=== PATIENT | female | born 1955 | race Caucasian/White ===

== ENCOUNTER 2016-08-22 15:07 | Outpatient (CLI) | payer MEDICARE ==
[2016-08-22 15:37] LABS: Hemoglobin A1c 7.4 % (4.0-6.0)
[2016-08-22 15:42] LABS: ALT (SGPT) 18 U/L (0-55); AST (SGOT) 20 U/L (5-34); Alkaline Phosphatase 70 U/L (40-150); Anion Gap 17 mmol/L (10-20); BUN (Urea Nitrogen) 37 mg/dL (9.8-20.1); Bilirubin, Total 0.4 mg/dL (0.2-1.2); Calc. Creatinine Clearance 0 mL/min (70-130); Calcium 9.4 mg/dL (7.8-10.44); Carbon Dioxide 28 mmol/L (23-31); Chloride 103 mmol/L (98-107); Estimated GFR-MDRD 41; LDL Cholesterol, Calculated 214 mg/dL; Protein, Total 6.9 g/dL (5.8-8.1)
== END 2016-08-22 15:08 | disposition home or self-care (01) ==
LOC: NAV SJFMSP 15:07
PROVIDERS: ATTEND Family Medicine
DX: E13.610 Other specified diabetes mellitus with diabetic neuropathic arthropathy (principal)
CPT/HCPCS: 80053; 80061; 83036; 84439; 84443

== ENCOUNTER 2016-12-10 11:51 | Outpatient (CLI) | payer MEDICARE ==
[2016-12-10 12:34] LABS: Hemoglobin A1c 8.6 % (4.0-6.0)
[2016-12-10 13:01] LABS: ALT (SGPT) 14 U/L (8-55); AST (SGOT) 16 U/L (5-34); Albumin 3.7 g/dL (3.4-4.8); Alkaline Phosphatase 90 U/L (40-150); Anion Gap 14 mmol/L (10-20); BUN (Urea Nitrogen) 26 mg/dL (9.8-20.1); Bilirubin, Total 0.5 mg/dL (0.2-1.2); Calc. Creatinine Clearance 0 mL/min (70-130); Calcium 9.2 mg/dL (7.8-10.44); Carbon Dioxide 31 mmol/L (23-31); Cardiac Risk 4.1 (Less than 4.5); Chloride 100 mmol/L (98-107); Cholesterol 234 mg/dl (< 200 Desired); Estimated GFR-MDRD 47; Globulin 3.1 g/dL (2.4-3.5); Glucose 187 mg/dL (80-115); HDL Cholesterol 57 mg/dL (>60 Neg Risk); LDL Cholesterol, Calculated 148 mg/dL; Potassium 4.8 mmol/L (3.5-5.1); Protein, Total 6.8 g/dL (6.0-8.3); Sodium 140 mmol/L (136-145); Triglycerides 147 mg/dL (Less than 150)
[2016-12-10 13:19] LABS: Free T4 (Free Thyroxine) 0.88 ng/dL (0.70-1.48); Thyroid Stimulating Hormone 1.4023 uIU/mL (0.35-4.94)
== END 2016-12-10 11:52 | disposition home or self-care (01) ==
LOC: NAVSJIPCSP 11:51
PROVIDERS: ATTEND Family Medicine
DX: E78.5 Hyperlipidemia, unspecified (principal); E03.9 Hypothyroidism, unspecified; E13.610 Other specified diabetes mellitus with diabetic neuropathic arthropathy
CPT/HCPCS: 36415; 80053; 80061; 83036; 84439; 84443

== ENCOUNTER 2017-01-16 13:47 | Inpatient (IN) | payer MEDICARE ==
[2017-01-16 14:05] VITALS: BMI 36.8
[2017-01-16] MEDS ORDERED: HumaLOG 300 UNITS/3 ML VIAL SC PRN (16:23)
[2017-01-16] MEDS ORDERED: Ondansetron HCl/PF 4 MG/2 ML Vial IVP PRN (16:23)
[2017-01-16] MEDS ORDERED: Furosemide 40 MG TAB PO SCH (17:00)
[2017-01-16] MEDS: Acetaminophen 500 MG TAB PO SCH (18:24)
[2017-01-16] MEDS: traMADol HCl 50 MG TAB PO PRN (18:25)
[2017-01-16] MEDS ORDERED: Simvastatin 20 MG TAB PO SCH (21:00)
[2017-01-16] MEDS: Levemir Flexpen 100 UNITS/ML PEN SC SCH (22:03)
[2017-01-16] MEDS: rOPINIRole HCl 0.5 MG TAB PO SCH (22:05)
[2017-01-16] MEDS: Atorvastatin Calcium 20 MG TAB PO SCH (22:06)
[2017-01-16] MEDS: Gabapentin 100 MG CAP PO SCH (22:06)
[2017-01-17] MEDS: Acetaminophen 500 MG TAB PO SCH ×5 (00:49→23:37)
[2017-01-17 05:15] LABS: #Basophils 0.1 thou/uL (0.0-0.2); #Eosinphils 0.7 thou/uL (0.0-0.7); #Lymphocytes 1.6 thou/uL (1.20-3.40); #Monocytes 0.7 thou/uL (0.11-0.59); #Neutrophils 5.1 thou/uL (1.40-6.50); %Basophils 1.1 % (0.0-1.0); %Eosinophils 8.9 % (0.0-10.0); %Lymphocytes 19.5 % (21.0-51.0); %Monocytes 8.7 % (0.0-10.0); %Neutrophils 61.7 % (42.0-75.0); Mean Corpuscular HGB CONC 32.5 g/dL (32.0-36.0); Mean Corpuscular Hemoglobin 28.9 pg (27.0-31.0); Mean Corpuscular Volume 89.2 fl (81.0-99.0); Mean Platelet Volume 6.4 fL (7.4-10.4); Platelet Count 252 thou/uL (130-400); RBC Distribution Width 13.2 % (11.5-14.5); Red Blood Cell (RBC) Count 3.11 mill/uL (4.20-5.40); White Blood Cell (WBC) Count 8.3 thou/uL (4.8-10.8)
[2017-01-17 05:31] LABS: Anion Gap 13 mmol/L (10-20); BUN (Urea Nitrogen) 26 mg/dL (9.8-20.1); Calc. Creatinine Clearance 99 mL/min (70-130); Calcium 9.2 mg/dL (7.8-10.44); Carbon Dioxide 32 mmol/L (23-31); Chloride 100 mmol/L (98-107); Estimated GFR-MDRD 57; Glucose 85 mg/dL (80-115); Potassium 4.3 mmol/L (3.5-5.1); Sodium 141 mmol/L (136-145)
[2017-01-17] MEDS: Levothyroxine Sodium 75 MCG TAB PO SCH (05:41)
[2017-01-17] MEDS: Aspirin 325 MG TAB PO SCH (08:36)
[2017-01-17] MEDS: Ascorbic Acid 500 mg Chewable Tablet PO SCH (08:36)
[2017-01-17] MEDS: Docusate 100 MG CAP PO SCH (08:36)
[2017-01-17] MEDS: Gabapentin 100 MG CAP PO SCH ×3 (08:37→21:29)
[2017-01-17] MEDS: Furosemide 20 MG TAB PO SCH (08:37)
[2017-01-17] MEDS: Ferrous Sulfate 325 MG TAB PO SCH (08:37)
[2017-01-17] MEDS: Levemir Flexpen 100 UNITS/ML PEN SC SCH ×2 (08:38→21:29)
[2017-01-17] MEDS: Meclizine HCl 25 MG TAB PO SCH (08:40)
[2017-01-17] MEDS: traMADol HCl 50 MG TAB PO PRN ×2 (08:41→21:33)
[2017-01-17] MEDS ORDERED: Dextrose 5% in Water 1,000 ML IV PRN (11:55)
[2017-01-17] MEDS ORDERED: Dextrose 50% Abboject 50 ML SYRINGE IVP PRN (11:55)
[2017-01-17] MEDS ORDERED: Furosemide 40 MG TAB PO SCH (21:00)
[2017-01-17] MEDS: Atorvastatin Calcium 20 MG TAB PO SCH (21:29)
[2017-01-17] MEDS: rOPINIRole HCl 0.5 MG TAB PO SCH (21:29)
[2017-01-18] MEDS: Levothyroxine Sodium 75 MCG TAB PO SCH (06:22)
[2017-01-18] MEDS: Acetaminophen 500 MG TAB PO SCH ×4 (06:22→23:38)
[2017-01-18] MEDS: Ascorbic Acid 500 mg Chewable Tablet PO SCH (08:29)
[2017-01-18] MEDS: Furosemide 20 MG TAB PO SCH (08:29)
[2017-01-18] MEDS: Docusate 100 MG CAP PO SCH (08:29)
[2017-01-18] MEDS: Ferrous Sulfate 325 MG TAB PO SCH (08:29)
[2017-01-18] MEDS: Aspirin 325 MG TAB PO SCH (08:29)
[2017-01-18] MEDS: Meclizine HCl 25 MG TAB PO SCH (08:30)
[2017-01-18] MEDS: traMADol HCl 50 MG TAB PO PRN ×2 (08:30→21:05)
[2017-01-18] MEDS: Levemir Flexpen 100 UNITS/ML PEN SC SCH ×2 (08:31→21:04)
[2017-01-18] MEDS: Gabapentin 100 MG CAP PO SCH ×3 (08:32→21:05)
[2017-01-18] MEDS: Furosemide 40 MG TAB PO SCH (17:23)
[2017-01-18] MEDS: Atorvastatin Calcium 20 MG TAB PO SCH (21:05)
[2017-01-18] MEDS: rOPINIRole HCl 0.5 MG TAB PO SCH (21:05)
[2017-01-19] MEDS: Acetaminophen 500 MG TAB PO SCH ×3 (06:19→17:45)
[2017-01-19] MEDS: Levothyroxine Sodium 75 MCG TAB PO SCH (06:19)
[2017-01-19] MEDS: Furosemide 20 MG TAB PO SCH (08:03)
[2017-01-19] MEDS: Docusate 100 MG CAP PO SCH (08:04)
[2017-01-19] MEDS: Ferrous Sulfate 325 MG TAB PO SCH (08:04)
[2017-01-19] MEDS: traMADol HCl 50 MG TAB PO PRN ×2 (08:05→17:50)
[2017-01-19] MEDS: Gabapentin 100 MG CAP PO SCH ×3 (08:05→21:00)
[2017-01-19] MEDS: Aspirin 325 MG TAB PO SCH (08:06)
[2017-01-19] MEDS: Meclizine HCl 25 MG TAB PO SCH (08:06)
[2017-01-19] MEDS: Ascorbic Acid 500 mg Chewable Tablet PO SCH (08:06)
[2017-01-19] MEDS: Levemir Flexpen 100 UNITS/ML PEN SC SCH ×2 (08:07→21:01)
[2017-01-19] MEDS: Furosemide 40 MG TAB PO SCH (17:45)
[2017-01-19] MEDS: HumaLOG 300 UNITS/3 ML VIAL SC PRN (18:40)
[2017-01-19] MEDS: Atorvastatin Calcium 20 MG TAB PO SCH (21:00)
[2017-01-19] MEDS: rOPINIRole HCl 0.5 MG TAB PO SCH (21:01)
[2017-01-20] MEDS: Acetaminophen 500 MG TAB PO SCH ×4 (00:22→17:31)
[2017-01-20] MEDS: Levothyroxine Sodium 75 MCG TAB PO SCH (06:01)
[2017-01-20] MEDS: Docusate 100 MG CAP PO SCH (08:41)
[2017-01-20] MEDS: Levemir Flexpen 100 UNITS/ML PEN SC SCH ×2 (08:41→21:07)
[2017-01-20] MEDS: Gabapentin 100 MG CAP PO SCH ×3 (08:42→21:09)
[2017-01-20] MEDS: Ascorbic Acid 500 mg Chewable Tablet PO SCH (08:42)
[2017-01-20] MEDS: Furosemide 20 MG TAB PO SCH (08:42)
[2017-01-20] MEDS: Meclizine HCl 25 MG TAB PO SCH (08:43)
[2017-01-20] MEDS: Ferrous Sulfate 325 MG TAB PO SCH (08:43)
[2017-01-20] MEDS: Aspirin 325 MG TAB PO SCH (08:43)
[2017-01-20] MEDS: traMADol HCl 50 MG TAB PO PRN ×2 (08:43→17:33)
[2017-01-20] MEDS: HumaLOG 300 UNITS/3 ML VIAL SC PRN (11:50)
[2017-01-20] MEDS: Furosemide 40 MG TAB PO SCH (17:31)
[2017-01-20] MEDS ORDERED: Lisinopril 10 MG TAB PO SCH (21:00)
[2017-01-20] MEDS: Atorvastatin Calcium 20 MG TAB PO SCH (21:08)
[2017-01-20] MEDS: rOPINIRole HCl 0.5 MG TAB PO SCH (21:09)
[2017-01-21] MEDS: Acetaminophen 500 MG TAB PO SCH (00:28)
[2017-01-21] MEDS: traMADol HCl 50 MG TAB PO PRN ×2 (02:22→21:00)
[2017-01-21] MEDS: Meclizine HCl 25 MG TAB PO SCH (09:15)
[2017-01-21] MEDS: Ferrous Sulfate 325 MG TAB PO SCH (09:15)
[2017-01-21] MEDS: Levemir Flexpen 100 UNITS/ML PEN SC SCH ×2 (09:15→20:55)
[2017-01-21] MEDS: Aspirin 325 MG TAB PO SCH (09:15)
[2017-01-21] MEDS: Ascorbic Acid 500 mg Chewable Tablet PO SCH (09:15)
[2017-01-21] MEDS: Gabapentin 100 MG CAP PO SCH ×3 (09:15→20:55)
[2017-01-21] MEDS: Docusate 100 MG CAP PO SCH (09:15)
[2017-01-21] MEDS: Furosemide 20 MG TAB PO SCH (09:15)
[2017-01-21] MEDS: Furosemide 40 MG TAB PO SCH (16:58)
[2017-01-21] MEDS: Levothyroxine Sodium 75 MCG TAB PO SCH (20:51)
[2017-01-21] MEDS: Atorvastatin Calcium 20 MG TAB PO SCH (20:55)
[2017-01-21] MEDS: Lisinopril 10 MG TAB PO SCH (20:56)
[2017-01-21] MEDS: rOPINIRole HCl 0.5 MG TAB PO SCH (21:00)
[2017-01-22] MEDS: Acetaminophen 500 MG TAB PO PRN ×2 (00:11→21:09)
[2017-01-22] MEDS: Levothyroxine Sodium 75 MCG TAB PO SCH (05:57)
[2017-01-22] MEDS: Ascorbic Acid 500 mg Chewable Tablet PO SCH (08:33)
[2017-01-22] MEDS: Docusate 100 MG CAP PO SCH (08:33)
[2017-01-22] MEDS: Aspirin 325 MG TAB PO SCH (08:33)
[2017-01-22] MEDS: Ferrous Sulfate 325 MG TAB PO SCH (08:33)
[2017-01-22] MEDS: Furosemide 20 MG TAB PO SCH (08:34)
[2017-01-22] MEDS: Gabapentin 100 MG CAP PO SCH ×3 (08:34→21:04)
[2017-01-22] MEDS: Levemir Flexpen 100 UNITS/ML PEN SC SCH ×2 (08:34→21:05)
[2017-01-22] MEDS: Lisinopril 10 MG TAB PO SCH ×2 (08:35→21:04)
[2017-01-22] MEDS: Meclizine HCl 25 MG TAB PO SCH (08:36)
[2017-01-22] MEDS: Ondansetron ODT 4 MG TAB PO PRN (11:20)
[2017-01-22] MEDS: HumaLOG 300 UNITS/3 ML VIAL SC PRN (16:50)
[2017-01-22] MEDS: Furosemide 40 MG TAB PO SCH (16:50)
[2017-01-22] MEDS: traMADol HCl 50 MG TAB PO PRN (18:11)
[2017-01-22] MEDS: Acetaminophen 500 MG TAB PO SCH ×2 (19:47→19:48)
[2017-01-22] MEDS: Atorvastatin Calcium 20 MG TAB PO SCH (21:04)
[2017-01-22] MEDS: rOPINIRole HCl 1 MG TAB PO SCH (21:04)
[2017-01-23] MEDS: traMADol HCl 50 MG TAB PO PRN ×4 (02:27→21:45)
[2017-01-23] MEDS: Levothyroxine Sodium 75 MCG TAB PO SCH (06:03)
[2017-01-23] MEDS: Aspirin 325 MG TAB PO SCH (09:38)
[2017-01-23] MEDS: Docusate 100 MG CAP PO SCH (09:40)
[2017-01-23] MEDS: Lisinopril 10 MG TAB PO SCH ×2 (09:40→21:47)
[2017-01-23] MEDS: Ferrous Sulfate 325 MG TAB PO SCH (09:40)
[2017-01-23] MEDS: Furosemide 20 MG TAB PO SCH (09:40)
[2017-01-23] MEDS: Gabapentin 100 MG CAP PO SCH ×3 (09:40→21:47)
[2017-01-23] MEDS: Levemir Flexpen 100 UNITS/ML PEN SC SCH ×2 (09:41→21:48)
[2017-01-23] MEDS: Meclizine HCl 25 MG TAB PO SCH (09:41)
[2017-01-23] MEDS: Ascorbic Acid 500 mg Chewable Tablet PO SCH (09:41)
[2017-01-23] MEDS: Ondansetron ODT 4 MG TAB PO PRN ×2 (09:49→21:47)
[2017-01-23] MEDS: HumaLOG 300 UNITS/3 ML VIAL SC PRN ×2 (11:56→16:55)
[2017-01-23] MEDS: Furosemide 40 MG TAB PO SCH (16:55)
[2017-01-23] MEDS: Acetaminophen 500 MG TAB PO PRN (21:45)
[2017-01-23] MEDS: Atorvastatin Calcium 20 MG TAB PO SCH (21:47)
[2017-01-23] MEDS: rOPINIRole HCl 1 MG TAB PO SCH (21:47)
[2017-01-24] MEDS: Levothyroxine Sodium 75 MCG TAB PO SCH (05:39)
[2017-01-24] MEDS: traMADol HCl 50 MG TAB PO PRN ×2 (09:06→20:33)
[2017-01-24] MEDS: Ascorbic Acid 500 mg Chewable Tablet PO SCH (09:07)
[2017-01-24] MEDS: Gabapentin 100 MG CAP PO SCH ×3 (09:07→20:31)
[2017-01-24] MEDS: Furosemide 20 MG TAB PO SCH (09:07)
[2017-01-24] MEDS: Docusate 100 MG CAP PO SCH (09:08)
[2017-01-24] MEDS: Lisinopril 10 MG TAB PO SCH ×2 (09:08→20:30)
[2017-01-24] MEDS: Meclizine HCl 25 MG TAB PO SCH (09:08)
[2017-01-24] MEDS: Ferrous Sulfate 325 MG TAB PO SCH (09:08)
[2017-01-24] MEDS: Levemir Flexpen 100 UNITS/ML PEN SC SCH ×2 (09:09→20:35)
[2017-01-24] MEDS: Aspirin 325 MG TAB PO SCH (09:09)
[2017-01-24] MEDS: HumaLOG 300 UNITS/3 ML VIAL SC PRN (16:32)
[2017-01-24] MEDS: Furosemide 40 MG TAB PO SCH (16:32)
[2017-01-24] MEDS: Atorvastatin Calcium 20 MG TAB PO SCH (20:30)
[2017-01-24] MEDS: rOPINIRole HCl 1 MG TAB PO SCH (20:31)
[2017-01-24] MEDS: Ondansetron ODT 4 MG TAB PO PRN (20:32)
[2017-01-24] MEDS: Acetaminophen 500 MG TAB PO PRN (20:35)
[2017-01-24 21:31] LABS: CKMB 4.1 ng/mL (0-6.6); Troponin I 0.012 ng/mL (< 0.028)
[2017-01-25] MEDS: Levothyroxine Sodium 75 MCG TAB PO SCH (06:03)
[2017-01-25] MEDS: Furosemide 20 MG TAB PO SCH (08:45)
[2017-01-25] MEDS: Meclizine HCl 25 MG TAB PO SCH (08:46)
[2017-01-25] MEDS: Ascorbic Acid 500 mg Chewable Tablet PO SCH (08:47)
[2017-01-25] MEDS: Lisinopril 10 MG TAB PO SCH ×2 (08:47→21:29)
[2017-01-25] MEDS: Ferrous Sulfate 325 MG TAB PO SCH (08:47)
[2017-01-25] MEDS: Docusate 100 MG CAP PO SCH (08:47)
[2017-01-25] MEDS: Levemir Flexpen 100 UNITS/ML PEN SC SCH ×2 (08:48→21:29)
[2017-01-25] MEDS: Aspirin 325 MG TAB PO SCH (08:48)
[2017-01-25] MEDS: Gabapentin 100 MG CAP PO SCH ×3 (08:50→21:29)
[2017-01-25] MEDS: traMADol HCl 50 MG TAB PO PRN ×3 (08:52→23:14)
[2017-01-25] MEDS: Furosemide 40 MG TAB PO SCH (15:50)
[2017-01-25] MEDS: rOPINIRole HCl 1 MG TAB PO SCH (21:29)
[2017-01-25] MEDS: Atorvastatin Calcium 20 MG TAB PO SCH (21:29)
[2017-01-25] MEDS: Acetaminophen 500 MG TAB PO PRN (23:14)
[2017-01-25] MEDS: Ondansetron ODT 4 MG TAB PO PRN (23:14)
[2017-01-26] MEDS: Levothyroxine Sodium 75 MCG TAB PO SCH (05:53)
[2017-01-26] MEDS: Docusate 100 MG CAP PO SCH (09:00)
[2017-01-26] MEDS: Furosemide 20 MG TAB PO SCH (09:00)
[2017-01-26] MEDS: Aspirin 325 MG TAB PO SCH (09:00)
[2017-01-26] MEDS: Ascorbic Acid 500 mg Chewable Tablet PO SCH (09:00)
[2017-01-26] MEDS: Ferrous Sulfate 325 MG TAB PO SCH (09:00)
[2017-01-26] MEDS: Levemir Flexpen 100 UNITS/ML PEN SC SCH ×2 (09:01→20:49)
[2017-01-26] MEDS: Gabapentin 100 MG CAP PO SCH ×3 (09:01→20:52)
[2017-01-26] MEDS: Lisinopril 10 MG TAB PO SCH ×2 (09:03→20:51)
[2017-01-26] MEDS: Meclizine HCl 25 MG TAB PO SCH (09:04)
[2017-01-26] MEDS: traMADol HCl 50 MG TAB PO PRN ×2 (09:13→20:50)
[2017-01-26] MEDS: Furosemide 40 MG TAB PO SCH (17:10)
[2017-01-26] MEDS: Ondansetron ODT 4 MG TAB PO PRN (20:50)
[2017-01-26] MEDS: Atorvastatin Calcium 20 MG TAB PO SCH (20:52)
[2017-01-26] MEDS: rOPINIRole HCl 1 MG TAB PO SCH (20:52)
[2017-01-27] MEDS: Levothyroxine Sodium 75 MCG TAB PO SCH (05:23)
[2017-01-27 07:08] LABS: #Basophils 0.2 thou/uL (0.0-0.2); #Eosinphils 0.8 thou/uL (0.0-0.7); #Lymphocytes 2.3 thou/uL (1.20-3.40); #Monocytes 0.8 thou/uL (0.11-0.59); #Neutrophils 4.9 thou/uL (1.40-6.50); %Basophils 1.8 % (0.0-1.0); %Eosinophils 8.6 % (0.0-10.0); %Neutrophils 54.6 % (42.0-75.0); Hemoglobin 8.8 g/dL (12.0-16.0); Mean Corpuscular HGB CONC 32.1 g/dL (32.0-36.0); Mean Corpuscular Hemoglobin 29.1 pg (27.0-31.0); Mean Corpuscular Volume 90.8 fl (81.0-99.0); Mean Platelet Volume 6.6 fL (7.4-10.4); Platelet Count 351 thou/uL (130-400); RBC Distribution Width 14.4 % (11.5-14.5); Red Blood Cell (RBC) Count 3.03 mill/uL (4.20-5.40); White Blood Cell (WBC) Count 8.9 thou/uL (4.8-10.8)
[2017-01-27 07:24] LABS: Anion Gap 17 mmol/L (10-20); BUN (Urea Nitrogen) 52 mg/dL (9.8-20.1); Calc. Creatinine Clearance 68 mL/min (70-130); Calcium 9.1 mg/dL (7.8-10.44); Carbon Dioxide 29 mmol/L (23-31); Chloride 102 mmol/L (98-107); Estimated GFR-MDRD 37; Glucose 79 mg/dL (80-115); Potassium 5.5 mmol/L (3.5-5.1); Sodium 142 mmol/L (136-145)
[2017-01-27] MEDS: Aspirin 325 MG TAB PO SCH (08:56)
[2017-01-27] MEDS: Docusate 100 MG CAP PO SCH (08:56)
[2017-01-27] MEDS: Ascorbic Acid 500 mg Chewable Tablet PO SCH (08:56)
[2017-01-27] MEDS: Ferrous Sulfate 325 MG TAB PO SCH (08:57)
[2017-01-27] MEDS: Levemir Flexpen 100 UNITS/ML PEN SC SCH ×2 (08:57→20:29)
[2017-01-27] MEDS: Gabapentin 100 MG CAP PO SCH ×3 (08:57→20:28)
[2017-01-27] MEDS: Furosemide 20 MG TAB PO SCH (08:57)
[2017-01-27] MEDS: Lisinopril 10 MG TAB PO SCH (08:58)
[2017-01-27] MEDS: Meclizine HCl 25 MG TAB PO SCH (08:59)
[2017-01-27] MEDS: traMADol HCl 50 MG TAB PO PRN ×2 (08:59→20:34)
[2017-01-27] MEDS: Multivitamin W/ Minerals 1 TAB PO SCH (08:59)
[2017-01-27] MEDS: Ondansetron ODT 4 MG TAB PO PRN ×2 (09:01→20:34)
[2017-01-27] MEDS: Acetaminophen 500 MG TAB PO PRN ×2 (09:01→14:31)
[2017-01-27] MEDS ORDERED: Furosemide 20 MG TAB PO SCH (13:15)
[2017-01-27] MEDS: Atorvastatin Calcium 20 MG TAB PO SCH (20:28)
[2017-01-27] MEDS: rOPINIRole HCl 1 MG TAB PO SCH (20:28)
[2017-01-28] MEDS: Levothyroxine Sodium 75 MCG TAB PO SCH (05:44)
[2017-01-28] MEDS: Furosemide 20 MG TAB PO SCH (08:41)
[2017-01-28] MEDS: Multivitamin W/ Minerals 1 TAB PO SCH (08:41)
[2017-01-28] MEDS: Meclizine HCl 25 MG TAB PO SCH (08:41)
[2017-01-28] MEDS: Docusate 100 MG CAP PO SCH (08:41)
[2017-01-28] MEDS: Aspirin 325 MG TAB PO SCH (08:41)
[2017-01-28] MEDS: Gabapentin 100 MG CAP PO SCH ×3 (08:42→20:38)
[2017-01-28] MEDS: Ferrous Sulfate 325 MG TAB PO SCH (08:42)
[2017-01-28] MEDS: Ascorbic Acid 500 mg Chewable Tablet PO SCH (08:42)
[2017-01-28] MEDS: Ondansetron ODT 4 MG TAB PO PRN ×2 (08:44→20:46)
[2017-01-28] MEDS: Levemir Flexpen 100 UNITS/ML PEN SC SCH (08:46)
[2017-01-28] MEDS: HumaLOG 300 UNITS/3 ML VIAL SC PRN ×3 (11:37→20:47)
[2017-01-28] MEDS: rOPINIRole HCl 1 MG TAB PO SCH (20:38)
[2017-01-28] MEDS: Atorvastatin Calcium 20 MG TAB PO SCH (20:38)
[2017-01-28] MEDS: traMADol HCl 50 MG TAB PO PRN (20:44)
[2017-01-29] MEDS: Levothyroxine Sodium 75 MCG TAB PO SCH (05:30)
[2017-01-29 05:32] LABS: Anion Gap 12 mmol/L (10-20); BUN (Urea Nitrogen) 47 mg/dL (9.8-20.1); Calc. Creatinine Clearance 76 mL/min (70-130); Calcium 9.4 mg/dL (7.8-10.44); Carbon Dioxide 30 mmol/L (23-31); Chloride 104 mmol/L (98-107); Estimated GFR-MDRD 42; Glucose 92 mg/dL (80-115); Potassium 5.1 mmol/L (3.5-5.1); Sodium 141 mmol/L (136-145)
[2017-01-29] MEDS: Ondansetron ODT 4 MG TAB PO PRN ×2 (09:14→20:16)
[2017-01-29] MEDS: traMADol HCl 50 MG TAB PO PRN ×2 (09:16→20:16)
[2017-01-29] MEDS: Acetaminophen 500 MG TAB PO PRN ×2 (09:17→20:10)
[2017-01-29] MEDS: Aspirin 325 MG TAB PO SCH (09:17)
[2017-01-29] MEDS: Ascorbic Acid 500 mg Chewable Tablet PO SCH (09:18)
[2017-01-29] MEDS: Furosemide 20 MG TAB PO SCH (09:18)
[2017-01-29] MEDS: Multivitamin W/ Minerals 1 TAB PO SCH (09:19)
[2017-01-29] MEDS: Meclizine HCl 25 MG TAB PO SCH (09:20)
[2017-01-29] MEDS: Ferrous Sulfate 325 MG TAB PO SCH (09:20)
[2017-01-29] MEDS: Polyethylene Glycol 3350 17 GM Packet PO SCH (09:20)
[2017-01-29] MEDS: Docusate 100 MG CAP PO SCH (09:20)
[2017-01-29] MEDS: Gabapentin 100 MG CAP PO SCH ×3 (09:20→20:09)
[2017-01-29] MEDS: Levemir Flexpen 100 UNITS/ML PEN SC SCH (09:24)
[2017-01-29] MEDS: HumaLOG 300 UNITS/3 ML VIAL SC PRN ×3 (11:20→20:11)
[2017-01-29] MEDS: Atorvastatin Calcium 20 MG TAB PO SCH (20:09)
[2017-01-29] MEDS: rOPINIRole HCl 1 MG TAB PO SCH (20:10)
[2017-01-30] MEDS: Levothyroxine Sodium 75 MCG TAB PO SCH (06:30)
[2017-01-30] MEDS: Ferrous Sulfate 325 MG TAB PO SCH (08:15)
[2017-01-30] MEDS: Aspirin 325 MG TAB PO SCH (08:15)
[2017-01-30] MEDS: Ascorbic Acid 500 mg Chewable Tablet PO SCH (08:15)
[2017-01-30] MEDS: Docusate 100 MG CAP PO SCH (08:15)
[2017-01-30] MEDS: Gabapentin 100 MG CAP PO SCH ×3 (08:16→20:33)
[2017-01-30] MEDS: Levemir Flexpen 100 UNITS/ML PEN SC SCH (08:16)
[2017-01-30] MEDS: Furosemide 20 MG TAB PO SCH (08:16)
[2017-01-30] MEDS: Meclizine HCl 25 MG TAB PO SCH (08:18)
[2017-01-30] MEDS: Multivitamin W/ Minerals 1 TAB PO SCH (08:19)
[2017-01-30] MEDS: Acetaminophen 500 MG TAB PO PRN ×2 (08:22→20:34)
[2017-01-30] MEDS: Ondansetron ODT 4 MG TAB PO PRN ×2 (08:22→20:34)
[2017-01-30] MEDS: Polyethylene Glycol 3350 17 GM Packet PO SCH (08:22)
[2017-01-30] MEDS: traMADol HCl 50 MG TAB PO PRN ×2 (08:23→20:34)
[2017-01-30] MEDS: rOPINIRole HCl 1 MG TAB PO SCH (20:33)
[2017-01-30] MEDS: Atorvastatin Calcium 20 MG TAB PO SCH (20:33)
[2017-01-30] MEDS: HumaLOG 300 UNITS/3 ML VIAL SC PRN (20:35)
[2017-01-31] MEDS: Levothyroxine Sodium 75 MCG TAB PO SCH (05:32)
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
[2017-01-31] MEDS: Polyethylene Glycol 3350 17 GM Packet PO SCH (08:41)
[2017-01-31] MEDS: Furosemide 20 MG TAB PO SCH (08:42)
[2017-01-31] MEDS: Aspirin 325 MG TAB PO SCH (08:42)
[2017-01-31] MEDS: Ferrous Sulfate 325 MG TAB PO SCH (08:43)
[2017-01-31] MEDS: Ascorbic Acid 500 mg Chewable Tablet PO SCH (08:43)
[2017-01-31] MEDS: Meclizine HCl 25 MG TAB PO SCH (08:44)
[2017-01-31] MEDS: Multivitamin W/ Minerals 1 TAB PO SCH (08:44)
[2017-01-31] MEDS: Gabapentin 100 MG CAP PO SCH ×3 (08:45→21:07)
[2017-01-31] MEDS: Docusate 100 MG CAP PO SCH (08:45)
[2017-01-31] MEDS: Levemir Flexpen 100 UNITS/ML PEN SC SCH (08:50)
[2017-01-31] MEDS: HumaLOG 300 UNITS/3 ML VIAL SC PRN (21:04)
[2017-01-31] MEDS: rOPINIRole HCl 1 MG TAB PO SCH (21:07)
[2017-01-31] MEDS: Atorvastatin Calcium 20 MG TAB PO SCH (21:07)
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
[2017-02-01] MEDS: Levothyroxine Sodium 75 MCG TAB PO SCH (06:16)
[2017-02-01] MEDS: Ferrous Sulfate 325 MG TAB PO SCH (08:37)
[2017-02-01] MEDS: Docusate 100 MG CAP PO SCH (08:37)
[2017-02-01] MEDS: Aspirin 325 MG TAB PO SCH (08:37)
[2017-02-01] MEDS: Ascorbic Acid 500 mg Chewable Tablet PO SCH (08:37)
[2017-02-01] MEDS: Furosemide 20 MG TAB PO SCH (08:37)
[2017-02-01] MEDS: Gabapentin 100 MG CAP PO SCH ×3 (08:38→21:47)
[2017-02-01] MEDS: Levemir Flexpen 100 UNITS/ML PEN SC SCH (08:39)
[2017-02-01] MEDS: Meclizine HCl 25 MG TAB PO SCH (08:40)
[2017-02-01] MEDS: Polyethylene Glycol 3350 17 GM Packet PO SCH (08:40)
[2017-02-01] MEDS: Multivitamin W/ Minerals 1 TAB PO SCH (08:40)
[2017-02-01] MEDS: HumaLOG 300 UNITS/3 ML VIAL SC PRN (11:44)
[2017-02-01] MEDS: Ondansetron ODT 4 MG TAB PO PRN (11:44)
[2017-02-01] MEDS: Atorvastatin Calcium 20 MG TAB PO SCH (21:46)
[2017-02-01] MEDS: rOPINIRole HCl 1 MG TAB PO SCH (21:46)
[2017-02-01] MEDS: Acetaminophen 500 MG TAB PO PRN (21:47)
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
[2017-02-02 05:18] LABS: #Basophils 0.1 thou/uL (0.0-0.2); #Eosinphils 0.6 thou/uL (0.0-0.7); #Lymphocytes 2.3 thou/uL (1.20-3.40); #Monocytes 0.7 thou/uL (0.11-0.59); #Neutrophils 3.4 thou/uL (1.40-6.50); %Basophils 1.5 % (0.0-1.0); %Eosinophils 8.3 % (0.0-10.0); %Lymphocytes 32.6 % (21.0-51.0); %Monocytes 9.8 % (0.0-10.0); %Neutrophils 47.8 % (42.0-75.0); Hemoglobin 8.6 g/dL (12.0-16.0); Mean Corpuscular HGB CONC 32.6 g/dL (32.0-36.0); Mean Corpuscular Hemoglobin 29.3 pg (27.0-31.0); Mean Corpuscular Volume 89.8 fl (81.0-99.0); Mean Platelet Volume 6.9 fL (7.4-10.4); Platelet Count 231 thou/uL (130-400); RBC Distribution Width 13.7 % (11.5-14.5); Red Blood Cell (RBC) Count 2.94 mill/uL (4.20-5.40); White Blood Cell (WBC) Count 7.1 thou/uL (4.8-10.8)
[2017-02-02 05:34] LABS: Anion Gap 12 mmol/L (10-20); BUN (Urea Nitrogen) 35 mg/dL (9.8-20.1); Calc. Creatinine Clearance 87 mL/min (70-130); Calcium 9.1 mg/dL (7.8-10.44); Carbon Dioxide 27 mmol/L (23-31); Chloride 105 mmol/L (98-107); Estimated GFR-MDRD 50; Glucose 148 mg/dL (80-115); Potassium 4.5 mmol/L (3.5-5.1); Sodium 139 mmol/L (136-145)
[2017-02-02] MEDS: Levothyroxine Sodium 75 MCG TAB PO SCH (06:03)
[2017-02-02] MEDS: Polyethylene Glycol 3350 17 GM Packet PO SCH (09:01)
[2017-02-02] MEDS: Aspirin 325 MG TAB PO SCH (09:02)
[2017-02-02] MEDS: Meclizine HCl 25 MG TAB PO SCH (09:02)
[2017-02-02] MEDS: Ascorbic Acid 500 mg Chewable Tablet PO SCH (09:03)
[2017-02-02] MEDS: Furosemide 20 MG TAB PO SCH (09:03)
[2017-02-02] MEDS: Docusate 100 MG CAP PO SCH (09:03)
[2017-02-02] MEDS: Multivitamin W/ Minerals 1 TAB PO SCH (09:03)
[2017-02-02] MEDS: Ferrous Sulfate 325 MG TAB PO SCH (09:03)
[2017-02-02] MEDS: Gabapentin 100 MG CAP PO SCH ×3 (09:03→21:30)
[2017-02-02] MEDS: Levemir Flexpen 100 UNITS/ML PEN SC SCH (09:05)
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
[2017-02-02] MEDS: HumaLOG 300 UNITS/3 ML VIAL SC PRN (16:36)
[2017-02-02] MEDS: traMADol HCl 50 MG TAB PO PRN (19:53)
[2017-02-02] MEDS: rOPINIRole HCl 1 MG TAB PO SCH (21:30)
[2017-02-02] MEDS: Atorvastatin Calcium 20 MG TAB PO SCH (21:30)
[2017-02-03] MEDS: Levothyroxine Sodium 75 MCG TAB PO SCH (06:11)
[2017-02-03] MEDS: Furosemide 20 MG TAB PO SCH (09:25)
[2017-02-03] MEDS: Meclizine HCl 25 MG TAB PO SCH (09:25)
[2017-02-03] MEDS: Polyethylene Glycol 3350 17 GM Packet PO SCH (09:25)
[2017-02-03] MEDS: Ferrous Sulfate 325 MG TAB PO SCH (09:25)
[2017-02-03] MEDS: Aspirin 325 MG TAB PO SCH (09:25)
[2017-02-03] MEDS: Docusate 100 MG CAP PO SCH (09:25)
[2017-02-03] MEDS: Multivitamin W/ Minerals 1 TAB PO SCH (09:25)
[2017-02-03] MEDS: Ascorbic Acid 500 mg Chewable Tablet PO SCH (09:25)
[2017-02-03] MEDS: Gabapentin 100 MG CAP PO SCH ×3 (09:25→20:24)
[2017-02-03] MEDS: Levemir Flexpen 100 UNITS/ML PEN SC SCH (09:26)
[2017-02-03] MEDS: HumaLOG 300 UNITS/3 ML VIAL SC PRN ×2 (11:52→16:07)
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
[2017-02-03] MEDS: Atorvastatin Calcium 20 MG TAB PO SCH (20:23)
[2017-02-03] MEDS: Ondansetron ODT 4 MG TAB PO PRN (20:24)
[2017-02-03] MEDS: Acetaminophen 500 MG TAB PO PRN (20:24)
[2017-02-03] MEDS: rOPINIRole HCl 1 MG TAB PO SCH (20:24)
[2017-02-03] MEDS: traMADol HCl 50 MG TAB PO PRN (20:25)
[2017-02-04] MEDS: Levothyroxine Sodium 75 MCG TAB PO SCH (06:01)
[2017-02-04] MEDS: Ascorbic Acid 500 mg Chewable Tablet PO SCH (08:20)
[2017-02-04] MEDS: Aspirin 325 MG TAB PO SCH (08:20)
[2017-02-04] MEDS: Docusate 100 MG CAP PO SCH (08:20)
[2017-02-04] MEDS: Ferrous Sulfate 325 MG TAB PO SCH (08:21)
[2017-02-04] MEDS: Furosemide 20 MG TAB PO SCH (08:21)
[2017-02-04] MEDS: Gabapentin 100 MG CAP PO SCH ×2 (08:21→14:03)
[2017-02-04] MEDS: Levemir Flexpen 100 UNITS/ML PEN SC SCH (08:22)
[2017-02-04] MEDS: Polyethylene Glycol 3350 17 GM Packet PO SCH (08:23)
[2017-02-04] MEDS: Multivitamin W/ Minerals 1 TAB PO SCH (08:23)
[2017-02-04] MEDS: Meclizine HCl 25 MG TAB PO SCH (08:24)
[2017-02-04 08:58] VITALS: BP 164/74; TEMP 97.4
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
== END 2017-02-04 14:39 | disposition home or self-care (01) | DRG 561 ==
LOC: NAV ACUTE 13:47
PROVIDERS: ADMIT Internal Medicine; ATTEND Internal Medicine
PROC: 2W3CX1Z Immobilization of Right Lower Arm using Splint (ICD-10-PCS; principal; 2017-01-19)
DX: S22.41XD Multiple fractures of ribs, right side, subsequent encounter for fracture with routine healing (principal); E11.42 Type 2 diabetes mellitus with diabetic polyneuropathy; S32.019D Unspecified fracture of first lumbar vertebra, subsequent encounter for fracture with routine healing; S36.039D Unspecified laceration of spleen, subsequent encounter; S32.029D Unspecified fracture of second lumbar vertebra, subsequent encounter for fracture with routine healing; S32.039D Unspecified fracture of third lumbar vertebra, subsequent encounter for fracture with routine healing; I25.10 Atherosclerotic heart disease of native coronary artery without angina pectoris; V49.9XXD Car occupant (driver) (passenger) injured in unspecified traffic accident, subsequent encounter; I10 Essential (primary) hypertension; E78.5 Hyperlipidemia, unspecified; M79.641 Pain in right hand; E87.5 Hyperkalemia; N28.9 Disorder of kidney and ureter, unspecified; T50.1X5A Adverse effect of loop [high-ceiling] diuretics, initial encounter; E66.9 Obesity, unspecified; Z68.36 Body mass index [BMI] 36.0-36.9, adult; Z48.812 Encounter for surgical aftercare following surgery on the circulatory system; Z66 Do not resuscitate; K21.9 Gastro-esophageal reflux disease without esophagitis; Z86.73 Personal history of transient ischemic attack (TIA), and cerebral infarction without residual deficits; F41.9 Anxiety disorder, unspecified; F32.9 Major depressive disorder, single episode, unspecified; E03.9 Hypothyroidism, unspecified; G25.81 Restless legs syndrome; Z98.84 Bariatric surgery status; S40.022D Contusion of left upper arm, subsequent encounter; S40.021D Contusion of right upper arm, subsequent encounter; S80.12XD Contusion of left lower leg, subsequent encounter; S80.11XD Contusion of right lower leg, subsequent encounter
CPT/HCPCS: 36415; 36416; 80048; 82553; 84484; 85025; A4216; J1815; J2405; Q0162

== ENCOUNTER 2017-03-23 13:23 | Outpatient (CLI) | payer MEDICARE ==
[2017-03-25 10:37] LABS: Ref Lab Test Ordered PAVAL
== END 2017-03-23 13:24 | disposition home or self-care (01) ==
LOC: NAVSJIPCSP 13:23
PROVIDERS: ATTEND Student in an Organized Health Care Education/Training Program
DX: H53.2 Diplopia (principal); M62.81 Muscle weakness (generalized); R42 Dizziness and giddiness; R29.818 Other symptoms and signs involving the nervous system
CPT/HCPCS: 36415

== ENCOUNTER 2017-05-11 18:47 | Inpatient (IN) | payer MEDICARE ==
[2017-05-11 19:58] VITALS: BMI 34.6
[2017-05-11] MEDS ORDERED: HumaLOG 300 UNITS/3 ML VIAL SC PRN (20:49)
[2017-05-11] MEDS ORDERED: Dextrose 5% in Water 1,000 ML IV PRN (20:49)
[2017-05-11] MEDS ORDERED: Dextrose 50% Abboject 50 ML SYRINGE IVP PRN (20:52)
[2017-05-11] MEDS ORDERED: Senokot S 8.6-50 MG TAB PO PRN (20:55)
[2017-05-11] MEDS ORDERED: Acetaminophen 325 MG TAB PO PRN (21:01)
[2017-05-11] MEDS ORDERED: Mag-Al Plus 1200 MG/1200 MG/120 MG/30 ML UDCUP PO PRN (21:02)
[2017-05-11] MEDS ORDERED: Bisacodyl 5 MG TAB PO PRN (21:04)
[2017-05-11] MEDS ORDERED: Calcium Carbonate 500 MG ChewTAB PO PRN (21:05)
[2017-05-11] MEDS ORDERED: Diazepam 5 MG TAB PO PRN (21:06)
[2017-05-11] MEDS ORDERED: hydrALAZINE 25 MG TAB PO SCH (21:15)
[2017-05-11] MEDS ORDERED: Atorvastatin Calcium 40 MG TAB PO SCH (21:15)
[2017-05-11] MEDS ORDERED: Levemir Flexpen 100 UNITS/ML PEN SC SCH (21:15)
[2017-05-11] MEDS ORDERED: Gabapentin 100 MG CAP PO SCH (21:15)
[2017-05-11] MEDS: prednisoLONE 1% Ophth Susp 5 ml Bottle EA EYE SCH (21:54)
[2017-05-11] MEDS: rOPINIRole HCl 1 MG TAB PO SCH (21:56)
[2017-05-11] MEDS: traMADol HCl 50 MG TAB PO SCH (21:57)
[2017-05-12 05:29] LABS: #Basophils 0.1 thou/uL (0.0-0.2); #Eosinphils 0.4 thou/uL (0.0-0.7); #Lymphocytes 2.8 thou/uL (1.20-3.40); #Monocytes 0.7 thou/uL (0.11-0.59); #Neutrophils 4.9 thou/uL (1.40-6.50); %Eosinophils 4.7 % (0.0-10.0); %Lymphocytes 31.4 % (21.0-51.0); %Monocytes 7.5 % (0.0-10.0); %Neutrophils 55.3 % (42.0-75.0); Hemoglobin 11.7 g/dL (12.0-16.0); Mean Corpuscular HGB CONC 32.5 g/dL (32.0-36.0); Mean Corpuscular Hemoglobin 30.4 pg (27.0-31.0); Mean Corpuscular Volume 93.5 fl (81.0-99.0); Mean Platelet Volume 7.8 fL (7.4-10.4); Platelet Count 169 thou/uL (130-400); RBC Distribution Width 12.6 % (11.5-14.5); Red Blood Cell (RBC) Count 3.85 mill/uL (4.20-5.40); White Blood Cell (WBC) Count 8.9 thou/uL (4.8-10.8)
[2017-05-12] MEDS: traMADol HCl 50 MG TAB PO SCH ×3 (05:41→21:19)
[2017-05-12] MEDS: Levothyroxine Sodium 75 MCG TAB PO SCH (05:41)
[2017-05-12 05:46] LABS: Anion Gap 12 mmol/L (10-20); BUN (Urea Nitrogen) 26 mg/dL (9.8-20.1); Calc. Creatinine Clearance 85 mL/min (70-130); Calcium 9.3 mg/dL (7.8-10.44); Carbon Dioxide 29 mmol/L (23-31); Chloride 101 mmol/L (98-107); Estimated GFR-MDRD 52; Glucose 134 mg/dL (80-115); Potassium 4.7 mmol/L (3.5-5.1); Sodium 137 mmol/L (136-145)
[2017-05-12] MEDS: prednisoLONE 1% Ophth Susp 5 ml Bottle EA EYE SCH ×4 (08:38→21:17)
[2017-05-12] MEDS: Aspirin 325 MG TAB PO SCH (08:39)
[2017-05-12] MEDS: Fish Oil 1,000 MG CAP PO SCH (08:39)
[2017-05-12] MEDS: Gabapentin 100 MG CAP PO SCH ×3 (08:39→21:19)
[2017-05-12] MEDS: hydrALAZINE 25 MG TAB PO SCH ×2 (08:39→21:19)
[2017-05-12] MEDS: Levemir Flexpen 100 UNITS/ML PEN SC SCH ×2 (08:40→21:18)
[2017-05-12] MEDS ORDERED: FLU VACC QS2017-18 36 mo. & older 0.5 ML SYRINGE IM ONE (09:00)
[2017-05-12] MEDS: HumaLOG 300 UNITS/3 ML VIAL SC PRN (17:09)
[2017-05-12] MEDS: Enoxaparin Sodium 40 MG/0.4 ML SYRINGE SC SCH (21:18)
[2017-05-12] MEDS: rOPINIRole HCl 1 MG TAB PO SCH (21:19)
[2017-05-12] MEDS: Atorvastatin Calcium 40 MG TAB PO SCH (21:19)
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
[2017-05-13] MEDS: traMADol HCl 50 MG TAB PO SCH ×3 (06:05→21:46)
[2017-05-13] MEDS: Levothyroxine Sodium 75 MCG TAB PO SCH (06:05)
[2017-05-13] MEDS: Fish Oil 1,000 MG CAP PO SCH (08:01)
[2017-05-13] MEDS: hydrALAZINE 25 MG TAB PO SCH ×2 (08:01→20:37)
[2017-05-13] MEDS: Gabapentin 100 MG CAP PO SCH ×3 (08:01→20:39)
[2017-05-13] MEDS: Aspirin 325 MG TAB PO SCH (08:01)
[2017-05-13] MEDS: prednisoLONE 1% Ophth Susp 5 ml Bottle EA EYE SCH ×4 (08:02→20:39)
[2017-05-13] MEDS: Levemir Flexpen 100 UNITS/ML PEN SC SCH ×2 (08:02→21:49)
--- NOTE | 2017-05-13 13:20 | PRG ---
DATE OF SERVICE: 05/13/2017 SUBJECTIVE: Ms. Kraus is doing well. Denies any complaints except for some persistent dizziness. OBJECTIVE: VITAL SIGNS: She is afebrile. Heart rate is 62, respirations 18, oxygen saturation is 96% and blood pressure is 134/58. CARDIOVASCULAR SYSTEM: S1, S2 plus. RESPIRATORY SYSTEM: Normal vesicular breath sounds. ABDOMEN: Soft and nontender. Bowel sounds heard in all quadrants. EXTREMITIES: Without cyanosis or clubbing. CENTRAL NERVOUS SYSTEM: Grossly nonfocal. LABORATORY VALUES: Blood sugars are 202, 157, 70 and 184. IMPRESSION: 1. Possible transient ischemic attack. 2. History of cerebrovascular accident in the past. 3. Coronary artery disease. 4. Diabetes mellitus type 2. 5. Hypertension. 6. Dyslipidemia. 7. Hypothyroidism. 8. Familial tremor. 9. Gastroesophageal reflux disease. 10. Anxiety and depression. PLAN: 1. Continue current medications. 2. Nutritional support. 3. 1800-calorie heart healthy ADA diet. 4. Accu-Cheks with sliding scale coverage. 5. Deep venous thrombosis and stress ulcer prophylaxis. 6. Decubitus precautions. 7. Physical therapy. 8. No family at the bedside.
[2017-05-13] MEDS: Atorvastatin Calcium 40 MG TAB PO SCH (20:37)
[2017-05-13] MEDS: Enoxaparin Sodium 40 MG/0.4 ML SYRINGE SC SCH (20:38)
[2017-05-13] MEDS: rOPINIRole HCl 1 MG TAB PO SCH (20:40)
[2017-05-14] MEDS: Levothyroxine Sodium 75 MCG TAB PO SCH (05:29)
[2017-05-14] MEDS: traMADol HCl 50 MG TAB PO SCH ×3 (05:29→22:07)
[2017-05-14] MEDS: Levemir Flexpen 100 UNITS/ML PEN SC SCH ×2 (09:12→22:09)
[2017-05-14] MEDS: Gabapentin 100 MG CAP PO SCH ×3 (09:14→22:08)
[2017-05-14] MEDS: Aspirin 325 MG TAB PO SCH (09:14)
[2017-05-14] MEDS: Fish Oil 1,000 MG CAP PO SCH (09:15)
[2017-05-14] MEDS: hydrALAZINE 25 MG TAB PO SCH ×2 (09:16→22:07)
[2017-05-14] MEDS: prednisoLONE 1% Ophth Susp 5 ml Bottle EA EYE SCH ×4 (09:18→22:10)
[2017-05-14] MEDS: HumaLOG 300 UNITS/3 ML VIAL SC PRN ×2 (11:48→17:26)
--- NOTE | 2017-05-14 13:05 | PRG ---
DATE OF SERVICE: 05/14/2017 SUBJECTIVE: Ms. Kraus is doing well, continues to have some dizziness, worse with activity during therapy. Apparently, her systolic blood pressure dropped 20 points. She is drinking fluids. She de nies any chest pain or shortness of breath. No diarrhea. OBJECTIVE: VITAL SIGNS: She is afebrile, heart rate is 58, respirations 18, oxygen saturation is 95%. The docu mentation I have here is blood pressures ranging from 154/65-131/63. CARDIOVASCULAR SYSTEM: S1, S2 plus. RESPIRATORY SYSTEM: Normal vesicular breath sounds. ABDOMEN: Soft, obese, nontender, bowel sounds heard in all quadrants. EXTREMITIES: Without cyanosis or clubbing. LABORATORY VALUES: Blood sugars are 184, 150, 150, 68 and 277. IMPRESSION: 1. Possible transient ischemic attack. 2. Possible orthostatic hypotension. 3. Coronary artery disease. 4. Diabetes mellitus type 2. 5. Hypertension. 6. Dyslipidemia. 7. Hypothyroidism. 8. Gastroesophageal reflux disease. PLAN: 1. Thigh high EUGENE hose. 2. Encourage p.o. fluid intake. 3. Monitor orthostatics. 4. Heart healthy diet. 5. Accu-Cheks with sliding scale coverage. 6. Deep venous thrombosis and stress ulcer prophylaxis. 7. Decubitus precautions. 8. Routine laboratory values. 9. I discussed with the patient in detail and all questions answered.
[2017-05-14] MEDS: Atorvastatin Calcium 40 MG TAB PO SCH (22:07)
[2017-05-14] MEDS: rOPINIRole HCl 1 MG TAB PO SCH (22:08)
[2017-05-14] MEDS: Enoxaparin Sodium 40 MG/0.4 ML SYRINGE SC SCH (22:09)
[2017-05-15] MEDS: traMADol HCl 50 MG TAB PO SCH ×3 (05:57→21:14)
[2017-05-15] MEDS: Levothyroxine Sodium 75 MCG TAB PO SCH (05:57)
--- NOTE | 2017-05-15 09:19 | PRG ---
DATE OF SERVICE: 05/15/2017 SUBJECTIVE: Ms. Kraus is doing well. Denies any complaints, tolerating her EUGENE hose. She did hav e her orthostatics checked yesterday evening and her sitting blood pressure was 191/74, standing was 139 and supine was 153/74. We will continue to monitor her orthostatics. She is drinking more fluid s and cutting down on her caffeine. OBJECTIVE: VITAL SIGNS: She is afebrile, heart rate is 61, respiration is 20, oxygen saturation is 98%. CARDIOVASCULAR SYSTEM: S1, S2 plus. RESPIRATORY SYSTEM: Normal vesicular breath sounds. ABDOMEN: Soft, nontender, bowel sounds heard in all quadrants. EXTREMITIES: Without cyanosis or clubbing. IMPRESSION: 1. Dizziness and weakness possibly related to TIA. 2. Possible orthostasis. 3. Coronary artery disease. 4. Diabetes mellitus type 2. 5. Hypertension. 6. Dyslipidemia. 7. Hypothyroidism. 8. Gastroesophageal reflux disease. PLAN: 1. Continue thigh high EUGENE hose. 2. Daily orthostatics. 3. Encourage p.o. fluid intake. 4. Accu-Cheks with sliding scale coverage. 5. Continue DVT and stress ulcer prophylaxis. 6. Physical therapy. 7. Routine laboratory values. Discussed with the patient in detail.
[2017-05-15] MEDS: Aspirin 325 MG TAB PO SCH (09:21)
[2017-05-15] MEDS: hydrALAZINE 25 MG TAB PO SCH ×2 (09:21→21:12)
[2017-05-15] MEDS: Fish Oil 1,000 MG CAP PO SCH (09:21)
[2017-05-15] MEDS: Gabapentin 100 MG CAP PO SCH ×3 (09:21→21:13)
[2017-05-15] MEDS: Levemir Flexpen 100 UNITS/ML PEN SC SCH ×2 (09:22→21:12)
[2017-05-15] MEDS: prednisoLONE 1% Ophth Susp 5 ml Bottle EA EYE SCH ×4 (09:22→21:12)
[2017-05-15] MEDS: Enoxaparin Sodium 40 MG/0.4 ML SYRINGE SC SCH (21:11)
[2017-05-15] MEDS: Atorvastatin Calcium 40 MG TAB PO SCH (21:13)
[2017-05-15] MEDS: rOPINIRole HCl 1 MG TAB PO SCH (21:13)
[2017-05-16] MEDS: traMADol HCl 50 MG TAB PO SCH ×3 (05:58→21:42)
[2017-05-16] MEDS: Levothyroxine Sodium 75 MCG TAB PO SCH (05:58)
[2017-05-16] MEDS: Aspirin 325 MG TAB PO SCH (08:28)
[2017-05-16] MEDS: Gabapentin 100 MG CAP PO SCH ×3 (08:28→21:42)
[2017-05-16] MEDS: hydrALAZINE 25 MG TAB PO SCH ×2 (08:28→21:42)
[2017-05-16] MEDS: prednisoLONE 1% Ophth Susp 5 ml Bottle EA EYE SCH ×4 (08:29→21:43)
[2017-05-16] MEDS: Fish Oil 1,000 MG CAP PO SCH (08:29)
[2017-05-16] MEDS: Levemir Flexpen 100 UNITS/ML PEN SC SCH ×2 (08:30→21:44)
[2017-05-16] MEDS: rOPINIRole HCl 1 MG TAB PO SCH (21:42)
[2017-05-16] MEDS: Atorvastatin Calcium 40 MG TAB PO SCH (21:42)
[2017-05-16] MEDS: Enoxaparin Sodium 40 MG/0.4 ML SYRINGE SC SCH (21:44)
--- NOTE | 2017-05-16 21:48 | PRG ---
DATE OF SERVICE: 05/16/2017 SUBJECTIVE: The patient is sitting in the chair, feeling well, no complaints of shortness of breath, tolerating her EUGENE hose, feeling better with improved orthostatic blood pressure. OBJECTIVE: Shows blood pressure is 181/79 decreased to 144/65, pulse is 54-60, afebrile. Accu-Cheks ranged from 67-139, hemoglobin 11.7. Lungs are clear. Cardiac examination shows regular rhythm. N o gallops or murmurs. Skin and extremities showed no edema. ASSESSMENT: 1. Uncontrolled diabetes, possible peripheral neuropathy, orthostatic hypotension. 2. Dizziness, weakness with significant microvascular disease, no new changes. 3. Coronary artery disease, asymptomatic. 4. Hypertension, persistent but labile. Continue thigh high EUGENE hose. Continue daily orthostatics. Continue Accu-Cheks and good control of diabetes. Continue stress ulcer prophylaxis. Continue PT.
[2017-05-17] MEDS: traMADol HCl 50 MG TAB PO SCH ×3 (06:08→21:45)
[2017-05-17] MEDS: Levothyroxine Sodium 75 MCG TAB PO SCH (06:08)
[2017-05-17] MEDS: Fish Oil 1,000 MG CAP PO SCH (08:43)
[2017-05-17] MEDS: hydrALAZINE 25 MG TAB PO SCH ×2 (08:43→21:44)
[2017-05-17] MEDS: Aspirin 325 MG TAB PO SCH (08:44)
[2017-05-17] MEDS: Levemir Flexpen 100 UNITS/ML PEN SC SCH ×2 (08:44→21:46)
[2017-05-17] MEDS: Gabapentin 100 MG CAP PO SCH ×3 (08:44→21:44)
[2017-05-17] MEDS: prednisoLONE 1% Ophth Susp 5 ml Bottle EA EYE SCH ×4 (08:45→21:46)
[2017-05-17] MEDS: HumaLOG 300 UNITS/3 ML VIAL SC PRN (16:56)
--- NOTE | 2017-05-17 21:07 | PRG ---
DATE OF SERVICE: 05/17/2017 SUBJECTIVE: The patient feels well, sitting up in a chair, doing crossword puzzles, had decreased di zziness today and has been working well with therapy. OBJECTIVE: VITAL SIGNS: Blood pressure 156/67, pulse 62, temperature 98, O2 sat is 95% on room air. Accu-Cheks are improved ranging from 90-211. LUNGS: Clear. CARDIAC EXAMINATION: Shows regular rhythm. SKIN AND EXTREMITIES: Showed no edema, clubbing or cyanosis. ASSESSMENT: 1. Uncontrolled diabetes, improving greatly in the hospital with no evidence of orthostatic hypotens ion now. 2. Peripheral neuropathy and weakness, possibly due to diabetic neuropathy. 3. Significant microvascular changes possibly contributing somewhat to the dizziness, stable. 4. Asymptomatic coronary artery disease. PLAN: Continue thigh high EUGENE hose. Continue daily orthostatics. Continue Accu-Cheks and good cont rol of diabetes. Continue physical therapy.
[2017-05-17] MEDS: rOPINIRole HCl 1 MG TAB PO SCH (21:44)
[2017-05-17] MEDS: Atorvastatin Calcium 40 MG TAB PO SCH (21:44)
[2017-05-17] MEDS: Enoxaparin Sodium 40 MG/0.4 ML SYRINGE SC SCH (21:46)
[2017-05-18] MEDS: traMADol HCl 50 MG TAB PO SCH ×3 (05:39→21:13)
[2017-05-18] MEDS: Levothyroxine Sodium 75 MCG TAB PO SCH (05:40)
[2017-05-18] MEDS: hydrALAZINE 25 MG TAB PO SCH ×2 (08:34→21:14)
[2017-05-18] MEDS: prednisoLONE 1% Ophth Susp 5 ml Bottle EA EYE SCH ×4 (08:35→21:16)
[2017-05-18] MEDS: Aspirin 325 MG TAB PO SCH (08:36)
[2017-05-18] MEDS: Gabapentin 100 MG CAP PO SCH ×3 (08:36→21:14)
[2017-05-18] MEDS: Fish Oil 1,000 MG CAP PO SCH (08:37)
[2017-05-18] MEDS: Levemir Flexpen 100 UNITS/ML PEN SC SCH ×2 (08:37→21:14)
--- NOTE | 2017-05-18 20:48 | PRG ---
DATE OF SERVICE: 05/18/2017 SUBJECTIVE: Ms. Kraus is doing well. Denies any complaints. Resting comfortably. Her dizziness has pretty much resolved. She apparently is improving with therapy, spoke with Lianet at therapy and she stated that the patient should be ready to go home on Thursday. She apparently does have a caregiver at home. OBJECTIVE: VITAL SIGNS: She is afebrile, heart rate is 60, respirations 18, oxygen saturation is 98%, blood pre ssure is 153/70. CARDIOVASCULAR SYSTEM: S1, S2 Plus. RESPIRATORY SYSTEM: Normal vesicular breath sounds. ABDOMEN: Soft, nontender, bowel sounds heard in all quadrants. EXTREMITIES: Without cyanosis or clubbing. Peripheral pulses are palpable. CENTRAL NERVOUS SYSTEM: Grossly nonfocal, except improving deconditioning. IMPRESSION: 1. Possible transient ischemic attack. 2. Orthostatic hypotension, much improved with EUGENE hose: 3. Diabetes mellitus, type 2. 4. Coronary artery disease without angina. 5. Hypertension. 6. Dyslipidemia. 7. Hypothyroidism. PLAN: 1. Continue current medications. 2. Physical therapy. 3. Nutritional support. 4. Routine laboratory values. 5. Accu-Cheks with sliding scale coverage. 6. Orthostatic precautions. 7. Discussed with the patient in detail and all questions answered.
[2017-05-18] MEDS: Enoxaparin Sodium 40 MG/0.4 ML SYRINGE SC SCH (21:14)
[2017-05-18] MEDS: Atorvastatin Calcium 40 MG TAB PO SCH (21:14)
[2017-05-18] MEDS: rOPINIRole HCl 1 MG TAB PO SCH (21:14)
[2017-05-19] MEDS: traMADol HCl 50 MG TAB PO SCH ×3 (05:47→21:54)
[2017-05-19] MEDS: Levothyroxine Sodium 75 MCG TAB PO SCH (05:47)
[2017-05-19] MEDS: Levemir Flexpen 100 UNITS/ML PEN SC SCH ×2 (08:31→21:57)
[2017-05-19] MEDS: Aspirin 325 MG TAB PO SCH (08:34)
[2017-05-19] MEDS: Gabapentin 100 MG CAP PO SCH ×3 (08:34→21:54)
[2017-05-19] MEDS: hydrALAZINE 25 MG TAB PO SCH ×2 (08:34→21:54)
[2017-05-19] MEDS: Fish Oil 1,000 MG CAP PO SCH (08:34)
[2017-05-19] MEDS: prednisoLONE 1% Ophth Susp 5 ml Bottle EA EYE SCH ×4 (08:35→21:54)
--- NOTE | 2017-05-19 13:54 | PRG ---
DATE OF SERVICE: 05/19/2017 SUBJECTIVE: Ms. Kraus is doing well. Denies any complaints, resting comfortably, tolerating her t herapy. She apparently does not have a caregiver as she told me yesterday and she will not have one until 05/29. We will check with therapy and see if she still safe to go home. She is agreeable to s clemencia here further if necessary. OBJECTIVE: VITAL SIGNS: She is afebrile, heart rate 59, respirations 18, oxygen saturation 97%, blood pressure 158/74. CARDIOVASCULAR SYSTEM: S1, S2 plus. RESPIRATORY SYSTEM: Normal vesicular breath sounds. ABDOMEN: Soft, nontender, bowel sounds heard in all quadrants. EXTREMITIES: Without cyanosis or clubbing. CENTRAL NERVOUS SYSTEM: Improving, deconditioning, resolved orthostasis. LABORATORY VALUES: Blood sugars are 110, 187, 106, and 125. IMPRESSION: 1. Possible transient ischemic attack. 2. Resolved orthostatic hypotension. 3. Diabetes mellitus, type 2. 4. Improving deconditioning. 5. Peripheral neuropathy. 6. Hypothyroidism. 7. Restless leg syndrome. PLAN: 1. Continue current medications. 2. Check with therapy as to when the patient will be stable for discharge. 3. An-1800 calorie heart healthy diet. 4. DVT and stress ulcer prophylaxis. 5. Decubitus precautions. 6. Recheck BMP and CBC in the morning. 7. I discussed with patient in detail, all questions answered.
[2017-05-19] MEDS: HumaLOG 300 UNITS/3 ML VIAL SC PRN (16:40)
[2017-05-19] MEDS: rOPINIRole HCl 1 MG TAB PO SCH (21:54)
[2017-05-19] MEDS: Atorvastatin Calcium 40 MG TAB PO SCH (21:54)
[2017-05-19] MEDS: Enoxaparin Sodium 40 MG/0.4 ML SYRINGE SC SCH (21:56)
[2017-05-20 05:22] LABS: #Basophils 0.1 thou/uL (0.0-0.2); #Eosinphils 0.3 thou/uL (0.0-0.7); #Lymphocytes 2.4 thou/uL (1.20-3.40); #Monocytes 0.6 thou/uL (0.11-0.59); #Neutrophils 3.6 thou/uL (1.40-6.50); %Basophils 1.1 % (0.0-1.0); %Eosinophils 4.2 % (0.0-10.0); %Monocytes 8.3 % (0.0-10.0); %Neutrophils 51.4 % (42.0-75.0); Hemoglobin 9.3 g/dL (12.0-16.0); Mean Corpuscular Hemoglobin 29.5 pg (27.0-31.0); Mean Corpuscular Volume 95.1 fl (81.0-99.0); Mean Platelet Volume 7.9 fL (7.4-10.4); Platelet Count 159 thou/uL (130-400); RBC Distribution Width 12.9 % (11.5-14.5); Red Blood Cell (RBC) Count 3.14 mill/uL (4.20-5.40); White Blood Cell (WBC) Count 6.9 thou/uL (4.8-10.8)
[2017-05-20 05:36] LABS: Anion Gap 11 mmol/L (10-20); BUN (Urea Nitrogen) 25 mg/dL (9.8-20.1); Calc. Creatinine Clearance 96 mL/min (70-130); Carbon Dioxide 28 mmol/L (23-31); Chloride 106 mmol/L (98-107); Estimated GFR-MDRD 60; Glucose 126 mg/dL (80-115); Potassium 4.7 mmol/L (3.5-5.1); Sodium 140 mmol/L (136-145)
[2017-05-20] MEDS: traMADol HCl 50 MG TAB PO SCH ×2 (05:48→13:42)
[2017-05-20] MEDS: Levothyroxine Sodium 75 MCG TAB PO SCH (05:48)
[2017-05-20] MEDS: Levemir Flexpen 100 UNITS/ML PEN SC SCH (08:25)
[2017-05-20] MEDS: Fish Oil 1,000 MG CAP PO SCH (08:26)
[2017-05-20] MEDS: hydrALAZINE 25 MG TAB PO SCH (08:26)
[2017-05-20] MEDS: Aspirin 325 MG TAB PO SCH (08:26)
[2017-05-20] MEDS: Gabapentin 100 MG CAP PO SCH (08:26)
[2017-05-20] MEDS: prednisoLONE 1% Ophth Susp 5 ml Bottle EA EYE SCH ×2 (08:27→13:42)
[2017-05-20 08:29] VITALS: TEMP 97.6
[2017-05-20 12:15] VITALS: BP 193/75
--- NOTE | 2017-05-20 14:33 | DIS ---
DATE OF ADMISISON: 05/11/2017 DATE OF DISCHARGE: 05/20/2017 PRINCIPAL DIAGNOSES: 1. Possible transient ischemic attack with improved deconditioning. 2. Coronary artery disease. 3. Resolved orthostatic hypotension. 4. Hypertension. 5. Diabetes mellitus type 2. 6. Dyslipidemia. 7. Hypothyroidism. 8. Familial tremor. 9. Gastroesophageal reflux disease. 10. Anxiety and depression. 11. Hypothyroidism. 12. Degenerative joint disease. COMPLICATIONS: None. ADVERSE REACTIONS: None. PROCEDURES: None. CONSULTATIONS: None. HOSPITAL COURSE: The patient was admitted. Here as a transfer from [facility] after be ing admitted there for frequent falls and left lower extremity weakness. She was diagnosed with a TI A. She was admitted here and was noticed to be orthostatic. EUGENE hose was used and that resolved the issue. She has been getting stronger and therapy deemed her stable for discharge to home. She does not have any caregivers at home until 05/29, but family is going to help her out and she states she will be careful. She will follow up with Dr. Brito as she needs outpatient physical therapy, oc cupational therapy, and speech therapy. PHYSICAL EXAMINAITON: GENERAL: On the day of discharge, she is afebrile, heart rate is 70, respirations 18, oxygen saturat ion 98% and blood pressure was 131/63 this morning. CARDIOVASCULAR: S1, S2 plus. RESPIRATORY: Normal vesicular breath sounds. ABDOMEN: Soft, obese, nontender, bowel sounds heard in all quadrants. EXTREMITIES: Without cyanosis or clubbing. Peripheral pulses are palpable. CENTRAL NERVOUS SYSTEM: Improving deconditioning. LABORATORY VALUES: White count of 6.9, H&H is 9.3 and 29.9. Sodium 140, potassium 4.7, BUN and crea tinine are 25 and 0.94. Blood sugars are 160, 207, 107 and 150. DISCHARGE MEDICATIONS: Same as admission, which are aspirin 325 mg daily, Lipitor 40 mg daily, Valiu m 2 mg b.i.d. p.r.n., gabapentin 100 mg t.i.d., hydralazine 25 mg b.i.d., Levemir 25 units subcu b.i. d., Levoxyl 75 mcg daily, metoprolol 25 mg b.i.d., Protonix 40 mg b.i.d., Prednisolone acetate 1 drop to each eye q.i.d., Ranexa 500 mg b.i.d., Requip 1 mg daily, sertraline 200 mg daily, Tramadol 50 mg q.8 hours p.r.n. DIET: She is to follow an 1800 calorie Heart healthy ADA diet, continue to monitor blood pressure an d follow with her primary care physician within a weeks' time. ACTIVITY: As tolerated. DISCHARGE INSTRUCTIONS: She is to call us with any questions or concerns. She states that she does not need any refills. No family at the bedside. All questions answered. Total time spent on this discharge 35 minutes.
== END 2017-05-20 16:10 | disposition home or self-care (01) | DRG 69 ==
LOC: NAV ACUTE 18:47
PROVIDERS: ADMIT Internal Medicine; ATTEND Internal Medicine
DX: G45.9 Transient cerebral ischemic attack, unspecified (principal); E11.42 Type 2 diabetes mellitus with diabetic polyneuropathy; R53.1 Weakness; I10 Essential (primary) hypertension; I25.10 Atherosclerotic heart disease of native coronary artery without angina pectoris; Z91.81 History of falling; E78.5 Hyperlipidemia, unspecified; E03.9 Hypothyroidism, unspecified; Z86.73 Personal history of transient ischemic attack (TIA), and cerebral infarction without residual deficits; G25.0 Essential tremor; K21.9 Gastro-esophageal reflux disease without esophagitis; G43.909 Migraine, unspecified, not intractable, without status migrainosus; F41.9 Anxiety disorder, unspecified; F32.9 Major depressive disorder, single episode, unspecified; M19.90 Unspecified osteoarthritis, unspecified site; Z95.5 Presence of coronary angioplasty implant and graft; Z88.8 Allergy status to other drugs, medicaments and biological substances; Z79.82 Long term (current) use of aspirin; Z79.4 Long term (current) use of insulin; I95.1 Orthostatic hypotension; G25.81 Restless legs syndrome
CPT/HCPCS: 36415; 36416; 80048; 85025; G8996-GN-CI; G8997-GN-CH; J1650; J1815

== ENCOUNTER 2017-07-03 12:35 | Inpatient (IN) | payer MEDICARE ==
[2017-07-03 14:14] VITALS: BMI 33.8
[2017-07-03] MEDS ORDERED: Promethazine 25 MG TAB PO PRN (14:43)
[2017-07-03] MEDS ORDERED: Benzonatate 100 MG CAP PO PRN (14:44)
[2017-07-03] MEDS ORDERED: Meclizine HCl 25 MG TAB PO PRN (14:44)
[2017-07-03] MEDS ORDERED: Calcium Carbonate 500 MG ChewTAB PO PRN (14:45)
[2017-07-03] MEDS ORDERED: Dextrose 50% Abboject 50 ML SYRINGE IVP PRN (14:45)
[2017-07-03] MEDS ORDERED: Dextrose 5% in Water 1,000 ML IV PRN (14:45)
[2017-07-03] MEDS ORDERED: Acetaminophen 325 MG TAB PO PRN (14:47)
[2017-07-03] MEDS ORDERED: DIAZEPAM 5 MG/5 ML PO PRN (14:48)
[2017-07-03] MEDS ORDERED: [UNRECOGNIZED DRUG - OTHER] PO PRN (14:48)
[2017-07-03] MEDS: hydrALAZINE 25 MG TAB PO SCH ×2 (15:25→21:42)
[2017-07-03] MEDS: Gabapentin 100 MG CAP PO SCH ×2 (15:25→21:42)
[2017-07-03] MEDS: HumaLOG 300 UNITS/3 ML VIAL SC PRN ×2 (17:39→21:44)
[2017-07-03] MEDS: Atorvastatin Calcium 40 MG TAB PO SCH (21:42)
[2017-07-03] MEDS: Levemir Flexpen 100 UNITS/ML PEN SC SCH (21:42)
[2017-07-03] MEDS: rOPINIRole HCl 1 MG TAB PO SCH (21:43)
[2017-07-04] MEDS: Levothyroxine Sodium 75 MCG TAB PO SCH (05:28)
[2017-07-04 05:46] LABS: #Basophils 0.1 thou/uL (0.0-0.2); #Eosinphils 0.4 thou/uL (0.0-0.7); #Lymphocytes 2.8 thou/uL (1.20-3.40); #Monocytes 0.7 thou/uL (0.11-0.59); #Neutrophils 3.9 thou/uL (1.40-6.50); %Basophils 1.7 % (0.0-1.0); %Eosinophils 4.5 % (0.0-10.0); %Lymphocytes 35.2 % (21.0-51.0); %Monocytes 8.7 % (0.0-10.0); %Neutrophils 49.9 % (42.0-75.0); Hemoglobin 11.3 g/dL (12.0-16.0); Mean Corpuscular Volume 90.8 fl (81.0-99.0); Mean Platelet Volume 9.7 fL (7.4-10.4); Platelet Count 184 thou/uL (130-400); RBC Distribution Width 12.6 % (11.5-14.5); White Blood Cell (WBC) Count 7.9 thou/uL (4.8-10.8)
[2017-07-04 05:58] LABS: Anion Gap 12 mmol/L (10-20); BUN (Urea Nitrogen) 16 mg/dL (9.8-20.1); Calc. Creatinine Clearance 85 mL/min (70-130); Calcium 9.2 mg/dL (7.8-10.44); Carbon Dioxide 28 mmol/L (23-31); Chloride 104 mmol/L (98-107); Estimated GFR-MDRD 54; Glucose 160 mg/dL (80-115); Potassium 4.8 mmol/L (3.5-5.1); Sodium 139 mmol/L (136-145)
[2017-07-04] MEDS: HumaLOG 300 UNITS/3 ML VIAL SC PRN ×3 (06:03→17:57)
[2017-07-04] MEDS: hydrALAZINE 25 MG TAB PO SCH ×3 (07:56→20:55)
[2017-07-04] MEDS: Furosemide 20 MG TAB PO SCH (08:54)
[2017-07-04] MEDS: Gabapentin 100 MG CAP PO SCH ×3 (08:55→20:55)
[2017-07-04] MEDS: Levemir Flexpen 100 UNITS/ML PEN SC SCH ×2 (08:55→20:58)
[2017-07-04] MEDS: Multivitamin W/ Minerals 1 TAB PO SCH (08:56)
[2017-07-04] MEDS: Ondansetron ODT 4 MG TAB PO PRN ×2 (08:58→20:57)
[2017-07-04] MEDS ORDERED: Levemir Flexpen 100 UNITS/ML PEN SC SCH (14:30)
[2017-07-04] MEDS: rOPINIRole HCl 1 MG TAB PO SCH (20:55)
[2017-07-04] MEDS: Atorvastatin Calcium 40 MG TAB PO SCH (20:55)
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
[2017-07-05] MEDS: Levothyroxine Sodium 75 MCG TAB PO SCH (05:25)
[2017-07-05] MEDS: HumaLOG 300 UNITS/3 ML VIAL SC PRN ×3 (05:25→18:15)
[2017-07-05] MEDS: Furosemide 20 MG TAB PO SCH (08:53)
[2017-07-05] MEDS: hydrALAZINE 25 MG TAB PO SCH ×3 (08:54→20:55)
[2017-07-05] MEDS: Gabapentin 100 MG CAP PO SCH ×3 (08:54→20:55)
[2017-07-05] MEDS: Levemir Flexpen 100 UNITS/ML PEN SC SCH ×2 (08:54→20:55)
[2017-07-05] MEDS: Lisinopril 10 MG TAB PO SCH (08:55)
[2017-07-05] MEDS: Multivitamin W/ Minerals 1 TAB PO SCH (08:56)
--- NOTE | 2017-07-05 11:50 | PRG ---
DATE OF SERVICE: 07/05/2017 SUBJECTIVE: Ms. Kraus states she is feeling much better. She had a good bowel movement. Her naus ea has pretty much resolved. No headaches, no chest pain, no shortness of breath. She was informed that I have sent a note to Physical Therapy that after evaluation if they deemed her safe to go out o n pass, then they will inform nursing and she will be allowed to go out on pass tomorrow. OBJECTIVE: VITAL SIGNS: She is afebrile, heart rate is 68, respirations 18, oxygen saturation 97%, blood pressu re was elevated this morning 185/85, but it was down to 143/68 yesterday. CARDIOVASCULAR SYSTEM: S1, S2 plus. RESPIRATORY SYSTEM: Normal vesicular breath sounds. ABDOMEN: Soft, nontender, bowel sounds heard in all quadrants. EXTREMITIES: Without cyanosis or clubbing. LABORATORY VALUES: Blood sugars much improved at 164, 202, 186 and 128. IMPRESSION: 1. Diabetes mellitus type 2, much better controlled. 2. Hypertension, improving control. She got her first dose of lisinopril this morning. We will con tinue to monitor and adjust medications as needed. 3. History of migraine-type headaches. 4. Anxiety and depression. 5. Coronary artery disease without angina. 6. Dyslipidemia. 7. Hypothyroidism. 8. Gastroesophageal reflux disease. PLAN: 1. Continue current medications. 2. 1800 calorie heart healthy ADA diet. 3. Accu-Cheks with sliding scale coverage. 4. DVT and stress ulcer prophylaxis. 5. Decubitus precautions. 6. Routine laboratory values. 7. I discussed with the patient in detail and all questions answered. Continue PT, OT. No family a t bedside.
[2017-07-05] MEDS: rOPINIRole HCl 1 MG TAB PO SCH (20:55)
[2017-07-05] MEDS: Atorvastatin Calcium 40 MG TAB PO SCH (20:55)
[2017-07-06] MEDS: Levothyroxine Sodium 75 MCG TAB PO SCH (05:14)
[2017-07-06] MEDS: hydrALAZINE 25 MG TAB PO SCH ×3 (09:12→20:59)
[2017-07-06] MEDS: Furosemide 20 MG TAB PO SCH (09:13)
[2017-07-06] MEDS: Multivitamin W/ Minerals 1 TAB PO SCH (09:13)
[2017-07-06] MEDS: Levemir Flexpen 100 UNITS/ML PEN SC SCH ×2 (09:13→21:00)
[2017-07-06] MEDS: Gabapentin 100 MG CAP PO SCH ×4 (09:13→21:40)
[2017-07-06] MEDS: Lisinopril 10 MG TAB PO SCH (09:13)
[2017-07-06] MEDS: HumaLOG 300 UNITS/3 ML VIAL SC PRN ×2 (17:08→21:01)
[2017-07-06] MEDS: Atorvastatin Calcium 40 MG TAB PO SCH (20:59)
[2017-07-06] MEDS: rOPINIRole HCl 1 MG TAB PO SCH (21:00)
[2017-07-07] MEDS: Levothyroxine Sodium 75 MCG TAB PO SCH (05:23)
[2017-07-07] MEDS: HumaLOG 300 UNITS/3 ML VIAL SC PRN ×4 (05:23→20:40)
[2017-07-07] MEDS: Furosemide 20 MG TAB PO SCH (08:01)
[2017-07-07] MEDS: Levemir Flexpen 100 UNITS/ML PEN SC SCH ×2 (08:01→20:39)
[2017-07-07] MEDS: Gabapentin 100 MG CAP PO SCH ×3 (08:02→20:39)
[2017-07-07] MEDS: hydrALAZINE 25 MG TAB PO SCH ×3 (08:03→20:39)
[2017-07-07] MEDS: Lisinopril 10 MG TAB PO SCH (08:03)
[2017-07-07] MEDS: Multivitamin W/ Minerals 1 TAB PO SCH (08:03)
--- NOTE | 2017-07-07 13:14 | PRG ---
DATE OF SERVICE: 07/07/2017 SUBJECTIVE: Ms. Kraus is doing well. Denies any complaints, resting comfortably. OBJECTIVE: VITAL SIGNS: She is afebrile, heart rate is 60, respirations 16, oxygen saturation 99%, blood pressu re 134/60. CARDIOVASCULAR SYSTEM: S1, S2 plus. RESPIRATORY SYSTEM: Normal vesicular breath sounds. ABDOMEN: Soft, nontender, bowel sounds heard in all quadrants. EXTREMITIES: Without cyanosis or clubbing. Trace edema. Peripheral pulses are palpable. LABORATORY DATA: Blood sugars are improved at 124, 247, 227, 152, and 178. IMPRESSION: 1. Diabetes mellitus type 2, improving control. 2. Hypertension, much improved. 3. Deconditioning. 4. Coronary artery disease. 5. Dyslipidemia. 6. Hypothyroidism. 7. Gastroesophageal reflux disease. PLAN: 1. Continue current medications, but adjust her long-acting insulin. 2. A 1800 calorie Heart healthy ADA diet. 3. DVT and stress ulcer prophylaxis. 4. Decubitus precautions. 5. Physical therapy. 6. Routine laboratory values. 7. I discussed with the patient in detail and all questions answered. No family at bedside.
[2017-07-07] MEDS: Atorvastatin Calcium 40 MG TAB PO SCH (20:39)
[2017-07-07] MEDS: rOPINIRole HCl 1 MG TAB PO SCH (20:40)
[2017-07-08] MEDS: Levothyroxine Sodium 75 MCG TAB PO SCH (05:21)
[2017-07-08 05:37] LABS: #Basophils 0.1 thou/uL (0.0-0.2); #Eosinphils 0.2 thou/uL (0.0-0.7); #Lymphocytes 2.5 thou/uL (1.20-3.40); #Monocytes 0.7 thou/uL (0.11-0.59); #Neutrophils 4.4 thou/uL (1.40-6.50); %Basophils 1.5 % (0.0-1.0); %Eosinophils 2.9 % (0.0-10.0); %Lymphocytes 31.6 % (21.0-51.0); %Monocytes 8.5 % (0.0-10.0); %Neutrophils 55.5 % (42.0-75.0); Hemoglobin 9.8 g/dL (12.0-16.0); Mean Corpuscular HGB CONC 32.2 g/dL (32.0-36.0); Mean Corpuscular Hemoglobin 29.2 pg (27.0-31.0); Mean Corpuscular Volume 90.4 fl (81.0-99.0); Mean Platelet Volume 10.2 fL (7.4-10.4); Platelet Count 176 thou/uL (130-400); RBC Distribution Width 12.4 % (11.5-14.5); Red Blood Cell (RBC) Count 3.36 mill/uL (4.20-5.40)
[2017-07-08 05:51] LABS: Anion Gap 11 mmol/L (10-20); BUN (Urea Nitrogen) 34 mg/dL (9.8-20.1); Calc. Creatinine Clearance 72 mL/min (70-130); Carbon Dioxide 31 mmol/L (23-31); Chloride 103 mmol/L (98-107); Estimated GFR-MDRD 44; Glucose 154 mg/dL (80-115); Potassium 4.6 mmol/L (3.5-5.1); Sodium 140 mmol/L (136-145)
[2017-07-08] MEDS: HumaLOG 300 UNITS/3 ML VIAL SC PRN ×2 (06:08→12:14)
[2017-07-08 08:32] VITALS: BP 152/68; TEMP 96.4
[2017-07-08] MEDS: Furosemide 20 MG TAB PO SCH (08:59)
[2017-07-08] MEDS: Levemir Flexpen 100 UNITS/ML PEN SC SCH (09:00)
[2017-07-08] MEDS: hydrALAZINE 25 MG TAB PO SCH ×2 (09:00→14:13)
[2017-07-08] MEDS: Gabapentin 100 MG CAP PO SCH ×2 (09:00→14:13)
[2017-07-08] MEDS: Lisinopril 10 MG TAB PO SCH (09:01)
[2017-07-08] MEDS: Multivitamin W/ Minerals 1 TAB PO SCH (09:02)
[2017-07-08 12:10] LABS: Hemoglobin A1c 9.9 % (4.0-6.0)
[2017-07-08] MEDS ORDERED: Levemir Flexpen 100 UNITS/ML PEN SC SCH (13:15)
--- NOTE | 2017-07-08 20:57 | DIS ---
DATE OF ADMISSION: 07/03/2017 DATE OF DISCHARGE: 07/08/2017 PRINCIPAL DIAGNOSES: Deconditioning status post episodes of diarrhea and vomiting, much improved. SECONDARY DIAGNOSES: 1. Diabetes mellitus type 2, much better controlled. 2. Hypertension, much better controlled. 3. Coronary artery disease without angina. 4. Dyslipidemia. 5. Hypothyroidism. 6. History of cerebrovascular accident. 7. Gastroesophageal reflux disease. 8. Anxiety and depression. 9. Degenerative joint disease. COMPLICATIONS: None. ADVERSE REACTIONS: None. PROCEDURES: None. CONSULTATIONS: None. HOSPITAL COURSE: The patient was admitted as a transfer from [facility] after be ing admitted there for diarrhea, nausea and vomiting. She apparently had no further diarrhea since a dmission and her vomiting resolved, but she had persistent nausea. She was noticed to be weak and fe lt to be a candidate for rehabilitation and so was transferred here to snf. When she cam e here, her blood pressure and her blood sugars were not under control. Her hydralazine was increase d to 50 t.i.d. and lisinopril was added. Levemir was increased to 35 and then to 40 units b.i.d. Cu rrently, her blood sugars are much improved. Blood pressure is back to normal. Her nausea has resol jimbo. She has been ambulating with therapy and was deemed stable for discharge to home. Her home [facility] regarding home health has been informed that patient is being discharged home. All furthe r orders need to go to Dr. Brito. I am going to send in prescription for her lisinopril and inc rease in the hydralazine. She will be given instructions on her current dosages and she is to contin ue the same. PHYSICAL EXAMINATION: VITAL SIGNS: On the day of discharge, she is afebrile, heart rate is 58, respirations 18, oxygen sat uration 97%, blood pressure 152/68. CARDIOVASCULAR: S1, S2 plus. RESPIRATORY: Normal vesicular breath sounds. ABDOMEN: Soft, obese, nontender, bowel sounds heard in all quadrants. EXTREMITIES: Without cyanosis or clubbing. Trace edema. Peripheral pulses are palpable. CENTRAL NERVOUS SYSTEM: Improved, deconditioning. LABORATORY VALUES: White count is 8, H&H 9.8 and 30.3. Sodium 140, potassium 4.6, BUN and creatinin e is 34 and 1.23. Blood sugars are 178, 219, 230, and 173. Her glycohemoglobin is 9.9. DISCHARGE MEDICATIONS: Tylenol 650 q.4 hours p.r.n., Lipitor 40 mg daily, Tessalon Perles 100 mg t.i .d. p.r.n., which will be discontinued, Valium 2 mg daily p.r.n., Lasix 60 mg daily, gabapentin 100 m g t.i.d., hydralazine 50 mg t.i.d., Levemir 40 units subcu b.i.d., Synthroid 75 mcg daily, Zestril 10 mg daily, metoprolol XL 25 mg b.i.d., Protonix 40 mg daily, Ranexa 500 mg b.i.d., Requip 1 mg at [facility], Zoloft 200 mg daily. DIET: A 1800-calorie, heart healthy, ADA diet. ACTIVITY: As tolerated. FOLLOWUP: She is to follow up with her PCP and specialist. She is to call us with any questions or concerns. No family at bedside. Total time spent on this discharge 35 minutes.
== END 2017-07-08 15:00 | disposition home health service (06) | DRG 948 ==
LOC: NAV ACUTE 12:35
PROVIDERS: ADMIT Internal Medicine; ATTEND Internal Medicine
DX: R53.1 Weakness (principal); E03.9 Hypothyroidism, unspecified; E11.9 Type 2 diabetes mellitus without complications; E78.5 Hyperlipidemia, unspecified; I10 Essential (primary) hypertension; Z86.73 Personal history of transient ischemic attack (TIA), and cerebral infarction without residual deficits; M19.90 Unspecified osteoarthritis, unspecified site; K21.9 Gastro-esophageal reflux disease without esophagitis; I25.10 Atherosclerotic heart disease of native coronary artery without angina pectoris; Z95.5 Presence of coronary angioplasty implant and graft; Z79.4 Long term (current) use of insulin; G43.909 Migraine, unspecified, not intractable, without status migrainosus; F41.8 Other specified anxiety disorders; E66.9 Obesity, unspecified; Z68.33 Body mass index [BMI] 33.0-33.9, adult
CPT/HCPCS: 36415; 36416; 80048; 83036; 85025; G8996-GN-CJ; G8997-GN-CI; J1815; Q0162

== ENCOUNTER 2017-11-25 19:54 | Emergency (ER) | payer MEDICARE ==
--- NOTE | 2017-11-25 21:18 | CT ---
CT OF THE BRAIN WITHOUT CONTRAST 11/25/17 COMPARISON: 05/07/17 HISTORY: Patient fell backwards on the concrete a restaurant. Head trauma and laceration in the back of the he ad. Headache. TECHNIQUE: Multiple contiguous axial images were obtained in a CT of the brain without contrast. FINDINGS: There is calcification in the basal ganglia. No large confluent infarction is seen. There is no evide nce of hydrocephalus, intracranial hemorrhage or extra-axial fluid collection. Soft tissue swelling is seen in the occipital scalp. The underlying calvarium is unremarkable. The v isualized paranasal sinuses and mastoid air cells are well aerated. IMPRESSION: No evidence of acute intracranial abnormality. POS: [facility]
[2017-11-25] MEDS ORDERED: Acetaminophen 500 MG TAB ONE (21:24)
--- NOTE | 2017-11-25 21:30 | CT ---
CT OF THE CERVICAL SPINE WITHOUT CONTRAST 11/25/17 COMPARISON: 01/08/17. HISTORY: Patient tripped and fell backwards on the concrete with laceration of the back of her head. Neck pain . TECHNIQUE: Multiple contiguous axial images were obtained in a CT of the cervical spine without contrast. Sagitt al and coronal reformats were performed. FINDINGS: The patient is status post fusion of C4-C6. No perihardware lucency is identified. The vertebral bodies demonstrate normal height without acute fracture or subluxation. No prevertebral soft tissue is seen. The posterior facets are well aligned. Normal alignment of the skull base with the cervical spine is seen. IMPRESSION: No evidence of acute osseous abnormality. POS: [facility]
== END 2017-11-25 21:51 | disposition home or self-care (01) ==
LOC: NAV ERS 19:54
DX: S06.0X0A Concussion without loss of consciousness, initial encounter (principal); M19.90 Unspecified osteoarthritis, unspecified site; E11.9 Type 2 diabetes mellitus without complications; K58.9 Irritable bowel syndrome, unspecified; I10 Essential (primary) hypertension; F41.9 Anxiety disorder, unspecified; F32.9 Major depressive disorder, single episode, unspecified; F43.10 Post-traumatic stress disorder, unspecified; Z79.4 Long term (current) use of insulin; Z79.899 Other long term (current) drug therapy; Z79.82 Long term (current) use of aspirin; W01.10XA Fall on same level from slipping, tripping and stumbling with subsequent striking against unspecified object, initial encounter
CPT/HCPCS: 70450; 72125

== ENCOUNTER 2018-03-07 17:08 | Emergency (ER) | payer MEDICARE ==
[2018-03-07] MEDS ORDERED: Sodium Chloride 0.9% 0 ML ONE (17:50)
[2018-03-07 18:17] LABS: #Basophils 0.1 thou/uL (0.0-0.2); #Eosinphils 0.1 thou/uL (0.0-0.7); #Lymphocytes 1.6 thou/uL (1.20-3.40); #Monocytes 0.5 thou/uL (0.11-0.59); #Neutrophils 4.3 thou/uL (1.40-6.50); %Basophils 1.4 % (0.0-1.0); %Eosinophils 1.4 % (0.0-10.0); %Lymphocytes 24.9 % (21.0-51.0); %Monocytes 7.4 % (0.0-10.0); %Neutrophils 64.9 % (42.0-75.0); Hemoglobin 10.8 g/dL (12.0-16.0); Mean Corpuscular HGB CONC 32.2 g/dL (32.0-36.0); Mean Corpuscular Hemoglobin 29.6 pg (27.0-31.0); Mean Platelet Volume 8.2 fL (7.4-10.4); Platelet Count 182 thou/uL (130-400); RBC Distribution Width 12.4 % (11.5-14.5); Red Blood Cell (RBC) Count 3.65 mill/uL (4.20-5.40); White Blood Cell (WBC) Count 6.6 thou/uL (4.8-10.8)
--- NOTE | 2018-03-07 18:25 | CT ---
CT BRAIN: Date: 03-07-18 Provided Clinical History: Dizziness, hypertension. FINDINGS: Comparison 11-25-17. The ventricular system appears normal in size and morphology. There is no evidence for intracranial h emorrhage or mass effect. The extracranial soft tissues and osseous structures demonstrate no acute a bnormality. IMPRESSION: No evidence for intracranial hemorrhage or mass effect. POS: [facility]
[2018-03-07 18:33] LABS: ALT (SGPT) 12 U/L (8-55); AST (SGOT) 15 U/L (5-34); Albumin 3.4 g/dL (3.4-4.8); Alkaline Phosphatase 81 U/L (40-150); Anion Gap 15 mmol/L (10-20); BUN (Urea Nitrogen) 12 mg/dL (9.8-20.1); Bilirubin, Total 0.4 mg/dL (0.2-1.2); Calc. Creatinine Clearance 0 mL/min (70-130); Calcium 9.5 mg/dL (7.8-10.44); Carbon Dioxide 25 mmol/L (23-31); Chloride 99 mmol/L (98-107); Estimated GFR-MDRD 32; Globulin 3.2 g/dL (2.4-3.5); Potassium 3.9 mmol/L (3.5-5.1); Protein, Total 6.6 g/dL (6.0-8.3); Sodium 135 mmol/L (136-145)
[2018-03-07 18:34] LABS: Troponin I 0.022 ng/mL (< 0.028)
[2018-03-07 18:47] LABS: Bilirubin Negative (Negative); Blood, Urine Trace (Negative); Clarity Clear (Clear); Glucose, Urine (Dipstick) >=1000 mg/dL (Negative); Leukocyte Negative (Negative); Nitrite Negative (Negative); Protein, Urine (Dipstick) > or equal to 300 mg/dL (Neg-Trace); Urobilinogen 0.2 mg/dL (0.2-1.0)
[2018-03-07] MEDS ORDERED: Sodium Chloride 0.9% 500 ML ONE ×3 (18:48→19:55)
[2018-03-07 18:54] LABS: Glucose 613 mg/dL (80-115)
[2018-03-07 18:56] LABS: Bacteria/HPF None Seen HPF (None Seen); RBC/HPF 0-3 HPF (0-3); Squamous Epithelial 0-3 HPF (0-3)
[2018-03-07] MEDS ORDERED: Potassium Chloride 10 MEQ/100 ML PREMIX BAG ONE (19:55)
[2018-03-07] MEDS ORDERED: Potassium Chloride 20 MEQ TAB ONE (19:55)
[2018-03-07] MEDS ORDERED: cloNIDine 0.1 MG TAB ONE (19:55)
[2018-03-07] MEDS ORDERED: Insulin Regular 300 UNITS/3 ML VIAL ONE (19:55)
[2018-03-07] MEDS ORDERED: Atropine Sulfate 1 mg/10 ml Syringe ONE (20:52)
[2018-03-07 22:00] LABS: Anion Gap 12 mmol/L (10-20); BUN (Urea Nitrogen) 10 mg/dL (9.8-20.1); Calc. Creatinine Clearance 0 mL/min (70-130); Calcium 9.2 mg/dL (7.8-10.44); Carbon Dioxide 26 mmol/L (23-31); Chloride 104 mmol/L (98-107); Estimated GFR-MDRD 42; Glucose 219 mg/dL (80-115); Potassium 3.4 mmol/L (3.5-5.1); Sodium 139 mmol/L (136-145)
== END 2018-03-07 23:40 | disposition home or self-care (01) ==
LOC: NAV ERS 17:08
DX: E11.10 Type 2 diabetes mellitus with ketoacidosis without coma (principal); E86.0 Dehydration; I16.0 Hypertensive urgency; E87.1 Hypo-osmolality and hyponatremia; D64.9 Anemia, unspecified; Z86.73 Personal history of transient ischemic attack (TIA), and cerebral infarction without residual deficits; G43.909 Migraine, unspecified, not intractable, without status migrainosus; I10 Essential (primary) hypertension; E03.9 Hypothyroidism, unspecified; K21.9 Gastro-esophageal reflux disease without esophagitis; E66.9 Obesity, unspecified; F41.9 Anxiety disorder, unspecified; F32.9 Major depressive disorder, single episode, unspecified; F43.10 Post-traumatic stress disorder, unspecified; Z79.899 Other long term (current) drug therapy; Z79.82 Long term (current) use of aspirin; E78.5 Hyperlipidemia, unspecified
CPT/HCPCS: 36416; 70450; 80053; 81003; 81015; 84484; 85025; 93005; 96361; 96374; 96375; J0461; J1815; J3480; J7050

== ENCOUNTER 2018-03-10 14:58 | Inpatient (IN) | payer MEDICARE ==
[2018-03-10 15:23] VITALS: BMI 32.8
[2018-03-10] MEDS ORDERED: DIAZEPAM 5 MG/5 ML PO PRN (16:46)
[2018-03-10] MEDS ORDERED: [UNRECOGNIZED DRUG - OTHER] PO PRN (16:46)
[2018-03-10] MEDS ORDERED: Nitroglycerin 0.4 MG TAB (25 Tab Bottle) SL PRN (16:47)
[2018-03-10] MEDS ORDERED: Benzonatate 100 MG CAP PO PRN (16:47)
[2018-03-10] MEDS ORDERED: Dextrose 5% in Water 1,000 ML IV PRN (16:48)
[2018-03-10] MEDS ORDERED: Dextrose 50% Abboject 50 ML SYRINGE IVP PRN (16:49)
[2018-03-10] MEDS ORDERED: Furosemide 40 MG TAB PO SCH (17:00)
[2018-03-10] MEDS: HumaLOG 300 UNITS/3 ML VIAL SC PRN ×2 (17:48→20:52)
[2018-03-10] MEDS: Atorvastatin Calcium 40 MG TAB PO SCH (20:48)
[2018-03-10] MEDS: hydrALAZINE 25 MG TAB PO SCH (20:48)
[2018-03-10] MEDS: Insulin Glargine 100 UNIT/ML 3 ML PEN SQ SCH (20:48)
[2018-03-10] MEDS: Gabapentin 100 MG CAP PO SCH (20:48)
[2018-03-10] MEDS: rOPINIRole HCl 1 MG TAB PO SCH (20:49)
[2018-03-10] MEDS ORDERED: Levemir Flexpen 100 UNITS/ML PEN SC SCH (21:00)
[2018-03-11] MEDS: Levothyroxine Sodium 75 MCG TAB PO SCH (05:23)
[2018-03-11] MEDS: HumaLOG 300 UNITS/3 ML VIAL SC PRN ×4 (05:23→20:10)
[2018-03-11 06:01] LABS: #Basophils 0.1 thou/uL (0.0-0.2); #Eosinphils 0.3 thou/uL (0.0-0.7); #Monocytes 0.4 thou/uL (0.11-0.59); #Neutrophils 3.4 thou/uL (1.40-6.50); %Basophils 0.8 % (0.0-1.0); %Eosinophils 5.4 % (0.0-10.0); %Lymphocytes 32.4 % (21.0-51.0); %Monocytes 6.3 % (0.0-10.0); %Neutrophils 55.1 % (42.0-75.0); Hemoglobin 9.8 g/dL (12.0-16.0); Mean Corpuscular HGB CONC 31.5 g/dL (32.0-36.0); Mean Corpuscular Hemoglobin 29.7 pg (27.0-31.0); Mean Platelet Volume 9.6 fL (7.4-10.4); Platelet Count 158 thou/uL (130-400); RBC Distribution Width 12.9 % (11.5-14.5); White Blood Cell (WBC) Count 6.2 thou/uL (4.8-10.8)
[2018-03-11 06:09] LABS: Anion Gap 9 mmol/L (10-20); BUN (Urea Nitrogen) 17 mg/dL (9.8-20.1); Calc. Creatinine Clearance 73 mL/min (70-130); Calcium 8.8 mg/dL (7.8-10.44); Carbon Dioxide 29 mmol/L (23-31); Chloride 106 mmol/L (98-107); Estimated GFR-MDRD 48; Glucose 358 mg/dL (80-115); Potassium 4.1 mmol/L (3.5-5.1); Sodium 140 mmol/L (136-145)
[2018-03-11] MEDS: Furosemide 40 MG TAB PO SCH ×2 (08:04→14:21)
[2018-03-11] MEDS: Aspirin 325 MG TAB PO SCH (08:05)
[2018-03-11] MEDS: Multivitamin W/ Minerals 1 TAB PO SCH (08:06)
[2018-03-11] MEDS: Gabapentin 100 MG CAP PO SCH ×3 (08:06→20:09)
[2018-03-11] MEDS: hydrALAZINE 25 MG TAB PO SCH ×3 (08:13→20:09)
[2018-03-11] MEDS: Insulin Glargine 100 UNIT/ML 3 ML PEN SQ SCH ×2 (08:22→20:09)
[2018-03-11] MEDS ORDERED: MACROBID 100 MG PO SCH (09:00)
[2018-03-11] MEDS ORDERED: Mag-Al Plus 1200 MG/1200 MG/120 MG/30 ML UDCUP PO PRN (11:00)
[2018-03-11] MEDS: Ondansetron ODT 4 MG TAB PO PRN (11:21)
[2018-03-11] MEDS ORDERED: Dextrose 50% Abboject 50 ML SYRINGE SLOW IVP PRN (13:09)
[2018-03-11] MEDS ORDERED: Dextrose 5% in Water 1,000 ML IV PRN (13:09)
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
[2018-03-11] MEDS: Atorvastatin Calcium 40 MG TAB PO SCH (20:08)
[2018-03-11] MEDS: rOPINIRole HCl 1 MG TAB PO SCH (20:10)
[2018-03-12] MEDS: HumaLOG 300 UNITS/3 ML VIAL SC PRN ×4 (06:03→20:46)
[2018-03-12] MEDS: Levothyroxine Sodium 75 MCG TAB PO SCH (06:03)
--- NOTE | 2018-03-12 08:44 | PRG ---
DATE OF SERVICE: 03/12/2018 SUBJECTIVE: Ms. Kraus is feeling much better this morning. She denies any concerns or questions. No further nausea or vomiting. OBJECTIVE: VITAL SIGNS: She is afebrile, heart rate 63, respirations 18, oxygen saturation 95% on room air, blo od pressure 163/72. CARDIOVASCULAR: S1, S2 plus. RESPIRATORY SYSTEM: Normal vesicular breath sounds. ABDOMEN: Soft, obese, nontender. Bowel sounds heard in all quadrants. EXTREMITIES: Without cyanosis or clubbing. LABORATORY VALUES: Blood sugars are 452, 335, 320 and 254. IMPRESSION: 1. Diabetes mellitus type 2, not well controlled, but improving. 2. Hypertension, not well controlled, but improving. 3. Possible orthostasis. I discussed with patient in detail and last time when she was here, we did place her on thigh high EUGENE hose and it really helped her with therapy and her lightheadedness, so w ill reorder the EUGENE hose. 4. Coronary artery disease without angina. 5. Dyslipidemia. 6. Hypothyroidism. 7. Gastroesophageal reflux disease. 8. History of cerebrovascular accident. 9. Deconditioning. PLAN: 1. Continue to adjust her insulin and her blood pressure medications. 2. 1800 calorie heart healthy ADA diet. 3. Deep venous thrombosis prophylaxis with PlexiPulses. 4. Thigh high EUGENE hose. 5. Continue current medications. 6. Continue physical therapy. 7. Monitor blood pressure and blood sugar. 8. Discussed with patient in detail and all questions answered.
[2018-03-12] MEDS: Furosemide 40 MG TAB PO SCH ×2 (08:48→13:12)
[2018-03-12] MEDS: hydrALAZINE 25 MG TAB PO SCH ×3 (08:48→20:45)
[2018-03-12] MEDS: Gabapentin 100 MG CAP PO SCH ×3 (08:48→20:45)
[2018-03-12] MEDS: Aspirin 325 MG TAB PO SCH (08:49)
[2018-03-12] MEDS: Nitrofurantoin Macrocrystal 50 MG CAP PO SCH (08:49)
[2018-03-12] MEDS: Insulin Glargine 100 UNIT/ML 3 ML PEN SQ SCH ×2 (08:49→20:46)
[2018-03-12] MEDS: Multivitamin W/ Minerals 1 TAB PO SCH (08:49)
[2018-03-12] MEDS: Atorvastatin Calcium 40 MG TAB PO SCH (20:45)
[2018-03-12] MEDS: rOPINIRole HCl 1 MG TAB PO SCH (20:46)
[2018-03-13] MEDS: HumaLOG 300 UNITS/3 ML VIAL SC PRN ×4 (05:09→21:36)
[2018-03-13] MEDS: Levothyroxine Sodium 75 MCG TAB PO SCH (05:09)
--- NOTE | 2018-03-13 08:07 | PRG ---
DATE OF SERVICE: 03/13/2018 SUBJECTIVE: This is a well-developed, well-nourished 63-year-old female that complains of generalize d weakness. She was standing in her kitchen when she slid down the wall. She just became very weak. MRI was unremarkable. Cardiology workup and Neurology workup were unremarkable, thought to have or thostasis. She was transferred here and we have been adjusting her medications, which has done actua lly a very good job. Her sugars are improved and they were increased yesterday by Dr. Ulrich. We angela l watch them another day and increased some if needed. Patient has been requesting DNR, which were put on the chart and she also requests speech therapy bec ause she is having difficulty finding in speaking some words and she is noted to have slightly slurre d speech, which may or may not be her baseline. Otherwise, she has no complaints today. Vital signs today reveal blood pressure 148/90, pulse 60 to 65, respirations 18, O2 sat 99% on room a ir, T-max 97.8. LABORATORY: Reveals sugars yesterday 254, 328, 351, 286. Sugar this morning is 214. Patient did ríos ve her insulin increased yesterday by Dr. Ulrich and is presently on 35 units subcutaneously b.i.d. fr om 25 units subcutaneously b.i.d. OBJECTIVE: GENERAL: This is a well-developed, well-nourished, slightly obese white female in no apparent distre ss at this time. HEENT: Reveals normocephalic, nontraumatic cranium. Pupils are equally round and reactive. Extraoc ular movements intact. Nose and throat are slightly dry. NECK: Supple without mass, nodes, bruits. LUNGS: Chest is clear to auscultation. No rales, rhonchi, wheezes, or cough is heard. CARDIOVASCULAR: Reveals a regular rate and rhythm without murmurs, gallops, or rubs. ABDOMEN: Soft, nontender without organomegaly. Normal bowel sounds are noted. No rebound or guardi ng is noted. GENITOURINARY: Deferred. EXTREMITIES: Reveal no clubbing, cyanosis, trace edema. IMPRESSION: 1. Diabetes type 2, much improved. 2. Hypertension, much improved. 3. Orthostasis. 4. Coronary artery disease without angina. 5. Hyperlipidemia. 6. Hypothyroidism. 7. Gastroesophageal reflux disease. 8. History of cerebrovascular accident in the distant past. 9. Deconditioning. PLAN: 1. We will watch her insulin response today and most likely increased her insulin a little bit more tomorrow. 2. Continue to monitor blood pressure closely. 3. Deep venous thrombosis prophylaxis with PlexiPulses. 4. Thigh high EUGENE hose. 5. Continue present meds otherwise. 6. Continue PT and OT. 7. Answer all the patient's questions.
[2018-03-13] MEDS: Multivitamin W/ Minerals 1 TAB PO SCH (09:12)
[2018-03-13] MEDS: Aspirin 325 MG TAB PO SCH (09:12)
[2018-03-13] MEDS: Gabapentin 100 MG CAP PO SCH ×3 (09:12→21:39)
[2018-03-13] MEDS: Nitrofurantoin Macrocrystal 50 MG CAP PO SCH (09:12)
[2018-03-13] MEDS: hydrALAZINE 25 MG TAB PO SCH ×3 (09:12→21:40)
[2018-03-13] MEDS: Furosemide 40 MG TAB PO SCH ×2 (09:13→14:14)
[2018-03-13] MEDS: Insulin Glargine 100 UNIT/ML 3 ML PEN SQ SCH ×2 (09:15→21:36)
[2018-03-13] MEDS: traMADol HCl 50 MG TAB PO PRN ×2 (09:16→18:32)
[2018-03-13] MEDS: rOPINIRole HCl 1 MG TAB PO SCH (21:39)
[2018-03-13] MEDS: Atorvastatin Calcium 40 MG TAB PO SCH (21:40)
[2018-03-14] MEDS: Levothyroxine Sodium 75 MCG TAB PO SCH (06:25)
[2018-03-14] MEDS: HumaLOG 300 UNITS/3 ML VIAL SC PRN ×3 (06:26→21:29)
--- NOTE | 2018-03-14 09:11 | PRG ---
DATE OF SERVICE: 03/14/2018 DATE OF ADMISSION: 03/10/2018 HISTORY OF PRESENT ILLNESS: Ms. Kraus is a very pleasant 63-year-old white female with significant generalized weakness. Unfortunately, she was in the kitchen when she slid down the wall and became very weak. She was evaluated with Cardiology and Neurology, which was unremarkable. Transferred her e to adjust her medicines and to increase her stamina and strength with physical therapy and occupati onal therapy. The patient requests DNR, which we have done. She also requested some speech therapy because she is having difficulty with her words. PHYSICAL EXAMINATION: VITAL SIGNS: Today reveal blood pressure 131/71, pulse 58-62, respirations 16, O2 sat 96% to 100% on room air, T-max 97.8. Patient's sugars yesterday were fasting 214, before lunch 215, before supper 298, before bedtime 250, fasting this morning 209. Her insulins have been increased. GENERAL: This is a well-developed, well-nourished, very pleasant, somewhat obese white female in no apparent distress at this time. HEENT: Reveals normocephalic, nontraumatic cranium. Pupils are equal, round, and reactive. Extraoc ular movements intact. Nose and throat are slightly dry. NECK: Supple, without mass, nodes or bruits. CHEST: Clear to auscultation. No rales, rhonchi or wheezes are heard. HEART: Reveals a regular rate and rhythm without murmurs, gallops or rubs. ABDOMEN: Soft and nontender without organomegaly, normal bowel sounds are noted. No rebound or guar ding is noted. : Deferred. EXTREMITIES: Reveal no clubbing, cyanosis with trace edema. ASSESSMENT: 1. Diabetes type 2, slowly improving. 2. Hypertension, much improved. 3. Orthostasis. 4. Coronary artery disease without angina. 5. Hyperlipidemia. 6. Hypothyroidism. 7. Gastroesophageal reflux. 8. History of cerebrovascular accident in the distant past. 9. Deconditioning. PLAN: 1. Continue to monitor her sugar response to her insulin increase. 2. Continue to monitor blood pressure closely. 3. Continue deep venous thrombosis prophylaxis with PlexiPulses. 4. Thigh high EUGENE hose. 5. Continue present meds. 6. Continue PT and OT. All the patient's questions have been answered.
[2018-03-14] MEDS: Multivitamin W/ Minerals 1 TAB PO SCH (09:24)
[2018-03-14] MEDS: Nitrofurantoin Macrocrystal 50 MG CAP PO SCH (09:24)
[2018-03-14] MEDS: Gabapentin 100 MG CAP PO SCH ×3 (09:24→21:26)
[2018-03-14] MEDS: hydrALAZINE 25 MG TAB PO SCH ×3 (09:24→21:26)
[2018-03-14] MEDS: Aspirin 325 MG TAB PO SCH (09:25)
[2018-03-14] MEDS: Furosemide 40 MG TAB PO SCH ×2 (09:25→14:03)
[2018-03-14] MEDS: Insulin Glargine 100 UNIT/ML 3 ML PEN SQ SCH ×2 (09:26→21:27)
[2018-03-14] MEDS: rOPINIRole HCl 1 MG TAB PO SCH (21:26)
[2018-03-14] MEDS: Atorvastatin Calcium 40 MG TAB PO SCH (21:26)
[2018-03-15] MEDS: Levothyroxine Sodium 75 MCG TAB PO SCH (06:24)
[2018-03-15] MEDS: Insulin Glargine 100 UNIT/ML 3 ML PEN SQ SCH ×2 (08:27→20:58)
[2018-03-15] MEDS: Furosemide 40 MG TAB PO SCH ×2 (08:28→14:45)
[2018-03-15] MEDS: hydrALAZINE 25 MG TAB PO SCH ×3 (08:29→21:02)
[2018-03-15] MEDS: Multivitamin W/ Minerals 1 TAB PO SCH (08:30)
[2018-03-15] MEDS: Gabapentin 100 MG CAP PO SCH ×3 (08:30→21:02)
[2018-03-15] MEDS: Aspirin 325 MG TAB PO SCH (08:30)
[2018-03-15] MEDS: Nitrofurantoin Macrocrystal 50 MG CAP PO SCH (08:31)
[2018-03-15] MEDS: HumaLOG 300 UNITS/3 ML VIAL SC PRN ×3 (12:09→20:58)
[2018-03-15] MEDS: rOPINIRole HCl 1 MG TAB PO SCH (21:02)
[2018-03-15] MEDS: Atorvastatin Calcium 40 MG TAB PO SCH (21:02)
[2018-03-15] MEDS: traMADol HCl 50 MG TAB PO PRN (21:02)
[2018-03-16] MEDS: Levothyroxine Sodium 75 MCG TAB PO SCH (05:51)
[2018-03-16] MEDS: Aspirin 325 MG TAB PO SCH (08:25)
[2018-03-16] MEDS: Nitrofurantoin Macrocrystal 50 MG CAP PO SCH (08:25)
[2018-03-16] MEDS: hydrALAZINE 25 MG TAB PO SCH ×3 (08:26→20:37)
[2018-03-16] MEDS: Multivitamin W/ Minerals 1 TAB PO SCH (08:26)
[2018-03-16] MEDS: Furosemide 40 MG TAB PO SCH ×2 (08:26→14:54)
[2018-03-16] MEDS: Gabapentin 100 MG CAP PO SCH ×3 (08:26→20:37)
[2018-03-16] MEDS: Insulin Glargine 100 UNIT/ML 3 ML PEN SQ SCH ×2 (08:27→20:36)
--- NOTE | 2018-03-16 13:36 | PRG ---
DATE OF SERVICE: 03/15/2018 SUBJECTIVE: Ms. Kraus is doing better. She denies any complaints. She is happy with her sugars a nd her blood pressure. She seems to be doing better with therapy. No family at bedside, discussed w [facility] nursing. OBJECTIVE: VITAL SIGNS: She is afebrile, heart rate is 60, respirations 20, oxygen saturation 98% on room air, blood pressure 137/61. CARDIOVASCULAR: S1, S2 plus. RESPIRATORY SYSTEM: Normal vesicular breath sounds. ABDOMEN: Soft, nontender, bowel sounds heard in all quadrants. EXTREMITIES: Without cyanosis or clubbing. Peripheral pulses are palpable. CENTRAL NERVOUS SYSTEM: Improving deconditioning. LABORATORY VALUES: Blood sugars are 209, 220, 70 and 177. IMPRESSION: 1. Diabetes mellitus type 2, much improved. 2. Hypertension, well controlled. 3. Coronary artery disease without angina. 4. Dyslipidemia. 5. Hypothyroidism. 6. History of cerebrovascular accident. 7. Gastroesophageal reflux disease. 8. Degenerative joint disease. PLAN: 1. Continue current medications. 2. Nutritional support. 3. Physical therapy. 4. Deep venous thrombosis and stress ulcer prophylaxis. 5. Decubitus precautions. 6. Accu-Cheks with sliding scale coverage. 7. Heart healthy diet. 8. Routine laboratory values. 9. No family at bedside. 10. Discussed with patient in detail and all questions answered.
--- NOTE | 2018-03-16 13:44 | PRG ---
DATE OF SERVICE: 03/16/2018 SUBJECTIVE: Ms. Kraus is doing well. Denies any complaints, resting comfortably. Her family is i n the room. She states that she walked around the nursing station 3 times, she is still having some issues with balance, but is doing much better, tolerating her diet. OBJECTIVE: VITAL SIGNS: She is afebrile, heart rate 62, respirations 16, oxygen saturation 97% on room air, blo od pressure this morning before her medications was 163/75 after her medications at 8:45 was 132/62. CARDIOVASCULAR: S1, S2 plus. RESPIRATORY SYSTEM: Normal vesicular breath sounds. ABDOMEN: Soft, nontender, bowel sounds heard in all quadrants. EXTREMITIES: Without cyanosis or clubbing. CENTRAL NERVOUS SYSTEM: Improving deconditioning. LABORATORY VALUES: Blood sugars are 177, 171, 204, 88 and 155. IMPRESSION: 1. Diabetes mellitus type 2, excellent control. 2. Hypertension, well controlled. 3. Coronary artery disease without angina. 4. Dyslipidemia. 5. Hypothyroidism. 6. Improving deconditioning. PLAN: 1. Continue current medications. 2. 1800 calorie heart healthy ADA diet. 3. Accu-Cheks with sliding scale coverage. 4. Deep venous thrombosis prophylaxis. 5. Decubitus precautions. 6. Routine laboratory values. 7. Physical therapy. 8. Discussed with patient and family in detail and all questions answered.
[2018-03-16] MEDS: rOPINIRole HCl 1 MG TAB PO SCH (20:36)
[2018-03-16] MEDS: HumaLOG 300 UNITS/3 ML VIAL SC PRN (20:36)
[2018-03-16] MEDS: Atorvastatin Calcium 40 MG TAB PO SCH (20:37)
[2018-03-17] MEDS: Levothyroxine Sodium 75 MCG TAB PO SCH (05:00)
[2018-03-17 05:31] LABS: #Basophils 0.1 thou/uL (0.0-0.2); #Eosinphils 0.4 thou/uL (0.0-0.7); #Lymphocytes 2.7 thou/uL (1.20-3.40); #Monocytes 0.5 thou/uL (0.11-0.59); #Neutrophils 3.4 thou/uL (1.40-6.50); %Basophils 1.1 % (0.0-1.0); %Eosinophils 5.5 % (0.0-10.0); %Lymphocytes 38.2 % (21.0-51.0); %Monocytes 7.5 % (0.0-10.0); %Neutrophils 47.8 % (42.0-75.0); Mean Corpuscular HGB CONC 31.1 g/dL (32.0-36.0); Mean Corpuscular Hemoglobin 29.3 pg (27.0-31.0); Mean Corpuscular Volume 94.2 fL (78.0-98.0); Mean Platelet Volume 8.7 fL (7.4-10.4); Platelet Count 192 thou/uL (130-400); RBC Distribution Width 12.6 % (11.5-14.5); Red Blood Cell (RBC) Count 3.42 mill/uL (4.20-5.40); White Blood Cell (WBC) Count 7.1 thou/uL (4.8-10.8)
[2018-03-17 05:46] LABS: Anion Gap 12 mmol/L (10-20); BUN (Urea Nitrogen) 51 mg/dL (9.8-20.1); Calc. Creatinine Clearance 50 mL/min (70-130); Calcium 9.4 mg/dL (7.8-10.44); Carbon Dioxide 31 mmol/L (23-31); Chloride 102 mmol/L (98-107); Estimated GFR-MDRD 31; Glucose 61 mg/dL (80-115); Potassium 4.2 mmol/L (3.5-5.1); Sodium 141 mmol/L (136-145)
[2018-03-17] MEDS: Aspirin 325 MG TAB PO SCH (09:18)
[2018-03-17] MEDS: Gabapentin 100 MG CAP PO SCH ×3 (09:19→21:44)
[2018-03-17] MEDS: Multivitamin W/ Minerals 1 TAB PO SCH (09:20)
[2018-03-17] MEDS: hydrALAZINE 25 MG TAB PO SCH ×3 (09:20→21:44)
[2018-03-17] MEDS: Furosemide 40 MG TAB PO SCH ×2 (09:21→13:58)
[2018-03-17] MEDS: Nitrofurantoin Macrocrystal 50 MG CAP PO SCH (09:23)
[2018-03-17] MEDS: Insulin Glargine 100 UNIT/ML 3 ML PEN SQ SCH ×2 (09:29→21:43)
[2018-03-17] MEDS: HumaLOG 300 UNITS/3 ML VIAL SC PRN ×4 (12:33→21:50)
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
[2018-03-17] MEDS: rOPINIRole HCl 1 MG TAB PO SCH (21:44)
[2018-03-17] MEDS: Atorvastatin Calcium 40 MG TAB PO SCH (21:44)
[2018-03-18] MEDS: Levothyroxine Sodium 75 MCG TAB PO SCH (05:18)
[2018-03-18] MEDS: Furosemide 40 MG TAB PO SCH ×2 (09:10→14:38)
[2018-03-18] MEDS: Aspirin 325 MG TAB PO SCH (09:10)
[2018-03-18] MEDS: Insulin Glargine 100 UNIT/ML 3 ML PEN SQ SCH ×2 (09:13→21:03)
[2018-03-18] MEDS: hydrALAZINE 25 MG TAB PO SCH ×3 (09:13→21:02)
[2018-03-18] MEDS: Gabapentin 100 MG CAP PO SCH ×3 (09:13→21:01)
[2018-03-18] MEDS: Multivitamin W/ Minerals 1 TAB PO SCH (09:15)
[2018-03-18] MEDS: Nitrofurantoin Macrocrystal 50 MG CAP PO SCH (09:15)
[2018-03-18] MEDS: HumaLOG 300 UNITS/3 ML VIAL SC PRN ×2 (12:33→17:10)
[2018-03-18] MEDS: Ondansetron ODT 4 MG TAB PO PRN (17:09)
[2018-03-18] MEDS: Atorvastatin Calcium 40 MG TAB PO SCH (21:01)
[2018-03-18] MEDS: rOPINIRole HCl 1 MG TAB PO SCH (21:03)
[2018-03-19] MEDS: Levothyroxine Sodium 75 MCG TAB PO SCH (05:06)
[2018-03-19 07:32] VITALS: BP 162/73; TEMP 97.7
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
[2018-03-19] MEDS: Furosemide 40 MG TAB PO SCH ×2 (09:22→15:55)
[2018-03-19] MEDS: Nitrofurantoin Macrocrystal 50 MG CAP PO SCH (09:23)
[2018-03-19] MEDS: hydrALAZINE 25 MG TAB PO SCH ×2 (09:23→15:56)
[2018-03-19] MEDS: Gabapentin 100 MG CAP PO SCH ×2 (09:24→15:56)
[2018-03-19] MEDS: Aspirin 325 MG TAB PO SCH (09:24)
[2018-03-19] MEDS: Multivitamin W/ Minerals 1 TAB PO SCH (09:24)
[2018-03-19] MEDS: Insulin Glargine 100 UNIT/ML 3 ML PEN SQ SCH (09:29)
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
== END 2018-03-19 17:00 | disposition home or self-care (01) | DRG 948 ==
LOC: NAV ACUTE 14:58
PROVIDERS: ADMIT Internal Medicine; ATTEND Internal Medicine
DX: R53.1 Weakness (principal); R19.7 Diarrhea, unspecified; I25.10 Atherosclerotic heart disease of native coronary artery without angina pectoris; E11.9 Type 2 diabetes mellitus without complications; I10 Essential (primary) hypertension; E78.5 Hyperlipidemia, unspecified; E03.9 Hypothyroidism, unspecified; Z86.73 Personal history of transient ischemic attack (TIA), and cerebral infarction without residual deficits; G25.0 Essential tremor; K21.9 Gastro-esophageal reflux disease without esophagitis; G43.909 Migraine, unspecified, not intractable, without status migrainosus; F41.9 Anxiety disorder, unspecified; I95.1 Orthostatic hypotension; F32.9 Major depressive disorder, single episode, unspecified; M19.90 Unspecified osteoarthritis, unspecified site; Z95.5 Presence of coronary angioplasty implant and graft; D63.8 Anemia in other chronic diseases classified elsewhere; Z66 Do not resuscitate; Z90.49 Acquired absence of other specified parts of digestive tract; Z90.710 Acquired absence of both cervix and uterus
CPT/HCPCS: 36416; 80048; 85025; G9162-GN-CH; G9163-GN-CH; Q0162

== ENCOUNTER 2018-04-14 09:50 | Emergency (ER) | payer MEDICARE ==
[2018-04-14] MEDS ORDERED: Sodium Chloride 0.9% 1,000 ML ONE ×2 (10:26→11:38)
[2018-04-14] MEDS ORDERED: Insulin Regular 300 UNITS/3 ML VIAL ONE (10:26)
[2018-04-14 10:44] LABS: #Basophils 0.1 thou/uL (0.0-0.2); #Eosinphils 0.2 thou/uL (0.0-0.7); #Lymphocytes 1.5 thou/uL (1.20-3.40); #Monocytes 0.5 thou/uL (0.11-0.59); #Neutrophils 4.3 thou/uL (1.40-6.50); %Basophils 1.7 % (0.0-1.0); %Lymphocytes 22.7 % (21.0-51.0); %Monocytes 6.9 % (0.0-10.0); %Neutrophils 65.8 % (42.0-75.0); Hemoglobin 12.1 g/dL (12.0-16.0); Mean Corpuscular HGB CONC 33.2 g/dL (32.0-36.0); Mean Corpuscular Hemoglobin 29.6 pg (27.0-31.0); Mean Corpuscular Volume 89.2 fL (78.0-98.0); Platelet Count 180 thou/uL (130-400); RBC Distribution Width 11.9 % (11.5-14.5); Red Blood Cell (RBC) Count 4.07 mill/uL (4.20-5.40); White Blood Cell (WBC) Count 6.6 thou/uL (4.8-10.8)
[2018-04-14 10:56] LABS: CKMB 2.8 ng/mL (0-6.6)
[2018-04-14 11:03] LABS: ALT (SGPT) 15 U/L (8-55); AST (SGOT) 16 U/L (5-34); Albumin 3.5 g/dL (3.4-4.8); Alkaline Phosphatase 84 U/L (40-150); Anion Gap 18 mmol/L (10-20); BUN (Urea Nitrogen) 19 mg/dL (9.8-20.1); Bilirubin, Total 0.5 mg/dL (0.2-1.2); Calc. Creatinine Clearance 0 mL/min (70-130); Calcium 9.9 mg/dL (7.8-10.44); Carbon Dioxide 23 mmol/L (23-31); Chloride 99 mmol/L (98-107); Estimated GFR-MDRD 44; Globulin 3.7 g/dL (2.4-3.5); Glucose 426 mg/dL (80-115); Protein, Total 7.2 g/dL (6.0-8.3); Sodium 136 mmol/L (136-145)
--- NOTE | 2018-04-14 11:13 | RAD ---
PORTABLE CHEST: Date: 04/14/18 INDICATION: Dizziness. FINDINGS: The lung lopez appear clear. Vascular markings normal. Heart and mediastinum unremarkable. There is evidence of prior resection of the distal right clavicle, which is stable when compared to p rior exam. IMPRESSION: No acute finding. POS: TPC
[2018-04-14 11:29] LABS: Bilirubin Negative (Negative); Blood, Urine Moderate (Negative); Clarity Clear (Clear); Glucose, Urine (Dipstick) 500 mg/dL (Negative); Leukocyte Negative (Negative); Nitrite Negative (Negative); Protein, Urine (Dipstick) > or equal to 300 mg/dL (Neg-Trace); Specific Gravity, Urine 1.025 (1.005-1.030); Urobilinogen 0.2 mg/dL (0.2-1.0)
[2018-04-14 11:43] LABS: Bacteria/HPF Rare-Few HPF (None Seen); Other Microscopic Description NO; WBC/HPF 0-3 HPF (0-3)
[2018-04-14 12:58] LABS: CKMB 2.6 ng/mL (0-6.6); Troponin I 0.038 ng/mL (< 0.028)
[2018-04-14 14:15] LABS: CKMB 2.9 ng/mL (0-6.6); Troponin I 0.045 ng/mL (< 0.028)
[2018-04-14] MEDS ORDERED: Aspirin 325 MG TAB ONE (14:30)
[2018-04-14] MEDS ORDERED: Ondansetron HCl/PF 4 MG/2 ML Vial ONE ×2 (15:35)
== END 2018-04-14 15:55 | disposition short-term general hospital (02) ==
LOC: NAV ERS 09:50
DX: R42 Dizziness and giddiness (principal); R74.8 Abnormal levels of other serum enzymes; E11.65 Type 2 diabetes mellitus with hyperglycemia; I10 Essential (primary) hypertension; I25.10 Atherosclerotic heart disease of native coronary artery without angina pectoris; Z86.73 Personal history of transient ischemic attack (TIA), and cerebral infarction without residual deficits; G43.909 Migraine, unspecified, not intractable, without status migrainosus; K21.9 Gastro-esophageal reflux disease without esophagitis; F41.9 Anxiety disorder, unspecified; F32.9 Major depressive disorder, single episode, unspecified; F43.10 Post-traumatic stress disorder, unspecified; E03.9 Hypothyroidism, unspecified; Z79.899 Other long term (current) drug therapy; Z79.82 Long term (current) use of aspirin; Z79.4 Long term (current) use of insulin
CPT/HCPCS: 36416; 71045; 80053; 81003; 81015; 82010; 82553; 83880; 84484; 85025; 87804; 93005; 94760; 96361; 96374; 96375; 96376; 36415-59; J1815; J2405; J7050

== ENCOUNTER 2018-04-20 13:30 | Inpatient (IN) | payer MEDICARE ==
[2018-04-20 13:39] VITALS: BMI 34.4
[2018-04-20] MEDS ORDERED: DIAZEPAM 2 MG PO PRN (17:27)
[2018-04-20] MEDS ORDERED: Nitroglycerin 0.4 MG TAB (25 Tab Bottle) SL PRN (17:27)
[2018-04-20] MEDS ORDERED: Non-Formulary Item 1 EACH (Insulin Lispro [Humalog Kwikpen U-100] 100 UNIT) SQ PRN (17:27)
[2018-04-20] MEDS ORDERED: Benzonatate 100 MG CAP PO PRN (17:27)
[2018-04-20] MEDS ORDERED: Dextrose 5% in Water 1,000 ML IV PRN (17:31)
[2018-04-20] MEDS ORDERED: Dextrose 50% Abboject 50 ML SYRINGE SLOW IVP PRN (17:31)
[2018-04-20] MEDS ORDERED: Acetaminophen 500 MG TAB PO PRN (17:32)
[2018-04-20] MEDS ORDERED: Diazepam 5 MG TAB PO PRN (18:33)
[2018-04-20] MEDS: Lantus 1000 UNITS/10 ML VIAL SC SCH (20:06)
[2018-04-20] MEDS: Atorvastatin Calcium 20 MG TAB PO SCH (20:08)
[2018-04-20] MEDS: Lisinopril 20 MG TAB PO SCH (20:08)
[2018-04-20] MEDS: Gabapentin 100 MG CAP PO SCH (20:08)
[2018-04-20] MEDS: Furosemide 40 MG TAB PO SCH (20:08)
[2018-04-20] MEDS: Aggrenox 200-25mg CAP PO SCH (20:10)
[2018-04-20] MEDS: hydrALAZINE 25 MG TAB PO SCH (20:10)
[2018-04-20] MEDS ORDERED: Non-Formulary Item 1 EACH (Levemir Flexpen [Levemir Flexpen] 25 UNITS) SC SCH (21:00)
--- NOTE | 2018-04-20 22:50 | HP ---
DATE OF ADMISSION: 04/20/2018 PRINCIPAL DIAGNOSIS: Recurrent episodes of dizziness and deconditioning for therapy. BRIEF HISTORY: This is a pleasant 63-year-old female who is well known to me [facility] for the same complaints. She presented to [facility] with dizziness and deconditioning and she underwent extensive evaluation includin g multiple imaging of her brain, echocardiogram, stress test, carotid Doppler, multiple specialists' evaluation and all the workup was essentially unremarkable. She worked with therapy and was felt to be significantly deconditioned and felt to be a candidate for inpatient rehabilitation and so transfe rred here. Patient states that she had one episode where she states that she could not speak and she was unable to lift her left arm. There is suspicion for TIAs. She is on aspirin. I advised her th at it may be worthwhile to switch her aspirin to something else as if this is a true TIA, then she ba sically failed aspirin therapy. She is in agreement. She will be started on Aggrenox 1 capsule p.o. b.i.d. She will continue on all her other medications. She denies any chest pain or shortness of b reath. No family at bedside. I discussed with nursing. PAST MEDICAL HISTORY: 1. Coronary artery disease without angina. 2. Diabetes mellitus type 2. 3. Hypertension. 4. Dyslipidemia. 5. Hypothyroidism. 6. History of cerebrovascular accident. 7. Familial tremor. 8. Gastroesophageal reflux disease. 9. Migraine type headaches. 10. Anxiety and depression. 11. Degenerative joint disease. 12. Episodes of dizziness and possible TIA. PAST SURGICAL HISTORY: 1. Coronary artery stent placement. 2. Bilateral carpal tunnel release. 3. Cholecystectomy. 4. Gastroplasty. 5. Hysterectomy. 6. Cervical diskectomy. 7. Thyroidectomy. 8. Splenic artery embolization. ALLERGIES: Ofloxacin and dexamethasone. FAMILY HISTORY: Positive for diabetes mellitus. PSYCHOSOCIAL HISTORY: She lives at home alone. She denies any tobacco, alcohol or IV drug abuse. S he was thinking about moving to an assisted living facility. The last time she left here, we will di scuss that with her again. CURRENT MEDICATIONS: She has been transferred here on the following medications: 1. Lipitor 40 mg daily. 2. Valium 2 mg p.o. daily as needed, here we have only 5 mg, so we will give her half of the 5 mg wh ich is 2.5. 3. Hydralazine 25 mg p.o. b.i.d. 4. Levemir FlexPen 25 units subcu b.i.d. 5. Levoxyl 75 mcg p.o. daily. 6. Metoprolol XL 25 mg b.i.d. 7. Multivitamin 1 tablet daily. 8. Sublingual nitroglycerin every 5 minutes p.r.n. chest pain. 9. Protonix 40 mg p.o. b.i.d. 10. Ranexa 500 mg p.o. b.i.d. 11. Requip 1 mg p.o. at bedtime. 12. Sertraline 200 mg p.o. daily. 13. Aspirin, which will be changed to Aggrenox. 14. Lasix 40 mg p.o. b.i.d. 15. Neurontin 100 mg p.o. t.i.d. 16. Lisinopril 20 mg p.o. b.i.d. REVIEW OF SYSTEMS: Cardiovascular system: Denies any chest pain, shortness of breath, palpitations, paroxysmal nocturnal dyspnea, orthopnea, pedal edema. Respiratory system: Denies any chronic cough, expectoration or pleuritic type chest pain. Gastrointestinal: Occasional heartburn. Denies any na usea, vomiting, diarrhea, hematemesis, melena, hematochezia. Genitourinary: Denies any frequency, u rgency, or hematuria. Central Nervous System: Occasional episodes of dizziness and significant deco nditioning. She did have one episode where she states that she did have some dysphagia. She denies any change in vision. She denies any difficulty with hearing or swallowing. PHYSICAL EXAMINATION: GENERAL: Pleasant 63-year-old female who is resting comfortably and in no apparent distres s. She responds appropriately to questions. Discussed with patient and nursing. VITAL SIGNS: She is afebrile, heart rate 88, respirations 20, oxygen saturation 97% on room air, blo od pressure 125/58. HEENT: Normocephalic, atraumatic. Pupils equal and reactive to light and accommodation. No JVD, th yromegaly or adenopathy. CHEST: No carotid bruits. CARDIOVASCULAR: S1, S2, rate and rhythm regular. RESPIRATORY SYSTEM: Normal vesicular breath sounds heard in all lung lopez. ABDOMEN: Soft, obese, nontender. Bowel sounds heard in all quadrants. EXTREMITIES: Without cyanosis or clubbing. Peripheral pulses are palpable. CENTRAL NERVOUS SYSTEM: Grossly nonfocal except for generalized weakness. LABORATORY VALUES: From today are pending. Last laboratory values from 04/17/2018 where white count was 7.3, H&H is 10 and 30.3. Blood sugars are 188, 145, 104, 363, 255, and 205. Sodium 137, potass ium 4.3, BUN and creatinine 17 and 0.95. This was on 04/14/2018. IMPRESSION: 1. Episodes of dizziness and weakness with the possibly localized left arm weakness and speech probl em, possible transient ischemic attack. Workup negative for any source of embolus. 2. Coronary artery disease without angina. 3. Diabetes mellitus type 2. 4. Hypertension. 5. Dyslipidemia. 6. Depression and anxiety. PLAN: 1. Change aspirin to Aggrenox. 2. Monitor for any signs of bleeding. 3. Continue current medications. 4. 1800 calorie heart healthy ADA diet. 5. Accu-Cheks with sliding scale coverage. 6. Routine laboratory values in the morning with CBC and BMP. 7. PT/OT evaluate and treat. 8. Decubitus precautions. 9. Stress ulcer precautions. She is already on Protonix. 10. Routine laboratory values. 11. Discussed with patient and nursing in detail. All questions answered.
[2018-04-21 05:36] LABS: #Basophils 0.1 thou/uL (0.0-0.2); #Eosinphils 0.3 thou/uL (0.0-0.7); #Lymphocytes 2.3 thou/uL (1.20-3.40); #Monocytes 0.6 thou/uL (0.11-0.59); #Neutrophils 4.5 thou/uL (1.40-6.50); %Basophils 1.5 % (0.0-1.0); %Eosinophils 3.3 % (0.0-10.0); %Lymphocytes 29.4 % (21.0-51.0); %Monocytes 8.1 % (0.0-10.0); %Neutrophils 57.8 % (42.0-75.0); Hemoglobin 9.2 g/dL (12.0-16.0); Mean Corpuscular HGB CONC 31.7 g/dL (32.0-36.0); Mean Corpuscular Hemoglobin 29.4 pg (27.0-31.0); Mean Corpuscular Volume 92.6 fL (78.0-98.0); Mean Platelet Volume 9.3 fL (7.4-10.4); Platelet Count 144 thou/uL (130-400); RBC Distribution Width 12.6 % (11.5-14.5); Red Blood Cell (RBC) Count 3.12 mill/uL (4.20-5.40); White Blood Cell (WBC) Count 7.7 thou/uL (4.8-10.8)
[2018-04-21 05:48] LABS: Anion Gap 13 mmol/L (10-20); BUN (Urea Nitrogen) 31 mg/dL (9.8-20.1); Calc. Creatinine Clearance 67 mL/min (70-130); Calcium 8.9 mg/dL (7.8-10.44); Carbon Dioxide 24 mmol/L (23-31); Chloride 107 mmol/L (98-107); Estimated GFR-MDRD 41; Glucose 151 mg/dL (80-115); Potassium 5.1 mmol/L (3.5-5.1); Sodium 139 mmol/L (136-145)
[2018-04-21] MEDS: Levothyroxine Sodium 75 MCG TAB PO SCH (06:06)
[2018-04-21] MEDS: hydrALAZINE 25 MG TAB PO SCH ×2 (08:12→20:14)
[2018-04-21] MEDS: Gabapentin 100 MG CAP PO SCH ×3 (08:12→20:14)
[2018-04-21] MEDS: Furosemide 40 MG TAB PO SCH ×2 (08:13→20:14)
[2018-04-21] MEDS: Aggrenox 200-25mg CAP PO SCH ×2 (08:13→20:14)
[2018-04-21] MEDS: Multivitamin W/ Minerals 1 TAB PO SCH (08:13)
[2018-04-21] MEDS: Lisinopril 20 MG TAB PO SCH ×2 (08:13→20:14)
[2018-04-21] MEDS: Lantus 1000 UNITS/10 ML VIAL SC SCH ×2 (08:14→20:17)
[2018-04-21] MEDS ORDERED: Aspirin 325 MG TAB PO SCH (09:00)
--- NOTE | 2018-04-21 13:20 | PRG ---
DATE OF SERVICE: 04/21/2018 SUBJECTIVE: Ms. Kraus is doing well. Denies any complaints. She apparently walked twice around t he nurses' station in separate attempts. Denies any dizziness. She is tolerating her Aggrenox. No family at bedside. Discussed with nursing and no concerns. OBJECTIVE: VITAL SIGNS: She is afebrile, heart rate 69, respirations 20, oxygen saturation 95% on room air, blo od pressure 123/58. CARDIOVASCULAR: S1, S2 plus. RESPIRATORY SYSTEM: Normal vesicular breath sounds. ABDOMEN: Soft, obese, nontender. Bowel sounds heard in all quadrants. EXTREMITIES: Without cyanosis or clubbing. Peripheral pulses are palpable. CENTRAL NERVOUS SYSTEM: Grossly nonfocal. LABORATORY VALUES: White count is 7.7, H&H is 9.2 and 28.9. Sodium 139, potassium 5.1, BUN and crea tinine is 31 and 1.31. Blood sugars at 188, 263, 151, 139 and 163. IMPRESSION: 1. Coronary artery disease without angina. 2. Diabetes mellitus type 2. 3. Hypertension. 4. Dyslipidemia. 5. Episodes of lightheadedness, dizziness, possible transient ischemic attack. 6. History of cerebrovascular accident. PLAN: 1. Continue Aggrenox. 2. Continue current medications. 3. A 1800 calorie heart healthy ADA diet. 4. Accu-Cheks with sliding scale coverage. 5. Monitor blood pressure and adjust medications as needed. 6. Deep venous thrombosis prophylaxis with PlexiPulses. 7. Decubitus precautions. 8. Continue PT and OT. 9. Discussed with patient in detail. All questions answered.
[2018-04-21] MEDS: HumaLOG 300 UNITS/3 ML VIAL SC PRN ×2 (16:52→20:17)
[2018-04-21] MEDS: Atorvastatin Calcium 20 MG TAB PO SCH (20:14)
[2018-04-22] MEDS: Levothyroxine Sodium 75 MCG TAB PO SCH (05:45)
[2018-04-22] MEDS: Furosemide 40 MG TAB PO SCH ×2 (05:45→14:41)
[2018-04-22] MEDS: Gabapentin 100 MG CAP PO SCH ×3 (08:10→19:56)
[2018-04-22] MEDS: Aggrenox 200-25mg CAP PO SCH ×2 (08:10→19:56)
[2018-04-22] MEDS: Lisinopril 20 MG TAB PO SCH ×2 (08:10→19:57)
[2018-04-22] MEDS: hydrALAZINE 25 MG TAB PO SCH ×2 (08:10→19:56)
[2018-04-22] MEDS: Multivitamin W/ Minerals 1 TAB PO SCH (08:10)
[2018-04-22] MEDS: Lantus 1000 UNITS/10 ML VIAL SC SCH ×2 (08:11→19:56)
[2018-04-22] MEDS: HumaLOG 300 UNITS/3 ML VIAL SC PRN ×2 (11:56→19:58)
--- NOTE | 2018-04-22 13:55 | PRG ---
DATE OF SERVICE: 04/22/2018 SUBJECTIVE: Ms. Kraus is resting comfortably. She had a good breakfast and lunch. She apparently is getting stronger with therapy. She denies any further lightheadedness or dizziness. No speech i ssues. Discussed with nursing. She does not have her PlexiPulses on in the room and I advised mikahil levy to make sure she is on it. OBJECTIVE: VITAL SIGNS: She is afebrile, heart rate 63, respirations 20, oxygen saturation 95% on room air, blo od pressure 112/57. CARDIOVASCULAR: S1, S2 plus. RESPIRATORY: Normal vesicular breath sounds. ABDOMEN: Soft, obese, nontender. Bowel sounds heard in all quadrants. EXTREMITIES: Without cyanosis or clubbing. CENTRAL NERVOUS SYSTEM: Improving deconditioning. LABORATORY VALUES: Blood sugars are 139, 163, 170, 257, 63 and 223. IMPRESSION: 1. Possible transient ischemic attack. 2. History of cerebrovascular accident. 3. Diabetes mellitus type 2. 4. Hypertension. 5. Coronary artery disease. 6. Dyslipidemia. 7. Deconditioning. 8. Depression and anxiety. PLAN: 1. Continue current medications. 2. Nutritional support. 3. DVT and stress ulcer prophylaxis. Reinforced nurses to make sure she has the PlexiPulses on. 4. Continue Aggrenox. 5. Accu-Cheks with sliding scale coverage. 6. Continue PT and OT. 7. Routine laboratory values. 8. Discussed with the patient and nursing in detail. All questions answered.
[2018-04-22] MEDS: Atorvastatin Calcium 20 MG TAB PO SCH (19:56)
[2018-04-23] MEDS: Furosemide 40 MG TAB PO SCH ×2 (05:27→15:45)
[2018-04-23] MEDS: Levothyroxine Sodium 75 MCG TAB PO SCH (05:27)
[2018-04-23] MEDS: Gabapentin 100 MG CAP PO SCH ×3 (09:44→21:09)
[2018-04-23] MEDS: Lisinopril 20 MG TAB PO SCH ×2 (09:44→21:09)
[2018-04-23] MEDS: Lantus 1000 UNITS/10 ML VIAL SC SCH ×2 (09:44→21:10)
[2018-04-23] MEDS: hydrALAZINE 25 MG TAB PO SCH ×2 (09:45→21:09)
[2018-04-23] MEDS: Multivitamin W/ Minerals 1 TAB PO SCH (09:45)
[2018-04-23] MEDS: Aggrenox 200-25mg CAP PO SCH ×2 (09:45→21:07)
[2018-04-23] MEDS: HumaLOG 300 UNITS/3 ML VIAL SC PRN ×2 (12:32→18:00)
[2018-04-23] MEDS: Atorvastatin Calcium 20 MG TAB PO SCH (21:08)
[2018-04-24] MEDS: Levothyroxine Sodium 75 MCG TAB PO SCH (05:24)
[2018-04-24] MEDS: Furosemide 40 MG TAB PO SCH ×2 (05:24→14:32)
[2018-04-24] MEDS: HumaLOG 300 UNITS/3 ML VIAL SC PRN ×4 (05:34→21:06)
[2018-04-24] MEDS: Aggrenox 200-25mg CAP PO SCH ×2 (08:49→21:12)
[2018-04-24] MEDS: Gabapentin 100 MG CAP PO SCH ×3 (08:49→21:12)
[2018-04-24] MEDS: Lisinopril 20 MG TAB PO SCH ×2 (08:50→21:13)
[2018-04-24] MEDS: hydrALAZINE 25 MG TAB PO SCH ×2 (08:50→21:12)
[2018-04-24] MEDS: Lantus 1000 UNITS/10 ML VIAL SC SCH ×2 (08:50→21:08)
[2018-04-24] MEDS: Multivitamin W/ Minerals 1 TAB PO SCH (08:51)
--- NOTE | 2018-04-24 16:14 | PRG ---
DATE OF SERVICE: 04/24/2018 SUBJECTIVE: Ms. Kraus is doing well. Denies any complaints, resting comfortably, getting stronger . OBJECTIVE: VITAL SIGNS: She is afebrile, heart rate 60, respirations 18, oxygen saturation 95% on room air, blo od pressure 137/60. CARDIOVASCULAR: S1, S2 plus. RESPIRATORY SYSTEM: Normal vesicular breath sounds. ABDOMEN: Soft, obese, nontender. Bowel sounds heard in all quadrants. EXTREMITIES: Without cyanosis or clubbing. Peripheral pulses are palpable. CENTRAL NERVOUS SYSTEM: Improving deconditioning. LABORATORY VALUES: Blood sugars are 278, 212, 172, 180 and 210. IMPRESSION: 1. Diabetes mellitus type 2. 2. Hypertension. 3. Dyslipidemia. 4. Coronary artery disease. 5. Possible transient ischemic attack. 6. Improving deconditioning. PLAN: 1. Continue current medications. 2. 1800 calorie heart healthy ADA diet. 3. Accu-Cheks with sliding scale coverage. 4. Deep venous thrombosis and stress ulcer prophylaxis. 5. Decubitus precautions. 6. Routine laboratory values.
[2018-04-24] MEDS: Atorvastatin Calcium 20 MG TAB PO SCH (21:12)
[2018-04-25] MEDS: Levothyroxine Sodium 75 MCG TAB PO SCH (05:29)
[2018-04-25] MEDS: Furosemide 40 MG TAB PO SCH ×2 (05:29→15:00)
[2018-04-25] MEDS: HumaLOG 300 UNITS/3 ML VIAL SC PRN ×3 (05:33→16:48)
[2018-04-25] MEDS: Aggrenox 200-25mg CAP PO SCH ×2 (08:54→20:47)
[2018-04-25] MEDS: hydrALAZINE 25 MG TAB PO SCH ×2 (08:54→20:47)
[2018-04-25] MEDS: Gabapentin 100 MG CAP PO SCH ×3 (08:54→20:48)
[2018-04-25] MEDS: Lantus 1000 UNITS/10 ML VIAL SC SCH ×2 (08:54→20:49)
[2018-04-25] MEDS: Multivitamin W/ Minerals 1 TAB PO SCH (08:55)
[2018-04-25] MEDS: Lisinopril 20 MG TAB PO SCH ×2 (08:55→20:47)
--- NOTE | 2018-04-25 15:28 | PRG ---
DATE OF SERVICE: 04/25/2018 SUBJECTIVE: Ms. Kraus is doing well. Denies any complaints, resting comfortably. OBJECTIVE: VITAL SIGNS: She is afebrile, heart rate 58, respirations 18, oxygen saturation 95% on room air, blo od pressure 132/62. CARDIOVASCULAR SYSTEM: S1 and S2 plus. RESPIRATORY SYSTEM: Normal vesicular breath sounds. ABDOMEN: Soft, nontender, bowel sounds heard in all quadrants. EXTREMITIES: Without cyanosis or clubbing. CENTRAL NERVOUS SYSTEM: Improving deconditioning. LABORATORY VALUES: Blood sugars are consistently creeping higher, it is 210, 293, 242, 158, and 225. IMPRESSION: 1. Diabetes mellitus, type 2. 2. Hypertension. 3. Dyslipidemia. 4. Coronary artery disease. 5. Possible transient ischemic attack. 6. Deconditioning. PLAN: 1. Increase long-acting insulin to 30 units b.i.d. 2. Continue other medications. 3. An 1800-calorie Heart healthy ADA diet. 4. DVT and stress ulcer prophylaxis. 5. Decubitus precautions. 6. Physical therapy. 7. Routine laboratory values in the morning.
[2018-04-25] MEDS: Atorvastatin Calcium 20 MG TAB PO SCH (20:47)
[2018-04-26 05:12] LABS: #Basophils 0.1 thou/uL (0.0-0.2); #Eosinphils 0.3 thou/uL (0.0-0.7); #Lymphocytes 2.8 thou/uL (1.20-3.40); #Monocytes 0.9 thou/uL (0.11-0.59); %Basophils 1.4 % (0.0-1.0); %Eosinophils 3.7 % (0.0-10.0); %Lymphocytes 34.9 % (21.0-51.0); %Monocytes 10.6 % (0.0-10.0); %Neutrophils 49.4 % (42.0-75.0); Hemoglobin 9.3 g/dL (12.0-16.0); Mean Corpuscular HGB CONC 32.9 g/dL (32.0-36.0); Mean Corpuscular Hemoglobin 29.9 pg (27.0-31.0); Mean Corpuscular Volume 91.1 fL (78.0-98.0); Mean Platelet Volume 8.2 fL (7.4-10.4); Platelet Count 208 thou/uL (130-400); RBC Distribution Width 12.1 % (11.5-14.5); Red Blood Cell (RBC) Count 3.11 mill/uL (4.20-5.40); White Blood Cell (WBC) Count 8.1 thou/uL (4.8-10.8)
[2018-04-26] MEDS: Levothyroxine Sodium 75 MCG TAB PO SCH (05:13)
[2018-04-26] MEDS: Furosemide 40 MG TAB PO SCH (05:13)
[2018-04-26] MEDS: HumaLOG 300 UNITS/3 ML VIAL SC PRN ×3 (05:16→20:19)
[2018-04-26 05:28] LABS: Anion Gap 12 mmol/L (10-20); BUN (Urea Nitrogen) 41 mg/dL (9.8-20.1); Calc. Creatinine Clearance 59 mL/min (70-130); Carbon Dioxide 30 mmol/L (23-31); Chloride 103 mmol/L (98-107); Estimated GFR-MDRD 35; Glucose 220 mg/dL (80-115); Potassium 4.6 mmol/L (3.5-5.1); Sodium 140 mmol/L (136-145)
[2018-04-26] MEDS: Lantus 1000 UNITS/10 ML VIAL SC SCH ×2 (09:27→20:18)
[2018-04-26] MEDS: Multivitamin W/ Minerals 1 TAB PO SCH (09:28)
[2018-04-26] MEDS: Lisinopril 20 MG TAB PO SCH ×2 (09:28→20:18)
[2018-04-26] MEDS: Gabapentin 100 MG CAP PO SCH ×3 (09:28→20:18)
[2018-04-26] MEDS: Aggrenox 200-25mg CAP PO SCH ×2 (09:28→20:17)
[2018-04-26] MEDS: hydrALAZINE 25 MG TAB PO SCH ×2 (09:28→20:18)
--- NOTE | 2018-04-26 13:54 | PRG ---
DATE OF SERVICE: 04/26/2018 SUBJECTIVE: Ms. Kraus is doing well. Denies any complaints, resting comfortably, tolerating her m edications. I informed her that her BUN and creatinine are high, which means that she is probably ei ther not drinking enough fluids or that she is getting too much of her diuretics. She is on Lasix 40 mg twice a day. She denies any chest pain, shortness of breath, PND or orthopnea. I advised her to drink at least a 1 liter jug of water daily and that I will cut her Lasix down to once a day for the next couple of days and see how she does. OBJECTIVE: VITAL SIGNS: She is afebrile, heart rate 62, respirations 18, blood pressure 121/57. CARDIOVASCULAR: S1, S2 plus. RESPIRATORY: Normal vesicular breath sounds. ABDOMEN: Soft, obese, nontender, bowel sounds heard in all quadrants. EXTREMITIES: Without cyanosis or clubbing. Peripheral pulses are palpable. LABORATORY VALUES: Sodium 140, potassium 4.6, BUN and creatinine 41 and 1.5. Blood sugars are 330, 221 and 273. White count is 8.1, H&H is 9.3 and 28.4. IMPRESSION: 1. Possible transient ischemic attack. 2. Worsening renal insufficiency, likely prerenal. 3. Coronary artery disease. 4. Hypertension. 5. Dyslipidemia. 6. Deconditioning. PLAN: 1. Decrease Lasix to once daily. 2. Encourage p.o. fluid intake. 3. Continue higher dose of long-acting insulin. 4. Accu-Cheks with sliding scale coverage. 5. 1800 calorie heart healthy ADA diet. 6. Physical therapy and occupational therapy. 7. Monitor renal functions closely. 8. Discussed with patient in detail. All questions answered.
[2018-04-26] MEDS: Atorvastatin Calcium 20 MG TAB PO SCH (20:17)
[2018-04-27] MEDS: Levothyroxine Sodium 75 MCG TAB PO SCH (05:20)
[2018-04-27] MEDS: Lisinopril 20 MG TAB PO SCH ×2 (08:00→20:13)
[2018-04-27] MEDS: Furosemide 40 MG TAB PO SCH (08:00)
[2018-04-27] MEDS: Gabapentin 100 MG CAP PO SCH ×3 (08:01→20:13)
[2018-04-27] MEDS: hydrALAZINE 25 MG TAB PO SCH ×2 (08:01→20:13)
[2018-04-27] MEDS: Aggrenox 200-25mg CAP PO SCH ×2 (08:01→20:12)
[2018-04-27] MEDS: Multivitamin W/ Minerals 1 TAB PO SCH (08:01)
[2018-04-27] MEDS: Lantus 1000 UNITS/10 ML VIAL SC SCH ×2 (08:02→20:13)
[2018-04-27] MEDS: HumaLOG 300 UNITS/3 ML VIAL SC PRN ×2 (11:39→20:14)
--- NOTE | 2018-04-27 13:30 | PRG ---
DATE OF SERVICE: 04/27/2018 SUBJECTIVE: Ms. Kraus is doing well. Denies any complaints, resting comfortably, tolerating her m edication. She is trying to drink more water. OBJECTIVE: VITAL SIGNS: She is afebrile, heart rate 61, respirations are 18, oxygen saturation 96% on room air, blood pressure 146/69. CARDIOVASCULAR: S1, S2 plus. RESPIRATORY SYSTEM: Normal vesicular breath sounds. ABDOMEN: Soft, obese, nontender. Bowel sounds heard in all quadrants. EXTREMITIES: Without cyanosis or clubbing. Peripheral pulses are palpable. LABORATORY VALUES: Blood sugars are 273, 130, 252, 142 and 190. IMPRESSION: 1. Diabetes mellitus type 2. 2. Hypertension. 3. Dyslipidemia. 4. Coronary artery disease. 5. Possible transient ischemic attack. PLAN: 1. Continue current medications. 2. Increase Levemir to 35 units b.i.d. 3. 1800 calorie heart healthy, ADA diet. 4. Accu-Cheks with sliding scale coverage. 5. Continue PT and OT. 6. DVT and stress ulcer prophylaxis. 7. Decubitus precautions. 8. Encourage p.o. fluid intake. 9. Monitor for any evidence for fluid retention. 10. Recheck BMP on .
[2018-04-27] MEDS: Atorvastatin Calcium 20 MG TAB PO SCH (20:12)
[2018-04-28] MEDS: Levothyroxine Sodium 75 MCG TAB PO SCH (05:37)
[2018-04-28] MEDS: Gabapentin 100 MG CAP PO SCH ×3 (07:56→20:14)
[2018-04-28] MEDS: Aggrenox 200-25mg CAP PO SCH ×2 (07:56→20:14)
[2018-04-28] MEDS: Furosemide 40 MG TAB PO SCH (07:56)
[2018-04-28] MEDS: Lisinopril 20 MG TAB PO SCH ×2 (07:57→20:15)
[2018-04-28] MEDS: Lantus 1000 UNITS/10 ML VIAL SC SCH ×2 (07:57→20:14)
[2018-04-28] MEDS: hydrALAZINE 25 MG TAB PO SCH ×2 (07:57→20:14)
[2018-04-28] MEDS: Multivitamin W/ Minerals 1 TAB PO SCH (07:58)
[2018-04-28] MEDS: HumaLOG 300 UNITS/3 ML VIAL SC PRN (12:07)
[2018-04-28] MEDS: Atorvastatin Calcium 20 MG TAB PO SCH (20:14)
[2018-04-29] MEDS: Levothyroxine Sodium 75 MCG TAB PO SCH (05:19)
[2018-04-29 05:34] LABS: Anion Gap 13 mmol/L (10-20); BUN (Urea Nitrogen) 46 mg/dL (9.8-20.1); Calc. Creatinine Clearance 57 mL/min (70-130); Calcium 9.2 mg/dL (7.8-10.44); Carbon Dioxide 27 mmol/L (23-31); Chloride 106 mmol/L (98-107); Estimated GFR-MDRD 34; Glucose 73 mg/dL (80-115); Potassium 4.6 mmol/L (3.5-5.1); Sodium 141 mmol/L (136-145)
[2018-04-29 07:35] VITALS: TEMP 97.6
[2018-04-29] MEDS: Furosemide 40 MG TAB PO SCH (08:18)
[2018-04-29] MEDS: Lantus 1000 UNITS/10 ML VIAL SC SCH (08:18)
[2018-04-29] MEDS: hydrALAZINE 25 MG TAB PO SCH (08:18)
[2018-04-29] MEDS: Gabapentin 100 MG CAP PO SCH ×2 (08:18→14:05)
[2018-04-29] MEDS: Aggrenox 200-25mg CAP PO SCH (08:18)
[2018-04-29] MEDS: Lisinopril 20 MG TAB PO SCH (08:19)
[2018-04-29] MEDS: Multivitamin W/ Minerals 1 TAB PO SCH (08:20)
--- NOTE | 2018-04-29 13:34 | DIS ---
DATE OF ADMISSION: 04/20/2018 DATE OF DISCHARGE: 04/29/2018 PRINCIPAL DIAGNOSES: Recurrent episodes of dizziness and possible transient ischemic attack. SECONDARY DIAGNOSES: 1. Coronary artery disease without angina. 2. Diabetes mellitus type 2. 3. Hypertension. 4. Dyslipidemia. 5. Hypothyroidism. 6. History of cerebrovascular accident. 7. Familial tremor. 8. Gastroesophageal reflux disease. 9. History of migraine headaches. 10. Anxiety and depression. 11. Degenerative joint disease. 12. Improved deconditioning. COMPLICATIONS: None. ADVERSE REACTIONS: None. PROCEDURES: None. CONSULTATIONS: None. HOSPITAL COURSE: The patient was admitted on 04/20/2018 after being admitted to [facility] with recurrent episodes of lightheadedness and dizziness. She had an extensive workup done which was unremarkable. She was felt to be a candidate for inpatient rehabilitation and transferred here. Elizabeth cortes has been doing well with therapy and on discussing with her, she stated that she did have some epis odes where she had trouble speaking and I felt that this may be due to transient ischemic attack. We switched her aspirin to Aggrenox. She has been tolerating it well. Her renal functions have slight ly gotten worse. Her BUN and creatinine 46 and 1.54 today and I advised her to drink more fluids and then take her Lasix just 3 times a week, instead of every day. Her blood sugars are 158, 153, 76 an d 92. PHYSICAL EXAMINATION: On the day of discharge; VITAL SIGNS: She is afebrile, heart rate 61, respirations 20, oxygen saturation 97%, blood pressure 162/74. CARDIOVASCULAR: S1, S2 plus. RESPIRATORY SYSTEM: Normal vesicular breath sounds. ABDOMEN: Soft, nontender, bowel sounds heard in all quadrants. EXTREMITIES: Without cyanosis or clubbing. CENTRAL NERVOUS SYSTEM: Improved deconditioning. DISCHARGE MEDICATIONS: 1. Tylenol 500 mg q.6 hours. 2. Lipitor 40 mg daily. 3. Tessalon Perles 100 mg p.o. p.r.n. 4. Valium 2.5 mg p.o. daily as needed. 5. Aggrenox 1 capsule b.i.d. 6. Lasix 40 mg p.o. Thursday, Thursday, Thursday only. 7. Neurontin 100 mg p.o. t.i.d. 8. Glucagon has been discontinued. 9. Hydralazine 25 mg b.i.d. 10. Lantus 35 units subcu b.i.d. 11. Synthroid 75 mcg daily. 12. Lisinopril 20 mg b.i.d. 13. Toprol-XL 12.5 mg b.i.d. 14. Protonix 40 mg b.i.d. 15. Ranexa 500 mg b.i.d. 16. Zoloft 200 mg daily. 17. She is also on Requip. DISCHARGE INSTRUCTIONS: She is to follow up with her primary care physician in 5-7 days. She is to get a repeat BMP done, 1800 calorie Heart healthy ADA diet. She is to call us with any questions or concerns. For full details, please see chart. Total time spent on this discharge including sending the prescriptions and discussion with the patien t 35 minutes.
[2018-04-29 14:21] VITALS: BP 127/62
== END 2018-04-29 14:15 | disposition home health service (06) | DRG 69 ==
LOC: NAV ACUTE 13:30
PROVIDERS: ADMIT Internal Medicine; ATTEND Internal Medicine
DX: G45.9 Transient cerebral ischemic attack, unspecified (principal); I25.10 Atherosclerotic heart disease of native coronary artery without angina pectoris; E11.9 Type 2 diabetes mellitus without complications; I10 Essential (primary) hypertension; E78.5 Hyperlipidemia, unspecified; E03.9 Hypothyroidism, unspecified; Z86.73 Personal history of transient ischemic attack (TIA), and cerebral infarction without residual deficits; G25.0 Essential tremor; K21.9 Gastro-esophageal reflux disease without esophagitis; G43.909 Migraine, unspecified, not intractable, without status migrainosus; F41.9 Anxiety disorder, unspecified; F32.9 Major depressive disorder, single episode, unspecified; M19.90 Unspecified osteoarthritis, unspecified site; Z95.5 Presence of coronary angioplasty implant and graft; N28.9 Disorder of kidney and ureter, unspecified
CPT/HCPCS: 36415; 36416; 80048; 85025; 90471; 90662; G0008; J1815

== ENCOUNTER 2019-08-17 10:52 | Outpatient (CLI) | payer MEDICARE ==
--- NOTE | 2019-08-17 13:14 | RAD ---
3 VIEWS LEFT WRIST: Date: 08/17/2019 COMPARISON: None. HISTORY: Pain without trauma. FINDINGS: Mild radiocarpal joint space narrowing. No displaced fracture or dislocation. Alignment appears familia l on the lateral view. No widening of the scapholunate interval. IMPRESSION: No acute findings. POS: OFF
--- NOTE | 2019-08-17 13:16 | RAD ---
RIGHT SHOULDER 3 VIEWS:: Date: 08/17/2019 COMPARISON: None. HISTORY: Shoulder pain without trauma. FINDINGS: There is marked widening of the right acromioclavicular interspace with truncation of the distal righ t clavicle suggesting prior surgery. No widening of the coracoclavicular interspace. No acute fractur e or dislocation. IMPRESSION: Widened right AC joint with truncation of distal right clavicle suggesting prior surgery or prior tra jacqueline. No acute fracture or dislocation. POS: OFF
--- NOTE | 2019-08-17 13:19 | RAD ---
RIGHT WRIST 3 VIEWS: Date: 08/17/2019 COMPARISON: None. HISTORY: Pain without trauma. FINDINGS: There is radiocarpal joint space narrowing. There is no widening of the scapholunate interval. There is prominent irregularity involving the articular surface of the distal right radius suggesting prior impaction fracture. There is an osseous density dorsal to the carpus on the lateral view which could represent an old fracture fragment or interarticular loose body measuring approximately 6.0 mm in cr aniocaudal dimension. IMPRESSION: Severe degenerative change of the radiocarpal joint. There is prominent irregularity involving the di stal right radius at the articular surface suggesting a prior impaction fracture. Possible interartic ular loose body on the lateral view. POS: OFF
== END 2019-08-17 10:53 | disposition home or self-care (01) ==
LOC: NAV RAD 10:52
PROVIDERS: ATTEND Family Medicine
DX: M25.531 Pain in right wrist (principal); M25.532 Pain in left wrist; N63.10 Unspecified lump in the right breast, unspecified quadrant; M25.511 Pain in right shoulder; M19.031 Primary osteoarthritis, right wrist

== ENCOUNTER 2021-02-22 20:30 | Emergency (ER) | payer MEDICARE ==
[2021-02-22 21:26] LABS: Bilirubin Negative (Negative); Blood, Urine Trace (Negative); Clarity Clear (Clear); Glucose, Urine (Dipstick) 250 mg/dL (Negative); Ketone, Urine Negative (Negative); Leukocyte Negative (Negative); Nitrite Negative (Negative); Protein, Urine (Dipstick) > or equal to 300 mg/dL (Neg-Trace); Specific Gravity, Urine 1.025 (1.005-1.030); Urobilinogen 0.2 mg/dL (Less than 2)
[2021-02-22 21:35] LABS: RBC/HPF 0-3 HPF (0-3)
[2021-02-22 21:36] LABS: Bacteria/HPF Rare-Few HPF (None Seen); Renal Epithelial 0-3 HPF (None Seen); Squamous Epithelial 0-3 HPF (0-3)
[2021-02-22] MEDS ORDERED: Ketorolac Tromethamine 60 MG/2 ML VIAL ONE (22:16)
== END 2021-02-22 22:35 | disposition home or self-care (01) ==
LOC: NAV ERS 20:30
DX: S39.012A Strain of muscle, fascia and tendon of lower back, initial encounter (principal); R20.0 Anesthesia of skin; R60.0 Localized edema; M54.6 Pain in thoracic spine; M19.90 Unspecified osteoarthritis, unspecified site; E11.9 Type 2 diabetes mellitus without complications; E03.9 Hypothyroidism, unspecified; K21.9 Gastro-esophageal reflux disease without esophagitis; K58.9 Irritable bowel syndrome, unspecified; I10 Essential (primary) hypertension; E78.5 Hyperlipidemia, unspecified; Z86.73 Personal history of transient ischemic attack (TIA), and cerebral infarction without residual deficits; W01.0XXA Fall on same level from slipping, tripping and stumbling without subsequent striking against object, initial encounter
CPT/HCPCS: 74176; 81003; 81015; 87086; 96372; J1885

== ENCOUNTER 2021-08-06 17:12 | Inpatient (IN) | payer MEDICARE ==
[2021-08-06] MEDS ORDERED: Cyclobenzaprine 10 MG TAB PO PRN (18:03)
[2021-08-06] MEDS ORDERED: Meclizine HCl 25 MG TAB PO PRN (18:03)
[2021-08-06] MEDS ORDERED: ALPRAZolam 0.25 MG TAB PO PRN (18:03)
[2021-08-06] MEDS ORDERED: Promethazine HCl 25 MG SUPP PR PRN (18:10)
[2021-08-06] MEDS ORDERED: Senokot S 8.6-50 MG TAB PO PRN (18:10)
[2021-08-06] MEDS ORDERED: Ondansetron PF 4 MG/2 ML Vial IVP PRN (18:10)
[2021-08-06] MEDS ORDERED: Artificial Tear Sol 15 ML BOT EA EYE PRN (18:10)
[2021-08-06] MEDS ORDERED: Guaifenesin DM 100-10/5 ML UDCUP PO PRN (18:10)
[2021-08-06] MEDS ORDERED: Ondansetron ODT 4 MG TAB PO PRN (18:10)
[2021-08-06] MEDS ORDERED: Sodium Chloride 0.65% Nasal 44 ML BOT EA NARE PRN (18:10)
[2021-08-06] MEDS ORDERED: Calcium Carbonate 500 MG ChewTAB PO PRN (18:10)
[2021-08-06] MEDS ORDERED: Bisacodyl 5 MG TAB PO PRN (18:10)
[2021-08-06] MEDS ORDERED: Cepastat Lozenges 1 LOZ PO PRN (18:10)
[2021-08-06] MEDS ORDERED: Loperamide HCl 2 MG CAP PO PRN ×2 (18:10)
[2021-08-06] MEDS ORDERED: Bisacodyl 10 MG SUPP PR PRN (18:10)
[2021-08-06] MEDS ORDERED: Dextrose 50% Abboject 50 ML SYRINGE SLOW IVP PRN (18:10)
[2021-08-06] MEDS: Rosuvastatin 10 MG TAB PO SCH (21:19)
[2021-08-06] MEDS: Ubidecarenone 50 MG CAP PO SCH (21:19)
[2021-08-06] MEDS: Melatonin 3 MG TAB PO SCH (21:20)
[2021-08-06] MEDS: hydrALAZINE 25 MG TAB PO SCH (21:20)
[2021-08-06] MEDS: Gabapentin 100 MG CAP PO SCH (21:20)
[2021-08-06] MEDS: Lantus 1000 UNITS/10 ML VIAL SC SCH (21:20)
[2021-08-07] MEDS: Levothyroxine Sodium 75 MCG TAB PO SCH (06:05)
[2021-08-07 07:21] LABS: #Basophils 0.1 thou/uL (0.0-0.2); #Eosinphils 0.3 thou/uL (0.0-0.7); #Lymphocytes 2.3 thou/uL (1.20-3.40); #Monocytes 0.6 thou/uL (0.11-0.59); #Neutrophils 3.1 thou/uL (1.40-6.50); %Basophils 1.6 % (0.0-1.0); %Eosinophils 4.7 % (0.0-10.0); %Lymphocytes 35.7 % (21.0-51.0); ALT (SGPT) 8 U/L (8-55); AST (SGOT) 16 U/L (5-34); Albumin 3.1 g/dL (3.4-4.8); Alkaline Phosphatase 60 U/L (40-110); Anion Gap 11 mmol/L (10-20); BUN (Urea Nitrogen) 37 mg/dL (9.8-20.1); Bilirubin, Total 0.3 mg/dL (0.2-1.2); Calc. Creatinine Clearance 38 mL/min (70-130); Calcium 9.2 mg/dL (7.8-10.44); Carbon Dioxide 26 mmol/L (23-31); Chloride 104 mmol/L (98-107); Globulin 3.1 g/dL (2.4-3.5); Glucose 179 mg/dL (80-115); Hemoglobin 10.6 g/dL (12.0-16.0); Mean Corpuscular HGB CONC 31.4 g/dL (32.0-36.0); Mean Corpuscular Hemoglobin 29.6 pg (27.0-31.0); Mean Corpuscular Volume 94.2 fL (78.0-98.0); Mean Platelet Volume 9.1 fL (7.4-10.4); Platelet Count 142 thou/uL (130-400); Potassium 5.2 mmol/L (3.5-5.1); Protein, Total 6.2 g/dL (5.8-8.1); RBC Distribution Width 13.5 % (11.5-14.5); Red Blood Cell (RBC) Count 3.57 mill/uL (4.20-5.40); Sodium 136 mmol/L (136-145); White Blood Cell (WBC) Count 6.4 thou/uL (4.8-10.8)
[2021-08-07] MEDS: Lantus 1000 UNITS/10 ML VIAL SC SCH ×2 (08:16→20:49)
[2021-08-07] MEDS: HumaLOG 300 UNITS/3 ML VIAL SC PRN ×3 (08:16→17:25)
[2021-08-07] MEDS: hydrALAZINE 25 MG TAB PO SCH ×3 (08:24→20:46)
[2021-08-07] MEDS: Magnesium Oxide 400 MG TAB PO SCH (08:25)
[2021-08-07] MEDS: Folic Acid 1 MG TAB PO SCH (08:26)
[2021-08-07] MEDS: Lisinopril 5 MG TAB PO SCH (08:26)
[2021-08-07] MEDS: Furosemide 40 MG TAB PO SCH (08:26)
[2021-08-07] MEDS: Cyanocobalamin (Vitamin B-12) 1,000 MCG TAB PO SCH (08:27)
[2021-08-07] MEDS: Amlodipine 5 MG TAB PO SCH (08:27)
[2021-08-07] MEDS: Ubidecarenone 50 MG CAP PO SCH ×2 (08:27→20:48)
[2021-08-07] MEDS: Ferrous Sulfate 325 MG TAB PO SCH (08:29)
[2021-08-07] MEDS: Gabapentin 100 MG CAP PO SCH ×3 (10:54→20:47)
[2021-08-07] MEDS: BIOTIN 1 MG PO SCH (13:01)
[2021-08-07] MEDS: Melatonin 3 MG TAB PO SCH (20:47)
[2021-08-07] MEDS: Rosuvastatin 10 MG TAB PO SCH (20:47)
[2021-08-08] MEDS: Levothyroxine Sodium 75 MCG TAB PO SCH (05:47)
[2021-08-08] MEDS: Ubidecarenone 50 MG CAP PO SCH ×2 (08:02→21:01)
[2021-08-08] MEDS: Gabapentin 100 MG CAP PO SCH ×3 (08:03→20:58)
[2021-08-08] MEDS: Furosemide 40 MG TAB PO SCH (08:04)
[2021-08-08] MEDS: Folic Acid 1 MG TAB PO SCH (08:04)
[2021-08-08] MEDS: Magnesium Oxide 400 MG TAB PO SCH (08:04)
[2021-08-08] MEDS: Lisinopril 5 MG TAB PO SCH (08:04)
[2021-08-08] MEDS: hydrALAZINE 25 MG TAB PO SCH ×3 (08:05→20:59)
[2021-08-08] MEDS: Amlodipine 5 MG TAB PO SCH (08:05)
[2021-08-08] MEDS: Ferrous Sulfate 325 MG TAB PO SCH (08:06)
[2021-08-08] MEDS: Cyanocobalamin (Vitamin B-12) 1,000 MCG TAB PO SCH (08:06)
[2021-08-08] MEDS: BIOTIN 1 MG PO SCH (08:07)
[2021-08-08] MEDS: Lantus 1000 UNITS/10 ML VIAL SC SCH ×2 (08:07→20:57)
[2021-08-08] MEDS ORDERED: FLU VACC QS2021-22(65YR UP)/PF 240 MCG/0.7 ML SYRINGE IM ONE (09:00)
[2021-08-08] MEDS: HumaLOG 300 UNITS/3 ML VIAL SC PRN ×2 (13:35→17:24)
[2021-08-08] MEDS: Melatonin 3 MG TAB PO SCH (21:00)
[2021-08-08] MEDS: Rosuvastatin 10 MG TAB PO SCH (21:00)
[2021-08-09] MEDS: Levothyroxine Sodium 75 MCG TAB PO SCH (05:49)
[2021-08-09] MEDS: Lisinopril 5 MG TAB PO SCH (08:15)
[2021-08-09] MEDS: Furosemide 40 MG TAB PO SCH (08:16)
[2021-08-09] MEDS: Ubidecarenone 50 MG CAP PO SCH ×2 (08:16→20:53)
[2021-08-09] MEDS: Ferrous Sulfate 325 MG TAB PO SCH (08:17)
[2021-08-09] MEDS: hydrALAZINE 25 MG TAB PO SCH ×3 (08:17→20:52)
[2021-08-09] MEDS: Amlodipine 5 MG TAB PO SCH (08:17)
[2021-08-09] MEDS: Cyanocobalamin (Vitamin B-12) 1,000 MCG TAB PO SCH (08:17)
[2021-08-09] MEDS: Folic Acid 1 MG TAB PO SCH (08:18)
[2021-08-09] MEDS: Magnesium Oxide 400 MG TAB PO SCH (08:18)
[2021-08-09] MEDS: Gabapentin 100 MG CAP PO SCH ×3 (08:18→20:53)
[2021-08-09] MEDS: Lantus 1000 UNITS/10 ML VIAL SC SCH ×2 (08:19→20:51)
[2021-08-09] MEDS: BIOTIN 1 MG PO SCH (08:19)
[2021-08-09] MEDS: HumaLOG 300 UNITS/3 ML VIAL SC PRN ×3 (11:26→20:54)
[2021-08-09 18:45] LABS: SARS-CoV-2 PCR by NAA Not Detected (NotDetected)
[2021-08-09] MEDS: Rosuvastatin 10 MG TAB PO SCH (20:53)
[2021-08-09] MEDS: Melatonin 3 MG TAB PO SCH (20:54)
[2021-08-10] MEDS: Levothyroxine Sodium 75 MCG TAB PO SCH (05:54)
[2021-08-10] MEDS: Ubidecarenone 50 MG CAP PO SCH ×2 (08:20→20:18)
[2021-08-10] MEDS: Magnesium Oxide 400 MG TAB PO SCH (08:21)
[2021-08-10] MEDS: hydrALAZINE 25 MG TAB PO SCH ×3 (08:21→20:19)
[2021-08-10] MEDS: Furosemide 40 MG TAB PO SCH (08:22)
[2021-08-10] MEDS: Ferrous Sulfate 325 MG TAB PO SCH (08:22)
[2021-08-10] MEDS: Cyanocobalamin (Vitamin B-12) 1,000 MCG TAB PO SCH (08:22)
[2021-08-10] MEDS: Gabapentin 100 MG CAP PO SCH ×3 (08:23→20:18)
[2021-08-10] MEDS: Folic Acid 1 MG TAB PO SCH (08:23)
[2021-08-10] MEDS: Amlodipine 5 MG TAB PO SCH (08:25)
[2021-08-10] MEDS: Lantus 1000 UNITS/10 ML VIAL SC SCH ×2 (08:26→20:20)
[2021-08-10] MEDS: BIOTIN 1 MG PO SCH (08:27)
[2021-08-10] MEDS: Lisinopril 5 MG TAB PO SCH (08:35)
[2021-08-10] MEDS: HumaLOG 300 UNITS/3 ML VIAL SC PRN (12:36)
[2021-08-10] MEDS: Melatonin 3 MG TAB PO SCH (20:19)
[2021-08-10] MEDS: Rosuvastatin 10 MG TAB PO SCH (20:19)
[2021-08-11] MEDS: Levothyroxine Sodium 75 MCG TAB PO SCH (05:52)
[2021-08-11] MEDS: HumaLOG 300 UNITS/3 ML VIAL SC PRN ×3 (06:07→17:27)
[2021-08-11] MEDS: Ferrous Sulfate 325 MG TAB PO SCH (08:27)
[2021-08-11] MEDS: Amlodipine 5 MG TAB PO SCH (08:28)
[2021-08-11] MEDS: Cyanocobalamin (Vitamin B-12) 1,000 MCG TAB PO SCH (08:29)
[2021-08-11] MEDS: Folic Acid 1 MG TAB PO SCH (08:30)
[2021-08-11] MEDS: Furosemide 40 MG TAB PO SCH (08:30)
[2021-08-11] MEDS: Gabapentin 100 MG CAP PO SCH ×3 (08:31→20:00)
[2021-08-11] MEDS: hydrALAZINE 25 MG TAB PO SCH ×3 (08:32→20:00)
[2021-08-11] MEDS: Lantus 1000 UNITS/10 ML VIAL SC SCH ×2 (08:33→19:58)
[2021-08-11] MEDS: Lisinopril 5 MG TAB PO SCH (08:33)
[2021-08-11] MEDS: Magnesium Oxide 400 MG TAB PO SCH (08:34)
[2021-08-11] MEDS: BIOTIN 1 MG PO SCH (08:35)
[2021-08-11] MEDS: Ubidecarenone 50 MG CAP PO SCH ×2 (08:36→20:00)
[2021-08-11 15:15] LABS: Bilirubin Negative (Negative); Blood, Urine Negative (Negative); Glucose, Urine (Dipstick) Negative (Negative); Ketone, Urine Negative (Negative); Leukocyte Moderate (Negative); Nitrite Negative (Negative); Protein, Urine (Dipstick) 30 mg/dL (Neg-Trace); Urobilinogen 0.2 mg/dL (Less than 2)
[2021-08-11 15:16] LABS: Clarity SL HAZY (Clear)
[2021-08-11 15:46] LABS: Bacteria/HPF 3+ HPF (None Seen); Squamous Epithelial 0-3 HPF (0-3)
[2021-08-11] MEDS: Rosuvastatin 10 MG TAB PO SCH (20:00)
[2021-08-11] MEDS: Melatonin 3 MG TAB PO SCH (20:01)
[2021-08-12] MEDS: Levothyroxine Sodium 75 MCG TAB PO SCH (06:04)
[2021-08-12] MEDS: Ubidecarenone 50 MG CAP PO SCH ×2 (08:26→20:27)
[2021-08-12] MEDS: hydrALAZINE 25 MG TAB PO SCH ×3 (08:27→20:27)
[2021-08-12] MEDS: Folic Acid 1 MG TAB PO SCH (08:28)
[2021-08-12] MEDS: Gabapentin 100 MG CAP PO SCH ×3 (08:28→20:27)
[2021-08-12] MEDS: Amlodipine 5 MG TAB PO SCH (08:28)
[2021-08-12] MEDS: Ferrous Sulfate 325 MG TAB PO SCH (08:28)
[2021-08-12] MEDS: Magnesium Oxide 400 MG TAB PO SCH (08:30)
[2021-08-12] MEDS: Cyanocobalamin (Vitamin B-12) 1,000 MCG TAB PO SCH (08:31)
[2021-08-12] MEDS: Furosemide 40 MG TAB PO SCH (08:31)
[2021-08-12] MEDS: Lantus 1000 UNITS/10 ML VIAL SC SCH ×2 (08:32→20:31)
[2021-08-12] MEDS: BIOTIN 1 MG PO SCH (08:36)
[2021-08-12] MEDS: Lisinopril 5 MG TAB PO SCH (09:59)
[2021-08-12] MEDS: HumaLOG 300 UNITS/3 ML VIAL SC PRN ×2 (12:10→17:30)
[2021-08-12] MEDS: Melatonin 3 MG TAB PO SCH (20:27)
[2021-08-12] MEDS: Rosuvastatin 10 MG TAB PO SCH (20:27)
[2021-08-13] MEDS: Levothyroxine Sodium 75 MCG TAB PO SCH (06:00)
[2021-08-13] MEDS: Cyanocobalamin (Vitamin B-12) 1,000 MCG TAB PO SCH (08:37)
[2021-08-13] MEDS: Ferrous Sulfate 325 MG TAB PO SCH (08:38)
[2021-08-13] MEDS: Ubidecarenone 50 MG CAP PO SCH ×2 (08:38→21:23)
[2021-08-13] MEDS: Magnesium Oxide 400 MG TAB PO SCH (08:39)
[2021-08-13] MEDS: hydrALAZINE 25 MG TAB PO SCH ×3 (08:39→21:25)
[2021-08-13] MEDS: Folic Acid 1 MG TAB PO SCH (08:40)
[2021-08-13] MEDS: Amlodipine 5 MG TAB PO SCH (08:40)
[2021-08-13] MEDS: Furosemide 40 MG TAB PO SCH (08:41)
[2021-08-13] MEDS: Lisinopril 5 MG TAB PO SCH (08:43)
[2021-08-13] MEDS: Gabapentin 100 MG CAP PO SCH ×3 (08:43→21:25)
[2021-08-13] MEDS: Lantus 1000 UNITS/10 ML VIAL SC SCH ×2 (08:45→21:27)
[2021-08-13] MEDS: BIOTIN 1 MG PO SCH (08:46)
[2021-08-13 09:54] VITALS: BMI 30.5
[2021-08-13] MEDS ORDERED: Ondansetron ODT 4 MG TAB SL PRN (10:00)
[2021-08-13] MEDS: HumaLOG 300 UNITS/3 ML VIAL SC PRN (12:11)
[2021-08-13] MEDS: Melatonin 3 MG TAB PO SCH (21:24)
[2021-08-13] MEDS: Rosuvastatin 10 MG TAB PO SCH (21:26)
[2021-08-14] MEDS: Levothyroxine Sodium 75 MCG TAB PO SCH (06:14)
[2021-08-14] MEDS: Ubidecarenone 50 MG CAP PO SCH ×2 (09:41→20:39)
[2021-08-14] MEDS: Lisinopril 5 MG TAB PO SCH (09:41)
[2021-08-14] MEDS: Gabapentin 100 MG CAP PO SCH ×3 (09:41→20:40)
[2021-08-14] MEDS: hydrALAZINE 25 MG TAB PO SCH ×3 (09:42→20:40)
[2021-08-14] MEDS: Magnesium Oxide 400 MG TAB PO SCH (09:42)
[2021-08-14] MEDS: Cyanocobalamin (Vitamin B-12) 1,000 MCG TAB PO SCH (09:42)
[2021-08-14] MEDS: Furosemide 40 MG TAB PO SCH (09:42)
[2021-08-14] MEDS: Folic Acid 1 MG TAB PO SCH (09:42)
[2021-08-14] MEDS: Amlodipine 5 MG TAB PO SCH (09:43)
[2021-08-14] MEDS: Ferrous Sulfate 325 MG TAB PO SCH (09:43)
[2021-08-14] MEDS: BIOTIN 1 MG PO SCH (09:44)
[2021-08-14] MEDS: Lantus 1000 UNITS/10 ML VIAL SC SCH ×2 (09:45→20:41)
[2021-08-14] MEDS: HumaLOG 300 UNITS/3 ML VIAL SC PRN (11:35)
[2021-08-14] MEDS: Rosuvastatin 10 MG TAB PO SCH (20:39)
[2021-08-14] MEDS: Melatonin 3 MG TAB PO SCH (20:40)
[2021-08-15] MEDS: Levothyroxine Sodium 75 MCG TAB PO SCH (05:21)
[2021-08-15] MEDS: BIOTIN 1 MG PO SCH (08:06)
[2021-08-15] MEDS: Lantus 1000 UNITS/10 ML VIAL SC SCH (08:07)
[2021-08-15] MEDS: hydrALAZINE 25 MG TAB PO SCH ×2 (08:08→14:48)
[2021-08-15] MEDS: Magnesium Oxide 400 MG TAB PO SCH (08:09)
[2021-08-15] MEDS: Amlodipine 5 MG TAB PO SCH (08:09)
[2021-08-15] MEDS: Ubidecarenone 50 MG CAP PO SCH (08:09)
[2021-08-15] MEDS: Gabapentin 100 MG CAP PO SCH ×2 (08:11→14:48)
[2021-08-15] MEDS: Folic Acid 1 MG TAB PO SCH (08:12)
[2021-08-15] MEDS: Furosemide 40 MG TAB PO SCH (08:12)
[2021-08-15] MEDS: Ferrous Sulfate 325 MG TAB PO SCH (08:12)
[2021-08-15] MEDS: Lisinopril 5 MG TAB PO SCH (08:13)
[2021-08-15] MEDS: Cyanocobalamin (Vitamin B-12) 1,000 MCG TAB PO SCH (08:13)
[2021-08-15 16:37] VITALS: BP 142/72; TEMP 98
== END 2021-08-15 16:30 | disposition home or self-care (01) | DRG 948 ==
LOC: NAV ACUTE 17:12
PROVIDERS: ADMIT Family Medicine; ATTEND Family Medicine
DX: R53.81 Other malaise (principal); K21.9 Gastro-esophageal reflux disease without esophagitis; E78.5 Hyperlipidemia, unspecified; E89.0 Postprocedural hypothyroidism; E11.65 Type 2 diabetes mellitus with hyperglycemia; R42 Dizziness and giddiness; Z20.822 Contact with and (suspected) exposure to COVID-19; N18.32 Chronic kidney disease, stage 3b; R00.1 Bradycardia, unspecified; E11.22 Type 2 diabetes mellitus with diabetic chronic kidney disease; Z88.1 Allergy status to other antibiotic agents; Z88.8 Allergy status to other drugs, medicaments and biological substances; Z79.4 Long term (current) use of insulin; Z79.899 Other long term (current) drug therapy; Z79.82 Long term (current) use of aspirin; Z86.73 Personal history of transient ischemic attack (TIA), and cerebral infarction without residual deficits; Z90.49 Acquired absence of other specified parts of digestive tract; Z90.710 Acquired absence of both cervix and uterus
CPT/HCPCS: 36416; 80053; 81001; 85025; J1815; U0003; U0005

== ENCOUNTER 2021-09-29 | Inpatient (IN) | payer MEDICARE ==
[2021-09-29] MEDS ORDERED: ALPRAZolam 0.25 MG TAB PO PRN (17:34)
[2021-09-29] MEDS ORDERED: Meclizine HCl 25 MG TAB PO PRN (17:34)
[2021-09-29] MEDS ORDERED: Cyclobenzaprine 10 MG TAB PO PRN (17:34)
[2021-09-29] MEDS ORDERED: Senokot S 8.6-50 MG TAB PO PRN (17:38)
[2021-09-29] MEDS ORDERED: hydrOXYzine 25 MG TAB PO PRN (17:38)
[2021-09-29] MEDS ORDERED: Cepastat Lozenges 1 LOZ PO PRN (17:38)
[2021-09-29] MEDS ORDERED: Dextrose 50% Abboject 50 ML SYRINGE SLOW IVP PRN (17:38)
[2021-09-29] MEDS ORDERED: Bisacodyl 5 MG TAB PO PRN (17:38)
[2021-09-29] MEDS ORDERED: Loperamide HCl 2 MG CAP PO PRN ×2 (17:38)
[2021-09-29] MEDS ORDERED: Ondansetron ODT 4 MG TAB PO PRN (17:38)
[2021-09-29] MEDS ORDERED: Guaifenesin DM 100-10/5 ML UDCUP PO PRN (17:38)
[2021-09-29] MEDS ORDERED: Sodium Chloride 0.65% Nasal 44 ML BOT EA NARE PRN (17:38)
[2021-09-29] MEDS ORDERED: Bisacodyl 10 MG SUPP PR PRN (17:38)
[2021-09-29] MEDS ORDERED: Artificial Tear Sol 15 ML BOT EA EYE PRN (17:38)
[2021-09-29] MEDS ORDERED: Promethazine HCl 25 MG SUPP PR PRN (17:38)
[2021-09-29] MEDS ORDERED: Ondansetron PF 4 MG/2 ML Vial IVP PRN (17:38)
[2021-09-29] MEDS ORDERED: Calcium Carbonate 500 MG ChewTAB PO PRN (17:38)
[2021-09-29] MEDS: Gabapentin 100 MG CAP PO SCH (20:30)
[2021-09-29] MEDS: Melatonin 3 MG TAB PO SCH (20:30)
[2021-09-29] MEDS ORDERED: Famotidine 20 MG TAB PO SCH (21:00)
[2021-09-30] MEDS: Levothyroxine Sodium 75 MCG TAB PO SCH (05:39)
[2021-09-30] MEDS: Gabapentin 100 MG CAP PO SCH ×3 (10:05→20:20)
[2021-09-30] MEDS: Folic Acid 1 MG TAB PO SCH (10:06)
[2021-09-30] MEDS: Ascorbic Acid 500 mg Chewable Tablet PO SCH (10:06)
[2021-09-30] MEDS: Amlodipine 10 MG TAB PO SCH (10:07)
[2021-09-30] MEDS: Enoxaparin Sodium 40 MG/0.4 ML SYRINGE SC SCH (10:08)
[2021-09-30] MEDS: Melatonin 3 MG TAB PO SCH (20:21)
[2021-10-01] MEDS: Levothyroxine Sodium 75 MCG TAB PO SCH (05:51)
[2021-10-01] MEDS: Gabapentin 100 MG CAP PO SCH ×3 (08:37→20:39)
[2021-10-01] MEDS: Enoxaparin Sodium 40 MG/0.4 ML SYRINGE SC SCH (08:38)
[2021-10-01] MEDS: Amlodipine 10 MG TAB PO SCH (08:40)
[2021-10-01] MEDS: Folic Acid 1 MG TAB PO SCH (08:40)
[2021-10-01] MEDS: Ascorbic Acid 500 mg Chewable Tablet PO SCH (08:40)
[2021-10-01] MEDS: Melatonin 3 MG TAB PO SCH (20:39)
[2021-10-02] MEDS: Levothyroxine Sodium 75 MCG TAB PO SCH (06:22)
[2021-10-02] MEDS: Ascorbic Acid 500 mg Chewable Tablet PO SCH (09:04)
[2021-10-02] MEDS: Folic Acid 1 MG TAB PO SCH (09:06)
[2021-10-02] MEDS: Amlodipine 10 MG TAB PO SCH (09:06)
[2021-10-02] MEDS: Gabapentin 100 MG CAP PO SCH ×3 (09:06→20:29)
[2021-10-02] MEDS: Enoxaparin Sodium 40 MG/0.4 ML SYRINGE SC SCH (09:08)
[2021-10-02] MEDS ORDERED: traMADol HCl 50 MG TAB PO PRN (15:15)
[2021-10-02] MEDS ORDERED: Lidocaine 5% Patch TD PRN (15:28)
[2021-10-02] MEDS ORDERED: Transdermal Patch Removal TOP PRN (15:29)
[2021-10-02] MEDS: Acetaminophen 500 MG TAB PO PRN (15:46)
[2021-10-02] MEDS: Melatonin 3 MG TAB PO SCH (20:29)
[2021-10-03] MEDS: Levothyroxine Sodium 75 MCG TAB PO SCH (05:38)
[2021-10-03] MEDS ORDERED: traMADol HCl 50 MG TAB PO PRN (07:11)
[2021-10-03] MEDS: Ascorbic Acid 500 mg Chewable Tablet PO SCH (09:29)
[2021-10-03] MEDS: Folic Acid 1 MG TAB PO SCH (09:30)
[2021-10-03] MEDS: Amlodipine 10 MG TAB PO SCH (09:31)
[2021-10-03] MEDS: Gabapentin 100 MG CAP PO SCH ×3 (09:32→21:35)
[2021-10-03] MEDS: Enoxaparin Sodium 40 MG/0.4 ML SYRINGE SC SCH (09:34)
[2021-10-03] MEDS: Melatonin 3 MG TAB PO SCH (21:34)
[2021-10-04] MEDS: Levothyroxine Sodium 75 MCG TAB PO SCH (05:17)
[2021-10-04] MEDS: Gabapentin 100 MG CAP PO SCH ×3 (09:29→20:58)
[2021-10-04] MEDS: Folic Acid 1 MG TAB PO SCH (09:30)
[2021-10-04] MEDS: Amlodipine 10 MG TAB PO SCH (09:30)
[2021-10-04] MEDS: Ascorbic Acid 500 mg Chewable Tablet PO SCH (09:30)
[2021-10-04] MEDS: Enoxaparin Sodium 40 MG/0.4 ML SYRINGE SC SCH (09:32)
[2021-10-04] MEDS: Melatonin 3 MG TAB PO SCH (20:59)
[2021-10-05] MEDS: Levothyroxine Sodium 75 MCG TAB PO SCH (06:13)
[2021-10-05] MEDS: Enoxaparin Sodium 40 MG/0.4 ML SYRINGE SC SCH (08:27)
[2021-10-05] MEDS: Gabapentin 100 MG CAP PO SCH ×3 (08:28→21:21)
[2021-10-05] MEDS: Folic Acid 1 MG TAB PO SCH (08:28)
[2021-10-05] MEDS: Amlodipine 10 MG TAB PO SCH (08:30)
[2021-10-05] MEDS: Ascorbic Acid 500 mg Chewable Tablet PO SCH (08:30)
[2021-10-05] MEDS: Melatonin 3 MG TAB PO SCH (21:21)
[2021-10-05] MEDS: Losartan 25 MG TAB PO SCH (21:22)
[2021-10-06] MEDS: Levothyroxine Sodium 75 MCG TAB PO SCH (05:58)
[2021-10-06] MEDS: Enoxaparin Sodium 40 MG/0.4 ML SYRINGE SC SCH (07:48)
[2021-10-06] MEDS: Ascorbic Acid 500 mg Chewable Tablet PO SCH (07:51)
[2021-10-06] MEDS: Folic Acid 1 MG TAB PO SCH (07:51)
[2021-10-06] MEDS: Gabapentin 100 MG CAP PO SCH ×3 (07:52→21:07)
[2021-10-06] MEDS: Aspirin 81 mg Enteric Coated Tablet PO SCH (07:52)
[2021-10-06] MEDS: Amlodipine 10 MG TAB PO SCH (07:52)
[2021-10-06] MEDS ORDERED: Lantus 1000 UNITS/10 ML VIAL SC SCH (08:52)
[2021-10-06] MEDS ORDERED: Losartan 25 MG TAB PO SCH (09:00)
[2021-10-06] MEDS: Losartan 25 MG TAB PO SCH (21:10)
[2021-10-06] MEDS: Melatonin 3 MG TAB PO SCH (21:10)
[2021-10-06] MEDS: Lantus 1000 UNITS/10 ML VIAL SC SCH (21:16)
[2021-10-07] MEDS: Levothyroxine Sodium 75 MCG TAB PO SCH (06:15)
[2021-10-07] MEDS: Aspirin 81 mg Enteric Coated Tablet PO SCH (09:27)
[2021-10-07] MEDS: Folic Acid 1 MG TAB PO SCH (09:27)
[2021-10-07] MEDS: Ascorbic Acid 500 mg Chewable Tablet PO SCH (09:27)
[2021-10-07] MEDS: Gabapentin 100 MG CAP PO SCH ×3 (09:28→21:13)
[2021-10-07] MEDS: Lantus 1000 UNITS/10 ML VIAL SC SCH ×2 (09:29→21:18)
[2021-10-07] MEDS: Amlodipine 10 MG TAB PO SCH (09:30)
[2021-10-07] MEDS: Enoxaparin Sodium 40 MG/0.4 ML SYRINGE SC SCH (09:30)
[2021-10-07] MEDS: Melatonin 3 MG TAB PO SCH (21:15)
[2021-10-07] MEDS: Losartan 25 MG TAB PO SCH (21:15)
[2021-10-08] MEDS: Levothyroxine Sodium 75 MCG TAB PO SCH (05:55)
[2021-10-08] MEDS: Enoxaparin Sodium 40 MG/0.4 ML SYRINGE SC SCH (08:59)
[2021-10-08] MEDS: Gabapentin 100 MG CAP PO SCH ×3 (09:01→21:30)
[2021-10-08] MEDS: Aspirin 81 mg Enteric Coated Tablet PO SCH (09:04)
[2021-10-08] MEDS: Amlodipine 10 MG TAB PO SCH (09:04)
[2021-10-08] MEDS: Folic Acid 1 MG TAB PO SCH (09:04)
[2021-10-08] MEDS: Lantus 1000 UNITS/10 ML VIAL SC SCH ×2 (09:05→21:29)
[2021-10-08] MEDS: Ascorbic Acid 500 mg Chewable Tablet PO SCH (09:06)
[2021-10-08] MEDS: Melatonin 3 MG TAB PO SCH (21:30)
[2021-10-08] MEDS: Losartan 25 MG TAB PO SCH (21:30)
[2021-10-09] MEDS: Levothyroxine Sodium 75 MCG TAB PO SCH (05:55)
[2021-10-09] MEDS: Enoxaparin Sodium 40 MG/0.4 ML SYRINGE SC SCH (09:45)
[2021-10-09] MEDS: Gabapentin 100 MG CAP PO SCH ×3 (09:46→20:55)
[2021-10-09] MEDS: Amlodipine 10 MG TAB PO SCH (09:48)
[2021-10-09] MEDS: Aspirin 81 mg Enteric Coated Tablet PO SCH (09:48)
[2021-10-09] MEDS: Ascorbic Acid 500 mg Chewable Tablet PO SCH (09:49)
[2021-10-09] MEDS: Folic Acid 1 MG TAB PO SCH (09:49)
[2021-10-09] MEDS: Lantus 1000 UNITS/10 ML VIAL SC SCH (10:14)
[2021-10-09] MEDS ORDERED: Lantus 1000 UNITS/10 ML VIAL SC SCH (10:15)
[2021-10-09] MEDS: Losartan 25 MG TAB PO SCH (20:56)
[2021-10-09] MEDS: Melatonin 3 MG TAB PO SCH (20:56)
[2021-10-10] MEDS: Levothyroxine Sodium 75 MCG TAB PO SCH (06:07)
[2021-10-10] MEDS: Enoxaparin Sodium 40 MG/0.4 ML SYRINGE SC SCH (09:32)
[2021-10-10] MEDS: Folic Acid 1 MG TAB PO SCH (09:33)
[2021-10-10] MEDS: Gabapentin 100 MG CAP PO SCH ×3 (09:33→20:39)
[2021-10-10] MEDS: Amlodipine 10 MG TAB PO SCH (09:33)
[2021-10-10] MEDS: Ascorbic Acid 500 mg Chewable Tablet PO SCH (09:35)
[2021-10-10] MEDS: Aspirin 81 mg Enteric Coated Tablet PO SCH (09:36)
[2021-10-10] MEDS ORDERED: Lantus 1000 UNITS/10 ML VIAL SC SCH (12:00)
[2021-10-10] MEDS: Acetaminophen 500 MG TAB PO PRN (15:13)
[2021-10-10] MEDS: Melatonin 3 MG TAB PO SCH (20:40)
[2021-10-10] MEDS: Losartan 25 MG TAB PO SCH (20:40)
[2021-10-11] MEDS: Levothyroxine Sodium 75 MCG TAB PO SCH (05:53)
[2021-10-11] MEDS: Ascorbic Acid 500 mg Chewable Tablet PO SCH (08:01)
[2021-10-11] MEDS: Aspirin 81 mg Enteric Coated Tablet PO SCH (08:02)
[2021-10-11] MEDS: Folic Acid 1 MG TAB PO SCH (08:02)
[2021-10-11] MEDS: Amlodipine 10 MG TAB PO SCH (08:02)
[2021-10-11] MEDS: Gabapentin 100 MG CAP PO SCH ×2 (08:03→13:59)
[2021-10-11] MEDS: Enoxaparin Sodium 40 MG/0.4 ML SYRINGE SC SCH (08:03)
[2021-10-11] MEDS ORDERED: Lantus 1000 UNITS/10 ML VIAL SC SCH (09:00)
== END 2021-10-11 16:55 | disposition home or self-care (01) | DRG 948 ==
PROVIDERS: ADMIT Family Medicine

== ENCOUNTER 2022-01-05 12:33 | Emergency (ER) | payer MEDICARE ==
[2022-01-05 13:07] LABS: Bilirubin Negative (Negative); Blood, Urine Moderate (Negative); Clarity Turbid (Clear); Glucose, Urine (Dipstick) 500 mg/dL (Negative); Ketone, Urine Negative (Negative); Leukocyte Moderate (Negative); Nitrite Positive (Negative); Protein, Urine (Dipstick) > or equal to 300 mg/dL (Neg-Trace); Specific Gravity, Urine 1.025 (1.005-1.030); Urobilinogen 0.2 mg/dL (Less than 2)
[2022-01-05 13:13] LABS: Bacteria/HPF 4+ HPF (None Seen); RBC/HPF 0-3 HPF (0-3); Squamous Epithelial 0-3 HPF (0-3); WBC/HPF Greater Than 50 HPF (0-3)
[2022-01-05] MEDS ORDERED: Sulfameth/Trimethoprim DS 800-160mg TAB ONE (13:24)
== END 2022-01-05 15:45 | disposition home or self-care (01) ==
LOC: NAV ERS 12:33
DX: N30.00 Acute cystitis without hematuria (principal); G43.909 Migraine, unspecified, not intractable, without status migrainosus; E03.9 Hypothyroidism, unspecified; K21.9 Gastro-esophageal reflux disease without esophagitis
CPT/HCPCS: 81003; 81015; 87077; 87086; 87186; 99283

== ENCOUNTER 2022-01-06 14:58 | Emergency (ER) | payer MEDICARE ==
[2022-01-06 15:35] LABS: #Basophils 0.1 thou/uL (0.0-0.2); #Eosinphils 0.3 thou/uL (0.0-0.7); #Lymphocytes 1.3 thou/uL (1.20-3.40); #Monocytes 0.4 thou/uL (0.11-0.59); #Neutrophils 4.2 thou/uL (1.40-6.50); %Basophils 1.4 % (0.0-1.0); %Eosinophils 4.1 % (0.0-10.0); %Lymphocytes 20.3 % (21.0-51.0); %Monocytes 6.8 % (0.0-10.0); %Neutrophils 67.4 % (42.0-75.0); Hemoglobin 10.1 g/dL (12.0-16.0); Mean Corpuscular HGB CONC 30.5 g/dL (32.0-36.0); Mean Corpuscular Hemoglobin 28.8 pg (27.0-31.0); Mean Corpuscular Volume 94.3 fL (78.0-98.0); Mean Platelet Volume 8.1 fL (7.4-10.4); Platelet Count 176 thou/uL (130-400); RBC Distribution Width 13.3 % (11.5-14.5); Red Blood Cell (RBC) Count 3.51 mill/uL (4.20-5.40); White Blood Cell (WBC) Count 6.2 thou/uL (4.8-10.8)
[2022-01-06 15:51] LABS: ALT (SGPT) 18 U/L (8-55); AST (SGOT) 16 U/L (5-34); Albumin 3.5 g/dL (3.4-4.8); Alkaline Phosphatase 143 U/L (40-110); Anion Gap 16 mmol/L (10-20); BUN (Urea Nitrogen) 37 mg/dL (9.8-20.1); Bilirubin, Total 0.4 mg/dL (0.2-1.2); CK (CPK) 89 U/L (29-168); Calc. Creatinine Clearance 0 mL/min (70-130); Calcium 9.6 mg/dL (7.8-10.44); Carbon Dioxide 21 mmol/L (23-31); Chloride 104 mmol/L (98-107); Estimated GFR 31; Globulin 3.3 g/dL (2.4-3.5); Glucose 302 mg/dL (80-115); Potassium 4.3 mmol/L (3.5-5.1); Protein, Total 6.8 g/dL (5.8-8.1); Sodium 137 mmol/L (136-145)
[2022-01-06] MEDS ORDERED: Sodium Chloride 0.9% 1,000 ML ONE (16:27)
== END 2022-01-06 19:15 | disposition home or self-care (01) ==
LOC: NAV ERS 14:58
DX: N39.0 Urinary tract infection, site not specified (principal); E86.0 Dehydration; G43.909 Migraine, unspecified, not intractable, without status migrainosus; E11.9 Type 2 diabetes mellitus without complications; E03.9 Hypothyroidism, unspecified; I10 Essential (primary) hypertension; E78.5 Hyperlipidemia, unspecified
CPT/HCPCS: 36415; 71045; 80053; 82550; 83880; 84484; 85025; 93005; 96360; J7050

== ENCOUNTER 2022-05-15 12:11 | Inpatient (IN) | payer MEDICARE ==
[2022-05-15] MEDS ORDERED: Sodium Chloride 0.65% Nasal 44 ML BOT EA NARE PRN (13:37)
[2022-05-15] MEDS ORDERED: Ondansetron ODT 4 MG TAB PO PRN (13:37)
[2022-05-15] MEDS ORDERED: Cepastat Lozenges 1 LOZ PO PRN (13:37)
[2022-05-15] MEDS ORDERED: Benzonatate 100 MG CAP PO PRN (13:37)
[2022-05-15] MEDS ORDERED: Guaifenesin DM 100-10/5 ML UDCUP PO PRN (13:37)
[2022-05-15] MEDS ORDERED: Acetaminophen 650 MG Suppository PR PRN (13:37)
[2022-05-15] MEDS ORDERED: Artificial Tear Sol 15 ML BOT EA EYE PRN (13:37)
[2022-05-15] MEDS ORDERED: Dextrose 50% Abboject 50 ML SYRINGE SLOW IVP PRN (13:37)
[2022-05-15] MEDS: HumaLOG 300 UNITS/3 ML VIAL SC PRN (17:44)
[2022-05-15] MEDS ORDERED: cloNIDine 0.1 MG TAB PO SCH (19:15)
[2022-05-15] MEDS: Famotidine 20 MG TAB PO SCH (21:20)
[2022-05-15] MEDS: Heparin 5,000 UNITS/ML VIAL SC SCH (21:20)
[2022-05-16 06:08] LABS: #Basophils 0.1 thou/uL (0.0-0.2); #Eosinphils 0.1 thou/uL (0.0-0.7); #Lymphocytes 0.8 thou/uL (1.20-3.40); #Monocytes 0.8 thou/uL (0.11-0.59); #Neutrophils 7.9 thou/uL (1.40-6.50); %Basophils 1.2 % (0.0-1.0); %Eosinophils 1.1 % (0.0-10.0); %Lymphocytes 8.4 % (21.0-51.0); %Monocytes 7.9 % (0.0-10.0); %Neutrophils 81.5 % (42.0-75.0); Hemoglobin 10.5 g/dL (12.0-16.0); Mean Corpuscular HGB CONC 31.5 g/dL (32.0-36.0); Mean Corpuscular Hemoglobin 29.3 pg (27.0-31.0); Mean Corpuscular Volume 93.1 fl (78.0-98.0); Mean Platelet Volume 7.6 fL (7.4-10.4); Platelet Count 178 10x3/uL (130-400); Red Blood Cell (RBC) Count 3.59 mill/uL (4.20-5.40); White Blood Cell (WBC) Count 9.7 10x3/uL (4.8-10.8)
[2022-05-16 06:24] LABS: ALT (SGPT) 8 U/L (8-55); AST (SGOT) 33 U/L (5-34); Albumin 3.2 g/dL (3.4-4.8); Alkaline Phosphatase 98 U/L (40-110); Anion Gap 15 mmol/L (10-20); BUN (Urea Nitrogen) 42 mg/dL (9.8-20.1); Bilirubin, Total 0.5 mg/dL (0.2-1.2); Calc. Creatinine Clearance 40 mL/min (70-130); Calcium 9.9 mg/dL (7.8-10.44); Carbon Dioxide 25 mmol/L (23-31); Chloride 110 mmol/L (98-107); Estimated GFR 27; Globulin 3.5 g/dL (2.4-3.5); Glucose 211 mg/dL (80-115); Potassium 3.8 mmol/L (3.5-5.1); Protein, Total 6.7 g/dL (5.8-8.1); Sodium 146 mmol/L (136-145)
[2022-05-16] MEDS: HumaLOG 300 UNITS/3 ML VIAL SC PRN ×4 (07:16→20:36)
[2022-05-16 07:35] LABS: Bilirubin Negative (Negative); Blood, Urine Small (Negative); Clarity Clear (Clear); Glucose, Urine (Dipstick) Negative (Negative); Ketone, Urine Negative (Negative); Leukocyte Negative (Negative); Nitrite Negative (Negative); Protein, Urine (Dipstick) > or equal to 300 mg/dL (Neg-Trace); Specific Gravity, Urine 1.025 (1.005-1.030); Urobilinogen 0.2 mg/dL (Less than 2); pH, Urine 5.5 (5.0-9.0)
[2022-05-16 07:55] LABS: RBC/HPF 0-3 HPF (0-3)
[2022-05-16 07:56] LABS: Bacteria/HPF Rare-Few HPF (None Seen); Squamous Epithelial 0-3 HPF (0-3); WBC/HPF None Seen HPF (0-3)
[2022-05-16] MEDS ORDERED: Metoclopramide HCl 10 MG TAB PO PRN (08:10)
[2022-05-16] MEDS ORDERED: Levothyroxine Sodium 75 MCG TAB PO SCH (08:30)
[2022-05-16] MEDS: Senokot S 8.6-50 MG TAB PO SCH ×2 (08:55→20:32)
[2022-05-16] MEDS: Amlodipine 5 MG TAB PO SCH (08:56)
[2022-05-16] MEDS: Folic Acid 1 MG TAB PO SCH (08:56)
[2022-05-16] MEDS: Calcitriol 0.25 MCG CAP PO SCH (08:56)
[2022-05-16] MEDS: Polyethylene Glycol 3350 17 GM Packet PO SCH (08:57)
[2022-05-16] MEDS: Heparin 5,000 UNITS/ML VIAL SC SCH ×2 (08:58→20:35)
[2022-05-16] MEDS ORDERED: Enoxaparin Sodium 40 MG/0.4 ML SYRINGE SC SCH (09:00)
[2022-05-16] MEDS: HYDROcodone/Acetaminophen 5/325 mg Tablet PO PRN ×3 (09:04→20:31)
[2022-05-16] MEDS ORDERED: Ondansetron ODT 4 MG TAB SL PRN (09:15)
[2022-05-16] MEDS: cloNIDine 0.1 MG TAB PO PRN (14:47)
[2022-05-16] MEDS: Ferrous Sulfate 325 MG TAB PO SCH (16:49)
[2022-05-16] MEDS: Melatonin 3 MG TAB PO SCH (20:30)
[2022-05-16] MEDS: Sertraline 100 MG TAB PO SCH (20:31)
[2022-05-16] MEDS: Famotidine 20 MG TAB PO SCH (20:32)
[2022-05-16] MEDS: Rosuvastatin 10 MG TAB PO SCH (20:32)
[2022-05-17] MEDS: Levothyroxine Sodium 75 MCG TAB PO SCH (05:26)
[2022-05-17] MEDS: HYDROcodone/Acetaminophen 5/325 mg Tablet PO PRN ×3 (05:28→13:48)
[2022-05-17] MEDS: HumaLOG 300 UNITS/3 ML VIAL SC PRN ×3 (06:19→17:37)
[2022-05-17] MEDS: Calcitriol 0.25 MCG CAP PO SCH (07:59)
[2022-05-17] MEDS: Ferrous Sulfate 325 MG TAB PO SCH ×2 (07:59→17:37)
[2022-05-17] MEDS: Senokot S 8.6-50 MG TAB PO SCH ×2 (07:59→20:55)
[2022-05-17] MEDS: Furosemide 40 MG TAB PO SCH (07:59)
[2022-05-17] MEDS: Folic Acid 1 MG TAB PO SCH (07:59)
[2022-05-17] MEDS: Heparin 5,000 UNITS/ML VIAL SC SCH ×2 (08:01→21:00)
[2022-05-17] MEDS: Polyethylene Glycol 3350 17 GM Packet PO SCH (08:02)
[2022-05-17] MEDS: Amlodipine 5 MG TAB PO SCH (08:02)
[2022-05-17] MEDS ORDERED: Lantus 1000 UNITS/10 ML VIAL SC SCH (09:15)
[2022-05-17] MEDS ORDERED: Nystatin 500,000 UNITS/5 ML UDCUP SSW SCH (09:15)
[2022-05-17] MEDS ORDERED: Amlodipine 5 MG TAB PO SCH ×2 (09:30→13:45)
[2022-05-17] MEDS: cloNIDine 0.1 MG TAB PO PRN ×2 (11:24→20:56)
[2022-05-17] MEDS: Nystatin 500,000 UNITS/5 ML UDCUP SSW SCH ×3 (12:01→21:00)
[2022-05-17] MEDS ORDERED: Bisacodyl 10 MG SUPP PR PRN (15:57)
[2022-05-17] MEDS: Milk Of Magnesia 30 ML UDCUP PO SCH ×2 (19:23→20:07)
[2022-05-17] MEDS ORDERED: Milk Of Magnesia 30 ML UDCUP PO SCH (19:30)
[2022-05-17] MEDS: Melatonin 3 MG TAB PO SCH (20:55)
[2022-05-17] MEDS: Rosuvastatin 10 MG TAB PO SCH (20:55)
[2022-05-17] MEDS: Sertraline 100 MG TAB PO SCH (20:56)
[2022-05-17] MEDS: Famotidine 20 MG TAB PO SCH (20:57)
[2022-05-18 05:31] LABS: #Basophils 0.1 thou/uL (0.0-0.2); #Eosinphils 0.6 thou/uL (0.0-0.7); #Lymphocytes 1.1 thou/uL (1.20-3.40); #Monocytes 0.9 thou/uL (0.11-0.59); #Neutrophils 7.8 thou/uL (1.40-6.50); %Basophils 1.2 % (0.0-1.0); %Eosinophils 5.8 % (0.0-10.0); %Lymphocytes 10.5 % (21.0-51.0); %Monocytes 8.8 % (0.0-10.0); %Neutrophils 73.8 % (42.0-75.0); Hemoglobin 9.7 g/dL (12.0-16.0); Mean Corpuscular HGB CONC 31.3 g/dL (32.0-36.0); Mean Corpuscular Hemoglobin 28.8 pg (27.0-31.0); Mean Platelet Volume 7.5 fL (7.4-10.4); Platelet Count 199 10x3/uL (130-400); RBC Distribution Width 15.2 % (11.5-14.5); Red Blood Cell (RBC) Count 3.36 mill/uL (4.20-5.40); White Blood Cell (WBC) Count 10.5 10x3/uL (4.8-10.8)
[2022-05-18] MEDS: HYDROcodone/Acetaminophen 5/325 mg Tablet PO PRN ×2 (05:33→17:16)
[2022-05-18] MEDS: Levothyroxine Sodium 75 MCG TAB PO SCH (05:34)
[2022-05-18 05:42] LABS: Anion Gap 12 mmol/L (10-20); BUN (Urea Nitrogen) 32 mg/dL (9.8-20.1); Calc. Creatinine Clearance 53 mL/min (70-130); Calcium 9.1 mg/dL (7.8-10.44); Carbon Dioxide 28 mmol/L (23-31); Chloride 106 mmol/L (98-107); Estimated GFR 38; Glucose 181 mg/dL (80-115); Potassium 3.2 mmol/L (3.5-5.1); Sodium 143 mmol/L (136-145)
[2022-05-18] MEDS: HumaLOG 300 UNITS/3 ML VIAL SC PRN ×2 (05:59→11:33)
[2022-05-18 06:54] LABS: Magnesium 1.7 mg/dL (1.6-2.6)
[2022-05-18] MEDS: Ferrous Sulfate 325 MG TAB PO SCH ×2 (07:40→17:18)
[2022-05-18] MEDS: Nystatin 500,000 UNITS/5 ML UDCUP SSW SCH ×4 (07:40→21:35)
[2022-05-18] MEDS: Furosemide 40 MG TAB PO SCH (07:40)
[2022-05-18] MEDS: Senokot S 8.6-50 MG TAB PO SCH ×2 (07:41→21:36)
[2022-05-18] MEDS: Calcitriol 0.25 MCG CAP PO SCH (07:41)
[2022-05-18] MEDS: Potassium Chloride 20 MEQ TAB PO SCH ×2 (07:41→17:17)
[2022-05-18] MEDS: Folic Acid 1 MG TAB PO SCH (07:41)
[2022-05-18] MEDS: Lantus 1000 UNITS/10 ML VIAL SC SCH (07:43)
[2022-05-18] MEDS: Polyethylene Glycol 3350 17 GM Packet PO SCH (07:44)
[2022-05-18] MEDS: cloNIDine 0.1 MG TAB PO PRN (07:53)
[2022-05-18] MEDS: Heparin 5,000 UNITS/ML VIAL SC SCH ×2 (08:05→21:34)
[2022-05-18] MEDS: Chlorthalidone 25 MG TAB PO SCH (09:40)
[2022-05-18] MEDS: Melatonin 3 MG TAB PO SCH (21:35)
[2022-05-18] MEDS: Rosuvastatin 10 MG TAB PO SCH (21:35)
[2022-05-18] MEDS: Sertraline 100 MG TAB PO SCH (21:35)
[2022-05-18] MEDS: Famotidine 20 MG TAB PO SCH (21:36)
[2022-05-18] MEDS: Amlodipine 5 MG TAB PO SCH (21:36)
[2022-05-19] MEDS: HYDROcodone/Acetaminophen 5/325 mg Tablet PO PRN ×4 (00:32→22:29)
[2022-05-19] MEDS: Levothyroxine Sodium 75 MCG TAB PO SCH (06:06)
[2022-05-19] MEDS: HumaLOG 300 UNITS/3 ML VIAL SC PRN ×4 (06:39→21:43)
[2022-05-19] MEDS: Heparin 5,000 UNITS/ML VIAL SC SCH ×2 (08:26→21:44)
[2022-05-19] MEDS: Lantus 1000 UNITS/10 ML VIAL SC SCH (08:27)
[2022-05-19] MEDS: Nystatin 500,000 UNITS/5 ML UDCUP SSW SCH ×4 (08:27→21:41)
[2022-05-19] MEDS: Ferrous Sulfate 325 MG TAB PO SCH ×2 (08:29→17:23)
[2022-05-19] MEDS: Potassium Chloride 20 MEQ TAB PO SCH ×2 (08:29→17:24)
[2022-05-19] MEDS: Polyethylene Glycol 3350 17 GM Packet PO SCH (08:29)
[2022-05-19] MEDS: Folic Acid 1 MG TAB PO SCH (08:29)
[2022-05-19] MEDS: Calcitriol 0.25 MCG CAP PO SCH (08:29)
[2022-05-19] MEDS: Chlorthalidone 25 MG TAB PO SCH (08:30)
[2022-05-19] MEDS: Furosemide 40 MG TAB PO SCH (08:30)
[2022-05-19] MEDS: Senokot S 8.6-50 MG TAB PO SCH (08:30)
[2022-05-19] MEDS: Famotidine 20 MG TAB PO SCH (21:41)
[2022-05-19] MEDS: Melatonin 3 MG TAB PO SCH (21:41)
[2022-05-19] MEDS: Amlodipine 5 MG TAB PO SCH (21:42)
[2022-05-19] MEDS: Sertraline 100 MG TAB PO SCH (21:42)
[2022-05-19] MEDS: Rosuvastatin 10 MG TAB PO SCH (21:42)
[2022-05-20] MEDS: Levothyroxine Sodium 75 MCG TAB PO SCH (05:40)
[2022-05-20 06:17] LABS: #Basophils 0.2 thou/uL (0.0-0.2); #Lymphocytes 2.5 thou/uL (1.20-3.40); #Monocytes 0.8 thou/uL (0.11-0.59); #Neutrophils 6.4 thou/uL (1.40-6.50); %Basophils 1.5 % (0.0-1.0); %Eosinophils 9.5 % (0.0-10.0); %Monocytes 7.6 % (0.0-10.0); %Neutrophils 58.5 % (42.0-75.0); Hemoglobin 9.6 g/dL (12.0-16.0); Mean Corpuscular HGB CONC 31.8 g/dL (32.0-36.0); Mean Corpuscular Hemoglobin 29.4 pg (27.0-31.0); Mean Corpuscular Volume 92.4 fl (78.0-98.0); Mean Platelet Volume 7.8 fL (7.4-10.4); Platelet Count 227 10x3/uL (130-400); RBC Distribution Width 15.3 % (11.5-14.5); Red Blood Cell (RBC) Count 3.28 mill/uL (4.20-5.40)
[2022-05-20 06:27] LABS: Anion Gap 12 mmol/L (10-20); BUN (Urea Nitrogen) 27 mg/dL (9.8-20.1); Calc. Creatinine Clearance 63 mL/min (70-130); Calcium 8.9 mg/dL (7.8-10.44); Carbon Dioxide 29 mmol/L (23-31); Chloride 102 mmol/L (98-107); Estimated GFR 48; Glucose 77 mg/dL (80-115); Sodium 139 mmol/L (136-145)
[2022-05-20] MEDS: Calcitriol 0.25 MCG CAP PO SCH (08:03)
[2022-05-20] MEDS: Furosemide 40 MG TAB PO SCH (08:03)
[2022-05-20] MEDS: Folic Acid 1 MG TAB PO SCH (08:04)
[2022-05-20] MEDS: Ferrous Sulfate 325 MG TAB PO SCH ×2 (08:04→17:24)
[2022-05-20] MEDS: Chlorthalidone 25 MG TAB PO SCH (08:05)
[2022-05-20] MEDS: Polyethylene Glycol 3350 17 GM Packet PO SCH (08:10)
[2022-05-20] MEDS: Heparin 5,000 UNITS/ML VIAL SC SCH ×2 (08:14→21:03)
[2022-05-20] MEDS: Lantus 1000 UNITS/10 ML VIAL SC SCH (08:25)
[2022-05-20] MEDS: Nystatin 500,000 UNITS/5 ML UDCUP SSW SCH ×4 (08:25→21:03)
[2022-05-20] MEDS: HYDROcodone/Acetaminophen 5/325 mg Tablet PO PRN ×2 (10:44→18:50)
[2022-05-20] MEDS: HumaLOG 300 UNITS/3 ML VIAL SC PRN ×3 (12:33→21:03)
[2022-05-20] MEDS: Melatonin 3 MG TAB PO SCH (20:58)
[2022-05-20] MEDS: Amlodipine 5 MG TAB PO SCH (20:58)
[2022-05-20] MEDS: Sertraline 100 MG TAB PO SCH (20:59)
[2022-05-20] MEDS: Famotidine 20 MG TAB PO SCH (21:00)
[2022-05-20] MEDS: Rosuvastatin 10 MG TAB PO SCH (21:03)
[2022-05-21] MEDS: Levothyroxine Sodium 75 MCG TAB PO SCH (05:49)
[2022-05-21] MEDS: HYDROcodone/Acetaminophen 5/325 mg Tablet PO PRN ×3 (05:49→17:15)
[2022-05-21] MEDS: Folic Acid 1 MG TAB PO SCH (07:41)
[2022-05-21] MEDS: Nystatin 500,000 UNITS/5 ML UDCUP SSW SCH ×4 (07:41→20:59)
[2022-05-21] MEDS: Furosemide 40 MG TAB PO SCH (07:41)
[2022-05-21] MEDS: Ferrous Sulfate 325 MG TAB PO SCH ×2 (07:41→17:17)
[2022-05-21] MEDS: Calcitriol 0.25 MCG CAP PO SCH (07:42)
[2022-05-21] MEDS: Chlorthalidone 25 MG TAB PO SCH (07:42)
[2022-05-21] MEDS: Heparin 5,000 UNITS/ML VIAL SC SCH ×2 (07:43→21:01)
[2022-05-21] MEDS: Polyethylene Glycol 3350 17 GM Packet PO SCH (07:44)
[2022-05-21] MEDS: Lantus 1000 UNITS/10 ML VIAL SC SCH (07:49)
[2022-05-21] MEDS: HumaLOG 300 UNITS/3 ML VIAL SC PRN ×2 (13:00→21:01)
[2022-05-21 16:57] LABS: Bilirubin Negative (Negative); Blood, Urine Trace (Negative); CAUTI Indications for Culture Dysuria,urgency,freq; Glucose, Urine (Dipstick) Negative (Negative); Ketone, Urine Negative (Negative); Leukocyte Trace (Negative); Nitrite Negative (Negative); Protein, Urine (Dipstick) 100 mg/dL (Neg-Trace); Urobilinogen 0.2 mg/dL (Less than 2)
[2022-05-21 16:59] LABS: Clarity SL HAZY (Clear)
[2022-05-21 17:51] LABS: RBC/HPF None Seen HPF (0-3); Squamous Epithelial 0-3 HPF (0-3); Transitional Epithelial 0-3 HPF (None Seen)
[2022-05-21 17:52] LABS: Urine Culture Reflex No No
[2022-05-21] MEDS: Melatonin 3 MG TAB PO SCH (20:59)
[2022-05-21] MEDS: Sertraline 100 MG TAB PO SCH (20:59)
[2022-05-21] MEDS: Amlodipine 5 MG TAB PO SCH (20:59)
[2022-05-21] MEDS: Famotidine 20 MG TAB PO SCH (21:00)
[2022-05-21] MEDS: Rosuvastatin 10 MG TAB PO SCH (21:00)
[2022-05-22] MEDS: HYDROcodone/Acetaminophen 5/325 mg Tablet PO PRN ×2 (04:53→08:52)
[2022-05-22] MEDS: Levothyroxine Sodium 75 MCG TAB PO SCH (04:54)
[2022-05-22 05:29] LABS: #Basophils 0.1 thou/uL (0.0-0.2); #Eosinphils 0.9 thou/uL (0.0-0.7); #Lymphocytes 2.1 thou/uL (1.20-3.40); #Monocytes 0.8 thou/uL (0.11-0.59); #Neutrophils 5.9 thou/uL (1.40-6.50); %Basophils 1.1 % (0.0-1.0); %Eosinophils 9.3 % (0.0-10.0); %Lymphocytes 20.9 % (21.0-51.0); %Monocytes 8.4 % (0.0-10.0); %Neutrophils 60.2 % (42.0-75.0); Hemoglobin 9.7 g/dL (12.0-16.0); Mean Corpuscular HGB CONC 32.1 g/dL (32.0-36.0); Mean Corpuscular Hemoglobin 29.7 pg (27.0-31.0); Mean Corpuscular Volume 92.5 fl (78.0-98.0); Mean Platelet Volume 7.2 fL (7.4-10.4); Platelet Count 230 10x3/uL (130-400); RBC Distribution Width 15.4 % (11.5-14.5); Red Blood Cell (RBC) Count 3.27 mill/uL (4.20-5.40); White Blood Cell (WBC) Count 9.8 10x3/uL (4.8-10.8)
[2022-05-22 05:35] LABS: Sodium 138 mmol/L (136-145)
[2022-05-22 05:45] LABS: Anion Gap 14 mmol/L (10-20); BUN (Urea Nitrogen) 33 mg/dL (9.8-20.1); Calc. Creatinine Clearance 46 mL/min (70-130); Calcium 8.8 mg/dL (7.8-10.44); Carbon Dioxide 29 mmol/L (23-31); Chloride 99 mmol/L (98-107); Estimated GFR 33; Glucose 164 mg/dL (80-115); Potassium 4.3 mmol/L (3.5-5.1)
[2022-05-22] MEDS: HumaLOG 300 UNITS/3 ML VIAL SC PRN ×3 (05:47→17:24)
[2022-05-22] MEDS: Furosemide 40 MG TAB PO SCH (08:16)
[2022-05-22] MEDS: Ferrous Sulfate 325 MG TAB PO SCH ×2 (08:16→16:18)
[2022-05-22] MEDS: Calcitriol 0.25 MCG CAP PO SCH (08:17)
[2022-05-22] MEDS: Chlorthalidone 25 MG TAB PO SCH (08:18)
[2022-05-22] MEDS: Folic Acid 1 MG TAB PO SCH (08:19)
[2022-05-22] MEDS: Polyethylene Glycol 3350 17 GM Packet PO SCH (08:19)
[2022-05-22] MEDS: Lantus 1000 UNITS/10 ML VIAL SC SCH (08:20)
[2022-05-22] MEDS: Heparin 5,000 UNITS/ML VIAL SC SCH ×2 (08:23→20:32)
[2022-05-22] MEDS: Nystatin 500,000 UNITS/5 ML UDCUP SSW SCH ×4 (08:25→20:36)
[2022-05-22] MEDS: Amlodipine 5 MG TAB PO SCH (20:31)
[2022-05-22] MEDS: Melatonin 3 MG TAB PO SCH (20:31)
[2022-05-22] MEDS: Sertraline 100 MG TAB PO SCH (20:32)
[2022-05-22] MEDS: Rosuvastatin 10 MG TAB PO SCH (20:32)
[2022-05-22] MEDS: Famotidine 20 MG TAB PO SCH (20:32)
[2022-05-23] MEDS: HYDROcodone/Acetaminophen 5/325 mg Tablet PO PRN ×2 (02:43→14:32)
[2022-05-23] MEDS: Levothyroxine Sodium 75 MCG TAB PO SCH (05:27)
[2022-05-23] MEDS: Ferrous Sulfate 325 MG TAB PO SCH ×2 (07:57→17:26)
[2022-05-23] MEDS: Calcitriol 0.25 MCG CAP PO SCH (07:58)
[2022-05-23] MEDS: Nystatin 500,000 UNITS/5 ML UDCUP SSW SCH ×4 (07:58→20:42)
[2022-05-23] MEDS: Polyethylene Glycol 3350 17 GM Packet PO SCH (07:58)
[2022-05-23] MEDS: Furosemide 40 MG TAB PO SCH (07:58)
[2022-05-23] MEDS: Chlorthalidone 25 MG TAB PO SCH (07:58)
[2022-05-23] MEDS: Folic Acid 1 MG TAB PO SCH (07:58)
[2022-05-23] MEDS: Lantus 1000 UNITS/10 ML VIAL SC SCH (07:59)
[2022-05-23] MEDS: Heparin 5,000 UNITS/ML VIAL SC SCH ×2 (08:02→20:40)
[2022-05-23] MEDS: HumaLOG 300 UNITS/3 ML VIAL SC PRN ×2 (11:26→21:24)
[2022-05-23] MEDS: Amlodipine 5 MG TAB PO SCH (20:40)
[2022-05-23] MEDS: Rosuvastatin 10 MG TAB PO SCH (20:40)
[2022-05-23] MEDS: Famotidine 20 MG TAB PO SCH (20:41)
[2022-05-23] MEDS: Melatonin 3 MG TAB PO SCH (20:42)
[2022-05-23] MEDS: Sertraline 100 MG TAB PO SCH (20:42)
[2022-05-24] MEDS: Levothyroxine Sodium 75 MCG TAB PO SCH (05:03)
[2022-05-24] MEDS: HumaLOG 300 UNITS/3 ML VIAL SC PRN ×3 (05:08→16:34)
[2022-05-24] MEDS: HYDROcodone/Acetaminophen 5/325 mg Tablet PO PRN (08:15)
[2022-05-24] MEDS: Polyethylene Glycol 3350 17 GM Packet PO SCH (08:16)
[2022-05-24] MEDS: Nystatin 500,000 UNITS/5 ML UDCUP SSW SCH ×4 (08:17→20:48)
[2022-05-24] MEDS: Heparin 5,000 UNITS/ML VIAL SC SCH ×2 (08:18→20:50)
[2022-05-24] MEDS: Ferrous Sulfate 325 MG TAB PO SCH ×2 (08:19→16:35)
[2022-05-24] MEDS: Calcitriol 0.25 MCG CAP PO SCH (08:19)
[2022-05-24] MEDS: Furosemide 40 MG TAB PO SCH (08:19)
[2022-05-24] MEDS: Folic Acid 1 MG TAB PO SCH (08:19)
[2022-05-24] MEDS: Chlorthalidone 25 MG TAB PO SCH (08:19)
[2022-05-24] MEDS: Lantus 1000 UNITS/10 ML VIAL SC SCH (09:11)
[2022-05-24 09:21] LABS: #Basophils 0.1 thou/uL (0.0-0.2); #Eosinphils 0.6 thou/uL (0.0-0.7); #Lymphocytes 1.3 thou/uL (1.20-3.40); #Monocytes 0.7 thou/uL (0.11-0.59); %Basophils 1.3 % (0.0-1.0); %Eosinophils 5.8 % (0.0-10.0); %Lymphocytes 13.1 % (21.0-51.0); %Monocytes 7.1 % (0.0-10.0); %Neutrophils 72.7 % (42.0-75.0); Hemoglobin 10.7 g/dL (12.0-16.0); Mean Corpuscular Hemoglobin 29.6 pg (27.0-31.0); Mean Corpuscular Volume 92.3 fl (78.0-98.0); Mean Platelet Volume 7.4 fL (7.4-10.4); Platelet Count 268 10x3/uL (130-400); RBC Distribution Width 15.3 % (11.5-14.5); Red Blood Cell (RBC) Count 3.63 mill/uL (4.20-5.40); White Blood Cell (WBC) Count 9.6 10x3/uL (4.8-10.8)
[2022-05-24 09:34] LABS: Anion Gap 13 mmol/L (10-20); BUN (Urea Nitrogen) 31 mg/dL (9.8-20.1); Calc. Creatinine Clearance 49 mL/min (70-130); Calcium 9.5 mg/dL (7.8-10.44); Carbon Dioxide 28 mmol/L (23-31); Chloride 98 mmol/L (98-107); Estimated GFR 35; Glucose 175 mg/dL (80-115); Potassium 4.5 mmol/L (3.5-5.1); Sodium 134 mmol/L (136-145)
[2022-05-24] MEDS: Rosuvastatin 10 MG TAB PO SCH (20:49)
[2022-05-24] MEDS: Melatonin 3 MG TAB PO SCH (20:49)
[2022-05-24] MEDS: Amlodipine 10 MG TAB PO SCH (20:49)
[2022-05-24] MEDS: Famotidine 20 MG TAB PO SCH (20:49)
[2022-05-24] MEDS: Sertraline 100 MG TAB PO SCH (20:49)
[2022-05-25] MEDS: HYDROcodone/Acetaminophen 5/325 mg Tablet PO PRN ×2 (01:35→22:45)
[2022-05-25] MEDS: Levothyroxine Sodium 75 MCG TAB PO SCH (05:16)
[2022-05-25] MEDS: Polyethylene Glycol 3350 17 GM Packet PO SCH (08:19)
[2022-05-25] MEDS: Nystatin 500,000 UNITS/5 ML UDCUP SSW SCH ×4 (08:19→20:53)
[2022-05-25] MEDS: Calcitriol 0.25 MCG CAP PO SCH (08:19)
[2022-05-25] MEDS: Ferrous Sulfate 325 MG TAB PO SCH ×2 (08:19→17:06)
[2022-05-25] MEDS: Furosemide 40 MG TAB PO SCH (08:19)
[2022-05-25] MEDS: Folic Acid 1 MG TAB PO SCH (08:20)
[2022-05-25] MEDS: Chlorthalidone 25 MG TAB PO SCH (08:20)
[2022-05-25] MEDS: Lantus 1000 UNITS/10 ML VIAL SC SCH (08:20)
[2022-05-25] MEDS: Heparin 5,000 UNITS/ML VIAL SC SCH ×2 (08:20→20:54)
[2022-05-25] MEDS: HumaLOG 300 UNITS/3 ML VIAL SC PRN ×3 (12:26→21:01)
[2022-05-25] MEDS: Amlodipine 10 MG TAB PO SCH (19:03)
[2022-05-25] MEDS: Melatonin 3 MG TAB PO SCH (20:53)
[2022-05-25] MEDS: Sertraline 100 MG TAB PO SCH (20:53)
[2022-05-25] MEDS: Rosuvastatin 10 MG TAB PO SCH (20:54)
[2022-05-25] MEDS: Famotidine 20 MG TAB PO SCH (20:54)
[2022-05-25] MEDS: cloNIDine 0.1 MG TAB PO PRN (22:48)
[2022-05-26] MEDS: HumaLOG 300 UNITS/3 ML VIAL SC PRN ×3 (05:15→17:30)
[2022-05-26] MEDS: Levothyroxine Sodium 75 MCG TAB PO SCH (05:15)
[2022-05-26 06:30] LABS: #Basophils 0.1 thou/uL (0.0-0.2); #Eosinphils 0.6 thou/uL (0.0-0.7); #Lymphocytes 2.4 thou/uL (1.20-3.40); #Monocytes 0.9 thou/uL (0.11-0.59); #Neutrophils 5.6 thou/uL (1.40-6.50); %Basophils 1.4 % (0.0-1.0); %Eosinophils 5.8 % (0.0-10.0); %Lymphocytes 25.1 % (21.0-51.0); %Monocytes 9.4 % (0.0-10.0); %Neutrophils 58.4 % (42.0-75.0); Anion Gap 12 mmol/L (10-20); BUN (Urea Nitrogen) 37 mg/dL (9.8-20.1); Calc. Creatinine Clearance 43 mL/min (70-130); Calcium 9.6 mg/dL (7.8-10.44); Carbon Dioxide 28 mmol/L (23-31); Chloride 101 mmol/L (98-107); Estimated GFR 32; Glucose 177 mg/dL (80-115); Hemoglobin 10.4 g/dL (12.0-16.0); Mean Corpuscular HGB CONC 31.1 g/dL (32.0-36.0); Mean Corpuscular Volume 93.1 fl (78.0-98.0); Mean Platelet Volume 7.3 fL (7.4-10.4); Platelet Count 257 10x3/uL (130-400); RBC Distribution Width 15.2 % (11.5-14.5); Red Blood Cell (RBC) Count 3.59 mill/uL (4.20-5.40); Sodium 137 mmol/L (136-145); White Blood Cell (WBC) Count 9.6 10x3/uL (4.8-10.8)
[2022-05-26] MEDS: Chlorthalidone 25 MG TAB PO SCH (07:52)
[2022-05-26] MEDS: Heparin 5,000 UNITS/ML VIAL SC SCH ×2 (07:52→20:28)
[2022-05-26] MEDS: Ferrous Sulfate 325 MG TAB PO SCH ×2 (07:52→17:36)
[2022-05-26] MEDS: Calcitriol 0.25 MCG CAP PO SCH (07:52)
[2022-05-26] MEDS: Folic Acid 1 MG TAB PO SCH (07:52)
[2022-05-26] MEDS: Polyethylene Glycol 3350 17 GM Packet PO SCH ×2 (07:53→09:36)
[2022-05-26] MEDS: Lantus 1000 UNITS/10 ML VIAL SC SCH (07:53)
[2022-05-26] MEDS: Furosemide 40 MG TAB PO SCH (07:53)
[2022-05-26] MEDS: Nystatin 500,000 UNITS/5 ML UDCUP SSW SCH ×4 (07:53→20:28)
[2022-05-26] MEDS: HYDROcodone/Acetaminophen 5/325 mg Tablet PO PRN ×2 (14:06→20:37)
[2022-05-26] MEDS: Rosuvastatin 10 MG TAB PO SCH (20:26)
[2022-05-26] MEDS: Melatonin 3 MG TAB PO SCH (20:26)
[2022-05-26] MEDS: Sertraline 100 MG TAB PO SCH (20:26)
[2022-05-26] MEDS: Amlodipine 10 MG TAB PO SCH (20:27)
[2022-05-26] MEDS: Famotidine 20 MG TAB PO SCH (20:27)
[2022-05-27] MEDS: Levothyroxine Sodium 75 MCG TAB PO SCH (05:32)
[2022-05-27] MEDS: Nystatin 500,000 UNITS/5 ML UDCUP SSW SCH ×4 (07:53→21:17)
[2022-05-27] MEDS: Heparin 5,000 UNITS/ML VIAL SC SCH ×2 (07:53→21:18)
[2022-05-27] MEDS: Lantus 1000 UNITS/10 ML VIAL SC SCH (07:53)
[2022-05-27] MEDS: Folic Acid 1 MG TAB PO SCH (07:54)
[2022-05-27] MEDS: Chlorthalidone 25 MG TAB PO SCH (07:54)
[2022-05-27] MEDS: Calcitriol 0.25 MCG CAP PO SCH (07:54)
[2022-05-27] MEDS: Ferrous Sulfate 325 MG TAB PO SCH ×2 (07:54→16:55)
[2022-05-27] MEDS: Furosemide 40 MG TAB PO SCH (07:54)
[2022-05-27] MEDS: Polyethylene Glycol 3350 17 GM Packet PO SCH (08:01)
[2022-05-27] MEDS: HumaLOG 300 UNITS/3 ML VIAL SC PRN ×3 (11:26→21:18)
[2022-05-27] MEDS: Acetaminophen 325 MG TAB PO PRN (11:29)
[2022-05-27] MEDS: HYDROcodone/Acetaminophen 5/325 mg Tablet PO PRN ×2 (14:15→21:19)
[2022-05-27] MEDS: Sertraline 100 MG TAB PO SCH (21:16)
[2022-05-27] MEDS: Rosuvastatin 10 MG TAB PO SCH (21:16)
[2022-05-27] MEDS: Amlodipine 10 MG TAB PO SCH (21:17)
[2022-05-27] MEDS: Famotidine 20 MG TAB PO SCH (21:17)
[2022-05-27] MEDS: Melatonin 3 MG TAB PO SCH (21:17)
[2022-05-28] MEDS: Levothyroxine Sodium 75 MCG TAB PO SCH (05:39)
[2022-05-28] MEDS: Lantus 1000 UNITS/10 ML VIAL SC SCH (08:07)
[2022-05-28] MEDS: Ferrous Sulfate 325 MG TAB PO SCH ×2 (08:08→17:44)
[2022-05-28] MEDS: Heparin 5,000 UNITS/ML VIAL SC SCH ×2 (08:08→20:31)
[2022-05-28] MEDS: Chlorthalidone 25 MG TAB PO SCH (08:08)
[2022-05-28] MEDS: Polyethylene Glycol 3350 17 GM Packet PO SCH ×2 (08:08→11:27)
[2022-05-28] MEDS: Nystatin 500,000 UNITS/5 ML UDCUP SSW SCH ×4 (08:08→20:30)
[2022-05-28] MEDS: Furosemide 40 MG TAB PO SCH (08:09)
[2022-05-28] MEDS: Calcitriol 0.25 MCG CAP PO SCH (08:09)
[2022-05-28] MEDS: Folic Acid 1 MG TAB PO SCH (08:09)
[2022-05-28] MEDS: HYDROcodone/Acetaminophen 5/325 mg Tablet PO PRN ×2 (11:27→20:29)
[2022-05-28] MEDS: HumaLOG 300 UNITS/3 ML VIAL SC PRN ×2 (11:56→17:43)
[2022-05-28] MEDS: Rosuvastatin 10 MG TAB PO SCH (20:30)
[2022-05-28] MEDS: Sertraline 100 MG TAB PO SCH (20:30)
[2022-05-28] MEDS: Melatonin 3 MG TAB PO SCH (20:30)
[2022-05-28] MEDS: Famotidine 20 MG TAB PO SCH (20:31)
[2022-05-28] MEDS: Amlodipine 10 MG TAB PO SCH (20:31)
[2022-05-29] MEDS: HYDROcodone/Acetaminophen 5/325 mg Tablet PO PRN ×3 (00:53→20:23)
[2022-05-29] MEDS: Levothyroxine Sodium 75 MCG TAB PO SCH (05:46)
[2022-05-29] MEDS: HumaLOG 300 UNITS/3 ML VIAL SC PRN ×2 (05:47→11:57)
[2022-05-29] MEDS: Chlorthalidone 25 MG TAB PO SCH (07:53)
[2022-05-29] MEDS: Furosemide 40 MG TAB PO SCH (07:53)
[2022-05-29] MEDS: Polyethylene Glycol 3350 17 GM Packet PO SCH (07:53)
[2022-05-29] MEDS: Ferrous Sulfate 325 MG TAB PO SCH ×2 (07:53→16:50)
[2022-05-29] MEDS: Carvedilol 6.25 MG TAB PO SCH ×2 (07:53→16:50)
[2022-05-29] MEDS: Folic Acid 1 MG TAB PO SCH (07:54)
[2022-05-29] MEDS: Heparin 5,000 UNITS/ML VIAL SC SCH ×2 (07:54→20:22)
[2022-05-29] MEDS: Nystatin 500,000 UNITS/5 ML UDCUP SSW SCH ×4 (07:54→20:23)
[2022-05-29] MEDS: Lantus 1000 UNITS/10 ML VIAL SC SCH (07:55)
[2022-05-29] MEDS: Calcitriol 0.25 MCG CAP PO SCH (07:55)
[2022-05-29] MEDS: Amlodipine 10 MG TAB PO SCH (20:21)
[2022-05-29] MEDS: Melatonin 3 MG TAB PO SCH (20:21)
[2022-05-29] MEDS: Rosuvastatin 10 MG TAB PO SCH (20:21)
[2022-05-29] MEDS: Sertraline 100 MG TAB PO SCH (20:21)
[2022-05-29] MEDS: Famotidine 20 MG TAB PO SCH (20:22)
[2022-05-30] MEDS: Levothyroxine Sodium 75 MCG TAB PO SCH (05:59)
[2022-05-30] MEDS: Calcitriol 0.25 MCG CAP PO SCH (07:51)
[2022-05-30] MEDS: Carvedilol 6.25 MG TAB PO SCH ×2 (07:51→16:43)
[2022-05-30] MEDS: Polyethylene Glycol 3350 17 GM Packet PO SCH (07:51)
[2022-05-30] MEDS: Ferrous Sulfate 325 MG TAB PO SCH ×2 (07:52→16:43)
[2022-05-30] MEDS: Chlorthalidone 25 MG TAB PO SCH (07:52)
[2022-05-30] MEDS: Lantus 1000 UNITS/10 ML VIAL SC SCH (07:52)
[2022-05-30] MEDS: Nystatin 500,000 UNITS/5 ML UDCUP SSW SCH ×4 (07:52→20:45)
[2022-05-30] MEDS: Folic Acid 1 MG TAB PO SCH (07:52)
[2022-05-30] MEDS: Furosemide 40 MG TAB PO SCH (07:52)
[2022-05-30] MEDS: Heparin 5,000 UNITS/ML VIAL SC SCH ×2 (07:53→20:45)
[2022-05-30] MEDS: HYDROcodone/Acetaminophen 5/325 mg Tablet PO PRN ×3 (09:02→23:09)
[2022-05-30] MEDS: HumaLOG 300 UNITS/3 ML VIAL SC PRN (12:00)
[2022-05-30] MEDS: Melatonin 3 MG TAB PO SCH (20:42)
[2022-05-30] MEDS: Famotidine 20 MG TAB PO SCH (20:42)
[2022-05-30] MEDS: Amlodipine 10 MG TAB PO SCH (20:42)
[2022-05-30] MEDS: Sertraline 100 MG TAB PO SCH (20:44)
[2022-05-30] MEDS: Rosuvastatin 10 MG TAB PO SCH (20:45)
[2022-05-31] MEDS: Levothyroxine Sodium 75 MCG TAB PO SCH (06:34)
[2022-05-31] MEDS: Heparin 5,000 UNITS/ML VIAL SC SCH ×2 (07:59→21:50)
[2022-05-31] MEDS: Carvedilol 6.25 MG TAB PO SCH ×2 (07:59→16:53)
[2022-05-31] MEDS: Furosemide 40 MG TAB PO SCH (07:59)
[2022-05-31] MEDS: Polyethylene Glycol 3350 17 GM Packet PO SCH (07:59)
[2022-05-31] MEDS: Nystatin 500,000 UNITS/5 ML UDCUP SSW SCH ×4 (07:59→21:48)
[2022-05-31] MEDS: Folic Acid 1 MG TAB PO SCH (08:00)
[2022-05-31] MEDS: Ferrous Sulfate 325 MG TAB PO SCH ×2 (08:00→16:52)
[2022-05-31] MEDS: Chlorthalidone 25 MG TAB PO SCH (08:00)
[2022-05-31] MEDS: Calcitriol 0.25 MCG CAP PO SCH (08:00)
[2022-05-31] MEDS: Lantus 1000 UNITS/10 ML VIAL SC SCH (08:01)
[2022-05-31] MEDS: HumaLOG 300 UNITS/3 ML VIAL SC PRN ×2 (12:11→16:52)
[2022-05-31] MEDS: HYDROcodone/Acetaminophen 5/325 mg Tablet PO PRN (21:46)
[2022-05-31] MEDS: Amlodipine 10 MG TAB PO SCH (21:48)
[2022-05-31] MEDS: Famotidine 20 MG TAB PO SCH (21:49)
[2022-05-31] MEDS: Melatonin 3 MG TAB PO SCH (21:49)
[2022-05-31] MEDS: Rosuvastatin 10 MG TAB PO SCH (21:50)
[2022-05-31] MEDS: Sertraline 100 MG TAB PO SCH (21:50)
[2022-06-01] MEDS: Levothyroxine Sodium 75 MCG TAB PO SCH (06:12)
[2022-06-01] MEDS: Calcitriol 0.25 MCG CAP PO SCH (08:58)
[2022-06-01] MEDS: Folic Acid 1 MG TAB PO SCH (08:58)
[2022-06-01] MEDS: Ferrous Sulfate 325 MG TAB PO SCH ×2 (08:58→16:34)
[2022-06-01] MEDS: Carvedilol 6.25 MG TAB PO SCH ×2 (08:58→16:34)
[2022-06-01] MEDS: Chlorthalidone 25 MG TAB PO SCH (08:58)
[2022-06-01] MEDS: Furosemide 40 MG TAB PO SCH (08:58)
[2022-06-01] MEDS: Nystatin 500,000 UNITS/5 ML UDCUP SSW SCH (08:58)
[2022-06-01] MEDS: Heparin 5,000 UNITS/ML VIAL SC SCH ×2 (08:59→21:32)
[2022-06-01] MEDS: Lantus 1000 UNITS/10 ML VIAL SC SCH (08:59)
[2022-06-01] MEDS: Polyethylene Glycol 3350 17 GM Packet PO SCH (09:06)
[2022-06-01] MEDS: HYDROcodone/Acetaminophen 5/325 mg Tablet PO PRN ×2 (09:06→21:31)
[2022-06-01] MEDS ORDERED: Cyclobenzaprine 10 MG TAB PO PRN (11:15)
[2022-06-01] MEDS: Acetaminophen 325 MG TAB PO PRN (11:40)
[2022-06-01] MEDS: HumaLOG 300 UNITS/3 ML VIAL SC PRN ×2 (11:48→16:38)
[2022-06-01] MEDS: Sertraline 100 MG TAB PO SCH (21:28)
[2022-06-01] MEDS: Melatonin 3 MG TAB PO SCH (21:29)
[2022-06-01] MEDS: Rosuvastatin 10 MG TAB PO SCH (21:29)
[2022-06-01] MEDS: Famotidine 20 MG TAB PO SCH (21:29)
[2022-06-01] MEDS: NIFEdipine XL 30 MG TAB PO SCH (21:37)
[2022-06-02] MEDS: Levothyroxine Sodium 75 MCG TAB PO SCH (05:17)
[2022-06-02] MEDS: HYDROcodone/Acetaminophen 5/325 mg Tablet PO PRN ×2 (08:25→17:35)
[2022-06-02] MEDS: Polyethylene Glycol 3350 17 GM Packet PO SCH (08:25)
[2022-06-02] MEDS: Carvedilol 6.25 MG TAB PO SCH (08:26)
[2022-06-02] MEDS: Heparin 5,000 UNITS/ML VIAL SC SCH ×2 (08:27→21:18)
[2022-06-02] MEDS: Ferrous Sulfate 325 MG TAB PO SCH ×2 (08:27→17:33)
[2022-06-02] MEDS: Chlorthalidone 25 MG TAB PO SCH (08:27)
[2022-06-02] MEDS: Furosemide 40 MG TAB PO SCH (08:27)
[2022-06-02] MEDS: Calcitriol 0.25 MCG CAP PO SCH (08:27)
[2022-06-02] MEDS: Folic Acid 1 MG TAB PO SCH (08:27)
[2022-06-02] MEDS: Lantus 1000 UNITS/10 ML VIAL SC SCH (08:28)
[2022-06-02] MEDS: HumaLOG 300 UNITS/3 ML VIAL SC PRN ×2 (11:55→21:25)
[2022-06-02] MEDS: NIFEdipine XL 30 MG TAB PO SCH (21:19)
[2022-06-02] MEDS: Sertraline 100 MG TAB PO SCH (21:19)
[2022-06-02] MEDS: Melatonin 3 MG TAB PO SCH (21:19)
[2022-06-02] MEDS: Famotidine 20 MG TAB PO SCH (21:20)
[2022-06-02] MEDS: Rosuvastatin 10 MG TAB PO SCH (21:20)
[2022-06-03] MEDS: Calcium Carbonate 500 MG ChewTAB PO PRN (00:35)
[2022-06-03] MEDS: HYDROcodone/Acetaminophen 5/325 mg Tablet PO PRN ×2 (03:20→21:27)
[2022-06-03] MEDS: Levothyroxine Sodium 75 MCG TAB PO SCH (05:12)
[2022-06-03] MEDS: Heparin 5,000 UNITS/ML VIAL SC SCH ×2 (09:11→21:29)
[2022-06-03] MEDS: Furosemide 40 MG TAB PO SCH (09:12)
[2022-06-03] MEDS: Polyethylene Glycol 3350 17 GM Packet PO SCH (09:12)
[2022-06-03] MEDS: Folic Acid 1 MG TAB PO SCH (09:12)
[2022-06-03] MEDS: Calcitriol 0.25 MCG CAP PO SCH (09:12)
[2022-06-03] MEDS: Chlorthalidone 25 MG TAB PO SCH (09:12)
[2022-06-03] MEDS: Ferrous Sulfate 325 MG TAB PO SCH ×2 (09:12→17:56)
[2022-06-03] MEDS: Lantus 1000 UNITS/10 ML VIAL SC SCH (09:13)
[2022-06-03] MEDS: Acetaminophen 325 MG TAB PO PRN (11:26)
[2022-06-03] MEDS: HumaLOG 300 UNITS/3 ML VIAL SC PRN ×2 (11:59→22:16)
[2022-06-03] MEDS: NIFEdipine XL 30 MG TAB PO SCH (21:29)
[2022-06-03] MEDS: Rosuvastatin 10 MG TAB PO SCH (21:30)
[2022-06-03] MEDS: Famotidine 20 MG TAB PO SCH (21:30)
[2022-06-03] MEDS: Sertraline 100 MG TAB PO SCH (21:30)
[2022-06-03] MEDS: Melatonin 3 MG TAB PO SCH (21:30)
[2022-06-04] MEDS: Levothyroxine Sodium 75 MCG TAB PO SCH (05:46)
[2022-06-04 06:22] LABS: #Basophils 0.1 thou/uL (0.0-0.2); #Eosinphils 0.4 thou/uL (0.0-0.7); #Lymphocytes 2.5 thou/uL (1.20-3.40); #Monocytes 0.6 thou/uL (0.11-0.59); #Neutrophils 3.1 thou/uL (1.40-6.50); %Basophils 1.5 % (0.0-1.0); %Eosinophils 6.4 % (0.0-10.0); %Lymphocytes 36.9 % (21.0-51.0); %Monocytes 9.4 % (0.0-10.0); %Neutrophils 45.8 % (42.0-75.0); Hemoglobin 10.2 g/dL (12.0-16.0); Mean Corpuscular HGB CONC 32.1 g/dL (32.0-36.0); Mean Corpuscular Hemoglobin 29.4 pg (27.0-31.0); Mean Corpuscular Volume 91.4 fl (78.0-98.0); Mean Platelet Volume 8.1 fL (7.4-10.4); Platelet Count 178 10x3/uL (130-400); RBC Distribution Width 14.8 % (11.5-14.5); Red Blood Cell (RBC) Count 3.47 mill/uL (4.20-5.40); White Blood Cell (WBC) Count 6.7 10x3/uL (4.8-10.8)
[2022-06-04 06:39] LABS: Anion Gap 12 mmol/L (10-20); BUN (Urea Nitrogen) 65 mg/dL (9.8-20.1); Calc. Creatinine Clearance 36 mL/min (70-130); Calcium 10.2 mg/dL (7.8-10.44); Carbon Dioxide 29 mmol/L (23-31); Chloride 100 mmol/L (98-107); Estimated GFR 27; Glucose 114 mg/dL (80-115); Potassium 3.8 mmol/L (3.5-5.1); Sodium 137 mmol/L (136-145)
[2022-06-04] MEDS: Heparin 5,000 UNITS/ML VIAL SC SCH ×2 (08:13→20:56)
[2022-06-04] MEDS: Lantus 1000 UNITS/10 ML VIAL SC SCH (08:14)
[2022-06-04] MEDS: Ferrous Sulfate 325 MG TAB PO SCH ×2 (08:15→17:41)
[2022-06-04] MEDS: Folic Acid 1 MG TAB PO SCH (08:15)
[2022-06-04] MEDS: Furosemide 40 MG TAB PO SCH (08:15)
[2022-06-04] MEDS: Calcitriol 0.25 MCG CAP PO SCH (08:15)
[2022-06-04] MEDS: Chlorthalidone 25 MG TAB PO SCH (08:17)
[2022-06-04] MEDS: Polyethylene Glycol 3350 17 GM Packet PO SCH (08:18)
[2022-06-04] MEDS: HYDROcodone/Acetaminophen 5/325 mg Tablet PO PRN ×3 (08:21→20:54)
[2022-06-04] MEDS: HumaLOG 300 UNITS/3 ML VIAL SC PRN ×2 (12:10→20:52)
[2022-06-04] MEDS: Sertraline 100 MG TAB PO SCH (20:51)
[2022-06-04] MEDS: Melatonin 3 MG TAB PO SCH (20:52)
[2022-06-04] MEDS: Rosuvastatin 10 MG TAB PO SCH (20:52)
[2022-06-04] MEDS: Famotidine 20 MG TAB PO SCH (20:52)
[2022-06-04] MEDS: NIFEdipine XL 30 MG TAB PO SCH (20:56)
[2022-06-05] MEDS: Levothyroxine Sodium 75 MCG TAB PO SCH (05:40)
[2022-06-05 06:23] LABS: Anion Gap 14 mmol/L (10-20); BUN (Urea Nitrogen) 63 mg/dL (9.8-20.1); Calc. Creatinine Clearance 34 mL/min (70-130); Calcium 10.3 mg/dL (7.8-10.44); Carbon Dioxide 29 mmol/L (23-31); Chloride 100 mmol/L (98-107); Estimated GFR 26; Glucose 120 mg/dL (80-115); Potassium 4.2 mmol/L (3.5-5.1); Sodium 139 mmol/L (136-145)
[2022-06-05] MEDS: Ferrous Sulfate 325 MG TAB PO SCH ×2 (07:57→18:20)
[2022-06-05] MEDS: Furosemide 40 MG TAB PO SCH (07:57)
[2022-06-05] MEDS: Folic Acid 1 MG TAB PO SCH (07:57)
[2022-06-05] MEDS: Calcitriol 0.25 MCG CAP PO SCH (07:57)
[2022-06-05] MEDS: Polyethylene Glycol 3350 17 GM Packet PO SCH (07:58)
[2022-06-05] MEDS: Chlorthalidone 25 MG TAB PO SCH (08:02)
[2022-06-05] MEDS: Lantus 1000 UNITS/10 ML VIAL SC SCH (08:03)
[2022-06-05] MEDS: Heparin 5,000 UNITS/ML VIAL SC SCH ×2 (08:09→20:53)
[2022-06-05] MEDS: HumaLOG 300 UNITS/3 ML VIAL SC PRN (12:04)
[2022-06-05] MEDS: HYDROcodone/Acetaminophen 5/325 mg Tablet PO PRN (18:20)
[2022-06-05] MEDS: Sertraline 100 MG TAB PO SCH (20:52)
[2022-06-05] MEDS: Melatonin 3 MG TAB PO SCH (20:52)
[2022-06-05] MEDS: Famotidine 20 MG TAB PO SCH (20:53)
[2022-06-05] MEDS: Rosuvastatin 10 MG TAB PO SCH (20:53)
[2022-06-05] MEDS: NIFEdipine XL 30 MG TAB PO SCH (20:53)
[2022-06-06] MEDS: Levothyroxine Sodium 75 MCG TAB PO SCH (05:18)
[2022-06-06 05:49] LABS: Anion Gap 13 mmol/L (10-20); BUN (Urea Nitrogen) 63 mg/dL (9.8-20.1); Calc. Creatinine Clearance 34 mL/min (70-130); Calcium 10.3 mg/dL (7.8-10.44); Carbon Dioxide 30 mmol/L (23-31); Chloride 102 mmol/L (98-107); Estimated GFR 26; Glucose 88 mg/dL (80-115); Potassium 3.9 mmol/L (3.5-5.1); Sodium 141 mmol/L (136-145)
[2022-06-06] MEDS: HYDROcodone/Acetaminophen 5/325 mg Tablet PO PRN ×3 (07:44→22:01)
[2022-06-06] MEDS: Heparin 5,000 UNITS/ML VIAL SC SCH ×2 (07:45→20:41)
[2022-06-06] MEDS: Polyethylene Glycol 3350 17 GM Packet PO SCH (07:45)
[2022-06-06] MEDS: Folic Acid 1 MG TAB PO SCH (07:45)
[2022-06-06] MEDS: Chlorthalidone 25 MG TAB PO SCH (07:45)
[2022-06-06] MEDS: Calcitriol 0.25 MCG CAP PO SCH (07:46)
[2022-06-06] MEDS: Ferrous Sulfate 325 MG TAB PO SCH ×2 (07:46→16:47)
[2022-06-06] MEDS: Furosemide 40 MG TAB PO SCH (07:46)
[2022-06-06] MEDS: Lantus 1000 UNITS/10 ML VIAL SC SCH (11:04)
[2022-06-06] MEDS: HumaLOG 300 UNITS/3 ML VIAL SC PRN ×2 (11:45→16:46)
[2022-06-06] MEDS: NIFEdipine XL 30 MG TAB PO SCH (20:39)
[2022-06-06] MEDS: Rosuvastatin 10 MG TAB PO SCH (20:40)
[2022-06-06] MEDS: Melatonin 3 MG TAB PO SCH (20:40)
[2022-06-06] MEDS: Famotidine 20 MG TAB PO SCH (20:41)
[2022-06-06] MEDS: Sertraline 100 MG TAB PO SCH (20:41)
[2022-06-07 05:47] LABS: #Basophils 0.1 thou/uL (0.0-0.2); #Eosinphils 0.4 thou/uL (0.0-0.7); #Lymphocytes 2.5 thou/uL (1.20-3.40); #Monocytes 0.8 thou/uL (0.11-0.59); #Neutrophils 2.7 thou/uL (1.40-6.50); %Basophils 1.6 % (0.0-1.0); %Eosinophils 5.9 % (0.0-10.0); %Lymphocytes 38.5 % (21.0-51.0); %Monocytes 12.4 % (0.0-10.0); %Neutrophils 41.6 % (42.0-75.0); Hemoglobin 9.5 g/dL (12.0-16.0); Mean Corpuscular Hemoglobin 29.2 pg (27.0-31.0); Mean Corpuscular Volume 91.3 fl (78.0-98.0); Mean Platelet Volume 7.9 fL (7.4-10.4); Platelet Count 148 10x3/uL (130-400); RBC Distribution Width 14.6 % (11.5-14.5); Red Blood Cell (RBC) Count 3.25 mill/uL (4.20-5.40); White Blood Cell (WBC) Count 6.5 10x3/uL (4.8-10.8)
[2022-06-07 05:56] LABS: Glucose 114 mg/dL (80-115); Sodium 139 mmol/L (136-145)
[2022-06-07 06:00] LABS: Carbon Dioxide 30 mmol/L (23-31)
[2022-06-07 06:01] LABS: Anion Gap 12 mmol/L (10-20); BUN (Urea Nitrogen) 68 mg/dL (9.8-20.1); Calc. Creatinine Clearance 32 mL/min (70-130); Calcium 10.1 mg/dL (7.8-10.44); Chloride 101 mmol/L (98-107); Estimated GFR 23; Potassium 4.1 mmol/L (3.5-5.1)
[2022-06-07] MEDS: Levothyroxine Sodium 75 MCG TAB PO SCH (07:05)
[2022-06-07] MEDS: Calcitriol 0.25 MCG CAP PO SCH (08:13)
[2022-06-07] MEDS: Folic Acid 1 MG TAB PO SCH (08:13)
[2022-06-07] MEDS: Heparin 5,000 UNITS/ML VIAL SC SCH ×2 (08:13→20:34)
[2022-06-07] MEDS: Ferrous Sulfate 325 MG TAB PO SCH ×2 (08:13→16:56)
[2022-06-07] MEDS: HYDROcodone/Acetaminophen 5/325 mg Tablet PO PRN ×2 (08:13→16:55)
[2022-06-07] MEDS: Polyethylene Glycol 3350 17 GM Packet PO SCH (08:14)
[2022-06-07] MEDS: Lantus 1000 UNITS/10 ML VIAL SC SCH (08:14)
[2022-06-07] MEDS: HumaLOG 300 UNITS/3 ML VIAL SC PRN (11:34)
[2022-06-07] MEDS: NIFEdipine XL 30 MG TAB PO SCH (20:28)
[2022-06-07] MEDS: Sertraline 100 MG TAB PO SCH (20:28)
[2022-06-07] MEDS: Famotidine 20 MG TAB PO SCH (20:28)
[2022-06-07] MEDS: Rosuvastatin 10 MG TAB PO SCH (20:28)
[2022-06-07] MEDS: Melatonin 3 MG TAB PO SCH (20:29)
[2022-06-08] MEDS: HYDROcodone/Acetaminophen 5/325 mg Tablet PO PRN ×3 (04:49→20:32)
[2022-06-08 05:37] LABS: Anion Gap 15 mmol/L (10-20); BUN (Urea Nitrogen) 71 mg/dL (9.8-20.1); Calc. Creatinine Clearance 31 mL/min (70-130); Calcium 10.1 mg/dL (7.8-10.44); Carbon Dioxide 27 mmol/L (23-31); Chloride 100 mmol/L (98-107); Estimated GFR 23; Potassium 4.1 mmol/L (3.5-5.1)
[2022-06-08 05:42] LABS: Glucose 80 mg/dL (80-115); Sodium 138 mmol/L (136-145)
[2022-06-08] MEDS: Levothyroxine Sodium 75 MCG TAB PO SCH (05:50)
[2022-06-08] MEDS: Heparin 5,000 UNITS/ML VIAL SC SCH ×2 (07:39→20:35)
[2022-06-08] MEDS: Ferrous Sulfate 325 MG TAB PO SCH ×2 (07:40→16:43)
[2022-06-08] MEDS: Folic Acid 1 MG TAB PO SCH (07:40)
[2022-06-08] MEDS: Calcitriol 0.25 MCG CAP PO SCH (07:40)
[2022-06-08] MEDS: Lantus 1000 UNITS/10 ML VIAL SC SCH (07:41)
[2022-06-08] MEDS: Polyethylene Glycol 3350 17 GM Packet PO SCH (07:42)
[2022-06-08] MEDS: HumaLOG 300 UNITS/3 ML VIAL SC PRN ×2 (11:42→16:44)
[2022-06-08 11:52] LABS: Hemoglobin 10.5 g/dL (12.0-16.0); Mean Corpuscular HGB CONC 33.5 g/dL (32.0-36.0); Mean Corpuscular Hemoglobin 30.1 pg (27.0-31.0); Mean Corpuscular Volume 89.8 fl (78.0-98.0); RBC Distribution Width 14.5 % (11.5-14.5); Red Blood Cell (RBC) Count 3.47 mill/uL (4.20-5.40); White Blood Cell (WBC) Count 6.5 10x3/uL (4.8-10.8)
[2022-06-08 11:53] LABS: #Lymphocytes 1.7 thou/uL (1.20-3.40); #Neutrophils 3.9 thou/uL (1.40-6.50); %Eosinophils 3.9 % (0.0-10.0); %Lymphocytes 26.5 % (21.0-51.0); %Monocytes 8.9 % (0.0-10.0); %Neutrophils 59.6 % (42.0-75.0); Manual Diff?? NO; Mean Platelet Volume 8.1 fL (7.4-10.4); Platelet Count 145 10x3/uL (130-400)
[2022-06-08 11:54] LABS: #Basophils 0.1 thou/uL (0.0-0.2); #Eosinphils 0.3 thou/uL (0.0-0.7); #Monocytes 0.6 thou/uL (0.11-0.59)
[2022-06-08] MEDS ORDERED: Furosemide 40 MG TAB PO SCH (13:00)
[2022-06-08 14:25] LABS: Bilirubin Negative (Negative); Blood, Urine Small (Negative); CAUTI Indications for Culture Dysuria,urgency,freq; Clarity Cloudy (Clear); Glucose, Urine (Dipstick) Negative (Negative); Ketone, Urine Negative (Negative); Leukocyte Moderate (Negative); Nitrite Positive (Negative); Protein, Urine (Dipstick) > or equal to 300 mg/dL (Neg-Trace); Urobilinogen 0.2 mg/dL (Less than 2); pH, Urine 5.5 (5.0-9.0)
[2022-06-08 14:33] LABS: Bacteria/HPF 3+ HPF (None Seen); Squamous Epithelial 0-3 HPF (0-3)
[2022-06-08] MEDS ORDERED: Cyclobenzaprine 10 MG TAB PO PRN (16:32)
[2022-06-08] MEDS: Cefdinir 300 MG CAP PO SCH (20:33)
[2022-06-08] MEDS: NIFEdipine XL 30 MG TAB PO SCH (20:33)
[2022-06-08] MEDS: Melatonin 3 MG TAB PO SCH (20:33)
[2022-06-08] MEDS: Sertraline 100 MG TAB PO SCH (20:34)
[2022-06-08] MEDS: Famotidine 20 MG TAB PO SCH (20:34)
[2022-06-08] MEDS: hydrALAZINE 25 MG TAB PO SCH (20:34)
[2022-06-08] MEDS: Rosuvastatin 10 MG TAB PO SCH (20:34)
[2022-06-08 23:48] LABS: Creatinine, Urine 76.71 mg/dL (47-110)
[2022-06-09 05:33] LABS: Glucose 81 mg/dL (80-115)
[2022-06-09 05:35] LABS: Anion Gap 12 mmol/L (10-20); BUN (Urea Nitrogen) 71 mg/dL (9.8-20.1); Calc. Creatinine Clearance 34 mL/min (70-130); Carbon Dioxide 29 mmol/L (23-31); Chloride 102 mmol/L (98-107); Estimated GFR 25; Sodium 139 mmol/L (136-145)
[2022-06-09] MEDS: Levothyroxine Sodium 75 MCG TAB PO SCH (05:44)
[2022-06-09] MEDS: hydrALAZINE 25 MG TAB PO SCH ×2 (07:58→20:30)
[2022-06-09] MEDS: Folic Acid 1 MG TAB PO SCH (07:59)
[2022-06-09] MEDS: Furosemide 40 MG TAB PO SCH (07:59)
[2022-06-09] MEDS: Calcitriol 0.25 MCG CAP PO SCH (07:59)
[2022-06-09] MEDS: Ferrous Sulfate 325 MG TAB PO SCH ×2 (07:59→16:57)
[2022-06-09] MEDS: HYDROcodone/Acetaminophen 5/325 mg Tablet PO PRN ×3 (08:05→20:29)
[2022-06-09] MEDS: Lantus 1000 UNITS/10 ML VIAL SC SCH (08:07)
[2022-06-09] MEDS: Heparin 5,000 UNITS/ML VIAL SC SCH ×2 (08:07→20:31)
[2022-06-09] MEDS: Polyethylene Glycol 3350 17 GM Packet PO SCH (14:01)
[2022-06-09] MEDS: HumaLOG 300 UNITS/3 ML VIAL SC PRN (16:57)
[2022-06-09] MEDS: Cefdinir 300 MG CAP PO SCH (20:30)
[2022-06-09] MEDS: Famotidine 20 MG TAB PO SCH (20:30)
[2022-06-09] MEDS: Rosuvastatin 10 MG TAB PO SCH (20:30)
[2022-06-09] MEDS: Melatonin 3 MG TAB PO SCH (20:30)
[2022-06-09] MEDS: Sertraline 100 MG TAB PO SCH (20:30)
[2022-06-09] MEDS: NIFEdipine XL 30 MG TAB PO SCH (20:31)
[2022-06-10] MEDS: Levothyroxine Sodium 75 MCG TAB PO SCH (05:36)
[2022-06-10 05:42] LABS: %Lymphocytes 35.9 % (21.0-51.0); %Monocytes 11.4 % (0.0-10.0); %Neutrophils 43.6 % (42.0-75.0); Hemoglobin 9.6 g/dL (12.0-16.0); Manual Diff?? NO; Mean Corpuscular HGB CONC 31.9 g/dL (32.0-36.0); Mean Corpuscular Hemoglobin 29.4 pg (27.0-31.0); Mean Platelet Volume 8.2 fL (7.4-10.4); Platelet Count 136 10x3/uL (130-400); RBC Distribution Width 14.9 % (11.5-14.5); Red Blood Cell (RBC) Count 3.28 mill/uL (4.20-5.40); White Blood Cell (WBC) Count 6.5 10x3/uL (4.8-10.8)
[2022-06-10 05:43] LABS: #Basophils 0.1 thou/uL (0.0-0.2); #Eosinphils 0.5 thou/uL (0.0-0.7); #Lymphocytes 2.3 thou/uL (1.20-3.40); #Monocytes 0.7 thou/uL (0.11-0.59); #Neutrophils 2.8 thou/uL (1.40-6.50); %Basophils 1.4 % (0.0-1.0); %Eosinophils 7.7 % (0.0-10.0)
[2022-06-10 05:50] LABS: Carbon Dioxide 26 mmol/L (23-31); Chloride 102 mmol/L (98-107); Glucose 170 mg/dL (80-115); Potassium 3.8 mmol/L (3.5-5.1); Sodium 139 mmol/L (136-145)
[2022-06-10 05:51] LABS: Anion Gap 15 mmol/L (10-20); BUN (Urea Nitrogen) 71 mg/dL (9.8-20.1); Calc. Creatinine Clearance 32 mL/min (70-130); Calcium 9.9 mg/dL (7.8-10.44); Estimated GFR 23
[2022-06-10] MEDS: HumaLOG 300 UNITS/3 ML VIAL SC PRN ×2 (06:02→17:09)
[2022-06-10] MEDS: Heparin 5,000 UNITS/ML VIAL SC SCH ×2 (07:47→21:08)
[2022-06-10] MEDS: Calcitriol 0.25 MCG CAP PO SCH (07:47)
[2022-06-10] MEDS: Polyethylene Glycol 3350 17 GM Packet PO SCH (07:47)
[2022-06-10] MEDS: Lantus 1000 UNITS/10 ML VIAL SC SCH (07:48)
[2022-06-10] MEDS: Folic Acid 1 MG TAB PO SCH (07:48)
[2022-06-10] MEDS: hydrALAZINE 25 MG TAB PO SCH ×2 (07:48→21:07)
[2022-06-10] MEDS: Ferrous Sulfate 325 MG TAB PO SCH ×2 (07:48→17:10)
[2022-06-10] MEDS: Furosemide 40 MG TAB PO SCH (07:48)
[2022-06-10] MEDS: HYDROcodone/Acetaminophen 5/325 mg Tablet PO PRN ×2 (09:16→21:09)
[2022-06-10] MEDS: Cefdinir 300 MG CAP PO SCH (21:07)
[2022-06-10] MEDS: Rosuvastatin 10 MG TAB PO SCH (21:07)
[2022-06-10] MEDS: Sertraline 100 MG TAB PO SCH (21:07)
[2022-06-10] MEDS: Melatonin 3 MG TAB PO SCH (21:08)
[2022-06-10] MEDS: Famotidine 20 MG TAB PO SCH (21:08)
[2022-06-10] MEDS: NIFEdipine XL 30 MG TAB PO SCH (21:08)
[2022-06-11] MEDS: HYDROcodone/Acetaminophen 5/325 mg Tablet PO PRN ×3 (01:48→20:23)
[2022-06-11] MEDS: Levothyroxine Sodium 75 MCG TAB PO SCH (05:25)
[2022-06-11] MEDS: Polyethylene Glycol 3350 17 GM Packet PO SCH (08:49)
[2022-06-11] MEDS: hydrALAZINE 25 MG TAB PO SCH ×2 (08:50→20:22)
[2022-06-11] MEDS: Furosemide 40 MG TAB PO SCH (08:50)
[2022-06-11] MEDS: Ferrous Sulfate 325 MG TAB PO SCH ×2 (08:50→16:23)
[2022-06-11] MEDS: Calcitriol 0.25 MCG CAP PO SCH (08:51)
[2022-06-11] MEDS: Folic Acid 1 MG TAB PO SCH (08:51)
[2022-06-11] MEDS: Heparin 5,000 UNITS/ML VIAL SC SCH ×2 (08:51→20:23)
[2022-06-11] MEDS: Lantus 1000 UNITS/10 ML VIAL SC SCH (08:52)
[2022-06-11] MEDS: HumaLOG 300 UNITS/3 ML VIAL SC PRN (12:52)
[2022-06-11] MEDS: Cefdinir 300 MG CAP PO SCH (20:20)
[2022-06-11] MEDS: NIFEdipine XL 30 MG TAB PO SCH (20:20)
[2022-06-11] MEDS: Melatonin 3 MG TAB PO SCH (20:22)
[2022-06-11] MEDS: Sertraline 100 MG TAB PO SCH (20:22)
[2022-06-11] MEDS: Rosuvastatin 10 MG TAB PO SCH (20:22)
[2022-06-11] MEDS: Famotidine 20 MG TAB PO SCH (20:22)
[2022-06-12] MEDS: HYDROcodone/Acetaminophen 5/325 mg Tablet PO PRN ×5 (04:31→20:51)
[2022-06-12] MEDS: Levothyroxine Sodium 75 MCG TAB PO SCH (05:34)
[2022-06-12] MEDS ORDERED: Lantus 1000 UNITS/10 ML VIAL SC SCH (06:30)
[2022-06-12] MEDS: Folic Acid 1 MG TAB PO SCH (07:39)
[2022-06-12] MEDS: hydrALAZINE 25 MG TAB PO SCH ×2 (07:39→20:38)
[2022-06-12] MEDS: Furosemide 40 MG TAB PO SCH (07:40)
[2022-06-12] MEDS: Heparin 5,000 UNITS/ML VIAL SC SCH ×2 (07:40→20:40)
[2022-06-12] MEDS: Calcitriol 0.25 MCG CAP PO SCH (07:40)
[2022-06-12] MEDS: Ferrous Sulfate 325 MG TAB PO SCH ×2 (07:40→17:08)
[2022-06-12] MEDS: Polyethylene Glycol 3350 17 GM Packet PO SCH (07:54)
[2022-06-12] MEDS: Cefdinir 300 MG CAP PO SCH (20:37)
[2022-06-12] MEDS: NIFEdipine XL 30 MG TAB PO SCH (20:38)
[2022-06-12] MEDS: Melatonin 3 MG TAB PO SCH (20:38)
[2022-06-12] MEDS: Rosuvastatin 10 MG TAB PO SCH (20:38)
[2022-06-12] MEDS: Famotidine 20 MG TAB PO SCH (20:39)
[2022-06-12] MEDS: Sertraline 100 MG TAB PO SCH (20:39)
[2022-06-13] MEDS: Levothyroxine Sodium 75 MCG TAB PO SCH (05:32)
[2022-06-13 06:09] LABS: #Basophils 0.1 thou/uL (0.0-0.2); #Eosinphils 0.6 thou/uL (0.0-0.7); #Lymphocytes 2.5 thou/uL (1.20-3.40); #Monocytes 0.6 thou/uL (0.11-0.59); #Neutrophils 3.1 thou/uL (1.40-6.50); %Basophils 1.2 % (0.0-1.0); %Eosinophils 8.3 % (0.0-10.0); %Lymphocytes 36.8 % (21.0-51.0); %Monocytes 9.2 % (0.0-10.0); %Neutrophils 44.6 % (42.0-75.0); Mean Corpuscular HGB CONC 32.2 g/dL (32.0-36.0); Mean Corpuscular Hemoglobin 29.5 pg (27.0-31.0); Mean Corpuscular Volume 91.7 fl (78.0-98.0); Mean Platelet Volume 7.8 fL (7.4-10.4); Platelet Count 138 10x3/uL (130-400); RBC Distribution Width 14.8 % (11.5-14.5); White Blood Cell (WBC) Count 6.9 10x3/uL (4.8-10.8)
[2022-06-13] MEDS: Heparin 5,000 UNITS/ML VIAL SC SCH ×2 (08:23→20:45)
[2022-06-13] MEDS: Polyethylene Glycol 3350 17 GM Packet PO SCH (08:24)
[2022-06-13] MEDS: hydrALAZINE 25 MG TAB PO SCH ×2 (08:24→20:41)
[2022-06-13] MEDS: Calcitriol 0.25 MCG CAP PO SCH (08:24)
[2022-06-13] MEDS: Ferrous Sulfate 325 MG TAB PO SCH ×2 (08:24→17:45)
[2022-06-13] MEDS: Folic Acid 1 MG TAB PO SCH (08:24)
[2022-06-13] MEDS: Furosemide 40 MG TAB PO SCH (08:24)
[2022-06-13] MEDS: Lantus 1000 UNITS/10 ML VIAL SC SCH (08:24)
[2022-06-13 11:43] LABS: Anion Gap 15 mmol/L (10-20); BUN (Urea Nitrogen) 56 mg/dL (9.8-20.1); Calc. Creatinine Clearance 42 mL/min (70-130); Calcium 9.7 mg/dL (7.8-10.44); Carbon Dioxide 24 mmol/L (23-31); Chloride 102 mmol/L (98-107); Estimated GFR 33; Glucose 71 mg/dL (80-115); Potassium 4.1 mmol/L (3.5-5.1); Sodium 137 mmol/L (136-145)
[2022-06-13] MEDS: HYDROcodone/Acetaminophen 5/325 mg Tablet PO PRN ×2 (12:02→20:40)
[2022-06-13] MEDS: HumaLOG 300 UNITS/3 ML VIAL SC PRN (12:04)
[2022-06-13] MEDS ORDERED: Fluconazole 100 MG TAB PO SCH (14:00)
[2022-06-13] MEDS: Famotidine 20 MG TAB PO SCH (20:40)
[2022-06-13] MEDS: Cefdinir 300 MG CAP PO SCH (20:40)
[2022-06-13] MEDS: Sertraline 100 MG TAB PO SCH (20:41)
[2022-06-13] MEDS: NIFEdipine XL 30 MG TAB PO SCH (20:41)
[2022-06-13] MEDS: Rosuvastatin 10 MG TAB PO SCH (20:41)
[2022-06-13] MEDS: Melatonin 3 MG TAB PO SCH (20:41)
[2022-06-13] MEDS: Calcium Carbonate 500 MG ChewTAB PO PRN (22:18)
[2022-06-14] MEDS: Levothyroxine Sodium 75 MCG TAB PO SCH (05:45)
[2022-06-14] MEDS: Lantus 1000 UNITS/10 ML VIAL SC SCH (08:01)
[2022-06-14] MEDS: Heparin 5,000 UNITS/ML VIAL SC SCH ×2 (08:02→21:30)
[2022-06-14] MEDS: hydrALAZINE 25 MG TAB PO SCH ×2 (08:03→21:24)
[2022-06-14] MEDS: Folic Acid 1 MG TAB PO SCH (08:03)
[2022-06-14] MEDS: Furosemide 40 MG TAB PO SCH (08:04)
[2022-06-14] MEDS: Ferrous Sulfate 325 MG TAB PO SCH ×2 (08:04→17:35)
[2022-06-14] MEDS: Polyethylene Glycol 3350 17 GM Packet PO SCH (08:04)
[2022-06-14] MEDS: Calcitriol 0.25 MCG CAP PO SCH (08:04)
[2022-06-14] MEDS: HYDROcodone/Acetaminophen 5/325 mg Tablet PO PRN ×2 (12:29→21:26)
[2022-06-14] MEDS: HumaLOG 300 UNITS/3 ML VIAL SC PRN (12:31)
[2022-06-14] MEDS: Cefdinir 300 MG CAP PO SCH (21:22)
[2022-06-14] MEDS: Famotidine 20 MG TAB PO SCH (21:23)
[2022-06-14] MEDS: Sertraline 100 MG TAB PO SCH (21:24)
[2022-06-14] MEDS: NIFEdipine XL 30 MG TAB PO SCH (21:25)
[2022-06-14] MEDS: Melatonin 3 MG TAB PO SCH (21:25)
[2022-06-14] MEDS: Rosuvastatin 10 MG TAB PO SCH (21:26)
[2022-06-15] MEDS: Levothyroxine Sodium 75 MCG TAB PO SCH (05:59)
[2022-06-15] MEDS: Furosemide 40 MG TAB PO SCH (07:28)
[2022-06-15] MEDS: Folic Acid 1 MG TAB PO SCH (08:22)
[2022-06-15] MEDS: hydrALAZINE 25 MG TAB PO SCH ×2 (08:22→21:08)
[2022-06-15] MEDS: Ferrous Sulfate 325 MG TAB PO SCH ×2 (08:22→16:44)
[2022-06-15] MEDS: Lantus 1000 UNITS/10 ML VIAL SC SCH (08:23)
[2022-06-15] MEDS: Calcitriol 0.25 MCG CAP PO SCH (08:32)
[2022-06-15] MEDS: Heparin 5,000 UNITS/ML VIAL SC SCH ×2 (09:01→21:08)
[2022-06-15] MEDS: HYDROcodone/Acetaminophen 5/325 mg Tablet PO PRN ×2 (09:07→14:26)
[2022-06-15] MEDS: Polyethylene Glycol 3350 17 GM Packet PO PRN (12:35)
[2022-06-15] MEDS: HumaLOG 300 UNITS/3 ML VIAL SC PRN ×2 (12:35→16:45)
[2022-06-15] MEDS: Famotidine 20 MG TAB PO SCH (21:07)
[2022-06-15] MEDS: NIFEdipine XL 30 MG TAB PO SCH (21:07)
[2022-06-15] MEDS: Melatonin 3 MG TAB PO SCH (21:08)
[2022-06-15] MEDS: Cefdinir 300 MG CAP PO SCH (21:08)
[2022-06-15] MEDS: Rosuvastatin 10 MG TAB PO SCH (21:08)
[2022-06-15] MEDS: Sertraline 100 MG TAB PO SCH (21:08)
[2022-06-16 05:22] LABS: #Basophils 0.1 thou/uL (0.0-0.2); #Eosinphils 0.5 thou/uL (0.0-0.7); #Lymphocytes 2.1 thou/uL (1.20-3.40); #Monocytes 0.8 thou/uL (0.11-0.59); #Neutrophils 3.4 thou/uL (1.40-6.50); %Basophils 1.5 % (0.0-1.0); %Eosinophils 7.8 % (0.0-10.0); %Lymphocytes 30.3 % (21.0-51.0); %Monocytes 10.9 % (0.0-10.0); %Neutrophils 49.5 % (42.0-75.0); Hemoglobin 9.7 g/dL (12.0-16.0); Mean Corpuscular HGB CONC 32.7 g/dL (32.0-36.0); Mean Corpuscular Hemoglobin 29.9 pg (27.0-31.0); Mean Corpuscular Volume 91.5 fl (78.0-98.0); Mean Platelet Volume 8.3 fL (7.4-10.4); Platelet Count 156 10x3/uL (130-400); RBC Distribution Width 14.9 % (11.5-14.5); Red Blood Cell (RBC) Count 3.24 mill/uL (4.20-5.40); White Blood Cell (WBC) Count 6.9 10x3/uL (4.8-10.8)
[2022-06-16] MEDS: Levothyroxine Sodium 75 MCG TAB PO SCH (05:25)
[2022-06-16 05:32] LABS: Anion Gap 15 mmol/L (10-20); BUN (Urea Nitrogen) 54 mg/dL (9.8-20.1); Calc. Creatinine Clearance 39 mL/min (70-130); Calcium 10.1 mg/dL (7.8-10.44); Carbon Dioxide 27 mmol/L (23-31); Chloride 103 mmol/L (98-107); Estimated GFR 30; Glucose 77 mg/dL (80-115); Potassium 4.1 mmol/L (3.5-5.1); Sodium 141 mmol/L (136-145)
[2022-06-16] MEDS: HYDROcodone/Acetaminophen 5/325 mg Tablet PO PRN ×3 (08:20→20:50)
[2022-06-16] MEDS: Ferrous Sulfate 325 MG TAB PO SCH ×2 (08:21→16:28)
[2022-06-16] MEDS: Furosemide 40 MG TAB PO SCH (08:22)
[2022-06-16] MEDS: Calcitriol 0.25 MCG CAP PO SCH (08:22)
[2022-06-16] MEDS: Folic Acid 1 MG TAB PO SCH (08:22)
[2022-06-16] MEDS: Lantus 1000 UNITS/10 ML VIAL SC SCH (08:22)
[2022-06-16] MEDS: Heparin 5,000 UNITS/ML VIAL SC SCH ×2 (08:23→20:53)
[2022-06-16] MEDS: hydrALAZINE 25 MG TAB PO SCH ×2 (08:23→20:50)
[2022-06-16] MEDS: HumaLOG 300 UNITS/3 ML VIAL SC PRN (12:08)
[2022-06-16] MEDS: Rosuvastatin 10 MG TAB PO SCH (20:47)
[2022-06-16] MEDS: Cefdinir 300 MG CAP PO SCH (20:47)
[2022-06-16] MEDS: NIFEdipine XL 30 MG TAB PO SCH (20:47)
[2022-06-16] MEDS: Famotidine 20 MG TAB PO SCH (20:48)
[2022-06-16] MEDS: Melatonin 3 MG TAB PO SCH (20:49)
[2022-06-16] MEDS: Sertraline 100 MG TAB PO SCH (20:49)
[2022-06-17] MEDS: Levothyroxine Sodium 75 MCG TAB PO SCH (05:18)
[2022-06-17] MEDS: Ferrous Sulfate 325 MG TAB PO SCH ×2 (08:21→16:03)
[2022-06-17] MEDS: Furosemide 40 MG TAB PO SCH (08:21)
[2022-06-17] MEDS: Heparin 5,000 UNITS/ML VIAL SC SCH ×2 (08:21→20:50)
[2022-06-17] MEDS: Calcitriol 0.25 MCG CAP PO SCH (08:21)
[2022-06-17] MEDS: Folic Acid 1 MG TAB PO SCH (08:21)
[2022-06-17] MEDS: hydrALAZINE 25 MG TAB PO SCH ×2 (08:21→20:43)
[2022-06-17] MEDS: Lantus 1000 UNITS/10 ML VIAL SC SCH (08:22)
[2022-06-17] MEDS: HumaLOG 300 UNITS/3 ML VIAL SC PRN (12:53)
[2022-06-17] MEDS: HYDROcodone/Acetaminophen 5/325 mg Tablet PO PRN ×2 (16:03→20:55)
[2022-06-17] MEDS: NIFEdipine XL 30 MG TAB PO SCH (20:43)
[2022-06-17] MEDS: Cefdinir 300 MG CAP PO SCH (20:43)
[2022-06-17] MEDS: Sertraline 100 MG TAB PO SCH (20:44)
[2022-06-17] MEDS: Melatonin 3 MG TAB PO SCH (20:44)
[2022-06-17] MEDS: Rosuvastatin 10 MG TAB PO SCH (20:44)
[2022-06-17] MEDS: Famotidine 20 MG TAB PO SCH (20:44)
[2022-06-18] MEDS: Levothyroxine Sodium 75 MCG TAB PO SCH (05:56)
[2022-06-18] MEDS: Furosemide 40 MG TAB PO SCH (08:00)
[2022-06-18] MEDS: hydrALAZINE 25 MG TAB PO SCH ×2 (08:00→21:00)
[2022-06-18] MEDS: Folic Acid 1 MG TAB PO SCH (08:00)
[2022-06-18] MEDS: Ferrous Sulfate 325 MG TAB PO SCH ×2 (08:00→16:20)
[2022-06-18] MEDS: Calcitriol 0.25 MCG CAP PO SCH (08:00)
[2022-06-18] MEDS: Lantus 1000 UNITS/10 ML VIAL SC SCH (08:01)
[2022-06-18] MEDS: Heparin 5,000 UNITS/ML VIAL SC SCH ×2 (08:05→21:00)
[2022-06-18] MEDS: HYDROcodone/Acetaminophen 5/325 mg Tablet PO PRN ×2 (14:03→20:57)
[2022-06-18] MEDS: Melatonin 3 MG TAB PO SCH (20:58)
[2022-06-18] MEDS: Famotidine 20 MG TAB PO SCH (20:58)
[2022-06-18] MEDS: NIFEdipine XL 30 MG TAB PO SCH (20:59)
[2022-06-18] MEDS: Sertraline 100 MG TAB PO SCH (20:59)
[2022-06-18] MEDS: Cefdinir 300 MG CAP PO SCH (21:00)
[2022-06-18] MEDS: Rosuvastatin 10 MG TAB PO SCH (21:00)
[2022-06-19] MEDS: Levothyroxine Sodium 75 MCG TAB PO SCH (05:39)
[2022-06-19 06:32] LABS: #Basophils 0.1 thou/uL (0.0-0.2); #Eosinphils 0.5 thou/uL (0.0-0.7); #Lymphocytes 2.5 thou/uL (1.20-3.40); #Monocytes 0.7 thou/uL (0.11-0.59); #Neutrophils 3.9 thou/uL (1.40-6.50); %Basophils 1.5 % (0.0-1.0); %Eosinophils 6.8 % (0.0-10.0); %Lymphocytes 32.1 % (21.0-51.0); %Monocytes 8.8 % (0.0-10.0); %Neutrophils 50.9 % (42.0-75.0); Hemoglobin 10.3 g/dL (12.0-16.0); Mean Corpuscular Hemoglobin 29.6 pg (27.0-31.0); Mean Corpuscular Volume 92.5 fl (78.0-98.0); Mean Platelet Volume 7.5 fL (7.4-10.4); Platelet Count 167 10x3/uL (130-400); Red Blood Cell (RBC) Count 3.48 mill/uL (4.20-5.40); White Blood Cell (WBC) Count 7.7 10x3/uL (4.8-10.8)
[2022-06-19 06:44] LABS: Anion Gap 11 mmol/L (10-20); BUN (Urea Nitrogen) 50 mg/dL (9.8-20.1); Calc. Creatinine Clearance 42 mL/min (70-130); Calcium 10.7 mg/dL (7.8-10.44); Chloride 106 mmol/L (98-107); Estimated GFR 33; Glucose 62 mg/dL (80-115); Potassium 3.7 mmol/L (3.5-5.1)
[2022-06-19 07:03] LABS: Carbon Dioxide 27 mmol/L (23-31); Sodium 140 mmol/L (136-145)
[2022-06-19] MEDS: Furosemide 40 MG TAB PO SCH (07:57)
[2022-06-19] MEDS: Calcitriol 0.25 MCG CAP PO SCH (07:57)
[2022-06-19] MEDS: Ferrous Sulfate 325 MG TAB PO SCH ×2 (07:57→17:57)
[2022-06-19] MEDS: Folic Acid 1 MG TAB PO SCH (07:58)
[2022-06-19] MEDS: hydrALAZINE 25 MG TAB PO SCH ×2 (07:59→20:46)
[2022-06-19] MEDS: Lantus 1000 UNITS/10 ML VIAL SC SCH (08:00)
[2022-06-19] MEDS: Heparin 5,000 UNITS/ML VIAL SC SCH ×2 (08:03→20:46)
[2022-06-19] MEDS: HYDROcodone/Acetaminophen 5/325 mg Tablet PO PRN ×3 (08:15→22:44)
[2022-06-19] MEDS: HumaLOG 300 UNITS/3 ML VIAL SC PRN (12:29)
[2022-06-19] MEDS: Famotidine 20 MG TAB PO SCH (20:44)
[2022-06-19] MEDS: NIFEdipine XL 30 MG TAB PO SCH (20:45)
[2022-06-19] MEDS: Rosuvastatin 10 MG TAB PO SCH (20:45)
[2022-06-19] MEDS: Melatonin 3 MG TAB PO SCH (20:45)
[2022-06-19] MEDS: Sertraline 100 MG TAB PO SCH (20:46)
[2022-06-20] MEDS: Levothyroxine Sodium 75 MCG TAB PO SCH (05:20)
[2022-06-20] MEDS: hydrALAZINE 25 MG TAB PO SCH ×2 (08:54→20:32)
[2022-06-20] MEDS: Folic Acid 1 MG TAB PO SCH (08:54)
[2022-06-20] MEDS: Calcitriol 0.25 MCG CAP PO SCH (08:54)
[2022-06-20] MEDS: Furosemide 40 MG TAB PO SCH (08:54)
[2022-06-20] MEDS: Ferrous Sulfate 325 MG TAB PO SCH ×2 (08:54→17:13)
[2022-06-20] MEDS: Heparin 5,000 UNITS/ML VIAL SC SCH ×2 (08:54→20:34)
[2022-06-20] MEDS: Lantus 1000 UNITS/10 ML VIAL SC SCH (08:55)
[2022-06-20] MEDS: HumaLOG 300 UNITS/3 ML VIAL SC PRN (11:47)
[2022-06-20] MEDS: HYDROcodone/Acetaminophen 5/325 mg Tablet PO PRN ×2 (13:26→20:32)
[2022-06-20] MEDS: Sertraline 100 MG TAB PO SCH (20:31)
[2022-06-20] MEDS: NIFEdipine XL 30 MG TAB PO SCH (20:31)
[2022-06-20] MEDS: Famotidine 20 MG TAB PO SCH (20:32)
[2022-06-20] MEDS: Rosuvastatin 10 MG TAB PO SCH (20:32)
[2022-06-20] MEDS: Melatonin 3 MG TAB PO SCH (20:32)
[2022-06-21] MEDS: Levothyroxine Sodium 75 MCG TAB PO SCH (05:16)
[2022-06-21] MEDS: Lantus 1000 UNITS/10 ML VIAL SC SCH (08:09)
[2022-06-21] MEDS: Calcitriol 0.25 MCG CAP PO SCH (08:09)
[2022-06-21] MEDS: hydrALAZINE 25 MG TAB PO SCH ×2 (08:09→20:26)
[2022-06-21] MEDS: Furosemide 40 MG TAB PO SCH (08:09)
[2022-06-21] MEDS: Folic Acid 1 MG TAB PO SCH (08:09)
[2022-06-21] MEDS: Ferrous Sulfate 325 MG TAB PO SCH ×2 (08:09→16:34)
[2022-06-21] MEDS: Heparin 5,000 UNITS/ML VIAL SC SCH ×2 (08:09→20:22)
[2022-06-21] MEDS: Polyethylene Glycol 3350 17 GM Packet PO PRN (09:09)
[2022-06-21] MEDS: HumaLOG 300 UNITS/3 ML VIAL SC PRN (10:55)
[2022-06-21] MEDS: HYDROcodone/Acetaminophen 5/325 mg Tablet PO PRN ×2 (12:55→20:27)
[2022-06-21] MEDS: Famotidine 20 MG TAB PO SCH (20:26)
[2022-06-21] MEDS: NIFEdipine XL 30 MG TAB PO SCH (20:26)
[2022-06-21] MEDS: Melatonin 3 MG TAB PO SCH (20:26)
[2022-06-21] MEDS: Rosuvastatin 10 MG TAB PO SCH (20:27)
[2022-06-21] MEDS: Sertraline 100 MG TAB PO SCH (20:27)
[2022-06-22 05:17] LABS: #Basophils 0.1 thou/uL (0.0-0.2); #Eosinphils 0.4 thou/uL (0.0-0.7); #Lymphocytes 2.4 thou/uL (1.20-3.40); #Monocytes 0.8 thou/uL (0.11-0.59); #Neutrophils 2.8 thou/uL (1.40-6.50); %Basophils 1.4 % (0.0-1.0); %Eosinophils 6.9 % (0.0-10.0); %Monocytes 11.6 % (0.0-10.0); %Neutrophils 43.1 % (42.0-75.0); Mean Corpuscular HGB CONC 31.3 g/dL (32.0-36.0); Mean Corpuscular Volume 92.6 fl (78.0-98.0); Mean Platelet Volume 7.4 fL (7.4-10.4); Platelet Count 157 10x3/uL (130-400); RBC Distribution Width 15.2 % (11.5-14.5); Red Blood Cell (RBC) Count 3.08 mill/uL (4.20-5.40); White Blood Cell (WBC) Count 6.5 10x3/uL (4.8-10.8)
[2022-06-22 05:28] LABS: Sodium 141 mmol/L (136-145)
[2022-06-22 05:29] LABS: Carbon Dioxide 28 mmol/L (23-31)
[2022-06-22 05:31] LABS: Anion Gap 13 mmol/L (10-20); BUN (Urea Nitrogen) 45 mg/dL (9.8-20.1); Calc. Creatinine Clearance 42 mL/min (70-130); Calcium 9.5 mg/dL (7.8-10.44); Chloride 105 mmol/L (98-107); Estimated GFR 32; Glucose 70 mg/dL (80-115); Potassium 4.5 mmol/L (3.5-5.1)
[2022-06-22] MEDS: Levothyroxine Sodium 75 MCG TAB PO SCH (06:16)
[2022-06-22] MEDS: Ferrous Sulfate 325 MG TAB PO SCH ×2 (07:33→16:17)
[2022-06-22] MEDS: Furosemide 40 MG TAB PO SCH (07:33)
[2022-06-22] MEDS: Lantus 1000 UNITS/10 ML VIAL SC SCH (08:19)
[2022-06-22] MEDS: Calcitriol 0.25 MCG CAP PO SCH (08:19)
[2022-06-22] MEDS: Folic Acid 1 MG TAB PO SCH (08:20)
[2022-06-22] MEDS: hydrALAZINE 25 MG TAB PO SCH ×2 (08:20→20:23)
[2022-06-22] MEDS: Heparin 5,000 UNITS/ML VIAL SC SCH ×2 (08:20→20:26)
[2022-06-22] MEDS: HYDROcodone/Acetaminophen 5/325 mg Tablet PO PRN ×3 (08:26→20:31)
[2022-06-22] MEDS ORDERED: Lantus 1000 UNITS/10 ML VIAL SC SCH (10:00)
[2022-06-22] MEDS ORDERED: hydrALAZINE 25 MG TAB PO SCH (10:00)
[2022-06-22] MEDS: HumaLOG 300 UNITS/3 ML VIAL SC PRN ×2 (11:29→16:18)
[2022-06-22] MEDS: Calcium Carbonate 500 MG ChewTAB PO PRN (16:21)
[2022-06-22] MEDS: Melatonin 3 MG TAB PO SCH (20:22)
[2022-06-22] MEDS: NIFEdipine XL 30 MG TAB PO SCH (20:22)
[2022-06-22] MEDS: Sertraline 100 MG TAB PO SCH (20:22)
[2022-06-22] MEDS: Famotidine 20 MG TAB PO SCH (20:23)
[2022-06-22] MEDS: Rosuvastatin 10 MG TAB PO SCH (20:23)
[2022-06-23] MEDS: Levothyroxine Sodium 75 MCG TAB PO SCH (05:33)
[2022-06-23] MEDS: Heparin 5,000 UNITS/ML VIAL SC SCH ×2 (07:46→20:17)
[2022-06-23] MEDS: Lantus 1000 UNITS/10 ML VIAL SC SCH (07:46)
[2022-06-23] MEDS: Calcitriol 0.25 MCG CAP PO SCH (07:47)
[2022-06-23] MEDS: hydrALAZINE 25 MG TAB PO SCH ×2 (07:47→20:16)
[2022-06-23] MEDS: Folic Acid 1 MG TAB PO SCH (07:47)
[2022-06-23] MEDS: Furosemide 40 MG TAB PO SCH (07:47)
[2022-06-23] MEDS: Ferrous Sulfate 325 MG TAB PO SCH ×2 (07:47→16:51)
[2022-06-23] MEDS: HYDROcodone/Acetaminophen 5/325 mg Tablet PO PRN ×3 (09:56→21:06)
[2022-06-23] MEDS: HumaLOG 300 UNITS/3 ML VIAL SC PRN (11:30)
[2022-06-23] MEDS: NIFEdipine XL 30 MG TAB PO SCH (20:16)
[2022-06-23] MEDS: Sertraline 100 MG TAB PO SCH (20:16)
[2022-06-23] MEDS: Rosuvastatin 10 MG TAB PO SCH (20:16)
[2022-06-23] MEDS: Melatonin 3 MG TAB PO SCH (20:16)
[2022-06-23] MEDS: Famotidine 20 MG TAB PO SCH (20:17)
[2022-06-23] MEDS: Calcium Carbonate 500 MG ChewTAB PO PRN (21:07)
[2022-06-24] MEDS: Levothyroxine Sodium 75 MCG TAB PO SCH (05:29)
[2022-06-24] MEDS: Heparin 5,000 UNITS/ML VIAL SC SCH ×2 (08:24→21:01)
[2022-06-24] MEDS: Calcitriol 0.25 MCG CAP PO SCH (08:25)
[2022-06-24] MEDS: Folic Acid 1 MG TAB PO SCH (08:25)
[2022-06-24] MEDS: Lantus 1000 UNITS/10 ML VIAL SC SCH (08:25)
[2022-06-24] MEDS: hydrALAZINE 25 MG TAB PO SCH ×2 (08:25→21:02)
[2022-06-24] MEDS: Ferrous Sulfate 325 MG TAB PO SCH ×2 (08:25→16:50)
[2022-06-24] MEDS: Furosemide 40 MG TAB PO SCH (08:25)
[2022-06-24] MEDS: Calcium Carbonate 500 MG ChewTAB PO PRN (08:32)
[2022-06-24] MEDS: HumaLOG 300 UNITS/3 ML VIAL SC PRN ×2 (12:19→16:50)
[2022-06-24] MEDS: HYDROcodone/Acetaminophen 5/325 mg Tablet PO PRN ×2 (12:23→21:03)
[2022-06-24] MEDS: Famotidine 20 MG TAB PO SCH (21:01)
[2022-06-24] MEDS: NIFEdipine XL 30 MG TAB PO SCH (21:01)
[2022-06-24] MEDS: Rosuvastatin 10 MG TAB PO SCH (21:01)
[2022-06-24] MEDS: Sertraline 100 MG TAB PO SCH (21:01)
[2022-06-24] MEDS: Melatonin 3 MG TAB PO SCH (21:01)
[2022-06-25 05:33] LABS: #Basophils 0.1 thou/uL (0.0-0.2); #Eosinphils 0.4 thou/uL (0.0-0.7); #Lymphocytes 2.5 thou/uL (1.20-3.40); #Monocytes 0.6 thou/uL (0.11-0.59); #Neutrophils 3.4 thou/uL (1.40-6.50); %Basophils 1.4 % (0.0-1.0); %Eosinophils 5.7 % (0.0-10.0); %Lymphocytes 35.2 % (21.0-51.0); %Monocytes 9.2 % (0.0-10.0); %Neutrophils 48.5 % (42.0-75.0); Hemoglobin 8.9 g/dL (12.0-16.0); Mean Corpuscular HGB CONC 32.1 g/dL (32.0-36.0); Mean Corpuscular Volume 93.4 fl (78.0-98.0); Mean Platelet Volume 7.1 fL (7.4-10.4); Platelet Count 158 10x3/uL (130-400); RBC Distribution Width 14.9 % (11.5-14.5); Red Blood Cell (RBC) Count 2.97 mill/uL (4.20-5.40)
[2022-06-25] MEDS: Levothyroxine Sodium 75 MCG TAB PO SCH (05:33)
[2022-06-25 05:38] VITALS: BMI 29.0
[2022-06-25 05:44] LABS: Anion Gap 12 mmol/L (10-20); BUN (Urea Nitrogen) 49 mg/dL (9.8-20.1); Calc. Creatinine Clearance 40 mL/min (70-130); Calcium 9.8 mg/dL (7.8-10.44); Carbon Dioxide 30 mmol/L (23-31); Chloride 105 mmol/L (98-107); Estimated GFR 31; Glucose 111 mg/dL (80-115); Potassium 4.8 mmol/L (3.5-5.1); Sodium 142 mmol/L (136-145)
[2022-06-25] MEDS: Furosemide 40 MG TAB PO SCH (07:56)
[2022-06-25] MEDS: hydrALAZINE 25 MG TAB PO SCH ×2 (07:56→20:50)
[2022-06-25] MEDS: Calcitriol 0.25 MCG CAP PO SCH (07:56)
[2022-06-25] MEDS: Lantus 1000 UNITS/10 ML VIAL SC SCH (07:56)
[2022-06-25] MEDS: Folic Acid 1 MG TAB PO SCH (07:56)
[2022-06-25] MEDS: Ferrous Sulfate 325 MG TAB PO SCH ×2 (07:56→16:43)
[2022-06-25] MEDS: Heparin 5,000 UNITS/ML VIAL SC SCH ×2 (07:57→20:48)
[2022-06-25] MEDS: HYDROcodone/Acetaminophen 5/325 mg Tablet PO PRN ×3 (07:59→20:50)
[2022-06-25] MEDS: HumaLOG 300 UNITS/3 ML VIAL SC PRN (11:49)
[2022-06-25] MEDS: Sertraline 100 MG TAB PO SCH (20:49)
[2022-06-25] MEDS: NIFEdipine XL 30 MG TAB PO SCH (20:49)
[2022-06-25] MEDS: Rosuvastatin 10 MG TAB PO SCH (20:49)
[2022-06-25] MEDS: Melatonin 3 MG TAB PO SCH (20:49)
[2022-06-25] MEDS: Famotidine 20 MG TAB PO SCH (20:50)
[2022-06-26] MEDS: HYDROcodone/Acetaminophen 5/325 mg Tablet PO PRN ×4 (01:23→21:42)
[2022-06-26] MEDS: Levothyroxine Sodium 75 MCG TAB PO SCH (05:47)
[2022-06-26] MEDS: hydrALAZINE 25 MG TAB PO SCH ×2 (07:34→21:42)
[2022-06-26] MEDS: Furosemide 40 MG TAB PO SCH (07:35)
[2022-06-26] MEDS: Heparin 5,000 UNITS/ML VIAL SC SCH ×2 (07:35→21:44)
[2022-06-26] MEDS: Ferrous Sulfate 325 MG TAB PO SCH ×2 (07:35→17:12)
[2022-06-26] MEDS: Calcitriol 0.25 MCG CAP PO SCH (07:35)
[2022-06-26] MEDS: Folic Acid 1 MG TAB PO SCH (07:35)
[2022-06-26] MEDS: Lantus 1000 UNITS/10 ML VIAL SC SCH (07:36)
[2022-06-26] MEDS: Famotidine 20 MG TAB PO SCH (21:37)
[2022-06-26] MEDS: Melatonin 3 MG TAB PO SCH (21:37)
[2022-06-26] MEDS: Sertraline 100 MG TAB PO SCH (21:38)
[2022-06-26] MEDS: NIFEdipine XL 30 MG TAB PO SCH (21:39)
[2022-06-26] MEDS: Rosuvastatin 10 MG TAB PO SCH (21:41)
[2022-06-27] MEDS: Levothyroxine Sodium 75 MCG TAB PO SCH (05:29)
[2022-06-27] MEDS: HYDROcodone/Acetaminophen 5/325 mg Tablet PO PRN ×2 (05:37→17:33)
[2022-06-27] MEDS: hydrALAZINE 25 MG TAB PO SCH (09:07)
[2022-06-27] MEDS: Calcitriol 0.25 MCG CAP PO SCH (09:08)
[2022-06-27] MEDS: Furosemide 40 MG TAB PO SCH (09:08)
[2022-06-27] MEDS: Folic Acid 1 MG TAB PO SCH (09:08)
[2022-06-27] MEDS: Ferrous Sulfate 325 MG TAB PO SCH ×2 (09:08→17:33)
[2022-06-27] MEDS: Lantus 1000 UNITS/10 ML VIAL SC SCH (09:09)
[2022-06-27] MEDS: Heparin 5,000 UNITS/ML VIAL SC SCH (09:09)
[2022-06-27 11:37] VITALS: BP 124/61; TEMP 97.8
[2022-06-27] MEDS: HumaLOG 300 UNITS/3 ML VIAL SC PRN (12:55)
== END 2022-06-27 17:40 | disposition home or self-care (01) | DRG 560 ==
LOC: NAV ACUTE 13:44
PROVIDERS: ADMIT Family Medicine; ATTEND Family Medicine
DX: S72.012D Unspecified intracapsular fracture of left femur, subsequent encounter for closed fracture with routine healing (principal); B37.0 Candidal stomatitis; R53.1 Weakness; N18.32 Chronic kidney disease, stage 3b; F41.9 Anxiety disorder, unspecified; F32.A Depression, unspecified; K21.9 Gastro-esophageal reflux disease without esophagitis; E78.5 Hyperlipidemia, unspecified; R53.81 Other malaise; E11.65 Type 2 diabetes mellitus with hyperglycemia; E11.22 Type 2 diabetes mellitus with diabetic chronic kidney disease; E03.9 Hypothyroidism, unspecified; I12.9 Hypertensive chronic kidney disease with stage 1 through stage 4 chronic kidney disease, or unspecified chronic kidney disease; G25.81 Restless legs syndrome; E87.6 Hypokalemia; K59.00 Constipation, unspecified; Z88.8 Allergy status to other drugs, medicaments and biological substances; Z88.1 Allergy status to other antibiotic agents; Z79.899 Other long term (current) drug therapy; Z79.890 Hormone replacement therapy; Z90.49 Acquired absence of other specified parts of digestive tract; Z90.89 Acquired absence of other organs; Z90.710 Acquired absence of both cervix and uterus; Z95.1 Presence of aortocoronary bypass graft; Z98.890 Other specified postprocedural states; Z20.822 Contact with and (suspected) exposure to COVID-19
CPT/HCPCS: 36415; 36416; 80048; 80053; 81001; 81003; 81015; 82570; 83735; 84540; 85025; 87811; 94640; J1644; J1815; J7620; Q0162

== ENCOUNTER 2022-09-22 14:02 | Outpatient (CLI) | payer MEDICARE ==
[2022-09-22 14:23] LABS: Anion Gap 17 mmol/L (10-20); BUN (Urea Nitrogen) 51 mg/dL (9.8-20.1); Calc. Creatinine Clearance 0 mL/min (70-130); Calcium 9.4 mg/dL (7.8-10.44); Carbon Dioxide 23 mmol/L (23-31); Chloride 104 mmol/L (98-107); Estimated GFR 32; Glucose 151 mg/dL (80-115); Potassium 4.1 mmol/L (3.5-5.1); Sodium 140 mmol/L (136-145)
== END 2022-09-22 14:03 | disposition home or self-care (01) ==
LOC: NAV LABSP 14:02
PROVIDERS: ATTEND Specialist
DX: E25.0 Congenital adrenogenital disorders associated with enzyme deficiency (principal)
CPT/HCPCS: 80048; 83880

== ENCOUNTER 2022-09-29 13:47 | Outpatient (CLI) | payer MEDICARE ==
[2022-09-29 14:14] LABS: Anion Gap 15 mmol/L (10-20); BUN (Urea Nitrogen) 44 mg/dL (9.8-20.1); Calc. Creatinine Clearance 0 mL/min (70-130); Calcium 9.2 mg/dL (7.8-10.44); Carbon Dioxide 23 mmol/L (23-31); Chloride 104 mmol/L (98-107); Estimated GFR 39; Glucose 192 mg/dL (80-115); Potassium 4.1 mmol/L (3.5-5.1); Sodium 138 mmol/L (136-145)
[2022-09-29 14:28] LABS: Hemoglobin 9.2 g/dL (12.0-16.0)
[2022-09-29 22:35] LABS: Iron 69 ug/dL (50-170); Iron Binding Capacity, Total 224 mcg/dL (265-497)
[2022-09-29 23:10] LABS: Follow-up Chemistry Comp? YES; Follow-up Hematology Comp? YES; Follow-up Result - Chemistry REPORT FAXED; Follow-up Result - Hematology REPORT FAXED
== END 2022-09-29 13:48 | disposition home or self-care (01) ==
LOC: NAV LABSP 13:47
PROVIDERS: ATTEND Internal Medicine Nephrology
DX: N18.9 Chronic kidney disease, unspecified (principal); D63.1 Anemia in chronic kidney disease
CPT/HCPCS: 80048; 83540; 83550; 83970; 85014; 85018

== ENCOUNTER 2022-12-20 13:28 | Inpatient (IN) | payer MEDICARE ==
[2022-12-20] MEDS ORDERED: Ondansetron ODT 4 MG TAB SL PRN (16:52)
[2022-12-20] MEDS ORDERED: HumaLOG 300 UNITS/3 ML VIAL SC PRN (16:52)
[2022-12-20] MEDS ORDERED: Dextrose 50% Abboject 50 ML SYRINGE SLOW IVP PRN (16:52)
[2022-12-20] MEDS ORDERED: Senokot S 8.6-50 MG TAB PO PRN (16:52)
[2022-12-20] MEDS ORDERED: Glucagon 1 MG/ML KIT IM PRN (16:52)
[2022-12-20] MEDS ORDERED: cloNIDine 0.1 MG TAB PO PRN (19:08)
[2022-12-20] MEDS: Lantus 1000 UNITS/10 ML VIAL SC SCH (20:22)
[2022-12-20] MEDS: Primidone 50 MG TAB PO SCH (20:24)
[2022-12-20] MEDS: hydrALAZINE 25 MG TAB PO SCH (20:25)
[2022-12-20] MEDS: Gabapentin 100 MG CAP PO SCH (20:25)
[2022-12-20] MEDS: Rosuvastatin 10 MG TAB PO SCH (20:26)
[2022-12-20] MEDS: Sertraline 100 MG TAB PO SCH (20:26)
[2022-12-20] MEDS: Benzonatate 100 MG CAP PO PRN (21:16)
[2022-12-21] MEDS: Levothyroxine Sodium 100 MCG TAB PO SCH (06:18)
[2022-12-21 06:33] LABS: #Basophils 0.1 thou/uL (0.0-0.2); #Eosinphils 0.7 thou/uL (0.0-0.7); #Lymphocytes 1.9 thou/uL (1.20-3.40); #Neutrophils 8.3 thou/uL (1.40-6.50); %Eosinophils 5.7 % (0.0-10.0); %Lymphocytes 15.9 % (21.0-51.0); %Monocytes 8.2 % (0.0-10.0); %Neutrophils 69.2 % (42.0-75.0); Hemoglobin 9.1 g/dL (12.0-16.0); Mean Corpuscular HGB CONC 32.9 g/dL (32.0-36.0); Mean Corpuscular Hemoglobin 29.6 pg (27.0-31.0); Mean Corpuscular Volume 89.8 fl (78.0-98.0); Mean Platelet Volume 6.7 fL (7.4-10.4); Platelet Count 182 10x3/uL (130-400); RBC Distribution Width 13.7 % (11.5-14.5); Red Blood Cell (RBC) Count 3.07 mill/uL (4.20-5.40)
[2022-12-21 06:50] LABS: ALT (SGPT) 12 U/L (8-55); AST (SGOT) 14 U/L (5-34); Albumin 2.9 g/dL (3.4-4.8); Alkaline Phosphatase 66 U/L (40-110); Anion Gap 14 mmol/L (10-20); BUN (Urea Nitrogen) 39 mg/dL (9.8-20.1); Bilirubin, Total 0.3 mg/dL (0.2-1.2); Calc. Creatinine Clearance 44 mL/min (70-130); Calcium 9.1 mg/dL (7.8-10.44); Carbon Dioxide 19 mmol/L (23-31); Chloride 112 mmol/L (98-107); Estimated GFR 32; Globulin 3.2 g/dL (2.4-3.5); Glucose 137 mg/dL (80-115); Potassium 4.5 mmol/L (3.5-5.1); Protein, Total 6.1 g/dL (5.8-8.1); Sodium 140 mmol/L (136-145)
[2022-12-21] MEDS: Lantus 1000 UNITS/10 ML VIAL SC SCH ×2 (08:36→20:45)
[2022-12-21] MEDS: Aspirin Chewable 81 MG TAB PO SCH (08:37)
[2022-12-21] MEDS: Benzonatate 100 MG CAP PO PRN ×2 (08:37→20:49)
[2022-12-21] MEDS: Amiodarone 200 MG TAB PO SCH (08:38)
[2022-12-21] MEDS: Furosemide 40 MG TAB PO SCH ×2 (08:40→14:15)
[2022-12-21] MEDS: Amlodipine 10 MG TAB PO SCH (08:40)
[2022-12-21] MEDS: Folic Acid 1 MG TAB PO SCH (08:41)
[2022-12-21] MEDS: Gabapentin 100 MG CAP PO SCH ×2 (08:41→20:47)
[2022-12-21] MEDS: Lisinopril 10 MG TAB PO SCH (08:42)
[2022-12-21] MEDS: hydrALAZINE 25 MG TAB PO SCH ×3 (08:43→20:47)
[2022-12-21] MEDS: HumaLOG 300 UNITS/3 ML VIAL SC PRN ×2 (11:40→16:55)
[2022-12-21] MEDS: Primidone 50 MG TAB PO SCH (20:47)
[2022-12-21] MEDS: Sertraline 100 MG TAB PO SCH (20:48)
[2022-12-21] MEDS: Rosuvastatin 10 MG TAB PO SCH (20:48)
[2022-12-22] MEDS: Levothyroxine Sodium 100 MCG TAB PO SCH (05:32)
[2022-12-22] MEDS: Amiodarone 200 MG TAB PO SCH (09:23)
[2022-12-22] MEDS: Gabapentin 100 MG CAP PO SCH ×2 (09:23→20:07)
[2022-12-22] MEDS: Furosemide 40 MG TAB PO SCH ×2 (09:23→14:50)
[2022-12-22] MEDS: hydrALAZINE 25 MG TAB PO SCH ×3 (09:23→20:07)
[2022-12-22] MEDS: Lisinopril 10 MG TAB PO SCH (09:23)
[2022-12-22] MEDS: Aspirin Chewable 81 MG TAB PO SCH (09:23)
[2022-12-22] MEDS: Amlodipine 10 MG TAB PO SCH (09:24)
[2022-12-22] MEDS: Folic Acid 1 MG TAB PO SCH (09:24)
[2022-12-22] MEDS: Calcitriol 0.25 MCG CAP PO SCH (09:24)
[2022-12-22] MEDS: Lantus 1000 UNITS/10 ML VIAL SC SCH ×2 (09:26→20:06)
[2022-12-22] MEDS: HumaLOG 300 UNITS/3 ML VIAL SC PRN ×2 (12:05→17:04)
[2022-12-22] MEDS: Primidone 50 MG TAB PO SCH (20:06)
[2022-12-22] MEDS: Sertraline 100 MG TAB PO SCH (20:07)
[2022-12-22] MEDS: Rosuvastatin 10 MG TAB PO SCH (20:07)
[2022-12-22] MEDS: Benzonatate 100 MG CAP PO PRN (20:08)
[2022-12-23] MEDS: Levothyroxine Sodium 100 MCG TAB PO SCH (05:36)
[2022-12-23] MEDS: hydrALAZINE 25 MG TAB PO SCH ×3 (09:15→21:15)
[2022-12-23] MEDS: Amlodipine 10 MG TAB PO SCH (09:15)
[2022-12-23] MEDS: Aspirin Chewable 81 MG TAB PO SCH (09:15)
[2022-12-23] MEDS: Amiodarone 200 MG TAB PO SCH (09:15)
[2022-12-23] MEDS: Furosemide 40 MG TAB PO SCH ×2 (09:16→14:36)
[2022-12-23] MEDS: Gabapentin 100 MG CAP PO SCH ×2 (09:16→21:18)
[2022-12-23] MEDS: Folic Acid 1 MG TAB PO SCH (09:16)
[2022-12-23] MEDS: Lisinopril 10 MG TAB PO SCH (09:16)
[2022-12-23] MEDS: Lantus 1000 UNITS/10 ML VIAL SC SCH ×2 (09:16→21:19)
[2022-12-23] MEDS: Benzonatate 100 MG CAP PO PRN ×2 (09:21→21:16)
[2022-12-23] MEDS: HumaLOG 300 UNITS/3 ML VIAL SC PRN ×2 (11:42→16:26)
[2022-12-23] MEDS: Rosuvastatin 10 MG TAB PO SCH (21:15)
[2022-12-23] MEDS: Primidone 50 MG TAB PO SCH (21:16)
[2022-12-23] MEDS: Sertraline 100 MG TAB PO SCH (21:16)
[2022-12-24] MEDS: Levothyroxine Sodium 100 MCG TAB PO SCH (05:20)
[2022-12-24] MEDS: Lantus 1000 UNITS/10 ML VIAL SC SCH ×2 (09:13→21:36)
[2022-12-24] MEDS: hydrALAZINE 25 MG TAB PO SCH ×3 (09:14→21:35)
[2022-12-24] MEDS: Furosemide 40 MG TAB PO SCH ×2 (09:14→14:14)
[2022-12-24] MEDS: Saccharomyces boulardii 250 MG CAP PO SCH (09:14)
[2022-12-24] MEDS: Aspirin Chewable 81 MG TAB PO SCH (09:14)
[2022-12-24] MEDS: Lisinopril 10 MG TAB PO SCH (09:16)
[2022-12-24] MEDS: Folic Acid 1 MG TAB PO SCH (09:17)
[2022-12-24] MEDS: Calcitriol 0.25 MCG CAP PO SCH (09:17)
[2022-12-24] MEDS: Amlodipine 10 MG TAB PO SCH (09:17)
[2022-12-24] MEDS: Gabapentin 100 MG CAP PO SCH ×2 (09:17→21:35)
[2022-12-24] MEDS: Amiodarone 200 MG TAB PO SCH (09:18)
[2022-12-24] MEDS: HumaLOG 300 UNITS/3 ML VIAL SC PRN ×2 (12:09→17:06)
[2022-12-24] MEDS: Rosuvastatin 10 MG TAB PO SCH (21:35)
[2022-12-24] MEDS: Sertraline 100 MG TAB PO SCH (21:35)
[2022-12-25] MEDS: Levothyroxine Sodium 100 MCG TAB PO SCH (05:11)
[2022-12-25] MEDS: HumaLOG 300 UNITS/3 ML VIAL SC PRN (05:54)
[2022-12-25] MEDS: Amiodarone 200 MG TAB PO SCH (09:09)
[2022-12-25] MEDS: Amlodipine 10 MG TAB PO SCH (09:09)
[2022-12-25] MEDS: Furosemide 40 MG TAB PO SCH ×2 (09:11→14:22)
[2022-12-25] MEDS: Saccharomyces boulardii 250 MG CAP PO SCH (09:11)
[2022-12-25] MEDS: Aspirin Chewable 81 MG TAB PO SCH (09:11)
[2022-12-25] MEDS: Gabapentin 100 MG CAP PO SCH ×2 (09:11→21:36)
[2022-12-25] MEDS: Lisinopril 10 MG TAB PO SCH (09:12)
[2022-12-25] MEDS: Folic Acid 1 MG TAB PO SCH (09:12)
[2022-12-25] MEDS: hydrALAZINE 25 MG TAB PO SCH ×3 (09:12→21:35)
[2022-12-25] MEDS: Lantus 1000 UNITS/10 ML VIAL SC SCH ×2 (09:13→21:34)
[2022-12-25] MEDS: Rosuvastatin 10 MG TAB PO SCH (21:36)
[2022-12-25] MEDS: Sertraline 100 MG TAB PO SCH (21:36)
[2022-12-26] MEDS: Levothyroxine Sodium 100 MCG TAB PO SCH (06:01)
[2022-12-26 06:09] LABS: #Basophils 0.1 thou/uL (0.0-0.2); #Eosinphils 0.4 thou/uL (0.0-0.7); #Lymphocytes 1.7 thou/uL (1.20-3.40); #Monocytes 0.6 thou/uL (0.11-0.59); #Neutrophils 5.7 thou/uL (1.40-6.50); %Eosinophils 4.6 % (0.0-10.0); %Lymphocytes 19.9 % (21.0-51.0); %Monocytes 7.1 % (0.0-10.0); %Neutrophils 67.4 % (42.0-75.0); Mean Corpuscular HGB CONC 31.9 g/dL (32.0-36.0); Mean Corpuscular Hemoglobin 29.1 pg (27.0-31.0); Mean Corpuscular Volume 91.3 fl (78.0-98.0); Mean Platelet Volume 6.9 fL (7.4-10.4); Platelet Count 215 10x3/uL (130-400); RBC Distribution Width 14.3 % (11.5-14.5); White Blood Cell (WBC) Count 8.4 10x3/uL (4.8-10.8)
[2022-12-26 06:30] LABS: Anion Gap 15 mmol/L (10-20); BUN (Urea Nitrogen) 59 mg/dL (9.8-20.1); Calc. Creatinine Clearance 37 mL/min (70-130); Calcium 8.9 mg/dL (7.8-10.44); Carbon Dioxide 21 mmol/L (23-31); Chloride 105 mmol/L (98-107); Estimated GFR 25; Glucose 103 mg/dL (80-115); Potassium 4.7 mmol/L (3.5-5.1); Sodium 136 mmol/L (136-145)
[2022-12-26] MEDS: Gabapentin 100 MG CAP PO SCH ×2 (08:27→21:15)
[2022-12-26] MEDS: Amlodipine 10 MG TAB PO SCH (08:27)
[2022-12-26] MEDS: Lisinopril 10 MG TAB PO SCH (08:33)
[2022-12-26] MEDS: Calcitriol 0.25 MCG CAP PO SCH (08:34)
[2022-12-26] MEDS: hydrALAZINE 25 MG TAB PO SCH ×3 (08:34→21:14)
[2022-12-26] MEDS: Amiodarone 200 MG TAB PO SCH (08:35)
[2022-12-26] MEDS: Aspirin Chewable 81 MG TAB PO SCH (08:35)
[2022-12-26] MEDS: Saccharomyces boulardii 250 MG CAP PO SCH (08:36)
[2022-12-26] MEDS: Folic Acid 1 MG TAB PO SCH (08:36)
[2022-12-26] MEDS: Furosemide 40 MG TAB PO SCH ×2 (08:37→14:45)
[2022-12-26] MEDS: Lantus 1000 UNITS/10 ML VIAL SC SCH ×2 (08:41→21:13)
[2022-12-26] MEDS: HumaLOG 300 UNITS/3 ML VIAL SC PRN (12:09)
[2022-12-26 12:39] LABS: Iron 71 ug/dL (50-170); Iron Binding Capacity, Total 204 mcg/dL (265-497)
[2022-12-26] MEDS: Rosuvastatin 10 MG TAB PO SCH (21:15)
[2022-12-26] MEDS: Sertraline 100 MG TAB PO SCH (21:15)
[2022-12-27 05:35] LABS: Anion Gap 17 mmol/L (10-20); BUN (Urea Nitrogen) 65 mg/dL (9.8-20.1); Calc. Creatinine Clearance 37 mL/min (70-130); Calcium 9.5 mg/dL (7.8-10.44); Carbon Dioxide 22 mmol/L (23-31); Chloride 106 mmol/L (98-107); Estimated GFR 26; Glucose 88 mg/dL (80-115); Potassium 5.1 mmol/L (3.5-5.1); Sodium 140 mmol/L (136-145)
[2022-12-27] MEDS: Levothyroxine Sodium 100 MCG TAB PO SCH (06:17)
[2022-12-27] MEDS: hydrALAZINE 25 MG TAB PO SCH ×3 (08:20→21:15)
[2022-12-27] MEDS: Amlodipine 10 MG TAB PO SCH (08:20)
[2022-12-27] MEDS: Saccharomyces boulardii 250 MG CAP PO SCH (08:20)
[2022-12-27] MEDS: Gabapentin 100 MG CAP PO SCH ×2 (08:20→21:15)
[2022-12-27] MEDS: Lisinopril 20 MG TAB PO SCH (08:20)
[2022-12-27] MEDS: Folic Acid 1 MG TAB PO SCH (08:21)
[2022-12-27] MEDS: Aspirin Chewable 81 MG TAB PO SCH (08:21)
[2022-12-27] MEDS: Furosemide 40 MG TAB PO SCH ×2 (08:21→14:38)
[2022-12-27] MEDS: Amiodarone 200 MG TAB PO SCH (08:21)
[2022-12-27] MEDS: Lantus 1000 UNITS/10 ML VIAL SC SCH ×2 (08:23→21:13)
[2022-12-27] MEDS: HumaLOG 300 UNITS/3 ML VIAL SC PRN ×2 (11:22→16:31)
[2022-12-27] MEDS: Rosuvastatin 10 MG TAB PO SCH (21:15)
[2022-12-27] MEDS: Sertraline 100 MG TAB PO SCH (21:16)
[2022-12-28] MEDS: Levothyroxine Sodium 100 MCG TAB PO SCH (05:55)
[2022-12-28] MEDS: Amlodipine 10 MG TAB PO SCH (08:49)
[2022-12-28] MEDS: Gabapentin 100 MG CAP PO SCH ×2 (08:49→21:25)
[2022-12-28] MEDS: Saccharomyces boulardii 250 MG CAP PO SCH (08:49)
[2022-12-28] MEDS: Lisinopril 20 MG TAB PO SCH (08:49)
[2022-12-28] MEDS: hydrALAZINE 25 MG TAB PO SCH ×3 (08:50→21:25)
[2022-12-28] MEDS: Amiodarone 200 MG TAB PO SCH (08:50)
[2022-12-28] MEDS: Aspirin Chewable 81 MG TAB PO SCH (08:50)
[2022-12-28] MEDS: Folic Acid 1 MG TAB PO SCH (08:50)
[2022-12-28] MEDS: Furosemide 40 MG TAB PO SCH ×2 (08:50→14:24)
[2022-12-28] MEDS: Lantus 1000 UNITS/10 ML VIAL SC SCH ×2 (08:55→21:24)
[2022-12-28] MEDS: Rosuvastatin 10 MG TAB PO SCH (21:26)
[2022-12-28] MEDS: Sertraline 100 MG TAB PO SCH (21:26)
[2022-12-28] MEDS: Acetaminophen 325 MG TAB PO PRN (21:55)
[2022-12-29] MEDS: Levothyroxine Sodium 100 MCG TAB PO SCH (06:20)
[2022-12-29] MEDS: Acetaminophen 325 MG TAB PO PRN ×2 (08:48→17:07)
[2022-12-29] MEDS: hydrALAZINE 25 MG TAB PO SCH ×3 (08:48→21:00)
[2022-12-29] MEDS: Calcitriol 0.25 MCG CAP PO SCH (08:53)
[2022-12-29] MEDS: Amiodarone 200 MG TAB PO SCH (08:53)
[2022-12-29] MEDS: Saccharomyces boulardii 250 MG CAP PO SCH (08:53)
[2022-12-29] MEDS: Lisinopril 20 MG TAB PO SCH (08:53)
[2022-12-29] MEDS: Aspirin Chewable 81 MG TAB PO SCH (08:54)
[2022-12-29] MEDS: Furosemide 40 MG TAB PO SCH ×2 (08:54→14:04)
[2022-12-29] MEDS: Amlodipine 10 MG TAB PO SCH (08:54)
[2022-12-29] MEDS: Gabapentin 100 MG CAP PO SCH ×2 (08:55→21:02)
[2022-12-29] MEDS: Folic Acid 1 MG TAB PO SCH (08:56)
[2022-12-29] MEDS: Lantus 1000 UNITS/10 ML VIAL SC SCH ×2 (08:56→21:08)
[2022-12-29] MEDS: HumaLOG 300 UNITS/3 ML VIAL SC PRN (17:08)
[2022-12-29] MEDS: Rosuvastatin 10 MG TAB PO SCH (21:02)
[2022-12-29] MEDS: Sertraline 100 MG TAB PO SCH (21:02)
[2022-12-30 05:25] LABS: #Basophils 0.1 thou/uL (0.0-0.2); #Eosinphils 0.3 thou/uL (0.0-0.7); #Lymphocytes 1.7 thou/uL (1.20-3.40); #Monocytes 0.5 thou/uL (0.11-0.59); #Neutrophils 2.9 thou/uL (1.40-6.50); %Basophils 1.7 % (0.0-1.0); %Eosinophils 5.8 % (0.0-10.0); %Lymphocytes 30.8 % (21.0-51.0); %Monocytes 8.7 % (0.0-10.0); %Neutrophils 52.9 % (42.0-75.0); Hemoglobin 8.3 g/dL (12.0-16.0); Mean Corpuscular HGB CONC 31.2 g/dL (32.0-36.0); Mean Corpuscular Hemoglobin 29.1 pg (27.0-31.0); Mean Corpuscular Volume 93.2 fl (78.0-98.0); Mean Platelet Volume 7.2 fL (7.4-10.4); Platelet Count 185 10x3/uL (130-400); RBC Distribution Width 14.9 % (11.5-14.5); Red Blood Cell (RBC) Count 2.85 mill/uL (4.20-5.40); White Blood Cell (WBC) Count 5.5 10x3/uL (4.8-10.8)
[2022-12-30 05:36] LABS: Anion Gap 15 mmol/L (10-20); BUN (Urea Nitrogen) 75 mg/dL (9.8-20.1); Calc. Creatinine Clearance 40 mL/min (70-130); Calcium 9.5 mg/dL (7.8-10.44); Carbon Dioxide 24 mmol/L (23-31); Chloride 107 mmol/L (98-107); Estimated GFR 28; Glucose 80 mg/dL (80-115); Sodium 141 mmol/L (136-145)
[2022-12-30] MEDS: Levothyroxine Sodium 100 MCG TAB PO SCH (05:45)
[2022-12-30] MEDS: Saccharomyces boulardii 250 MG CAP PO SCH (08:39)
[2022-12-30] MEDS: hydrALAZINE 25 MG TAB PO SCH ×3 (08:39→20:44)
[2022-12-30] MEDS: Gabapentin 100 MG CAP PO SCH ×2 (08:39→20:46)
[2022-12-30] MEDS: Furosemide 40 MG TAB PO SCH ×2 (08:41→14:11)
[2022-12-30] MEDS: Amlodipine 10 MG TAB PO SCH (08:41)
[2022-12-30] MEDS: Amiodarone 200 MG TAB PO SCH (08:42)
[2022-12-30] MEDS: Folic Acid 1 MG TAB PO SCH (08:44)
[2022-12-30] MEDS: Aspirin Chewable 81 MG TAB PO SCH (08:44)
[2022-12-30] MEDS: Lisinopril 20 MG TAB PO SCH (08:45)
[2022-12-30] MEDS: Lantus 1000 UNITS/10 ML VIAL SC SCH ×2 (08:49→20:48)
[2022-12-30] MEDS: Sertraline 100 MG TAB PO SCH (20:45)
[2022-12-30] MEDS: Rosuvastatin 10 MG TAB PO SCH (20:47)
[2022-12-31] MEDS: Levothyroxine Sodium 100 MCG TAB PO SCH (05:54)
[2022-12-31] MEDS: Folic Acid 1 MG TAB PO SCH (08:48)
[2022-12-31] MEDS: Calcitriol 0.25 MCG CAP PO SCH (08:48)
[2022-12-31] MEDS: Gabapentin 100 MG CAP PO SCH ×2 (08:48→21:06)
[2022-12-31] MEDS: Aspirin Chewable 81 MG TAB PO SCH (08:48)
[2022-12-31] MEDS: Furosemide 40 MG TAB PO SCH ×2 (08:48→14:55)
[2022-12-31] MEDS: hydrALAZINE 25 MG TAB PO SCH ×3 (08:48→21:06)
[2022-12-31] MEDS: Saccharomyces boulardii 250 MG CAP PO SCH (08:48)
[2022-12-31] MEDS: Lisinopril 20 MG TAB PO SCH (08:48)
[2022-12-31] MEDS: Amiodarone 200 MG TAB PO SCH (08:49)
[2022-12-31] MEDS: Amlodipine 10 MG TAB PO SCH (08:49)
[2022-12-31] MEDS: Lantus 1000 UNITS/10 ML VIAL SC SCH ×2 (08:53→21:07)
[2022-12-31] MEDS: HumaLOG 300 UNITS/3 ML VIAL SC PRN (16:29)
[2022-12-31] MEDS: Rosuvastatin 10 MG TAB PO SCH (21:06)
[2022-12-31] MEDS: Sertraline 100 MG TAB PO SCH (21:06)
[2023-01-01] MEDS: Levothyroxine Sodium 100 MCG TAB PO SCH (05:37)
[2023-01-01 06:08] LABS: #Basophils 0.1 thou/uL (0.0-0.2); #Eosinphils 0.3 thou/uL (0.0-0.7); #Lymphocytes 1.4 thou/uL (1.20-3.40); #Monocytes 0.5 thou/uL (0.11-0.59); %Eosinophils 4.9 % (0.0-10.0); %Lymphocytes 26.9 % (21.0-51.0); %Monocytes 10.1 % (0.0-10.0); %Neutrophils 56.2 % (42.0-75.0); Mean Corpuscular HGB CONC 31.3 g/dL (32.0-36.0); Mean Corpuscular Hemoglobin 29.2 pg (27.0-31.0); Mean Corpuscular Volume 93.3 fl (78.0-98.0); Mean Platelet Volume 7.2 fL (7.4-10.4); Platelet Count 172 10x3/uL (130-400); RBC Distribution Width 14.4 % (11.5-14.5); Red Blood Cell (RBC) Count 2.73 mill/uL (4.20-5.40); White Blood Cell (WBC) Count 5.4 10x3/uL (4.8-10.8)
[2023-01-01 06:24] LABS: Anion Gap 16 mmol/L (10-20); BUN (Urea Nitrogen) 90 mg/dL (9.8-20.1); Calc. Creatinine Clearance 32 mL/min (70-130); Calcium 9.5 mg/dL (7.8-10.44); Carbon Dioxide 22 mmol/L (23-31); Chloride 107 mmol/L (98-107); Estimated GFR 21; Glucose 99 mg/dL (80-115); Potassium 4.9 mmol/L (3.5-5.1); Sodium 140 mmol/L (136-145)
[2023-01-01] MEDS: Amiodarone 200 MG TAB PO SCH (08:28)
[2023-01-01] MEDS: Furosemide 40 MG TAB PO SCH ×2 (08:28→14:23)
[2023-01-01] MEDS: Gabapentin 100 MG CAP PO SCH ×2 (08:28→20:30)
[2023-01-01] MEDS: Folic Acid 1 MG TAB PO SCH (08:29)
[2023-01-01] MEDS: Lisinopril 20 MG TAB PO SCH (08:29)
[2023-01-01] MEDS: Amlodipine 10 MG TAB PO SCH (08:29)
[2023-01-01] MEDS: hydrALAZINE 25 MG TAB PO SCH ×3 (08:29→20:29)
[2023-01-01] MEDS: Aspirin Chewable 81 MG TAB PO SCH (08:29)
[2023-01-01] MEDS: Saccharomyces boulardii 250 MG CAP PO SCH (08:30)
[2023-01-01] MEDS: Lantus 1000 UNITS/10 ML VIAL SC SCH ×2 (08:32→20:27)
[2023-01-01] MEDS ORDERED: EPOETIN ALFA-EPBX 10,000 UNITS/ML VIAL SC SCH (15:00)
[2023-01-01] MEDS: Sertraline 100 MG TAB PO SCH (20:30)
[2023-01-01] MEDS: Rosuvastatin 10 MG TAB PO SCH (20:30)
[2023-01-02] MEDS: Levothyroxine Sodium 100 MCG TAB PO SCH (06:04)
[2023-01-02 06:05] LABS: #Basophils 0.1 thou/uL (0.0-0.2); #Eosinphils 0.3 thou/uL (0.0-0.7); #Lymphocytes 1.3 thou/uL (1.20-3.40); #Monocytes 0.7 thou/uL (0.11-0.59); #Neutrophils 3.1 thou/uL (1.40-6.50); %Basophils 2.3 % (0.0-1.0); %Eosinophils 5.9 % (0.0-10.0); %Lymphocytes 24.3 % (21.0-51.0); %Monocytes 12.2 % (0.0-10.0); %Neutrophils 55.3 % (42.0-75.0); Hemoglobin 8.6 g/dL (12.0-16.0); Mean Corpuscular HGB CONC 30.9 g/dL (32.0-36.0); Mean Corpuscular Hemoglobin 28.9 pg (27.0-31.0); Mean Corpuscular Volume 93.3 fl (78.0-98.0); Mean Platelet Volume 7.5 fL (7.4-10.4); Platelet Count 176 10x3/uL (130-400); RBC Distribution Width 14.6 % (11.5-14.5); Red Blood Cell (RBC) Count 2.98 mill/uL (4.20-5.40); White Blood Cell (WBC) Count 5.5 10x3/uL (4.8-10.8)
[2023-01-02 06:27] LABS: Anion Gap 16 mmol/L (10-20); BUN (Urea Nitrogen) 90 mg/dL (9.8-20.1); Calc. Creatinine Clearance 35 mL/min (70-130); Calcium 9.9 mg/dL (7.8-10.44); Carbon Dioxide 23 mmol/L (23-31); Chloride 107 mmol/L (98-107); Estimated GFR 24; Glucose 116 mg/dL (80-115); Sodium 141 mmol/L (136-145)
[2023-01-02] MEDS: hydrALAZINE 25 MG TAB PO SCH ×3 (08:32→20:57)
[2023-01-02] MEDS: Gabapentin 100 MG CAP PO SCH ×2 (08:33→20:58)
[2023-01-02] MEDS: Amiodarone 200 MG TAB PO SCH (08:33)
[2023-01-02] MEDS: Amlodipine 10 MG TAB PO SCH (08:34)
[2023-01-02] MEDS: Calcitriol 0.25 MCG CAP PO SCH (08:34)
[2023-01-02] MEDS: Furosemide 40 MG TAB PO SCH ×2 (08:34→14:09)
[2023-01-02] MEDS: Saccharomyces boulardii 250 MG CAP PO SCH (08:34)
[2023-01-02] MEDS: Lisinopril 20 MG TAB PO SCH (08:34)
[2023-01-02] MEDS: Folic Acid 1 MG TAB PO SCH (08:34)
[2023-01-02] MEDS: Aspirin Chewable 81 MG TAB PO SCH (08:34)
[2023-01-02] MEDS: Lantus 1000 UNITS/10 ML VIAL SC SCH ×2 (08:35→21:09)
[2023-01-02] MEDS: Rosuvastatin 10 MG TAB PO SCH (20:57)
[2023-01-02] MEDS: Sertraline 100 MG TAB PO SCH (20:58)
[2023-01-03] MEDS: Levothyroxine Sodium 100 MCG TAB PO SCH (05:22)
[2023-01-03 06:58] LABS: #Basophils 0.1 thou/uL (0.0-0.2); #Eosinphils 0.3 thou/uL (0.0-0.7); #Lymphocytes 1.3 thou/uL (1.20-3.40); #Monocytes 0.5 thou/uL (0.11-0.59); #Neutrophils 2.8 thou/uL (1.40-6.50); %Basophils 2.2 % (0.0-1.0); %Eosinophils 5.6 % (0.0-10.0); %Lymphocytes 25.8 % (21.0-51.0); %Monocytes 10.1 % (0.0-10.0); %Neutrophils 56.3 % (42.0-75.0); Hemoglobin 8.6 g/dL (12.0-16.0); Mean Corpuscular HGB CONC 31.3 g/dL (32.0-36.0); Mean Corpuscular Volume 92.5 fl (78.0-98.0); Mean Platelet Volume 7.3 fL (7.4-10.4); Platelet Count 164 10x3/uL (130-400); RBC Distribution Width 14.8 % (11.5-14.5); Red Blood Cell (RBC) Count 2.97 mill/uL (4.20-5.40); White Blood Cell (WBC) Count 4.9 10x3/uL (4.8-10.8)
[2023-01-03 07:12] LABS: Anion Gap 16 mmol/L (10-20); BUN (Urea Nitrogen) 90 mg/dL (9.8-20.1); Calc. Creatinine Clearance 35 mL/min (70-130); Carbon Dioxide 22 mmol/L (23-31); Chloride 107 mmol/L (98-107); Estimated GFR 24; Glucose 98 mg/dL (80-115); Potassium 4.7 mmol/L (3.5-5.1); Sodium 140 mmol/L (136-145)
[2023-01-03] MEDS: hydrALAZINE 25 MG TAB PO SCH ×3 (09:18→20:27)
[2023-01-03] MEDS: Amlodipine 10 MG TAB PO SCH (09:19)
[2023-01-03] MEDS: Gabapentin 100 MG CAP PO SCH ×2 (09:19→20:27)
[2023-01-03] MEDS: Lisinopril 20 MG TAB PO SCH (09:19)
[2023-01-03] MEDS: Saccharomyces boulardii 250 MG CAP PO SCH (09:20)
[2023-01-03] MEDS: Aspirin Chewable 81 MG TAB PO SCH (09:20)
[2023-01-03] MEDS: Folic Acid 1 MG TAB PO SCH (09:20)
[2023-01-03] MEDS: Lantus 1000 UNITS/10 ML VIAL SC SCH ×2 (09:20→20:28)
[2023-01-03] MEDS: Amiodarone 200 MG TAB PO SCH (09:20)
[2023-01-03] MEDS: Furosemide 40 MG TAB PO SCH ×2 (09:20→14:23)
[2023-01-03] MEDS: HumaLOG 300 UNITS/3 ML VIAL SC PRN ×2 (11:49→16:48)
[2023-01-03] MEDS: cloNIDine 0.1 MG TAB PO SCH (20:27)
[2023-01-03] MEDS: Rosuvastatin 10 MG TAB PO SCH (20:27)
[2023-01-03] MEDS: Sertraline 100 MG TAB PO SCH (20:27)
[2023-01-04] MEDS: Acetaminophen 325 MG TAB PO PRN (00:23)
[2023-01-04] MEDS: Levothyroxine Sodium 100 MCG TAB PO SCH (06:02)
[2023-01-04 06:28] VITALS: BMI 31.7
[2023-01-04 06:54] LABS: #Basophils 0.1 thou/uL (0.0-0.2); #Eosinphils 0.3 thou/uL (0.0-0.7); #Lymphocytes 1.6 thou/uL (1.20-3.40); #Monocytes 0.6 thou/uL (0.11-0.59); #Neutrophils 2.6 thou/uL (1.40-6.50); %Eosinophils 5.8 % (0.0-10.0); %Lymphocytes 30.8 % (21.0-51.0); %Monocytes 10.8 % (0.0-10.0); %Neutrophils 50.6 % (42.0-75.0); Hemoglobin 8.3 g/dL (12.0-16.0); Mean Corpuscular HGB CONC 31.1 g/dL (32.0-36.0); Mean Corpuscular Hemoglobin 28.9 pg (27.0-31.0); Mean Platelet Volume 7.5 fL (7.4-10.4); Platelet Count 152 10x3/uL (130-400); RBC Distribution Width 14.9 % (11.5-14.5); Red Blood Cell (RBC) Count 2.88 mill/uL (4.20-5.40); White Blood Cell (WBC) Count 5.1 10x3/uL (4.8-10.8)
[2023-01-04 07:03] LABS: Anion Gap 16 mmol/L (10-20); BUN (Urea Nitrogen) 95 mg/dL (9.8-20.1); Calc. Creatinine Clearance 31 mL/min (70-130); Calcium 9.7 mg/dL (7.8-10.44); Carbon Dioxide 23 mmol/L (23-31); Chloride 107 mmol/L (98-107); Estimated GFR 21; Glucose 78 mg/dL (80-115); Potassium 4.9 mmol/L (3.5-5.1); Sodium 141 mmol/L (136-145)
[2023-01-04] MEDS: cloNIDine 0.1 MG TAB PO SCH ×2 (09:33→20:58)
[2023-01-04] MEDS: hydrALAZINE 25 MG TAB PO SCH ×3 (09:34→20:58)
[2023-01-04] MEDS: Lisinopril 20 MG TAB PO SCH (09:41)
[2023-01-04] MEDS: Amlodipine 10 MG TAB PO SCH (09:42)
[2023-01-04] MEDS: Amiodarone 200 MG TAB PO SCH (09:42)
[2023-01-04] MEDS: Gabapentin 100 MG CAP PO SCH ×2 (09:43→20:59)
[2023-01-04] MEDS: Furosemide 40 MG TAB PO SCH (09:43)
[2023-01-04] MEDS: Aspirin Chewable 81 MG TAB PO SCH (09:43)
[2023-01-04] MEDS: Saccharomyces boulardii 250 MG CAP PO SCH (09:43)
[2023-01-04] MEDS: Folic Acid 1 MG TAB PO SCH (09:43)
[2023-01-04] MEDS: Lantus 1000 UNITS/10 ML VIAL SC SCH ×2 (09:44→20:57)
[2023-01-04] MEDS: Sertraline 100 MG TAB PO SCH (20:59)
[2023-01-04] MEDS: Rosuvastatin 10 MG TAB PO SCH (20:59)
[2023-01-05] MEDS: Levothyroxine Sodium 100 MCG TAB PO SCH (05:39)
[2023-01-05 06:26] LABS: #Basophils 0.1 thou/uL (0.0-0.2); #Eosinphils 0.3 thou/uL (0.0-0.7); #Lymphocytes 1.4 thou/uL (1.20-3.40); #Monocytes 0.4 thou/uL (0.11-0.59); #Neutrophils 2.5 thou/uL (1.40-6.50); %Basophils 1.8 % (0.0-1.0); %Lymphocytes 29.8 % (21.0-51.0); %Monocytes 9.1 % (0.0-10.0); %Neutrophils 52.3 % (42.0-75.0); Hemoglobin 8.7 g/dL (12.0-16.0); Mean Corpuscular HGB CONC 31.5 g/dL (32.0-36.0); Mean Corpuscular Hemoglobin 29.1 pg (27.0-31.0); Mean Corpuscular Volume 92.4 fl (78.0-98.0); Mean Platelet Volume 7.7 fL (7.4-10.4); Platelet Count 155 10x3/uL (130-400); RBC Distribution Width 14.3 % (11.5-14.5); Red Blood Cell (RBC) Count 3.01 mill/uL (4.20-5.40); White Blood Cell (WBC) Count 4.7 10x3/uL (4.8-10.8)
[2023-01-05 06:44] LABS: Anion Gap 18 mmol/L (10-20); BUN (Urea Nitrogen) 96 mg/dL (9.8-20.1); Calc. Creatinine Clearance 30 mL/min (70-130); Calcium 9.8 mg/dL (7.8-10.44); Carbon Dioxide 21 mmol/L (23-31); Chloride 105 mmol/L (98-107); Estimated GFR 20; Glucose 105 mg/dL (80-115); Sodium 139 mmol/L (136-145)
[2023-01-05] MEDS ORDERED: Furosemide 40 MG TAB PO SCH (07:30)
[2023-01-05] MEDS: cloNIDine 0.1 MG TAB PO SCH ×2 (07:58→21:12)
[2023-01-05] MEDS: Amiodarone 200 MG TAB PO SCH (07:59)
[2023-01-05] MEDS: Aspirin Chewable 81 MG TAB PO SCH (08:00)
[2023-01-05] MEDS: Saccharomyces boulardii 250 MG CAP PO SCH (08:00)
[2023-01-05] MEDS: Folic Acid 1 MG TAB PO SCH (08:00)
[2023-01-05] MEDS: Amlodipine 10 MG TAB PO SCH (08:01)
[2023-01-05] MEDS: Gabapentin 100 MG CAP PO SCH ×2 (08:01→21:11)
[2023-01-05] MEDS: Lisinopril 20 MG TAB PO SCH (08:01)
[2023-01-05] MEDS: Calcitriol 0.25 MCG CAP PO SCH (08:02)
[2023-01-05] MEDS: hydrALAZINE 25 MG TAB PO SCH ×3 (08:02→21:12)
[2023-01-05] MEDS: Lantus 1000 UNITS/10 ML VIAL SC SCH ×3 (08:03→21:19)
[2023-01-05] MEDS: Acetaminophen 325 MG TAB PO PRN (10:04)
[2023-01-05] MEDS ORDERED: Sodium Chloride 0.9% 1,000 ML IV SCH (17:00)
[2023-01-05] MEDS: Sertraline 100 MG TAB PO SCH (21:11)
[2023-01-05] MEDS: Rosuvastatin 10 MG TAB PO SCH (21:12)
[2023-01-06] MEDS: Levothyroxine Sodium 100 MCG TAB PO SCH (05:44)
[2023-01-06 06:55] LABS: Anion Gap 12 mmol/L (10-20); BUN (Urea Nitrogen) 94 mg/dL (9.8-20.1); Calc. Creatinine Clearance 35 mL/min (70-130); Calcium 9.1 mg/dL (7.8-10.44); Carbon Dioxide 23 mmol/L (23-31); Chloride 109 mmol/L (98-107); Estimated GFR 24; Glucose 93 mg/dL (80-115); Potassium 4.2 mmol/L (3.5-5.1); Sodium 140 mmol/L (136-145)
[2023-01-06 07:02] LABS: #Basophils 0.1 thou/uL (0.0-0.2); #Eosinphils 0.3 thou/uL (0.0-0.7); #Lymphocytes 1.1 thou/uL (1.20-3.40); #Monocytes 0.5 thou/uL (0.11-0.59); %Basophils 1.9 % (0.0-1.0); %Lymphocytes 22.2 % (21.0-51.0); %Neutrophils 59.9 % (42.0-75.0); Hemoglobin 8.1 g/dL (12.0-16.0); Mean Corpuscular HGB CONC 31.5 g/dL (32.0-36.0); Mean Corpuscular Hemoglobin 29.2 pg (27.0-31.0); Mean Corpuscular Volume 92.7 fl (78.0-98.0); Mean Platelet Volume 8.2 fL (7.4-10.4); Platelet Count 132 10x3/uL (130-400); RBC Distribution Width 14.5 % (11.5-14.5); Red Blood Cell (RBC) Count 2.76 mill/uL (4.20-5.40); White Blood Cell (WBC) Count 4.9 10x3/uL (4.8-10.8)
[2023-01-06] MEDS: Aspirin Chewable 81 MG TAB PO SCH (08:13)
[2023-01-06] MEDS: Gabapentin 100 MG CAP PO SCH ×2 (08:13→21:41)
[2023-01-06] MEDS: Saccharomyces boulardii 250 MG CAP PO SCH (08:13)
[2023-01-06] MEDS: Folic Acid 1 MG TAB PO SCH (08:13)
[2023-01-06] MEDS: hydrALAZINE 25 MG TAB PO SCH ×3 (08:13→21:41)
[2023-01-06] MEDS: cloNIDine 0.1 MG TAB PO SCH ×2 (08:13→21:40)
[2023-01-06] MEDS: Lantus 1000 UNITS/10 ML VIAL SC SCH ×2 (08:15→21:51)
[2023-01-06] MEDS: Amiodarone 200 MG TAB PO SCH (08:18)
[2023-01-06] MEDS: Lisinopril 20 MG TAB PO SCH (09:55)
[2023-01-06] MEDS: Amlodipine 10 MG TAB PO SCH (09:55)
[2023-01-06] MEDS ORDERED: Acetaminophen 325 MG TAB PO PRN (11:50)
[2023-01-06] MEDS: Rosuvastatin 10 MG TAB PO SCH (21:40)
[2023-01-06] MEDS: Sertraline 100 MG TAB PO SCH (21:40)
[2023-01-07] MEDS: Levothyroxine Sodium 100 MCG TAB PO SCH (06:10)
[2023-01-07 06:14] LABS: Anion Gap 13 mmol/L (10-20); BUN (Urea Nitrogen) 98 mg/dL (9.8-20.1); Calc. Creatinine Clearance 34 mL/min (70-130); Calcium 8.9 mg/dL (7.8-10.44); Carbon Dioxide 21 mmol/L (23-31); Chloride 110 mmol/L (98-107); Estimated GFR 23; Glucose 84 mg/dL (80-115); Potassium 4.6 mmol/L (3.5-5.1); Sodium 139 mmol/L (136-145)
[2023-01-07 06:36] LABS: #Basophils 0.1 thou/uL (0.0-0.2); #Eosinphils 0.3 thou/uL (0.0-0.7); #Monocytes 0.5 thou/uL (0.11-0.59); #Neutrophils 3.1 thou/uL (1.40-6.50); %Basophils 1.8 % (0.0-1.0); %Eosinophils 6.2 % (0.0-10.0); %Lymphocytes 20.6 % (21.0-51.0); %Monocytes 10.1 % (0.0-10.0); %Neutrophils 61.3 % (42.0-75.0); Mean Corpuscular HGB CONC 31.3 g/dL (32.0-36.0); Mean Corpuscular Volume 92.8 fl (78.0-98.0); Mean Platelet Volume 8.4 fL (7.4-10.4); Platelet Count 125 10x3/uL (130-400); Red Blood Cell (RBC) Count 2.74 mill/uL (4.20-5.40)
[2023-01-07] MEDS: Lisinopril 20 MG TAB PO SCH (08:19)
[2023-01-07] MEDS: Amlodipine 10 MG TAB PO SCH (08:19)
[2023-01-07] MEDS: Calcitriol 0.25 MCG CAP PO SCH (08:19)
[2023-01-07] MEDS: Saccharomyces boulardii 250 MG CAP PO SCH (08:19)
[2023-01-07] MEDS: cloNIDine 0.1 MG TAB PO SCH ×2 (08:20→21:03)
[2023-01-07] MEDS: Amiodarone 200 MG TAB PO SCH (08:20)
[2023-01-07] MEDS: hydrALAZINE 25 MG TAB PO SCH ×3 (08:21→22:12)
[2023-01-07] MEDS: Aspirin Chewable 81 MG TAB PO SCH (08:21)
[2023-01-07] MEDS: Gabapentin 100 MG CAP PO SCH ×2 (08:21→21:03)
[2023-01-07] MEDS: Folic Acid 1 MG TAB PO SCH (08:22)
[2023-01-07] MEDS: Lantus 1000 UNITS/10 ML VIAL SC SCH ×2 (08:22→21:06)
[2023-01-07] MEDS: HumaLOG 300 UNITS/3 ML VIAL SC PRN (17:18)
[2023-01-07] MEDS: Rosuvastatin 10 MG TAB PO SCH (21:02)
[2023-01-07] MEDS: Sertraline 100 MG TAB PO SCH (21:04)
[2023-01-08] MEDS: Levothyroxine Sodium 100 MCG TAB PO SCH (07:00)
[2023-01-08] MEDS: Lantus 1000 UNITS/10 ML VIAL SC SCH (08:08)
[2023-01-08] MEDS: Calcitriol 0.25 MCG CAP PO SCH (08:09)
[2023-01-08] MEDS: hydrALAZINE 25 MG TAB PO SCH (08:10)
[2023-01-08] MEDS: Lisinopril 20 MG TAB PO SCH (08:10)
[2023-01-08] MEDS: cloNIDine 0.1 MG TAB PO SCH (08:10)
[2023-01-08] MEDS: Aspirin Chewable 81 MG TAB PO SCH (08:11)
[2023-01-08] MEDS: Gabapentin 100 MG CAP PO SCH (08:11)
[2023-01-08] MEDS: Amiodarone 200 MG TAB PO SCH (08:12)
[2023-01-08] MEDS: Saccharomyces boulardii 250 MG CAP PO SCH (08:13)
[2023-01-08] MEDS: Amlodipine 10 MG TAB PO SCH (08:13)
[2023-01-08] MEDS: Folic Acid 1 MG TAB PO SCH (08:13)
[2023-01-08 12:16] VITALS: BP 143/67; TEMP 98.8
== END 2023-01-08 14:00 | disposition home health service (06) | DRG 948 ==
LOC: NAV ACUTE 15:03
PROVIDERS: ADMIT Family Medicine; ATTEND Family Medicine
DX: R53.81 Other malaise (principal); N18.4 Chronic kidney disease, stage 4 (severe); R53.1 Weakness; E11.22 Type 2 diabetes mellitus with diabetic chronic kidney disease; I12.9 Hypertensive chronic kidney disease with stage 1 through stage 4 chronic kidney disease, or unspecified chronic kidney disease; E78.5 Hyperlipidemia, unspecified; I25.10 Atherosclerotic heart disease of native coronary artery without angina pectoris; I48.0 Paroxysmal atrial fibrillation; D50.9 Iron deficiency anemia, unspecified; K21.9 Gastro-esophageal reflux disease without esophagitis; E89.0 Postprocedural hypothyroidism; R19.7 Diarrhea, unspecified; F41.9 Anxiety disorder, unspecified; F32.A Depression, unspecified; M19.90 Unspecified osteoarthritis, unspecified site; G43.909 Migraine, unspecified, not intractable, without status migrainosus; G47.30 Sleep apnea, unspecified; Z95.5 Presence of coronary angioplasty implant and graft; Z95.1 Presence of aortocoronary bypass graft; Z90.49 Acquired absence of other specified parts of digestive tract; Z90.710 Acquired absence of both cervix and uterus; Z87.440 Personal history of urinary (tract) infections; Z87.01 Personal history of pneumonia (recurrent); Z86.73 Personal history of transient ischemic attack (TIA), and cerebral infarction without residual deficits; Z98.84 Bariatric surgery status; Z83.3 Family history of diabetes mellitus; Z88.8 Allergy status to other drugs, medicaments and biological substances; Z88.2 Allergy status to sulfonamides; Z88.1 Allergy status to other antibiotic agents; Z79.82 Long term (current) use of aspirin; Z79.4 Long term (current) use of insulin; Z79.890 Hormone replacement therapy; Z79.899 Other long term (current) drug therapy
CPT/HCPCS: 36415; 36416; 80048; 80053; 83540; 83550; 85025; 87324; 87449; J1815; J7050; Q5106

== ENCOUNTER 2023-01-26 12:04 | Outpatient (CLI) | payer MEDICARE ==
[2023-01-26 12:49] LABS: Anion Gap 17 mmol/L (10-20); BUN (Urea Nitrogen) 46 mg/dL (9.8-20.1); Calc. Creatinine Clearance 0 mL/min (70-130); Calcium 8.8 mg/dL (7.8-10.44); Carbon Dioxide 18 mmol/L (23-31); Chloride 105 mmol/L (98-107); Estimated GFR 27; Glucose 118 mg/dL (80-115); Magnesium 1.7 mg/dL (1.6-2.6); Potassium 3.7 mmol/L (3.5-5.1); Sodium 136 mmol/L (136-145)
[2023-01-26 13:25] LABS: Follow-up Chemistry Comp? YES; Follow-up Result - Chemistry REPORT FAXED
== END 2023-01-26 12:05 | disposition home or self-care (01) ==
LOC: NAV LABSP 12:04
PROVIDERS: ATTEND Specialist
DX: I50.32 Chronic diastolic (congestive) heart failure (principal)
CPT/HCPCS: 80048; 83735

== ENCOUNTER 2023-04-16 10:10 | Outpatient (CLI) | payer MEDICARE ==
[2023-04-16 10:41] LABS: ALT (SGPT) 17 U/L (8-55); AST (SGOT) 23 U/L (5-34); Albumin 3.6 g/dL (3.4-4.8); Alkaline Phosphatase 80 U/L (40-110); Anion Gap 17 mmol/L (10-20); BUN (Urea Nitrogen) 48 mg/dL (9.8-20.1); Bilirubin, Direct 0.1 mg/dL (0.1-0.3); Bilirubin, Total 0.2 mg/dL (0.2-1.2); Calc. Creatinine Clearance 0 mL/min (70-130); Carbon Dioxide 22 mmol/L (23-31); Chloride 107 mmol/L (98-107); Cholesterol 175 mg/dl (< 200 Desired); Estimated GFR 34; Glucose 126 mg/dL (80-115); HDL Cholesterol 58 mg/dL (>60 Neg Risk); LDL Cholesterol, Calculated 100 mg/dL; Potassium 3.5 mmol/L (3.5-5.1); Protein, Total 6.6 g/dL (5.8-8.1); Sodium 142 mmol/L (136-145); Triglycerides 87 mg/dL (Less than 150)
[2023-04-16 17:45] LABS: Hemoglobin A1c 7.5 % (4.0-6.0)
[2023-04-16 18:52] LABS: Free T4 (Free Thyroxine) 0.85 ng/dL (0.70-1.48)
[2023-04-16 18:53] LABS: Vitamin D, 25 Hydroxy 17.8 ng/ml (> 30.0)
[2023-04-17 04:49] LABS: Follow-up Chemistry Comp? YES; Follow-up Hematology Comp? YES; Follow-up Result - Chemistry REPORT FAXED; Follow-up Result - Hematology REPORT FAXED
== END 2023-04-16 10:11 | disposition home or self-care (01) ==
LOC: NAV LABSP 10:10
PROVIDERS: ATTEND Internal Medicine Nephrology
DX: E78.2 Mixed hyperlipidemia (principal); E03.9 Hypothyroidism, unspecified; D50.9 Iron deficiency anemia, unspecified; I13.0 Hypertensive heart and chronic kidney disease with heart failure and stage 1 through stage 4 chronic kidney disease, or unspecified chronic kidney disease; I50.9 Heart failure, unspecified; E11.22 Type 2 diabetes mellitus with diabetic chronic kidney disease; N18.9 Chronic kidney disease, unspecified; D63.1 Anemia in chronic kidney disease; N25.81 Secondary hyperparathyroidism of renal origin
CPT/HCPCS: 80048; 80061; 80076; 82306; 83036; 83970; 84439; 84443

== ENCOUNTER 2023-04-20 11:22 | Outpatient (CLI) | payer MEDICARE ==
[2023-04-20 11:51] LABS: Anion Gap 15 mmol/L (10-20); BUN (Urea Nitrogen) 37 mg/dL (9.8-20.1); Calc. Creatinine Clearance 0 mL/min (70-130); Carbon Dioxide 23 mmol/L (23-31); Chloride 103 mmol/L (98-107); Estimated GFR 35; Glucose 205 mg/dL (80-115); Potassium 4.3 mmol/L (3.5-5.1); Sodium 137 mmol/L (136-145)
[2023-04-20 11:54] LABS: Follow-up Chemistry Comp? YES; Follow-up Result - Chemistry REPORT FAXED
== END 2023-04-20 11:23 | disposition home or self-care (01) ==
LOC: NAV LABSP 11:22
PROVIDERS: ATTEND Internal Medicine Nephrology
DX: N18.4 Chronic kidney disease, stage 4 (severe) (principal)
CPT/HCPCS: 80048

== ENCOUNTER 2023-06-05 10:06 | Outpatient (CLI) | payer MEDICARE | END 2023-06-05 10:07 | disposition home or self-care (01) | LOC: NAV RAD 10:06 | PROVIDERS: ATTEND Student in an Organized Health Care Education/Training Program | DX: J40 Bronchitis, not specified as acute or chronic (principal) | CPT/HCPCS: 71046 ==

== ENCOUNTER 2023-06-12 10:23 | Emergency (ER) | payer MEDICARE ==
[2023-06-12 11:41] LABS: #Basophils 0.1 thou/uL (0.0-0.2); #Eosinphils 0.2 thou/uL (0.0-0.7); #Lymphocytes 2.1 thou/uL (1.20-3.40); #Monocytes 0.5 thou/uL (0.11-0.59); #Neutrophils 6.8 thou/uL (1.40-6.50); %Basophils 0.8 % (0.0-1.0); %Eosinophils 1.9 % (0.0-10.0); %Lymphocytes 21.7 % (21.0-51.0); %Monocytes 5.5 % (0.0-10.0); %Neutrophils 70.1 % (42.0-75.0); Hematocrit 37.4 % (36.0-47.0); Mean Corpuscular HGB CONC 32.2 g/dL (32.0-36.0); Mean Corpuscular Volume 93.3 fl (78.0-98.0); Mean Platelet Volume 8.8 fL (7.4-10.4); Platelet Count 179 10x3/uL (130-400); RBC Distribution Width 13.5 % (11.5-14.5); Red Blood Cell (RBC) Count 4.01 mill/uL (4.20-5.40); White Blood Cell (WBC) Count 9.8 10x3/uL (4.8-10.8)
[2023-06-12] MEDS ORDERED: Sodium Chloride 0.9% 500 ML ONE (11:45)
[2023-06-12 11:55] LABS: ALT (SGPT) 16 U/L (8-55); AST (SGOT) 22 U/L (5-34); Albumin 3.5 g/dL (3.4-4.8); Alkaline Phosphatase 88 U/L (40-110); Anion Gap 14 mmol/L (10-20); BUN (Urea Nitrogen) 47 mg/dL (9.8-20.1); Bilirubin, Total 0.3 mg/dL (0.2-1.2); Calc. Creatinine Clearance 0 mL/min (70-130); Calcium 9.6 mg/dL (7.8-10.44); Carbon Dioxide 24 mmol/L (23-31); Chloride 105 mmol/L (98-107); Estimated GFR 32; Potassium 5.2 mmol/L (3.5-5.1); Protein, Total 7.5 g/dL (5.8-8.1); Sodium 138 mmol/L (136-145)
[2023-06-12 12:01] LABS: Glucose 403 mg/dL (80-115)
== END 2023-06-12 13:30 | disposition home or self-care (01) ==
LOC: NAV ERS 10:23
DX: R05.2 Subacute cough (principal); E11.65 Type 2 diabetes mellitus with hyperglycemia; I10 Essential (primary) hypertension; E11.9 Type 2 diabetes mellitus without complications
CPT/HCPCS: 71046; 80053; 85025; 96360; J7030

== ENCOUNTER 2023-06-22 10:36 | Inpatient (IN) | payer MEDICARE ==
[2023-06-22] MEDS ORDERED: Senokot S 8.6-50 MG TAB PO PRN (16:53)
[2023-06-22] MEDS ORDERED: Ondansetron ODT 4 MG TAB SL PRN (16:53)
[2023-06-22] MEDS ORDERED: Acetaminophen 325 MG TAB PO PRN (16:53)
[2023-06-22] MEDS ORDERED: Bisacodyl 5 MG TAB PO PRN (16:53)
[2023-06-22] MEDS ORDERED: Meclizine HCl 25 MG TAB PO PRN (16:56)
[2023-06-22] MEDS ORDERED: Dextrose 50% Abboject 50 ML SYRINGE SLOW IVP PRN (17:07)
[2023-06-22] MEDS ORDERED: Glucagon 1 MG/ML KIT IM PRN (17:07)
[2023-06-22] MEDS: HumaLOG 300 UNITS/3 ML VIAL SC PRN ×2 (18:05→20:55)
[2023-06-22] MEDS: Lantus 1000 UNITS/10 ML VIAL SC SCH (20:56)
[2023-06-22] MEDS: Rosuvastatin 10 MG TAB PO SCH (20:57)
[2023-06-22] MEDS: CO Q-10 CAPSULE 50 MG PO SCH (20:57)
[2023-06-22] MEDS: Benzonatate 100 MG CAP PO SCH (20:58)
[2023-06-22] MEDS: Primidone 50 MG TAB PO SCH ×2 (20:58→20:59)
[2023-06-22] MEDS: Sertraline 100 MG TAB PO SCH (20:58)
[2023-06-22] MEDS: Gabapentin 100 MG CAP PO SCH (21:00)
[2023-06-23] MEDS: Levothyroxine Sodium 100 MCG TAB PO SCH (05:30)
[2023-06-23 05:56] LABS: #Lymphocytes 1.8 thou/uL (1.20-3.40); #Neutrophils 3.8 thou/uL (1.40-6.50); %Basophils 1.7 % (0.0-1.0); %Eosinophils 4.9 % (0.0-10.0); %Lymphocytes 27.1 % (21.0-51.0); %Monocytes 10.2 % (0.0-10.0); %Neutrophils 56.1 % (42.0-75.0); Hematocrit 30.9 % (36.0-47.0); Manual Diff?? NO; Mean Corpuscular HGB CONC 32.4 g/dL (32.0-36.0); Mean Corpuscular Hemoglobin 30.3 pg (27.0-31.0); Mean Corpuscular Volume 93.7 fl (78.0-98.0); Mean Platelet Volume 9.9 fL (7.4-10.4); Platelet Count 115 10x3/uL (130-400); RBC Distribution Width 13.9 % (11.5-14.5); White Blood Cell (WBC) Count 6.7 10x3/uL (4.8-10.8)
[2023-06-23 05:57] LABS: #Basophils 0.1 thou/uL (0.0-0.2); #Eosinphils 0.3 thou/uL (0.0-0.7); #Monocytes 0.7 thou/uL (0.11-0.59)
[2023-06-23 06:09] LABS: ALT (SGPT) 9 U/L (8-55); AST (SGOT) 15 U/L (5-34); Albumin 3.1 g/dL (3.4-4.8); Alkaline Phosphatase 64 U/L (40-110); Anion Gap 11 mmol/L (10-20); BUN (Urea Nitrogen) 40 mg/dL (9.8-20.1); Bilirubin, Total 0.4 mg/dL (0.2-1.2); Calc. Creatinine Clearance 48 mL/min (70-130); Calcium 8.8 mg/dL (7.8-10.44); Carbon Dioxide 20 mmol/L (23-31); Chloride 112 mmol/L (98-107); Estimated GFR 34; Globulin 2.9 g/dL (2.4-3.5); Glucose 117 mg/dL (80-115); Potassium 5.2 mmol/L (3.5-5.1); Sodium 138 mmol/L (136-145)
[2023-06-23] MEDS: Benzonatate 100 MG CAP PO SCH ×3 (08:22→20:36)
[2023-06-23] MEDS: Folic Acid 1 MG TAB PO SCH (08:22)
[2023-06-23] MEDS: CO Q-10 CAPSULE 50 MG PO SCH ×2 (08:22→20:35)
[2023-06-23] MEDS: Torsemide 20 MG TAB PO SCH (08:22)
[2023-06-23] MEDS: Isosorbide Mononitrate 30 MG ER.TAB PO SCH (08:22)
[2023-06-23] MEDS: Gabapentin 100 MG CAP PO SCH ×3 (08:22→20:38)
[2023-06-23] MEDS ORDERED: Amlodipine 5 MG TAB PO SCH (09:00)
[2023-06-23] MEDS ORDERED: Lantus 1000 UNITS/10 ML VIAL SC SCH (09:00)
[2023-06-23] MEDS ORDERED: Sodium Polystyrene Sulfonate 15 GM (60 mL) BOT PO SCH (09:15)
[2023-06-23] MEDS: cloNIDine 0.1 MG TAB PO PRN (11:06)
[2023-06-23] MEDS: HumaLOG 300 UNITS/3 ML VIAL SC PRN ×2 (11:38→20:32)
[2023-06-23] MEDS: Lantus 1000 UNITS/10 ML VIAL SC SCH (20:32)
[2023-06-23] MEDS: Rosuvastatin 10 MG TAB PO SCH (20:35)
[2023-06-23] MEDS: Sertraline 100 MG TAB PO SCH (20:36)
[2023-06-23] MEDS: Primidone 50 MG TAB PO SCH (20:36)
[2023-06-23] MEDS: Amlodipine 5 MG TAB PO SCH (20:38)
[2023-06-24] MEDS: Levothyroxine Sodium 100 MCG TAB PO SCH (05:11)
[2023-06-24 06:04] LABS: Anion Gap 12 mmol/L (10-20); BUN (Urea Nitrogen) 40 mg/dL (9.8-20.1); Calc. Creatinine Clearance 45 mL/min (70-130); Calcium 8.7 mg/dL (7.8-10.44); Carbon Dioxide 21 mmol/L (23-31); Chloride 112 mmol/L (98-107); Estimated GFR 32; Glucose 79 mg/dL (80-115); Potassium 4.5 mmol/L (3.5-5.1); Sodium 140 mmol/L (136-145)
[2023-06-24] MEDS: Lantus 1000 UNITS/10 ML VIAL SC SCH ×2 (08:01→19:35)
[2023-06-24] MEDS: Torsemide 20 MG TAB PO SCH (08:03)
[2023-06-24] MEDS: Benzonatate 100 MG CAP PO SCH ×3 (08:03→19:37)
[2023-06-24] MEDS: Gabapentin 100 MG CAP PO SCH ×3 (08:04→19:37)
[2023-06-24] MEDS: Isosorbide Mononitrate 30 MG ER.TAB PO SCH (08:05)
[2023-06-24] MEDS: CO Q-10 CAPSULE 50 MG PO SCH ×2 (08:05→19:37)
[2023-06-24] MEDS: Calcitriol 0.25 MCG CAP PO SCH (08:05)
[2023-06-24] MEDS: Amlodipine 5 MG TAB PO SCH ×2 (08:06→19:38)
[2023-06-24] MEDS: Folic Acid 1 MG TAB PO SCH (08:06)
[2023-06-24] MEDS: Rosuvastatin 10 MG TAB PO SCH (19:36)
[2023-06-24] MEDS: Sertraline 100 MG TAB PO SCH (19:36)
[2023-06-24] MEDS: Primidone 50 MG TAB PO SCH (19:37)
[2023-06-25] MEDS: Levothyroxine Sodium 100 MCG TAB PO SCH (06:27)
[2023-06-25] MEDS: Amlodipine 5 MG TAB PO SCH ×2 (08:09→20:10)
[2023-06-25] MEDS: Isosorbide Mononitrate 30 MG ER.TAB PO SCH (08:09)
[2023-06-25] MEDS: CO Q-10 CAPSULE 50 MG PO SCH ×2 (08:09→20:11)
[2023-06-25] MEDS: Torsemide 20 MG TAB PO SCH (08:10)
[2023-06-25] MEDS: Gabapentin 100 MG CAP PO SCH ×3 (08:10→20:11)
[2023-06-25] MEDS: Benzonatate 100 MG CAP PO SCH ×3 (08:10→20:11)
[2023-06-25] MEDS: Folic Acid 1 MG TAB PO SCH (08:10)
[2023-06-25] MEDS: Lantus 1000 UNITS/10 ML VIAL SC SCH ×2 (08:30→20:09)
[2023-06-25] MEDS: cloNIDine 0.1 MG TAB PO PRN (09:21)
[2023-06-25] MEDS: HumaLOG 300 UNITS/3 ML VIAL SC PRN ×2 (11:27→16:01)
[2023-06-25] MEDS: Rosuvastatin 10 MG TAB PO SCH (20:10)
[2023-06-25] MEDS: Sertraline 100 MG TAB PO SCH (20:11)
[2023-06-25] MEDS: Primidone 50 MG TAB PO SCH (20:11)
[2023-06-25] MEDS: hydrALAZINE 25 MG TAB PO SCH (20:11)
[2023-06-26] MEDS: Levothyroxine Sodium 100 MCG TAB PO SCH (05:21)
[2023-06-26 06:01] LABS: #Basophils 0.1 thou/uL (0.0-0.2); #Eosinphils 0.3 thou/uL (0.0-0.7); #Lymphocytes 1.7 thou/uL (1.20-3.40); #Monocytes 0.6 thou/uL (0.11-0.59); #Neutrophils 2.9 thou/uL (1.40-6.50); %Basophils 1.8 % (0.0-1.0); %Lymphocytes 30.9 % (21.0-51.0); %Monocytes 10.2 % (0.0-10.0); %Neutrophils 52.1 % (42.0-75.0); Hematocrit 27.7 % (36.0-47.0); Hemoglobin 9.2 g/dL (12.0-16.0); Mean Corpuscular HGB CONC 33.3 g/dL (32.0-36.0); Mean Corpuscular Hemoglobin 30.9 pg (27.0-31.0); Mean Corpuscular Volume 92.7 fl (78.0-98.0); Platelet Count 113 10x3/uL (130-400); RBC Distribution Width 14.1 % (11.5-14.5); Red Blood Cell (RBC) Count 2.99 mill/uL (4.20-5.40); White Blood Cell (WBC) Count 5.6 10x3/uL (4.8-10.8)
[2023-06-26 06:15] LABS: Anion Gap 12 mmol/L (10-20); BUN (Urea Nitrogen) 45 mg/dL (9.8-20.1); Calc. Creatinine Clearance 44 mL/min (70-130); Calcium 8.6 mg/dL (7.8-10.44); Carbon Dioxide 23 mmol/L (23-31); Chloride 107 mmol/L (98-107); Estimated GFR 31; Glucose 114 mg/dL (80-115); Sodium 138 mmol/L (136-145)
[2023-06-26] MEDS: Isosorbide Mononitrate 30 MG ER.TAB PO SCH (08:20)
[2023-06-26] MEDS: Amlodipine 5 MG TAB PO SCH ×2 (08:20→20:32)
[2023-06-26] MEDS: Calcitriol 0.25 MCG CAP PO SCH (08:21)
[2023-06-26] MEDS: hydrALAZINE 25 MG TAB PO SCH ×2 (08:21→20:33)
[2023-06-26] MEDS: Gabapentin 100 MG CAP PO SCH ×3 (08:21→20:31)
[2023-06-26] MEDS: Benzonatate 100 MG CAP PO SCH ×3 (08:21→20:32)
[2023-06-26] MEDS: Torsemide 20 MG TAB PO SCH (08:22)
[2023-06-26] MEDS: Folic Acid 1 MG TAB PO SCH (08:22)
[2023-06-26] MEDS: CO Q-10 CAPSULE 50 MG PO SCH ×2 (08:23→20:34)
[2023-06-26] MEDS: Lantus 1000 UNITS/10 ML VIAL SC SCH ×2 (10:12→20:35)
[2023-06-26] MEDS: HumaLOG 300 UNITS/3 ML VIAL SC PRN ×2 (12:08→20:35)
[2023-06-26] MEDS: Primidone 50 MG TAB PO SCH (20:33)
[2023-06-26] MEDS: Rosuvastatin 10 MG TAB PO SCH (20:34)
[2023-06-26] MEDS: Sertraline 100 MG TAB PO SCH (20:34)
[2023-06-27] MEDS: Levothyroxine Sodium 100 MCG TAB PO SCH (05:33)
[2023-06-27] MEDS: Isosorbide Mononitrate 30 MG ER.TAB PO SCH (09:41)
[2023-06-27] MEDS: Folic Acid 1 MG TAB PO SCH (09:41)
[2023-06-27] MEDS: CO Q-10 CAPSULE 50 MG PO SCH ×2 (09:41→20:59)
[2023-06-27] MEDS: Torsemide 20 MG TAB PO SCH (09:41)
[2023-06-27] MEDS: Benzonatate 100 MG CAP PO SCH ×3 (09:42→21:02)
[2023-06-27] MEDS: Gabapentin 100 MG CAP PO SCH ×3 (09:42→21:01)
[2023-06-27] MEDS: hydrALAZINE 25 MG TAB PO SCH ×2 (09:42→21:02)
[2023-06-27] MEDS: Amlodipine 5 MG TAB PO SCH ×2 (09:42→21:00)
[2023-06-27] MEDS: Lantus 1000 UNITS/10 ML VIAL SC SCH ×2 (09:43→21:00)
[2023-06-27] MEDS: HumaLOG 300 UNITS/3 ML VIAL SC PRN (16:23)
[2023-06-27] MEDS: Rosuvastatin 10 MG TAB PO SCH (21:02)
[2023-06-27] MEDS: Sertraline 100 MG TAB PO SCH (21:02)
[2023-06-27] MEDS: Primidone 50 MG TAB PO SCH (21:02)
[2023-06-28] MEDS: Levothyroxine Sodium 100 MCG TAB PO SCH (06:22)
[2023-06-28] MEDS: Amlodipine 5 MG TAB PO SCH ×2 (08:52→21:20)
[2023-06-28] MEDS: Isosorbide Mononitrate 30 MG ER.TAB PO SCH (08:52)
[2023-06-28] MEDS: CO Q-10 CAPSULE 50 MG PO SCH ×2 (08:52→21:17)
[2023-06-28] MEDS: Folic Acid 1 MG TAB PO SCH (08:53)
[2023-06-28] MEDS: Torsemide 20 MG TAB PO SCH (08:53)
[2023-06-28] MEDS: Gabapentin 100 MG CAP PO SCH ×3 (08:53→21:18)
[2023-06-28] MEDS: Benzonatate 100 MG CAP PO SCH ×3 (08:54→21:20)
[2023-06-28] MEDS: hydrALAZINE 25 MG TAB PO SCH ×3 (09:00→21:20)
[2023-06-28] MEDS: Lantus 1000 UNITS/10 ML VIAL SC SCH ×2 (09:01→21:15)
[2023-06-28] MEDS: Rosuvastatin 10 MG TAB PO SCH (21:16)
[2023-06-28] MEDS: Primidone 50 MG TAB PO SCH (21:17)
[2023-06-28] MEDS: Sertraline 100 MG TAB PO SCH (21:19)
[2023-06-29] MEDS: Levothyroxine Sodium 100 MCG TAB PO SCH (06:06)
[2023-06-29] MEDS: Benzonatate 100 MG CAP PO SCH ×3 (08:23→21:08)
[2023-06-29] MEDS: CO Q-10 CAPSULE 50 MG PO SCH ×2 (08:23→21:04)
[2023-06-29] MEDS: Gabapentin 100 MG CAP PO SCH ×3 (08:23→21:06)
[2023-06-29] MEDS: hydrALAZINE 25 MG TAB PO SCH ×3 (08:23→21:07)
[2023-06-29] MEDS: Isosorbide Mononitrate 30 MG ER.TAB PO SCH (08:24)
[2023-06-29] MEDS: Calcitriol 0.25 MCG CAP PO SCH (08:24)
[2023-06-29] MEDS: Torsemide 20 MG TAB PO SCH (08:24)
[2023-06-29] MEDS: Folic Acid 1 MG TAB PO SCH (08:24)
[2023-06-29] MEDS: Amlodipine 5 MG TAB PO SCH ×2 (08:24→21:06)
[2023-06-29] MEDS: Lantus 1000 UNITS/10 ML VIAL SC SCH ×2 (08:25→21:08)
[2023-06-29] MEDS: cloNIDine 0.1 MG TAB PO PRN (09:39)
[2023-06-29] MEDS: HumaLOG 300 UNITS/3 ML VIAL SC PRN (16:43)
[2023-06-29] MEDS: Sertraline 100 MG TAB PO SCH (21:04)
[2023-06-29] MEDS: Primidone 50 MG TAB PO SCH (21:04)
[2023-06-29] MEDS: Rosuvastatin 10 MG TAB PO SCH (21:07)
[2023-06-30] MEDS: Levothyroxine Sodium 100 MCG TAB PO SCH (05:35)
[2023-06-30 05:56] LABS: #Basophils 0.1 thou/uL (0.0-0.2); #Eosinphils 0.3 thou/uL (0.0-0.7); #Lymphocytes 1.7 thou/uL (1.20-3.40); #Monocytes 0.6 thou/uL (0.11-0.59); #Neutrophils 2.9 thou/uL (1.40-6.50); %Basophils 1.7 % (0.0-1.0); %Eosinophils 5.4 % (0.0-10.0); %Lymphocytes 30.5 % (21.0-51.0); %Monocytes 11.4 % (0.0-10.0); %Neutrophils 51.1 % (42.0-75.0); Hemoglobin 9.5 g/dL (12.0-16.0); Mean Corpuscular HGB CONC 33.9 g/dL (32.0-36.0); Mean Corpuscular Volume 91.5 fl (78.0-98.0); Mean Platelet Volume 8.5 fL (7.4-10.4); Platelet Count 125 10x3/uL (130-400); RBC Distribution Width 13.8 % (11.5-14.5); Red Blood Cell (RBC) Count 3.07 mill/uL (4.20-5.40); White Blood Cell (WBC) Count 5.6 10x3/uL (4.8-10.8)
[2023-06-30 06:12] LABS: Anion Gap 11 mmol/L (10-20); BUN (Urea Nitrogen) 55 mg/dL (9.8-20.1); Calc. Creatinine Clearance 42 mL/min (70-130); Calcium 8.8 mg/dL (7.8-10.44); Carbon Dioxide 26 mmol/L (23-31); Chloride 106 mmol/L (98-107); Estimated GFR 31; Glucose 74 mg/dL (80-115); Potassium 3.9 mmol/L (3.5-5.1); Sodium 139 mmol/L (136-145)
[2023-06-30] MEDS: Torsemide 20 MG TAB PO SCH (08:55)
[2023-06-30] MEDS: Folic Acid 1 MG TAB PO SCH (08:56)
[2023-06-30] MEDS: Benzonatate 100 MG CAP PO SCH ×3 (08:56→20:43)
[2023-06-30] MEDS: Amlodipine 5 MG TAB PO SCH ×2 (08:56→20:46)
[2023-06-30] MEDS: hydrALAZINE 25 MG TAB PO SCH ×3 (08:56→20:46)
[2023-06-30] MEDS: CO Q-10 CAPSULE 50 MG PO SCH ×2 (08:56→20:46)
[2023-06-30] MEDS: Isosorbide Mononitrate 30 MG ER.TAB PO SCH (08:56)
[2023-06-30] MEDS: Gabapentin 100 MG CAP PO SCH ×3 (08:57→20:45)
[2023-06-30] MEDS: Lantus 1000 UNITS/10 ML VIAL SC SCH ×2 (09:02→20:47)
[2023-06-30] MEDS: Rosuvastatin 10 MG TAB PO SCH (20:43)
[2023-06-30] MEDS: Sertraline 100 MG TAB PO SCH (20:43)
[2023-06-30] MEDS: Primidone 50 MG TAB PO SCH (20:44)
[2023-07-01] MEDS: Levothyroxine Sodium 100 MCG TAB PO SCH (06:18)
[2023-07-01] MEDS: CO Q-10 CAPSULE 50 MG PO SCH ×2 (08:18→21:19)
[2023-07-01] MEDS: Benzonatate 100 MG CAP PO SCH ×3 (08:18→21:20)
[2023-07-01] MEDS: Isosorbide Mononitrate 30 MG ER.TAB PO SCH (08:18)
[2023-07-01] MEDS: hydrALAZINE 25 MG TAB PO SCH ×3 (08:19→21:19)
[2023-07-01] MEDS: Folic Acid 1 MG TAB PO SCH (08:19)
[2023-07-01] MEDS: Torsemide 20 MG TAB PO SCH (08:19)
[2023-07-01] MEDS: Amlodipine 5 MG TAB PO SCH ×2 (08:19→21:20)
[2023-07-01] MEDS: Gabapentin 100 MG CAP PO SCH ×3 (08:19→21:21)
[2023-07-01] MEDS: Calcitriol 0.25 MCG CAP PO SCH (08:19)
[2023-07-01] MEDS: Lantus 1000 UNITS/10 ML VIAL SC SCH ×2 (08:20→21:17)
[2023-07-01] MEDS: Rosuvastatin 10 MG TAB PO SCH (21:19)
[2023-07-01] MEDS: Primidone 50 MG TAB PO SCH (21:19)
[2023-07-01] MEDS: Sertraline 100 MG TAB PO SCH (21:21)
[2023-07-02] MEDS: Levothyroxine Sodium 100 MCG TAB PO SCH (05:50)
[2023-07-02] MEDS: Torsemide 20 MG TAB PO SCH (08:02)
[2023-07-02] MEDS: hydrALAZINE 25 MG TAB PO SCH ×3 (08:02→20:39)
[2023-07-02] MEDS: CO Q-10 CAPSULE 50 MG PO SCH ×2 (08:02→20:38)
[2023-07-02] MEDS: Amlodipine 5 MG TAB PO SCH ×2 (08:03→20:40)
[2023-07-02] MEDS: Isosorbide Mononitrate 30 MG ER.TAB PO SCH (08:03)
[2023-07-02] MEDS: Folic Acid 1 MG TAB PO SCH (08:03)
[2023-07-02] MEDS: Benzonatate 100 MG CAP PO SCH ×3 (08:03→20:39)
[2023-07-02] MEDS: Gabapentin 100 MG CAP PO SCH ×3 (08:03→20:41)
[2023-07-02] MEDS: Lantus 1000 UNITS/10 ML VIAL SC SCH ×2 (08:05→20:44)
[2023-07-02] MEDS: HumaLOG 300 UNITS/3 ML VIAL SC PRN (12:17)
[2023-07-02] MEDS: Rosuvastatin 10 MG TAB PO SCH (20:39)
[2023-07-02] MEDS: Sertraline 100 MG TAB PO SCH (20:39)
[2023-07-02] MEDS: Primidone 50 MG TAB PO SCH (20:40)
[2023-07-03 04:52] VITALS: BMI 31.8
[2023-07-03] MEDS: Levothyroxine Sodium 100 MCG TAB PO SCH (05:22)
[2023-07-03 06:17] LABS: Anion Gap 11 mmol/L (10-20); BUN (Urea Nitrogen) 67 mg/dL (9.8-20.1); Calc. Creatinine Clearance 40 mL/min (70-130); Calcium 9.1 mg/dL (7.8-10.44); Carbon Dioxide 27 mmol/L (23-31); Chloride 105 mmol/L (98-107); Estimated GFR 29; Glucose 118 mg/dL (80-115); Potassium 3.9 mmol/L (3.5-5.1); Sodium 139 mmol/L (136-145)
[2023-07-03 07:32] VITALS: TEMP 97.7
[2023-07-03] MEDS: Torsemide 20 MG TAB PO SCH (08:31)
[2023-07-03] MEDS: Amlodipine 5 MG TAB PO SCH (08:32)
[2023-07-03] MEDS: Gabapentin 100 MG CAP PO SCH ×2 (08:32→14:31)
[2023-07-03] MEDS: Benzonatate 100 MG CAP PO SCH ×2 (08:32→14:31)
[2023-07-03] MEDS: CO Q-10 CAPSULE 50 MG PO SCH (08:32)
[2023-07-03] MEDS: Isosorbide Mononitrate 30 MG ER.TAB PO SCH (08:32)
[2023-07-03] MEDS: hydrALAZINE 25 MG TAB PO SCH ×2 (08:32→14:31)
[2023-07-03] MEDS: Calcitriol 0.25 MCG CAP PO SCH (08:32)
[2023-07-03] MEDS: Folic Acid 1 MG TAB PO SCH (08:33)
[2023-07-03] MEDS: Lantus 1000 UNITS/10 ML VIAL SC SCH (08:33)
[2023-07-03] MEDS: HumaLOG 300 UNITS/3 ML VIAL SC PRN (11:44)
[2023-07-03 14:35] VITALS: BP 164/73
== END 2023-07-03 15:45 | disposition home health service (06) | DRG 948 ==
LOC: NAV ACUTE 14:48
PROVIDERS: ADMIT Family Medicine; ATTEND Family Medicine
DX: R53.81 Other malaise (principal); I50.32 Chronic diastolic (congestive) heart failure; I13.0 Hypertensive heart and chronic kidney disease with heart failure and stage 1 through stage 4 chronic kidney disease, or unspecified chronic kidney disease; N17.9 Acute kidney failure, unspecified; I25.10 Atherosclerotic heart disease of native coronary artery without angina pectoris; E11.22 Type 2 diabetes mellitus with diabetic chronic kidney disease; E78.5 Hyperlipidemia, unspecified; E03.9 Hypothyroidism, unspecified; K21.9 Gastro-esophageal reflux disease without esophagitis; N18.32 Chronic kidney disease, stage 3b; R53.1 Weakness; F41.9 Anxiety disorder, unspecified; F32.A Depression, unspecified; G47.30 Sleep apnea, unspecified; Z98.890 Other specified postprocedural states; Z90.710 Acquired absence of both cervix and uterus; Z90.49 Acquired absence of other specified parts of digestive tract; Z86.73 Personal history of transient ischemic attack (TIA), and cerebral infarction without residual deficits; Z95.1 Presence of aortocoronary bypass graft; Z83.3 Family history of diabetes mellitus; Z88.8 Allergy status to other drugs, medicaments and biological substances; Z79.899 Other long term (current) drug therapy; Z79.4 Long term (current) use of insulin; Z79.890 Hormone replacement therapy
CPT/HCPCS: 36415; 36416; 80048; 80053; 84443; 85025; J1815; Q0162

== ENCOUNTER 2023-08-05 10:42 | Outpatient (CLI) | payer MEDICARE | END 2023-08-05 10:43 | disposition home or self-care (01) | LOC: NAV RAD 10:42 | PROVIDERS: ATTEND Student in an Organized Health Care Education/Training Program | DX: M54.50 Low back pain, unspecified (principal); M47.816 Spondylosis without myelopathy or radiculopathy, lumbar region | CPT/HCPCS: 72100 ==

== ENCOUNTER 2023-08-24 16:37 | Outpatient (CLI) | payer MEDICARE | END 2023-08-24 16:38 | disposition home or self-care (01) | LOC: NAV RAD 16:37 | PROVIDERS: ATTEND Student in an Organized Health Care Education/Training Program | DX: M79.642 Pain in left hand (principal); S62.617A Displaced fracture of proximal phalanx of left little finger, initial encounter for closed fracture; S62.303A Unspecified fracture of third metacarpal bone, left hand, initial encounter for closed fracture ==

== ENCOUNTER 2023-09-24 12:32 | Emergency (ER) | payer MEDICARE | END 2023-09-24 13:45 | disposition home or self-care (01) | LOC: NAV ERS 12:32 | DX: S62.313D Displaced fracture of base of third metacarpal bone, left hand, subsequent encounter for fracture with routine healing (principal); S00.31XA Abrasion of nose, initial encounter; S60.222A Contusion of left hand, initial encounter; I10 Essential (primary) hypertension; W17.89XD Other fall from one level to another, subsequent encounter ==

== ENCOUNTER 2024-02-19 10:04 | Inpatient (IN) | payer MEDICARE ==
[2024-03-01] MEDS ORDERED: Acetaminophen 325 MG TAB PO PRN ×2 (12:48→20:35)
[2024-03-01] MEDS ORDERED: Polyethylene Glycol 3350 17 GM Packet PO PRN (12:48)
[2024-03-01] MEDS ORDERED: Glucagon 1 MG/ML KIT IM PRN (12:52)
[2024-03-01] MEDS ORDERED: Dextrose 50% Abboject 50 ML SYRINGE SLOW IVP PRN (12:52)
[2024-03-01] MEDS ORDERED: Insulin Lispro 100 UNIT/ML 10 ML VIAL SC PRN ×2 (12:52)
[2024-03-01] MEDS ORDERED: ALPRAZolam 0.25 MG TAB PO PRN (12:53)
[2024-03-01] MEDS ORDERED: Melatonin 3 MG TAB PO PRN (12:53)
[2024-03-01 18:25] VITALS: BMI 37.3
[2024-03-01] MEDS: Carvedilol 6.25 MG TAB PO SCH (21:02)
[2024-03-01] MEDS: Rosuvastatin 20 MG TAB PO SCH (21:04)
[2024-03-01] MEDS: hydrALAZINE 25 MG TAB PO SCH (21:04)
[2024-03-01] MEDS: Pantoprazole DR 40 MG TAB PO SCH (21:05)
[2024-03-01] MEDS: Primidone 50 MG TAB PO SCH (21:05)
[2024-03-01] MEDS: Sodium Bicarbonate Tab 325 MG TAB PO SCH (21:05)
[2024-03-01] MEDS: CO Q-10 CAPSULE 50 MG PO SCH (21:06)
[2024-03-01] MEDS: Amlodipine 5 MG TAB PO SCH (21:06)
[2024-03-01] MEDS: Ranolazine ER 500 MG TAB PO SCH (21:06)
[2024-03-01] MEDS: Gabapentin 100 MG CAP PO SCH (21:08)
[2024-03-01] MEDS: Heparin 5,000 UNITS/ML VIAL SC SCH (21:10)
[2024-03-01] MEDS: Lantus 1000 UNITS/10 ML VIAL SC SCH (21:10)
[2024-03-01] MEDS: GUAIFENESIN SF SOLN 200 MG/10 ML UDCUP PO PRN (21:36)
[2024-03-01] MEDS: Benzonatate 100 MG CAP PO SCH (21:37)
[2024-03-01] MEDS: Albuterol 200 PUFF (6.7GM INHALER) INH SCH (23:28)
[2024-03-02] MEDS: Levothyroxine Sodium 75 MCG TAB PO SCH (05:46)
[2024-03-02 06:02] LABS: ALT (SGPT) 12 U/L (8-55); AST (SGOT) 18 U/L (5-34); Albumin 3.4 g/dL (3.4-4.8); Alkaline Phosphatase 60 U/L (40-110); Anion Gap 17 mmol/L (10-20); BUN (Urea Nitrogen) 92 mg/dL (9.8-20.1); Bilirubin, Total 0.8 mg/dL (0.2-1.2); Calc. Creatinine Clearance 24 mL/min (70-130); Calcium 9.5 mg/dL (7.8-10.44); Carbon Dioxide 22 mmol/L (23-31); Chloride 100 mmol/L (98-107); Estimated GFR 13; Globulin 2.9 g/dL (2.4-3.5); Glucose 85 mg/dL (83-110); Potassium 4.2 mmol/L (3.5-5.1); Protein, Total 6.3 g/dL (5.8-8.1); Sodium 135 mmol/L (136-145)
[2024-03-02 06:11] LABS: #Basophils 0.1 thou/uL (0.0-0.2); #Eosinphils 0.5 thou/uL (0.0-0.7); #Lymphocytes 0.5 thou/uL (1.20-3.40); #Neutrophils 8.4 thou/uL (1.40-6.50); %Basophils 0.8 % (0.0-1.0); %Eosinophils 4.5 % (0.0-10.0); %Lymphocytes 4.5 % (21.0-51.0); %Monocytes 9.6 % (0.0-10.0); %Neutrophils 80.6 % (42.0-75.0); Hematocrit 24.9 % (36.0-47.0); Hemoglobin 7.8 g/dL (12.0-16.0); Mean Corpuscular HGB CONC 31.2 g/dL (32.0-36.0); Mean Corpuscular Hemoglobin 27.7 pg (27.0-31.0); Mean Corpuscular Volume 88.8 fl (78.0-98.0); Mean Platelet Volume 6.6 fL (7.4-10.4); Platelet Count 178 10x3/uL (130-400); RBC Distribution Width 15.3 % (11.5-14.5); White Blood Cell (WBC) Count 10.4 10x3/uL (4.8-10.8)
[2024-03-02] MEDS: Ondansetron ODT 4 MG TAB PO PRN (07:30)
[2024-03-02] MEDS: Carvedilol 6.25 MG TAB PO SCH ×2 (07:36→17:03)
[2024-03-02] MEDS: Ipratropium/Albuterol 3 ML NEB NEB SCH ×3 (07:49→09:18)
[2024-03-02] MEDS: Benzonatate 100 MG CAP PO SCH (08:00)
[2024-03-02] MEDS: Escitalopram Oxalate 10 mg Tablet PO SCH (08:00)
[2024-03-02] MEDS: Folic Acid 1 MG TAB PO SCH (08:01)
[2024-03-02] MEDS: Isosorbide Mononitrate 30 MG ER.TAB PO SCH (08:01)
[2024-03-02] MEDS: Aspirin 81 mg Enteric Coated Tablet PO SCH (08:02)
[2024-03-02] MEDS: Lantus 1000 UNITS/10 ML VIAL SC SCH (08:10)
[2024-03-02] MEDS: Bumetanide 1 MG/4 ML VIAL IVP SCH ×2 (09:07→14:22)
[2024-03-02] MEDS: Furosemide 20 MG (2 mL) VIAL SLOW IVP SCH (09:13)
[2024-03-02] MEDS: Calcitriol 0.25 MCG CAP PO SCH (09:30)
[2024-03-02] MEDS ORDERED: hydrALAZINE 25 MG TAB PO SCH ×2 (10:59→11:15)
[2024-03-02] MEDS ORDERED: Isosorbide Mononitrate 30 MG ER.TAB PO SCH ×2 (10:59→11:15)
[2024-03-02] MEDS ORDERED: Amlodipine 5 MG TAB PO SCH ×3 (10:59→21:00)
[2024-03-02] MEDS ORDERED: Carvedilol 6.25 MG TAB PO SCH ×2 (10:59→11:15)
[2024-03-02 11:57] VITALS: BMI 37.6
[2024-03-02 13:33] LABS: Anion Gap 17 mmol/L (10-20); BUN (Urea Nitrogen) 94 mg/dL (9.8-20.1); Calc. Creatinine Clearance 24 mL/min (70-130); Calcium 9.4 mg/dL (7.8-10.44); Carbon Dioxide 22 mmol/L (23-31); Chloride 101 mmol/L (98-107); Estimated GFR 13; Glucose 142 mg/dL (83-110); Potassium 4.2 mmol/L (3.5-5.1); Sodium 136 mmol/L (136-145)
[2024-03-02 14:31] VITALS: TEMP 98.6
[2024-03-02] MEDS: hydrALAZINE 25 MG TAB PO SCH (14:31)
[2024-03-02 16:59] VITALS: BP 129/75
[2024-03-03] MEDS ORDERED: Isosorbide Mononitrate 30 MG ER.TAB PO SCH (09:00)
[2024-03-06] MEDS ORDERED: EPOETIN ALFA-EPBX (ESRD) 10,000 UNITS/ML VIAL SC SCH (12:00)
== END 2024-03-02 18:45 | disposition short-term general hospital (02) | DRG 189 ==
LOC: NAV ACUTE 03-01 17:52
PROVIDERS: ADMIT Family Medicine; ATTEND Family Medicine
DX: J96.01 Acute respiratory failure with hypoxia (principal); N18.4 Chronic kidney disease, stage 4 (severe); I50.32 Chronic diastolic (congestive) heart failure; I13.0 Hypertensive heart and chronic kidney disease with heart failure and stage 1 through stage 4 chronic kidney disease, or unspecified chronic kidney disease; R53.1 Weakness; E11.22 Type 2 diabetes mellitus with diabetic chronic kidney disease; D63.1 Anemia in chronic kidney disease; K21.9 Gastro-esophageal reflux disease without esophagitis; I25.10 Atherosclerotic heart disease of native coronary artery without angina pectoris; F41.9 Anxiety disorder, unspecified; F32.A Depression, unspecified; E78.5 Hyperlipidemia, unspecified; Z90.710 Acquired absence of both cervix and uterus; Z90.49 Acquired absence of other specified parts of digestive tract; Z98.890 Other specified postprocedural states; M19.90 Unspecified osteoarthritis, unspecified site; E03.9 Hypothyroidism, unspecified; Z86.73 Personal history of transient ischemic attack (TIA), and cerebral infarction without residual deficits; Z79.899 Other long term (current) drug therapy; Z79.4 Long term (current) use of insulin; Z79.01 Long term (current) use of anticoagulants
CPT/HCPCS: 36416; 71045; 80053; 85025; 94640; 36415-59; J1644; J1815; J1940; J3490; J7620; Q0162

== ENCOUNTER 2024-03-10 09:05 | Inpatient (IN) | payer MEDICARE ==
[2024-03-10] MEDS ORDERED: Senokot S 8.6-50 MG TAB PO PRN (12:32)
[2024-03-10] MEDS ORDERED: Dextrose 50% Abboject 50 ML SYRINGE SLOW IVP PRN (12:32)
[2024-03-10] MEDS ORDERED: Glucagon 1 MG/ML KIT IM PRN (12:32)
[2024-03-10] MEDS ORDERED: Acetaminophen 325 MG TAB PO PRN (12:32)
[2024-03-10] MEDS ORDERED: Insulin Lispro 100 UNIT/ML 10 ML VIAL SC PRN ×2 (15:06)
[2024-03-10] MEDS: Gabapentin 100 MG CAP PO SCH (15:45)
[2024-03-10] MEDS: hydrALAZINE 25 MG TAB PO SCH (15:47)
[2024-03-10] MEDS: Heparin 5,000 UNITS/ML VIAL SC SCH (15:48)
[2024-03-10] MEDS: Benzonatate 100 MG CAP PO PRN (16:40)
[2024-03-10] MEDS: Amoxicillin/Potassium Clav 500 MG TAB PO SCH (16:40)
[2024-03-10] MEDS: Carvedilol 6.25 MG TAB PO SCH (16:40)
[2024-03-10] MEDS: Ondansetron ODT 4 MG TAB PO PRN (18:41)
[2024-03-10] MEDS: Primidone 50 MG TAB PO SCH (20:43)
[2024-03-10] MEDS: Amlodipine 5 MG TAB PO SCH (20:44)
[2024-03-10] MEDS: Ranolazine ER 500 MG TAB PO SCH (20:45)
[2024-03-10] MEDS: CO Q-10 CAPSULE 50 MG PO SCH (20:45)
[2024-03-10] MEDS: Pantoprazole DR 40 MG TAB PO SCH (20:45)
[2024-03-10] MEDS: Rosuvastatin 10 MG TAB PO SCH (20:45)
[2024-03-10] MEDS: Ipratropium/Albuterol 3 ML NEB NEB SCH (21:06)
[2024-03-11] MEDS: Levothyroxine Sodium 75 MCG TAB PO SCH (05:34)
[2024-03-11 05:51] LABS: #Basophils 0.1 thou/uL (0.0-0.2); #Eosinphils 0.7 thou/uL (0.0-0.7); #Lymphocytes 1.4 thou/uL (1.20-3.40); #Monocytes 0.6 thou/uL (0.11-0.59); #Neutrophils 4.6 thou/uL (1.40-6.50); %Lymphocytes 19.1 % (21.0-51.0); %Monocytes 8.5 % (0.0-10.0); %Neutrophils 62.5 % (42.0-75.0); Hematocrit 29.7 % (36.0-47.0); Hemoglobin 9.2 g/dL (12.0-16.0); Mean Corpuscular HGB CONC 31.1 g/dL (32.0-36.0); Mean Corpuscular Hemoglobin 27.3 pg (27.0-31.0); Mean Corpuscular Volume 87.9 fl (78.0-98.0); Mean Platelet Volume 6.9 fL (7.4-10.4); Platelet Count 177 10x3/uL (130-400); RBC Distribution Width 15.2 % (11.5-14.5); Red Blood Cell (RBC) Count 3.38 mill/uL (4.20-5.40); White Blood Cell (WBC) Count 7.4 10x3/uL (4.8-10.8)
[2024-03-11 06:07] LABS: ALT (SGPT) 8 U/L (8-55); AST (SGOT) 14 U/L (5-34); Alkaline Phosphatase 61 U/L (40-110); Anion Gap 12 mmol/L (10-20); BUN (Urea Nitrogen) 24 mg/dL (9.8-20.1); Bilirubin, Total 0.6 mg/dL (0.2-1.2); Calc. Creatinine Clearance 52 mL/min (70-130); Calcium 9.5 mg/dL (7.8-10.44); Carbon Dioxide 29 mmol/L (23-31); Chloride 101 mmol/L (98-107); Estimated GFR 34; Globulin 3.3 g/dL (2.4-3.5); Glucose 85 mg/dL (83-110); Potassium 4.6 mmol/L (3.5-5.1); Protein, Total 6.3 g/dL (5.8-8.1); Sodium 137 mmol/L (136-145)
[2024-03-11] MEDS: Calcitriol 0.25 MCG CAP PO SCH (08:09)
[2024-03-11] MEDS: Aspirin 81 mg Enteric Coated Tablet PO SCH (08:09)
[2024-03-11] MEDS: Lantus 1000 UNITS/10 ML VIAL SC SCH (08:12)
[2024-03-11] MEDS: Escitalopram Oxalate 10 mg Tablet PO SCH (09:42)
[2024-03-11] MEDS: Folic Acid 1 MG TAB PO SCH (09:42)
[2024-03-11] MEDS: Isosorbide Mononitrate 30 MG ER.TAB PO SCH (09:42)
[2024-03-11] MEDS: Polyethylene Glycol 3350 17 GM Packet PO SCH (09:43)
[2024-03-11] MEDS: Guaifenesin DM 100-10/5 ML UDCUP PO PRN (10:57)
[2024-03-11] MEDS: Ipratropium/Albuterol 3 ML NEB NEB SCH (12:00)
[2024-03-11 15:53] VITALS: BMI 35.4
[2024-03-11 20:06] VITALS: BP 129/70; TEMP 98.4
[2024-03-12 03:43] VITALS: BMI 35.6
[2024-03-12] MEDS ORDERED: EPOETIN ALFA-EPBX 10,000 UNITS/ML VIAL IVP SCH (12:00)
== END 2024-03-12 06:45 | disposition short-term general hospital (02) | DRG 193 ==
LOC: NAV ACUTE 14:28
PROVIDERS: ADMIT Student in an Organized Health Care Education/Training Program; ATTEND Student in an Organized Health Care Education/Training Program
PROC: 5A09357 Assistance with Respiratory Ventilation, Less than 24 Consecutive Hours, Continuous Positive Airway Pressure (ICD-10-PCS; principal; 2024-03-10)
DX: J18.9 Pneumonia, unspecified organism (principal); J96.21 Acute and chronic respiratory failure with hypoxia; N18.6 End stage renal disease; I13.2 Hypertensive heart and chronic kidney disease with heart failure and with stage 5 chronic kidney disease, or end stage renal disease; I50.32 Chronic diastolic (congestive) heart failure; R53.81 Other malaise; E11.9 Type 2 diabetes mellitus without complications; E03.9 Hypothyroidism, unspecified; M19.90 Unspecified osteoarthritis, unspecified site; I25.10 Atherosclerotic heart disease of native coronary artery without angina pectoris; E78.5 Hyperlipidemia, unspecified; K21.9 Gastro-esophageal reflux disease without esophagitis; F41.9 Anxiety disorder, unspecified; F32.A Depression, unspecified; Z99.2 Dependence on renal dialysis; Z95.818 Presence of other cardiac implants and grafts; R13.10 Dysphagia, unspecified; D63.1 Anemia in chronic kidney disease; G47.33 Obstructive sleep apnea (adult) (pediatric); Z86.73 Personal history of transient ischemic attack (TIA), and cerebral infarction without residual deficits
CPT/HCPCS: 36415; 36416; 71045; 80053; 85025; 94640; J1644; J1815; J7620; Q0162

== ENCOUNTER 2024-03-12 06:40 | Emergency (ER) | payer MEDICARE ==
[2024-03-12] MEDS ORDERED: Cefepime 2 GM VIAL ONE (07:18)
[2024-03-12] MEDS ORDERED: Sodium Chloride 0.9% 100 ML ONE (07:18)
[2024-03-12 07:32] LABS: Anion Gap 17 mmol/L (10-20); BUN (Urea Nitrogen) 34 mg/dL (9.8-20.1); Calc. Creatinine Clearance 0 mL/min (70-130); Calcium 9.8 mg/dL (7.8-10.44); Carbon Dioxide 24 mmol/L (23-31); Chloride 98 mmol/L (98-107); Estimated GFR 23; Glucose 99 mg/dL (83-110); Potassium 4.7 mmol/L (3.5-5.1); Sodium 134 mmol/L (136-145)
[2024-03-12 07:36] LABS: Troponin I 0.023 ng/mL (< 0.028)
[2024-03-12 08:13] LABS: Hematocrit 30.2 % (36.0-47.0); Hemoglobin 9.5 g/dL (12.0-16.0); Mean Corpuscular HGB CONC 31.6 g/dL (32.0-36.0); Mean Corpuscular Volume 88.9 fl (78.0-98.0); Platelet Count 196 10x3/uL (130-400); RBC Distribution Width 15.4 % (11.5-14.5); Red Blood Cell (RBC) Count 3.39 mill/uL (4.20-5.40); White Blood Cell (WBC) Count 8.4 10x3/uL (4.8-10.8)
[2024-03-12 08:14] LABS: #Basophils 0.1 thou/uL (0.0-0.2); #Eosinphils 0.9 thou/uL (0.0-0.7); #Monocytes 0.7 thou/uL (0.11-0.59); #Neutrophils 5.7 thou/uL (1.40-6.50); %Basophils 1.6 % (0.0-1.0); %Eosinophils 10.1 % (0.0-10.0); %Monocytes 8.5 % (0.0-10.0); %Neutrophils 67.8 % (42.0-75.0); Mean Platelet Volume 7.5 fL (7.4-10.4)
[2024-03-12] MEDS ORDERED: diphenhydrAMINE 50 MG/ML VIAL ONE (08:15)
[2024-03-12] MEDS ORDERED: LevoFLOXacin 750 mg/D5W 150 ml Premix Bag ONE (08:15)
== END 2024-03-12 08:46 | disposition short-term general hospital (02) ==
LOC: NAV ERS 06:40
DX: R09.02 Hypoxemia (principal); N18.9 Chronic kidney disease, unspecified; I25.10 Atherosclerotic heart disease of native coronary artery without angina pectoris; I50.9 Heart failure, unspecified; E87.70 Fluid overload, unspecified; I13.2 Hypertensive heart and chronic kidney disease with heart failure and with stage 5 chronic kidney disease, or end stage renal disease; N18.6 End stage renal disease; E11.22 Type 2 diabetes mellitus with diabetic chronic kidney disease; Z99.2 Dependence on renal dialysis
CPT/HCPCS: 80048; 83880; 84145; 84484; 85025; 87040; 93005; 96365; 96375; J0692; J1200; J1956

== ENCOUNTER 2024-03-19 08:03 | Inpatient (IN) | payer MEDICARE ==
[2024-03-19] MEDS ORDERED: Acetaminophen 325 MG TAB PO PRN (08:19)
[2024-03-19] MEDS ORDERED: Senokot S 8.6-50 MG TAB PO PRN (08:19)
[2024-03-19] MEDS ORDERED: Ondansetron ODT 4 MG TAB PO PRN (08:19)
[2024-03-19] MEDS ORDERED: Melatonin 3 MG TAB PO PRN (08:24)
[2024-03-19] MEDS ORDERED: Guaifenesin DM 100-10/5 ML UDCUP PO PRN (08:24)
[2024-03-19] MEDS ORDERED: Dextrose 50% Abboject 50 ML SYRINGE SLOW IVP PRN (08:30)
[2024-03-19] MEDS ORDERED: Glucagon 1 MG/ML KIT IM PRN (08:30)
[2024-03-19] MEDS ORDERED: Insulin Lispro 100 UNIT/ML 10 ML VIAL SC PRN (13:51)
[2024-03-19] MEDS: Ipratropium/Albuterol 3 ML NEB NEB SCH (15:11)
[2024-03-19] MEDS: hydrALAZINE 25 MG TAB PO SCH (16:01)
[2024-03-19] MEDS: Gabapentin 100 MG CAP PO SCH (16:01)
[2024-03-19] MEDS: Heparin 5,000 UNITS/ML VIAL SC SCH (16:01)
[2024-03-19] MEDS: Carvedilol 6.25 MG TAB PO SCH (16:05)
[2024-03-19] MEDS: CO Q-10 CAPSULE 50 MG PO SCH (20:22)
[2024-03-19] MEDS: Amlodipine 5 MG TAB PO SCH (20:23)
[2024-03-19] MEDS: Primidone 50 MG TAB PO SCH (20:24)
[2024-03-19] MEDS: Pantoprazole DR 40 MG TAB PO SCH (20:24)
[2024-03-19] MEDS: Ranolazine ER 500 MG TAB PO SCH (20:24)
[2024-03-19] MEDS: Rosuvastatin 20 MG TAB PO SCH (20:24)
[2024-03-20 05:16] LABS: #Basophils 0.1 thou/uL (0.0-0.2); #Lymphocytes 1.4 thou/uL (1.20-3.40); #Monocytes 0.5 thou/uL (0.11-0.59); #Neutrophils 3.3 thou/uL (1.40-6.50); %Basophils 1.8 % (0.0-1.0); %Eosinophils 16.1 % (0.0-10.0); %Lymphocytes 22.5 % (21.0-51.0); %Monocytes 7.3 % (0.0-10.0); %Neutrophils 52.2 % (42.0-75.0); Hematocrit 31.1 % (36.0-47.0); Hemoglobin 9.7 g/dL (12.0-16.0); Mean Corpuscular HGB CONC 31.3 g/dL (32.0-36.0); Mean Corpuscular Hemoglobin 29.1 pg (27.0-31.0); Mean Platelet Volume 7.8 fL (7.4-10.4); Platelet Count 200 10x3/uL (130-400); RBC Distribution Width 16.5 % (11.5-14.5); Red Blood Cell (RBC) Count 3.35 mill/uL (4.20-5.40); White Blood Cell (WBC) Count 6.4 10x3/uL (4.8-10.8)
[2024-03-20 05:31] LABS: ALT (SGPT) 10 U/L (8-55); AST (SGOT) 14 U/L (5-34); Albumin 3.4 g/dL (3.4-4.8); Alkaline Phosphatase 65 U/L (40-110); Anion Gap 15 mmol/L (10-20); BUN (Urea Nitrogen) 39 mg/dL (9.8-20.1); Bilirubin, Total 0.4 mg/dL (0.2-1.2); Calc. Creatinine Clearance 33 mL/min (70-130); Carbon Dioxide 25 mmol/L (23-31); Chloride 98 mmol/L (98-107); Estimated GFR 22; Globulin 3.3 g/dL (2.4-3.5); Glucose 130 mg/dL (83-110); Potassium 4.2 mmol/L (3.5-5.1); Protein, Total 6.7 g/dL (5.8-8.1); Sodium 134 mmol/L (136-145)
[2024-03-20] MEDS: Levothyroxine Sodium 75 MCG TAB PO SCH (05:32)
[2024-03-20] MEDS: Polyethylene Glycol 3350 17 GM Packet PO SCH (08:14)
[2024-03-20] MEDS: Folic Acid 1 MG TAB PO SCH (08:15)
[2024-03-20] MEDS: Escitalopram Oxalate 10 mg Tablet PO SCH (08:16)
[2024-03-20] MEDS: Aspirin 81 mg Enteric Coated Tablet PO SCH (08:16)
[2024-03-20] MEDS: Isosorbide Mononitrate 60 MG ER.TAB PO SCH (08:17)
[2024-03-20] MEDS: Lantus 1000 UNITS/10 ML VIAL SC SCH (08:26)
[2024-03-20] MEDS: Insulin Lispro 100 UNIT/ML 10 ML VIAL SC PRN (11:31)
[2024-03-21] MEDS: Calcitriol 0.25 MCG CAP PO SCH (13:24)
[2024-03-21] MEDS: Torsemide 20 MG TAB PO SCH (13:25)
[2024-03-21] MEDS ORDERED: Ipratropium/Albuterol 3 ML NEB NEB PRN (14:11)
[2024-03-22] MEDS: Torsemide 20 MG TAB PO SCH (08:11)
[2024-03-23] MEDS: hydrOXYzine 10 MG TAB PO PRN (21:21)
[2024-03-24] MEDS: CO Q-10 CAPSULE 100 MG PO SCH (20:53)
[2024-03-25] MEDS ORDERED: Isosorbide Mononitrate 60 MG ER.TAB PO SCH (13:00)
[2024-03-25] MEDS: Isosorbide Mononitrate 30 MG ER.TAB PO SCH (13:11)
[2024-03-25] MEDS: Folic Acid 1 MG TAB PO SCH (13:12)
[2024-03-25] MEDS: Escitalopram Oxalate 10 mg Tablet PO SCH (13:12)
[2024-03-25] MEDS: Calcitriol 0.25 MCG CAP PO SCH (13:12)
[2024-03-25] MEDS: Aspirin 81 mg Enteric Coated Tablet PO SCH (13:13)
[2024-03-25] MEDS: Amlodipine 5 MG TAB PO SCH (13:13)
[2024-03-25] MEDS: CO Q-10 CAPSULE 100 MG PO SCH (13:19)
[2024-03-25] MEDS: Pantoprazole DR 40 MG TAB PO SCH (13:19)
[2024-03-25] MEDS: Ranolazine ER 500 MG TAB PO SCH (13:23)
[2024-03-26 06:10] LABS: #Basophils 0.2 thou/uL (0.0-0.2); #Eosinophils 0.7 thou/uL (0.0-0.7); #Lymphocytes 1.4 thou/uL (1.20-3.40); #Monocytes 0.6 thou/uL (0.11-0.59); #Neutrophils 3.4 thou/uL (1.40-6.50); %Basophils 2.7 % (0.0-1.0); %Eosinophils 11.4 % (0.0-10.0); %Lymphocytes 21.9 % (21.0-51.0); %Monocytes 10.2 % (0.0-10.0); %Neutrophils 53.9 % (42.0-75.0); Hematocrit 30.9 % (36.0-47.0); Hemoglobin 9.9 g/dL (12.0-16.0); Mean Corpuscular HGB CONC 32.2 g/dL (32.0-36.0); Mean Corpuscular Hemoglobin 29.8 pg (27.0-31.0); Mean Corpuscular Volume 92.5 fl (78.0-98.0); Platelet Count 186 10x3/uL (130-400); RBC Distribution Width 16.6 % (11.5-14.5); Red Blood Cell (RBC) Count 3.34 mill/uL (4.20-5.40); White Blood Cell (WBC) Count 6.3 10x3/uL (4.8-10.8)
[2024-03-26 06:22] LABS: BUN (Urea Nitrogen) 29 mg/dL (9.8-20.1); Calc. Creatinine Clearance 36 mL/min (70-130); Calcium 9.8 mg/dL (7.8-10.44); Carbon Dioxide 27 mmol/L (23-31); Estimated GFR 26
[2024-03-26 06:23] LABS: Critical Call Chemistry NUR.CKJ@0623; Glucose 53 mg/dL (83-110)
[2024-03-26 06:47] LABS: Anion Gap 15 mmol/L (10-20); Chloride 99 mmol/L (98-107); Potassium 3.6 mmol/L (3.5-5.1); Sodium 137 mmol/L (136-145)
[2024-03-26] MEDS: Amlodipine 5 MG TAB PO SCH (08:35)
[2024-03-26] MEDS: Isosorbide Mononitrate 30 MG ER.TAB PO SCH (08:35)
[2024-03-26] MEDS: Carvedilol 6.25 MG TAB PO SCH (08:37)
[2024-03-26] MEDS: hydrALAZINE 25 MG TAB PO SCH (08:38)
[2024-03-26] MEDS: Lantus 1000 UNITS/10 ML VIAL SC SCH (08:39)
[2024-03-26] MEDS ORDERED: Isosorbide Mononitrate 30 MG ER.TAB PO SCH (09:00)
[2024-03-28] MEDS: Ranolazine ER 500 MG TAB PO SCH ×2 (12:21→20:29)
[2024-03-28] MEDS: Calcitriol 0.25 MCG CAP PO SCH (12:22)
[2024-03-28] MEDS: Polyethylene Glycol 3350 17 GM Packet PO SCH (12:22)
[2024-03-28] MEDS: Pantoprazole DR 40 MG TAB PO SCH ×2 (12:22→20:31)
[2024-03-28] MEDS: Isosorbide Mononitrate 30 MG ER.TAB PO SCH (12:23)
[2024-03-28] MEDS: Carvedilol 6.25 MG TAB PO SCH ×2 (12:23→16:24)
[2024-03-28] MEDS: Aspirin 81 mg Enteric Coated Tablet PO SCH (12:24)
[2024-03-28] MEDS: Escitalopram Oxalate 10 mg Tablet PO SCH (12:25)
[2024-03-28] MEDS: Folic Acid 1 MG TAB PO SCH (12:25)
[2024-03-28] MEDS: Amlodipine 5 MG TAB PO SCH ×2 (12:25→20:31)
[2024-03-28] MEDS: CO Q-10 CAPSULE 100 MG PO SCH ×2 (12:26→20:29)
[2024-03-28] MEDS: Lantus 1000 UNITS/10 ML VIAL SC SCH (12:27)
[2024-03-29 06:45] VITALS: BMI 31.9
[2024-03-29] MEDS: Polyethylene Glycol 3350 17 GM Packet PO SCH (08:01)
[2024-03-29] MEDS: Isosorbide Mononitrate 30 MG ER.TAB PO SCH (08:02)
[2024-03-29] MEDS: Aspirin 81 mg Enteric Coated Tablet PO SCH (08:04)
[2024-03-29] MEDS: Folic Acid 1 MG TAB PO SCH (08:04)
[2024-03-29] MEDS: Escitalopram Oxalate 10 mg Tablet PO SCH (08:04)
[2024-03-29] MEDS: Lantus 1000 UNITS/10 ML VIAL SC SCH (08:05)
[2024-03-29] MEDS: Rosuvastatin 10 MG TAB PO SCH (21:12)
[2024-03-30] MEDS: Calcitriol 0.25 MCG CAP PO SCH (12:27)
[2024-03-31] MEDS: Amlodipine 5 MG TAB PO SCH (08:10)
[2024-04-02] MEDS ORDERED: Polyethylene Glycol 3350 17 GM Packet PO PRN (17:18)
[2024-04-03 05:19] LABS: #Basophils 0.1 thou/uL (0.0-0.2); #Eosinophils 0.5 thou/uL (0.0-0.7); #Lymphocytes 1.3 thou/uL (1.20-3.40); #Monocytes 0.6 thou/uL (0.11-0.59); #Neutrophils 3.3 thou/uL (1.40-6.50); %Basophils 1.4 % (0.0-1.0); %Eosinophils 8.6 % (0.0-10.0); %Lymphocytes 22.9 % (21.0-51.0); %Monocytes 10.9 % (0.0-10.0); %Neutrophils 56.2 % (42.0-75.0); Hemoglobin 8.8 g/dL (12.0-16.0); Mean Corpuscular HGB CONC 31.3 g/dL (32.0-36.0); Mean Corpuscular Hemoglobin 29.3 pg (27.0-31.0); Mean Corpuscular Volume 93.8 fl (78.0-98.0); Mean Platelet Volume 7.1 fL (7.4-10.4); Platelet Count 163 10x3/uL (130-400); RBC Distribution Width 15.9 % (11.5-14.5); Red Blood Cell (RBC) Count 2.99 mill/uL (4.20-5.40); White Blood Cell (WBC) Count 5.8 10x3/uL (4.8-10.8)
[2024-04-03 05:34] LABS: Anion Gap 13 mmol/L (10-20); BUN (Urea Nitrogen) 36 mg/dL (9.8-20.1); Calc. Creatinine Clearance 31 mL/min (70-130); Calcium 9.7 mg/dL (7.8-10.44); Carbon Dioxide 29 mmol/L (23-31); Chloride 99 mmol/L (98-107); Estimated GFR 21; Glucose 103 mg/dL (83-110); Potassium 3.8 mmol/L (3.5-5.1); Sodium 137 mmol/L (136-145)
[2024-04-04] MEDS: Escitalopram Oxalate 20 mg Tablet PO SCH (12:27)
[2024-04-07 05:54] LABS: #Basophils 0.1 thou/uL (0.0-0.2); #Eosinophils 0.5 thou/uL (0.0-0.7); #Lymphocytes 1.4 thou/uL (1.20-3.40); #Monocytes 0.5 thou/uL (0.11-0.59); #Neutrophils 3.4 thou/uL (1.40-6.50); %Basophils 1.2 % (0.0-1.0); %Lymphocytes 24.2 % (21.0-51.0); %Monocytes 8.8 % (0.0-10.0); %Neutrophils 56.7 % (42.0-75.0); Hematocrit 27.8 % (36.0-47.0); Hemoglobin 8.9 g/dL (12.0-16.0); Mean Corpuscular Hemoglobin 29.7 pg (27.0-31.0); Mean Corpuscular Volume 92.8 fl (78.0-98.0); Mean Platelet Volume 7.5 fL (7.4-10.4); Platelet Count 148 10x3/uL (130-400); RBC Distribution Width 15.2 % (11.5-14.5); Red Blood Cell (RBC) Count 2.99 mill/uL (4.20-5.40)
[2024-04-07 06:20] LABS: Anion Gap 13 mmol/L (10-20); BUN (Urea Nitrogen) 29 mg/dL (9.8-20.1); Calc. Creatinine Clearance 34 mL/min (70-130); Calcium 9.6 mg/dL (7.8-10.44); Carbon Dioxide 32 mmol/L (23-31); Chloride 99 mmol/L (98-107); Estimated GFR 24; Glucose 62 mg/dL (83-110); Potassium 4.2 mmol/L (3.5-5.1); Sodium 140 mmol/L (136-145)
[2024-04-07] MEDS: Lidocaine 4% Topical Sol 50 ML BOT TOP SCH (08:32)
[2024-04-09 05:27] VITALS: BMI 31.5
[2024-04-09 14:22] VITALS: BP 145/73; TEMP 97.7
== END 2024-04-09 14:34 | disposition home or self-care (01) | DRG 947 ==
LOC: NAV ACUTE 12:09
PROVIDERS: ADMIT Family Medicine; ATTEND Family Medicine
PROC: 5A09357 Assistance with Respiratory Ventilation, Less than 24 Consecutive Hours, Continuous Positive Airway Pressure (ICD-10-PCS; principal; 2024-03-25)
DX: R53.1 Weakness (principal); N18.6 End stage renal disease; I13.2 Hypertensive heart and chronic kidney disease with heart failure and with stage 5 chronic kidney disease, or end stage renal disease; I50.32 Chronic diastolic (congestive) heart failure; R53.81 Other malaise; D63.1 Anemia in chronic kidney disease; I25.10 Atherosclerotic heart disease of native coronary artery without angina pectoris; K21.9 Gastro-esophageal reflux disease without esophagitis; F41.9 Anxiety disorder, unspecified; F32.A Depression, unspecified; E11.22 Type 2 diabetes mellitus with diabetic chronic kidney disease; R13.10 Dysphagia, unspecified; Z90.710 Acquired absence of both cervix and uterus; G47.33 Obstructive sleep apnea (adult) (pediatric); Z95.5 Presence of coronary angioplasty implant and graft; Z99.2 Dependence on renal dialysis; Z86.73 Personal history of transient ischemic attack (TIA), and cerebral infarction without residual deficits; Z90.49 Acquired absence of other specified parts of digestive tract; Z98.890 Other specified postprocedural states; Z86.16 Personal history of COVID-19
CPT/HCPCS: 36415; 36416; 80048; 80053; 85025; J1644; J1815; J7620

== ENCOUNTER 2024-08-19 14:05 | Emergency (ER) | payer MEDICARE | END 2024-08-19 16:31 | disposition home or self-care (01) | LOC: NAV ERS 14:05 | DX: S00.83XA Contusion of other part of head, initial encounter (principal); I10 Essential (primary) hypertension; E11.9 Type 2 diabetes mellitus without complications; K21.9 Gastro-esophageal reflux disease without esophagitis; E03.9 Hypothyroidism, unspecified; E78.5 Hyperlipidemia, unspecified; M19.90 Unspecified osteoarthritis, unspecified site; K58.9 Irritable bowel syndrome, unspecified; H40.059 Ocular hypertension, unspecified eye; W18.09XA Striking against other object with subsequent fall, initial encounter; Z95.5 Presence of coronary angioplasty implant and graft; Z86.73 Personal history of transient ischemic attack (TIA), and cerebral infarction without residual deficits; Z79.4 Long term (current) use of insulin; Z79.82 Long term (current) use of aspirin; Z79.899 Other long term (current) drug therapy | CPT/HCPCS: 70450 ==